=== PATIENT | female | born 1995 | race Caucasian/White ===

== ENCOUNTER 2023-07-17 20:06 | Outpatient (REF) | payer OTHER, SELFPAY ==
[2023-07-23 16:09] LABS: Age Gdln ACOG Testing Note (.); IGP, rfx Aptima HPV ASCU Note (.)
== END 2023-07-17 20:07 | disposition home or self-care (01) ==
LOC: LAB 20:06
PROVIDERS: Visit Provider Physician Assistant
DX: Z01.419 Encounter for gynecological examination (general) (routine) without abnormal findings (principal)
CPT/HCPCS: G0145

== ENCOUNTER 2023-10-08 09:26 | Outpatient (OUT) | payer OTHER, SELFPAY ==
[2023-10-08 10:18] LABS: Chol HDL Ratio 2.5; Cholesterol 166 mg/dL (<=200); HDL Cholesterol 66 mg/dL (40-60); Triglycerides 62 mg/dL (<=150); VLDL CHOLESTEROL 12.4 mg/dL
[2023-10-08 14:14] LABS: Alanine Aminotransferase 31 U/L (14-59); Albumin Globulin Ratio 0.8; Albumin Level 3.2 g/dL (3.4-5.0); Alkaline Phosphatase 94 U/L (46-116); Aspartate Amino Transferase 15 U/L (15-37); Bilirubin Direct 0.1 mg/dL (0.0-0.2); Bilirubin Total 0.2 mg/dL (0.2-1.0); Total Protein 7.2 g/dL (6.4-8.2)
== END 2023-10-08 09:27 | disposition home or self-care (01) ==
LOC: LAB 09:28
PROVIDERS: Visit Provider Physician Assistant
DX: Z00.00 Encounter for general adult medical examination without abnormal findings (principal); Z79.899 Other long term (current) drug therapy
CPT/HCPCS: 36415; 80061; 80076

== ENCOUNTER 2025-07-25 20:12 | Outpatient (REF) | payer OTHER, SELFPAY ==
--- OUTSIDE RECORDS SUMMARY | 2024-08-12 11:49 | XMS_ITS ---
Author Organization [facility] in [place] Address [address] [place] [address] Care Team Providers Care Ballistics Tester Name Role Phone None, Unknown or Primary Care Provider Unavailab Ender Mcleod [phone] REASON FOR VISIT Called about CPAP supplies Encounters Encounter Location Date Provider Diagnosis [facility] [place] [address] [facility] [address] [place] [address] 08/12/2024 Ender Shrestha Plan Of Treatment No Information Progress Notes * Merline MOHR NDOB:[birth year] (29 yo F)Acc No.[id number]:08/12/2024 Patient: Merline TEIXEIRA :1995 A ge:29 Y S ex:Female Address:[address] [place] [address], [address] * true * Date: Generated for Thomasi nam/Lola/eTransmitting on: 0 07/25/2025 08:33 AM EDT
--- OUTSIDE RECORDS SUMMARY | 2025-05-09 08:00 | XMS_ITS ---
Author Organization [facility] [place] Address [address] [place] [address] Care Team Providers Care Housekeeping Aid Name Role Phone Camron Fried Primary Care Provider Unavaila ERIK Marroquin Unavailable [phone] DEBORAH SMALL Unavailable [phone] REASON FOR VISIT 6 month f/u RALPH Encounters Encounter Location Date Provider Diagnosis [facility] [place] [address] [address] 05/09/2025 DEBORAH SMALL Plan Of Treatment No Information Progress Notes * Merline CARTER NDOB:[birth year] (29 yo F)Acc No.[id number]:05/09/2025 Progress Notes Patient: David MCKEONELVINCollinsMerline N Provider: АНДРЕЙ Servin :1995 A ge:29 Y S ex:Female Date:05/09/2025 Address:[address] [place], [place] [id number] Pcp:Camron Fried Subjective: * Chief Complaints: * 1 . 6 month f/u RALPH. * Medical History: Objective: * Vitals: Assessment: Plan: * Treatment: * Billing Information: * Visit Code: * Procedure Codes: * Electronic signature of SOCO SMALL NP on 07/25/2025 at 08:16 PM EDT Sign off status: Pending * Provider: АНДРЕЙ Servin Date: 05/09/2025 Generated for Printi ng/Faxing/eTransmitting on: 0 07/25/2025 08:16 PM EDT
--- OUTSIDE RECORDS SUMMARY | 2025-07-25 15:30 | XMS_ITS | Encounter Summary ---
Author Organization [facility] Address [address] [place] [address] Care Team Providers Care It Operations Specialist Name Role Phone Unavailable Primary Care Provider Unavailabl e Reason for Visit * Reason Comments Gynecologic Exam Pre-op Visit Encounter Details Date Type Department Care Team (Latest Contact Info) Description 07/25/2025 3:30 PM EDT Procedure Visit [facility] [address] [place] [address] Buzz Deng DO [address] [place], [facility] Well woman exam with routine gynecological exam; Pre-op examination; Request for sterilization Social History Tobacco Use Types Packs/Day Years Used Date Smoking Tobacco: Never Smokeless Tobacco: Never Alcohol Use Standard Drinks/Week Comments Never 0 (1 standard drink = 0.6 oz pur e alcohol) Comments No Sex and Gender Information Value Date Recorded Sex Assigned at Female 04/23/2023 9:44 AM EDT Legal Sex Female 9:50 PM EDT Gender Identity Female 04/23/2023 9:44 AM EDT Sexual Orientation Straight 04/23/2023 9: 44 AM EDT documented as of this encounter Last Filed Vital Signs Vital Sign Reading Time Taken Comments Blood Pressure 122/74 07/25/2025 4:11 PM EDT Pulse - - Temperature - - Respiratory Rate - - Oxygen Saturation - - Inhaled Oxygen Concentration - - Weight 76.7 kg (169 lb) 07/25/2025 4:11 PM EDT Height 162.6 cm (5' 4 ) 07/25/2025 4:11 PM EDT Body Mass Index 29.01 07/25/2025 4:11 PM EDT documented in this encounter Plan of Treatment Upcoming Encounters Date Type Department Care Team (Late st Contact Info) Description 08/25/2025 3:30 PM EDT Office [facility] [address] [facility] [address] [place] [address] No Mclaughlin NP [address] [place] [address] Scheduled Orders Name Type Priority Associated Diagnoses Orde r Schedule Pap Smear Pathology and Cytology Routine Well woman exam with routine gynecological exam Ordered: 07/25/2025 HPV DNA probe, amplified Microbiology Routine Well woman exam with routine gynecological exam Ordered: 07/25/2025 documented as of this encounter Visit Diagnoses Diagnosis Well woman exam with routine gynecological exam Routine gynecological examination Pre-op examination Request for sterilization documented in this encounter
--- OUTSIDE RECORDS SUMMARY | 2025-07-25 20:16 | XMS_ITS | Clinical Summary ---
Author Organization [facility] Address [address] [place] [address] Care Team Providers Care Administrative Receptionist Name Role Phone Unavailable Primary Care Provider Unavailabl e Allergies Active Allergy Reactions Criticality Noted Date Comments Citalopram Unknown 09/03/2019 Lurasidone Unknown 09/03/2019 Other 10/19/2020 Other Reaction(s): Suicidal Quetiapine 10/08/2023 Medications clonazePAM (KlonoPIN) 1 MG tablet Take 1 mg by mouth in the morning. Active escitalopram (Lexapro) 20 MG tablet Take 20 mg by mouth in the morning. 04/05/20 23 Active ziprasidone (Geodon) 60 MG capsule TAKE 1 CAPSULE BY MOUTH TWICE DAILY WITH FOOD 04/05/20 23 Active benztropine (Cogentin) 1 MG tablet Take 1 mg by mouth at bedtime. 05/04/20 23 Active buPROPion XL (Wellbutrin XL) 300 MG 24 hr tablet Take 300 mg by mouth Daily Do not crush, chew, or split. Active buPROPion XL (Wellbutrin XL) 150 MG 24 hr tablet Wellbutrin XL 025 Discontinued buPROPion XL (Wellbutrin XL) 150 MG 24 hr tablet Take 150 mg by mouth in the morning. 03/04/20 025 Discontinued hydrOXYzine pamoate (Vistaril) 25 MG capsule Take 25 mg by mouth in the morning and 25 mg in the evening and 25 mg before bedtime. 04/05/20 025 Discontinued OXcarbazepine (Trileptal) 300 MG tablet Take 300 mg by mouth in the morning and 300 mg before bedtime. 04/05/20 23 025 Discontinued phentermine (Adipex-P) 37.5 MG tablet 1 (one) time each day at the same time. 03/27/20 23 025 Discontinued norethindrone (Maria Luisa-BE) 0.35 MG tabletIndicati ons: control counseling Take 1 tablet (0.35 mg) by mouth in the morning. 28 tablet 12 01/19/20 24 025 Discontinued spironolactone (Aldactone) 25 MG tabletIndicati ons:PCOS (polycystic ovarian syndrome) Take 2 tablets (50 mg) by mouth Daily 60 tablet 11 02/12/20 24 024 Discontinued(Ot her) Adapalene-Santosh oyl Peroxide 0.1-2.5 % gelIndications :Acne, unspecified acne type Apply pea-size amount to T-zone, chin and problem areas nightly. 45 g 3 02/12/20 24 025 Discontinued Adapalene-Santosh oyl Peroxide 0.1-2.5 % gelIndications :Acne, unspecified acne type Apply pea-size amount to T-zone, chin and problem areas nightly. 45 g 2 02/12/20 24 025 Discontinued metFORMIN XR (Glucophage-XR ) 500 MG 24 hr tabletIndicati ons:Insulin resistance TAKE 2 TABLETS BY MOUTH IN THE EVENING WITH MEALS 60 tablet 3 09/27/20 24 025 Discontinued Active Problems Problem Noted Date Diagnosed Date Request for sterilization 06/27/2025 Bipolar disorder with depression 07/17/2023 Hormone imbalance 07/17/2023 Obesity 07/17/2023 Pelvic pain 07/17/2023 Polycystic ovaries 07/17/2023 Anxiety 07/17/2023 Abnormal uterine bleeding 07/17/2023 Encounters Date Type Department Care Team Description 07/25/2025 3:30 PM EDT Procedure Visit [facility] [address] [place] [address] Buzz Deng, Well woman exam with routine gynecological exam; Pre-op examination; Request for sterilization 06/27/2025 3:10 PM EDT Office Visit [facility] [address] [place] [address] Buzz Deng DO Request for sterilization 06/27/2025 Bamboo flowsheet [facility] [address] [place] [address] Buzz Deng DO 06/27/2025 Travel from Last 3 Months Family History Medical History Relation Name Comments Heart disease Maternal Grandfather Heart disease Maternal Grandmother Cancer Mother Heart disease Mother Hypertension Mother Relation Name Status Comments Maternal Grandfather Maternal Grandmother Mother Paternal Grandfather Paternal Grandmother Social History Tobacco Use Types Packs/Day Years Used Date Smoking Tobacco: Never Smokeless Tobacco: Never Tobacco Cessation:Counseling Given: Not Answered Alcohol Use Standard Drinks/Week Comments Never 0 (1 standard drink = 0.6 oz pur e alcohol) Comments No Sex and Gender Information Value Date Recorded Sex Assigned at Female 04/23/2023 9:44 AM EDT Legal Sex Female 9:50 PM EDT Gender Identity Female 04/23/2023 9:44 AM EDT Sexual Orientation Straight 04/23/2023 9: 44 AM EDT Last Filed Vital Signs Vital Sign Reading Time Taken Comments Blood Pressure 122/74 07/25/2025 4:11 PM EDT Pulse - - Temperature - - Respiratory Rate - - Oxygen Saturation - - Inhaled Oxygen Concentration - - Weight 76.7 kg (169 lb) 07/25/2025 4:11 PM EDT Height 162.6 cm (5' 4 ) 07/25/2025 4:11 PM EDT Body Mass Index 29.01 07/25/2025 4:11 PM EDT Plan of Treatment Upcoming Encounters Date Type Department Care Team (Late st Contact Info) Description 08/25/2025 3:30 PM EDT Office Visit [facility] [address] [place] [address] No Mclaughlin NP [address] [place] [address] Insurance MEDICAID
--- OUTSIDE RECORDS SUMMARY | 2025-07-25 20:16 | XMS_ITS | Patient Health Record ---
Author Organization [facility] Address [address] [facility] [address] [facility] [place] [address] Care Team Providers Care Pulper Operator Name Role Phone Zakiya Gunn Primary Care Provider Allergies Allergen (clinical drug ingredient) Drug/Non Drug Allergy documented on EMR Reaction Allergy Type Onset Date Status Citalopram & Diet Manage Prod Suicidal Drug Allergy Active Results Component Value Reference Range Notes ECG 12 lead ECG Reviewed date:09/18/2024 08:26:06 AM Interpretation: Performing Lab: Notes/Report: [facility] Main [address] [address] Electrocardiograph Report Signed Patient: Jaerd Crespo MR#: [id number] : 1995 Acct:[id number] Age/Sex: 29 / F ADM Date: 09/17/24 Loc: Room: Type: [facility] Attending Dr: Zakiya Gunn [employer]ARD SAW [employer]NER-C Ordering Provider: Zakiya Gunn Date of Service: 09/17/24 ECG/ECG 12 lead ECG: Preoperative clearance Copies to: Test Reason : Blood Pressure : */* mmHG Vent. Rate : 95 BPM Atrial Rate : 95 BPM P-R Int : 142 ms QRS Dur : 82 ms QT Int : 346 ms P-R-T Axes : -3 -27 8 degrees QTcB Int : 434 ms Normal sinus rhythm Normal ECG When compared with ECG of 15-Apr-2021 09:04, QRS axis shifted left Confirmed by SYLVIA SUE [facility], NILDA ([id number]) on 09/17/2024 5:22:13 PM Referred By: Electronically Signed By: NILDA PRASAD MD [facility] Transcribed By: MUS Signed By Nilda Prasad MD, [facility] 09/17/24 1722 Reason For Referral No Information Medications Medication SIG (Take, Route, Frequency, Duration) Notes Start Date End Date Status Benztropine Mesylate 1 MG 1 tablet Orally Once a day Active hydrOXYzine Pamoate 25 MG 1 capsule Orally Twice per day Active Lexapro 20 MG 1 tablet Orally Once a day Active Adapalene-Benzoyl Peroxide 0.1-2.5 % 1 application after washing Externally Once a day Active Geodon 60 MG 1 capsule with food Orally Twice a day Active metFORMIN HCl ER 500 MG 2 tablets Oral Once a day; Duration: 30 days Active metFORMIN HCl ER 500 MG TAKE 2 TABLETS BY MOUTH IN THE EVENING WITH MEALS Oral; Duration: 30 Days [id number],Unavai lable Active Biotin 10 MG 1 tablet Orally Once a day Active Spironolactone 50 MG 1 tablet Orally Once a day Active Norethindrone 0.35 MG 1 tablet Oral Once a day; Duration: 28 days Active OXcarbazepine ER 150 MG 3 tablets on an empty stomach Orally Once a day Active KlonoPIN 0.5 MG 1 tablet Orally Once a day PRN Not-Taking buPROPion HCl ER (XL) 300 MG 1 tablet in the morning Orally Once a day Active Immunizations Vaccine Route Administration Date Status Comme nts zzz do not use Adult flu Unknown 01/24/2017 Refused zzz do not use Adult flu Unknown 09/09/2017 Refused Social History Tobacco Use: Social History Observation Description Date Details (start date - stop date) Former Smoker NA - NA Tobacco Screen: Question Answer Notes Are you a: former smoker How long has it been since you last smoked? 1-5 years Sexual Hx: Question Answer Notes Had sex in the last 12 months (vaginal, oral, or anal)? Yes Have you ever had an STD? No Alcohol Screening: Question Answer Notes Did you have a drink contain ing alcohol in the past year? Yes How often did you have a dri nk containing alcohol in the past year? Monthly or less (1 point) How many drinks did you have on a typical day when you were drinking in the past year? 1 or 2 (0 points) How often did you have six o r more drinks on one occasion in the past year? Less than monthly (1 point) Points 2 Interpretation Negative Section Notes: Denies tobacoo, alcohol, ill icit drug use. Lives with parents. At [facility], March 2012. 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 Denies tobacoo, alcohol, illicit drug use. Lives with parents. At [facility], March 2012. 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 09-14-12: denies tobacco use. Denies ETOH. Denies illegal drug use. Denies tobacoo, alcohol, ill icit drug use. Lives with parents. At [facility], March 2012. 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 Denies tobacoo, alcohol, ill icit drug use. Lives with parents. At [facility], March 2012. 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 Denies tobacoo, alcohol, illicit drug use. Lives with parents. At [facility], March 2012. 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 09-14-12: denies tobacco use. Denies ETOH. Denies illegal drug use. Denies tobacoo, alcohol, illicit drug use. Lives with parents. At [facility], March 2012. 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 09-14-12: denies tobacco use. Denies ETOH. Denies illegal drug use. Denies tobacoo, alcohol, illicit drug use. Lives with parents. At [facility], March 2012. 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 09-14-12: denies tobacco use. Denies ETOH. Denies illegal drug use. Denies tobacoo, alcohol, illicit drug use. Lives with parents. At [facility], March 2012. 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 09-14-12: denies tobacco use. Denies ETOH. Denies illegal drug use. Denies tobacoo, alcohol, illicit drug use. Lives with parents. At [facility], March 2012. 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 09-14-12: denies tobacco use. Denies ETOH. Denies illegal drug use. Denies tobacoo, alcohol, illicit drug use. Lives with parents. At [facility], March 2012. 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 09-14-12: denies tobacco use. Denies ETOH. Denies illegal drug use. Denies tobacoo, alcohol, ill icit drug use. Lives with parents. At [facility], 2011. 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 Denies tobacoo, alcohol, ill icit drug use. Lives with parents. At [facility], March 2012. 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 Denies tobacoo, alcohol, ill icit drug use. Lives with parents. At [facility], March 2012. 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 Denies tobacoo, alcohol, illicit drug use. Lives with parents. At [facility], March 2012. 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 09-14-12: denies tobacco use. Denies ETOH. Denies illegal drug use. Denies tobacoo, alcohol, illicit drug use. Lives with parents. At [facility], March 2012. 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 09-14-12: denies tobacco use. Denies ETOH. Denies illegal drug use. Denies tobacoo, alcohol, illicit drug use. Lives with parents. At [facility], March 2012. 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 09-14-12: denies tobacco use. Denies ETOH. Denies illegal drug use. Denies tobacoo, alcohol, illicit drug use. Lives with parents. At [facility], March 2012. 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 09-14-12: denies tobacco use. Denies ETOH. Denies illegal drug use. 06/29/15: Denies tobacco, ETOH and illegal drug used. 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 Denies tobacoo, alcohol, illicit drug use. Lives with parents. At [facility], graduates MARCH 2012. 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 09-14-12: denies tobacco use. Denies ETOH. Denies illegal drug use. 06/29/15: Denies tobacco, ETOH and illegal drug used. 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 Denies tobacoo, alcohol, illicit drug use. Lives with parents. At [facility], graduates [employer]ARCH 2012. 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 09-14-12: denies tobacco use. Denies ETOH. Denies illegal drug use. 06/29/15: Denies tobacco, ETOH and illegal drug used. 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 Denies tobacoo, alcohol, illicit drug use. Lives with parents. At [facility], graduates [employer]ARCH 2012. 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 09-14-12: denies tobacco use. Denies ETOH. Denies illegal drug use. 06/29/15: Denies tobacco, ETOH and illegal drug used. 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 Denies tobacoo, alcohol, illicit drug use. Lives with parents. At [facility], graduates [employer]ARCH 2012. 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 09-14-12: denies tobacco use. Denies ETOH. Denies illegal drug use. Problems Problem Type SNOMED Code ICD Code Onset Dates Problem Status W/U Status Risk Notes Problem Obesity (E66.9) Active confirmed Problem Morbid obesity (481959130) Morbid obesity (E66.01) Active confirmed Problem Bipolar disorder (24601590) Bipolar disorder (F31.9) Active confirmed Vital Signs Heart Rate 100 /min 01/28/2025 Temperature 97.8 degrees Fahrenheit 01/28/2025 Respiratory Rate 20 /min 01/28/2025 Oximetry 94 % 01/28/2025 Blood pressure diastolic 78 mm Hg 01/28/2025 Height 63 in 01/28/2025 Blood pressure systolic 116 mm Hg 01/28/2025 Weight 233.2 lbs 01/28/2025 BMI 41.31 kg/m2 01/28/2025 Encounters Encounter Location Date Provider Diagnosis [facility] [address] [place] [address] 08/10/2024 Zakiya Ortizson [facility] [address] [place] [address] 08/20/2024 Zakiya Gunn Preoperative clearance Z01.818 [place] [address] [place] [address] 08/30/2024 Zakiya Gunn [place] [address] [place] [address] 09/18/2024 Zakiya Gunn [place] [address] [place] [address] 11/29/2024 Zakiya Gunn [place] [address] [place] [address] 12/02/2024 Zakiya Luis A [facility] [address] [place] [address] 01/19/2025 Zakiya Gunn [place] [address] [place] [address] 01/31/2025 Zakiya Gunn [facility] [address] [place] [address] 07/30/2024 Zakiya Luis A Pre-op evaluation Z01.818 and Morbid obesity E66.01 [facility] [address] [place] [address] 01/28/2025 Zakiya Luis A Preoperative clearance Z01.818 ; Morbid obesity E66.01 and control counseling Z30.09 Assessments Encounter Date Diagnosis (ICD Code) Assessment Notes Treatment Notes Treatment Clinical Notes Section Notes 07/30/2024 Morbid obesity (ICD-10 - E66.01) Pt does have plans to have bariatric surgery. 07/30/2024 Pre-op evaluation (ICD-10 - Z01.818) Pending testing and cardiology, pulm consults, patient is currently medically stable and low medical risk for surgery. Discussed avoiding blood thinners such as aspirin, fish oils for 7 days prior to surgery. Also discussed risk of infection, and that all surgeries come with inherent risk that we cannot predict. Notify surgical team of any chest pain, stroke signs, worsening shortness of breath after seeking emergency care for said conditions. Instructed in cough and deep breathing. Encouraged to avoid tobacco smoke as this increases risk for lung complications. Encouraged to report to surgical team and PCP should patient develop URI symptoms of other illness close to scheduled procedure. 08/20/2024 Preoperative clearance (ICD-10 - Z01.818) 01/28/2025 Morbid obesity (ICD-10 - E66.01) Pt requests for BOARD SAW RUNNER to take over prescribing her metformin and control. 01/28/2025 Preoperative clearance (ICD-10 - Z01.818) Patient is currently medically stable and low medical risk for surgery. Discussed avoiding blood thinners such as aspirin, fish oils for 7 days prior to surgery. Also discussed risk of infection, and that all surgeries come with inherent risk that we cannot predict. Notify surgical team of any chest pain, stroke signs, worsening shortness of breath after seeking emergency care for said conditions. Instructed in cough and deep breathing. Encouraged to avoid tobacco smoke as this increases risk for lung complications. Encouraged to report to surgical team and PCP should patient develop URI symptoms of other illness close to scheduled procedure. 01/28/2025 control counseling (ICD-10 - Z30.09) Will take over scripts but has to remain UTD with paps. Appears due in Jul 25. Plan Of Treatment No Information Insurance Providers Payer Name Payer Address Payer Phone Subscriber Number Group Number Insured Name Patient Relationship to Insured Coverage Start Date Coverage End Date [place] [employer] [address] [address] [place] [address] [id number] YEN FloydJARED Self - patient is the insured 3 [employer] [place] [address] [place] [address] [id number] YEN FloydJARED Self - patient is the insured 3 [facility] [address] [address] [place] [address] [id number] LAMONTEPATRICIABRANDON JARED Floyd Self - patient is the insured 9 [facility] [place] [facility] rmed [address] [place] [address] [id number] ANUPAMABRANDON FloydJARED Self - patient is the insured 9 3 [employer] [place]-term ed [address] [address] [place] [address] [id number] ANUPAMABRANDON JARED Floyd Self - patient is the insured [facility] after [place]-term ed [address] [place] [address] [id number] ANUPAMABRANDON JARED Floyd Self - patient is the insured 0 Medical (General) History Medical History History ICD Code RT LOWER LEG DVT. 04/17/12 Depression Factor IV Leiden D/O Morbid Obesity PCOS Hospitalization History Reason Date(Month/Year) bipolar bipolar R LE DVT -> 6 months of anticoagulatoin 03/2012
--- OUTSIDE RECORDS SUMMARY | 2025-07-25 20:16 | XMS_ITS | Encounter Summary ---
Author Organization [facility] Address [address] [place] [address] Care Team Providers Care Drafter Mechanical Name Role Phone Unavailable Primary Care Provider Unavailabl e Encounter Details Date Type Department Care Team (Late Contact Info) Description 04/23/2023 Abstract NOM[facility]na BEYER [address] [place] [address] Raquel Narvaez PA [address] [place], [facility] Social History Tobacco Use Types Packs/Day Years Used Date Smoking Tobacco: Never Smokeless Tobacco: Never Tobacco Cessation:Counseling Given: Not Answered Alcohol Use Standard Drinks/Week Comments Never 0 (1 standard drink = 0.6 oz pur e alcohol) Comments Unknown Sex and Gender Information Value Date Recorded Sex Assigned at Female 04/23/2023 9:44 AM EDT Legal Sex Female 9:50 PM EDT Gender Identity Female 04/23/2023 9:44 AM EDT Sexual Orientation Straight 04/23/2023 9: 44 AM EDT documented as of this encounter Plan of Treatment Upcoming Encounters Date Type Department Care Team (Late Contact Info) Description 08/25/2025 3:30 PM EDT Office Visit [facility] BEY[facility] [address] [place] [address] No Mclaughlin, GURPREET [address] [place] [address] documented as of this encounter Visit Diagnoses Not on filedocumented in this encounter
--- OUTSIDE RECORDS SUMMARY | 2025-07-25 20:16 | XMS_ITS | Encounter Summary ---
Author Organization [facility] Address [address] [facility] [place] [address] Care Team Providers Care Cake Winder Name Role Phone Unavailable Primary Care Provider Unavailabl e Encounter Details Date Type Department Care Team (Late st Contact Info) Description 05/13/2024 Abstract LELO BEYER [address] [place] [address] Zaria Lakhani LPN Social History Tobacco Use Types Packs/Day Years [...] Office Visit LELO BEYER [address] [place] [address] No Mclaughlin NP [address] [place] [address] documented as of this encounter Visit Diagnoses Not on filedocumented in this encounter
--- OUTSIDE RECORDS SUMMARY | 2025-07-25 20:17 | XMS_ITS | CCD ---
Author Organization [facility] Care Team Providers Care Instructor Knitting Name Role Phone Natividad Kessler Primary Care Provider Ashley Judy Sim Attending Provider Unavailable Chuy Meeks Admit Provider Unavailfrancine e Chuy Meeks Attending Provider Unavail able Navin Hinson Attending Provider Unavailable PIPPA BE Attending Unavailable ISH, DR MINOR Attending Unavailable MISC, DR PANTOJA Primary Care Unavailable ISH, DR MINOR Admitting Unavailable ISH, DR MINOR Consulting Unavailable MISC, DR PANTOJA Primary Care Unavailable ISH, DR IMNOR Admitting Unavailable ISH, DR MINOR Attending Unavailable Paramjit Jaimes Unavailable Vanessa Sinclair Unavailable BRIDGET Kessler Primary Care Provide r BRIDGET Montoya Emergency Provider TRISHA ABBOTT Attending Unavailable TRISHA ABBOTT Referring Unavailable NONE, NONE Primary Care Unavailable TRISHA ABBOTT Attending Unavailable TRISHA ABBOTT Referring Unavailable NONE, NONE Primary Care Unavailable TRISHA ABBOTT Attending Unavailable TRISHA ABBOTT Referring Unavailable NONE, NONE Primary Care Unavailable TRISHA ABBOTT Attending Unavailable TRISHA ABBOTT Referring Unavailable NONE, NONE Primary Care Unavailable TRISHA ABBOTT Referring Unavailable NONE, NONE Primary Care Unavailable BRIDGET Kessler Primary Care Provide r MD John Meeks Attending Provider GENEVIEVE Gunn Primary Care Provider GENEVIEVE Gunn Attending Pr ovider Zakiya Gunn Attending U oliverable Gunn, Zakiya Cervantes Primary Care U navailable Gunn, Zakiya Cervantes Admitting U navailable 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, Zakiya Primary Care Prov ider None, None Primary Care Provider UnavailALYCIA Alejandro Referring Unavailable GUNN, ZAKIYA Primary Care Unavailable ABBOTTTRISHA R Attending Unavailable ABBOTT, TRISHA R Admitting Unavailable GUNN, ZAKIYA Primary Care Unavailable ABBOTT, TRISHA R Admitting Unavailable ABBOTT, TRISHA R Attending Unavailable GUNN, ZAKIYA Primary Care Unavailable ABBOTT, TRISHA R Referring Unavailable GUNN, ZAKIYA Primary Care Unavailable ABBOTT, TRISHA R Referring Unavailable GUNN, ZAKIYA Primary Care Unavailable ABBOTT, TRISHA R Referring Unavailable GUNN, ZAKIYA Primary Care Unavailable ABBOTT, TRISHA R Referring Unavailable GUNN, ZAKIYA Primary Care Unavailable Gunn, Zakiya Primary Care Unavailable ALYCIA WANG Attending Unavailable KATHLEEN, ALYCIA Admitting Unavailable Myerholtz, Natividad K Primary Care Unavailab le ALYCIA WANG Attending Unavailable ALYCIA WANG Admitting Unavailable GENEVIEVE Medina Attending Unavailable GENEVIEVE Medina Admitting Unavailable Provider, None Primary Care Unavailable Mariella Clinton PA-C Admitting Unavailable Gunn, Zakiya Primary Care Unavailable Mariella Clinton PA-C Attending Unavailable Bel Coelho Attending Bel Zaldivar Admitting Unaspring mcdonald Provider, None Primary Care Unavailable Unavailable Primary Care Provider UnavailBUZZ Alfredo Attending Unavailable Unavailable Unavailable Unavailable Allergies Allergy Classification Reported Allergen(s) Allergy Type Date of Onset Reaction(s) Facility (20 sources) Citalopram; Translations: [citalopram] Drug Allergy 9 Other (See Comments), Unknown [facility] (17 sources) lurasidone Drug Allergy 9 Other (See Comments), Unknown [facility] (3 sources) Citalopram; Translations: [CeleXA] Drug Allergy 7 [facility] (2 sources) lurasidone; Translations: [Latuda] Drug Allergy [facility] (7 sources) lurasidone Drug Allergy 2 Unknown [facility] (15 sources) QUEtiapine Drug Allergy 1 Other (See Comments) [facility] (1 source) Citalopram & Diet Manage Prod Allergy to substance 2 suicidal [facility] (1 source) QUEtiapine; Translations: [SEROquel] Drug Allergy [facility] (3 sources) Other Allergy to substance 0 [facility] Medications Current Medications Medication Drug Class(es) Dates Sig (Normalized) Sig (Original) acetaminophen 325 mg / oxyCODONE hydrochloride 5 mg oral tablet (3 sources) Opioid Agonist Start: 02-17-2025 End: 02-22-2025 oxyCODONE-acetamino phen (PERCOCET) 5-325 MG per tablet Indications: S/P laparoscopic sleeve gastrectomy , Post-op pain Take 1 tablet by mouth every 6 hours as needed for Pain for up to 5 days. Max Daily Amount: 4 tablets 20 tablet 02/17/2025 02/22/2025 Active Start: 02-16-2025 oxyCODONE-acet aminophen (PERCOCET) 5-325 MG per tablet 1 tablet amoxicillin 875 mg / clavulanate 125 mg oral tablet (2 sources) Penicillin-class Antibacterial Start: 07-28-2023 take 1 tablet by mouth twice daily Amoxicillin-Pot Clavulanate Active 1 TAB PO Twice daily July 28, 2023 12:00am benztropine mesylate 1 mg oral tablet (20 sources) Anticholinergic, Antihistamine Start: 05-04-2023 take 1 tablet by mouth at bedtime benztropine (Cogentin) 1 MG tablet Take 1 mg by mouth at bedtime. 05/04/2023 Active Start: 04-08-2021 End: 08-11-2021 take 1 tablet by mouth once daily benztropine (COGENTIN) 1 MG tablet Take 1 tablet by mouth nightly 60 tablet 05/15/2021 Active 24 hr buPROPion hydrochloride 150 mg extended release oral tablet (20 sources) Aminoketone Start: 03-04-2023 End: 06-27-2025 take 1 tablet by mouth every twenty-four hours in the morning buPROPion XL (Wellbutrin XL) 150 MG 24 hr tablet Take 150 mg by mouth in the morning. 03/04/2023 Active Start: 08-11-2021 take 150 mg by mouth once daily in the morning Bupropion Hcl Active 150 MG PO Every morning 14 August 11, 2021 12:00am Start: 03-12-2018 End: 07-29-2018 take 300 mg by mouth once daily in the morning Bupropion Hcl Discontinued 300 MG PO Every morning March 12, 2018 12:00am July 29, 2018 10:23pm Start: 01-13-2018 End: 08-07-2018 take 150 mg by mouth once daily in the morning Bupropion Hcl Discontinued 150 MG PO Every morning January 13, 2018 1:00am August 07, 2018 8:41am busPIRone hydrochloride 10 mg oral tablet (20 sources) Start: 08-11-2021 take 10 mg by mouth three times daily Buspirone Active 10 MG PO Three times daily 42 August 11, 2021 12:00am Start: 07-31-2021 End: 08-11-2021 take 10 mg by mouth three times daily Buspirone Discontinued 10 MG PO Three times daily July 31, 2021 12:00am August 11, 2021 11:32am Start: 11-28-2017 End: 03-12-2018 take 15 mg by mouth three times daily Buspirone Discontinued 15 MG PO Three times daily January 07, 2018 5:07pm March 12, 2018 11:40am Start: 11-27-2017 End: 11-28-2017 take 1 tablet by mouth twice daily Buspirone Discontinued 1 TAB PO Twice daily November 27, 2017 1:00am November 28, 2017 11:27am take 2 tablets by [facility] every eight hours busPIRone HCl 10 MG 2 tablet Orally tid Active calcium chloride 0.0014 meq/ml / potassium chloride 0.004 meq/ml / sodium chloride 0.103 meq/ml / sodium lactate 0.028 meq/ml injectable solution (1 source) Start: 02-16-2025 IntraVENous, at 125 mL/hr, CONTINUOUS, Starting on Fri02/16/25 at 1715, Post-op cyclobenzaprine hydrochloride 10 mg oral tablet (4 sources) Muscle Relaxant Start: 02-16-2025 End: 02-27-2025 take 1 tablet by mouth three times daily as needed for muscle spasms cyclobenzaprine (FLEXERIL) 10 MG tablet Take 1 tablet by mouth 3 times daily as needed for Muscle spasms 21 tablet 02/17/2025 02/27/2025 Active 1 ml enoxaparin sodium 100 mg/ml prefilled syringe (4 sources) Low Molecular Weight Heparin Start: 02-24-2025 End: 03-17-2025 enoxaparin (LOVENOX) 100 MG/ML Indications: Factor V Leiden mutation Inject 1 mL into the skin 2 times daily for 21 days 42 mL 02/24/2025 03/17/2025 Active Start: 02-17-2025 End: 03-03-2025 enoxaparin (LOVENOX) 60 MG/0 .6ML Inject 0.6 mLs into the skin 2 times daily for 14 days 16.8 mL 02/17/2025 03/03/2025 Active ergocalciferol 1.25 mg oral capsule (3 sources) Provitamin D2 Compound Start: 08-04-2021 Ergocalciferol (Vitamin D2) Active 1250 MCG PO We@0900 5 August 04, 2021 12:00am ondansetron (ZOFRAN-ODT) disintegrating tablet 4 mg (1 source) Start: 02-16-2025 ondansetron (ZOFRAN-ODT) disintegrating tablet 4 mg 1.5 ml paliperidone palmitate 156 mg/ml prefilled syringe (9 sources) Atypical Antipsychotic Start: 05-01-2021 Paliperidone Palmita te (Invega Sustenna) 234 mg/1.5 mL Syringe Active 234 MG IM Q28D@1000 May 01, 2021 12:00am Start: 04-08-2021 End: 05-01-2021 Paliperidone Palmitate (Inve ga Sustenna) 156 mg/mL Syringe Discontinued 156 MG IM Q28D April 08, 2021 12:00am May 01, 2021 11:30am due on 05/03/2021 Start: 11-25-2019 End: 11-29-2019 Paliperidone Palmitate (Inve ga Sustenna) 156 mg/mL syringe Discontinued 156 MG IM EVERY 3 WEEKS November 25, 2019 1:00am November 29, 2019 1:23pm promethazine hydrochloride 25 mg oral tablet (7 sources) Phenothiazine Start: 02-16-2025 take 1 tablet by mouth every six hours as needed for nausea promethazine (PHENERGAN) 25 MG tablet Take 1 tablet by mouth every 6 hours as needed for Nausea 30 tablet 02/17/2025 Active 72 hr scopolamine 0.0139 mg/hr transdermal system (1 source) Anticholinergic Start: 02-16-2025 1 patch, TransDERmal, Administer over 72 Hours, EVERY 72 HOURS, First dose on Fri02/16/25 at 1745, delivers 1 mg over 3 days. Apply patch to hairless area behind the ear., Multiphase Phase of Care Completed/Discontinued Medications Medication Drug Class(es) Dates Sig (Normalized) Sig (Original) acetaminophen 325 mg / HYDROcodone bitartrate 5 mg oral tablet (3 sources) Opioid Agonist Start: 05-20-2021 End: 07-15-2021 take 1 tablet by mouth every four to six hours Hydrocodone-Acetami nophen Discontinued 1 TAB PO EVERY 4-6 HOURS 7 2 May 20, 2021 July 15, 2021 4:31pm adapalene 0.001 mg/mg / benzoyl peroxide 0.025 mg/mg topical gel (11 sources) Retinoid Start: 02-12-2024 End: 06-27-2025 Adapalene-Benzoyl Peroxide 0.1-2.5 % gel Indications: Acne, unspecified acne type Apply pea-size amount to T-zone, chin and problem areas nightly. 45 g 3 02/12/2024 06/27/2025 Discontinued Start: 02-12-2024 End: 01-31-2025 Adapalene-Benzoyl Peroxide 0 .1-2.5 % GEL Apply 1 mL topically daily 02/12/2024 01/31/2025 Discontinued (Therapy completed) albuterol 0.833 mg/ml / ipratropium bromide 0.167 mg/ml inhalation solution (2 sources) Anticholinergic, beta2-Adrenergic Agonist Start: 02-16-2025 take 1 dose by inhalation every six hours as needed, then take 1 dose by inhalation every six hours as needed 1 Dose, Inhalation, EVERY 6 HOURS WHILE AWAKE RESP, First dose on Fri02/16/25 at 2000, Until Discontinued, Initiate RT Bronchodilator Protocol: No, q6 hours and PRN Start: 02-16-2025 End: 02-16-2025 take 1 dose by inhalation once as needed 1 Dose, Inhalation, ONCE PRN, 1 dose, Starting on Fri02/16/25 at 1509, Until Fri02/16/25 at 1643, Shortness of Breath, Wheezing, Initiate RT Bronchodilator Protocol: No, PACU only apixaban 5 mg oral tablet (6 sources) Factor Xa Inhibitor Start: 05-18-2021 End: 05-20-2021 take 2 tablets by mouth twice daily Apixaban (Eliquis) 5 mg tablet Discontinued 10 MG PO Twice daily 27 06May 18, 2021 12:00am May 20, 2021 11:09am Start: 05-18-2021 End: 07-15-2021 take 1 tablet by mouth twice daily Apixaban (Eliquis) 5 mg tablet Discontinued 5 MG PO Twice daily May 18, 2021 12:00am July 15, 2021 4:30pm ARIPiprazole 2 mg oral tablet (3 sources) Atypical Antipsychotic Start: 01-07-2018 End: 01-07-2018 Aripiprazole Discontinued TABLET January 07, 2018 1:00am January 07, 2018 5:11pm asenapine 5 mg sublingual tablet (9 sources) Atypical Antipsychotic Start: 03-12-2018 End: 08-07-2018 Asenapine Maleate (Saphris ([place])) 5 mg Tablet, Sublingual Discontinued 10 MG SUBLINGUAL Bedtime 60 March 12, 2018 12:00am August 07, 2018 8:41am Start: 01-13-2018 End: 07-29-2018 take 1 tablet under the tongue at bedtime Asenapine Maleate (Saphris ([place])) 5 mg tablet, sublingual Discontinued 5 MG SUBLINGUAL Bedtime March 04, 2018 1:20pm July 29, 2018 10:22pm biotin 10 mg oral capsule (3 sources) End: 02-17-2025 Biotin 10 MG CAPS Take by mouth 02/17/2025 Discontinued (Stop Taking at Discharge) brexpiprazole 2 mg oral tablet (3 sources) Atypical Antipsychotic Start: 09-03-2019 End: 09-07-2019 take 1 tablet by mouth once daily Brexpiprazole (Rexulti) 2 mg Tablet Discontinued 2 MG PO Daily September 03, 2019 12:00am September 07, 2019 9:30am ceFAZolin (ANCEF) 3000 mg in sterile water 30 mL IV syringe (1 source) Start: 02-16-2025 End: 02-17-2025 3,000 mg, IntraVENous, at 180 mL/hr, Administer over 10 Minutes, EVERY 8 HOURS, First dose on Fri02/16/25 at 2145, For 2 doses, Administer over 5 mins. cholecalciferol 0.05 mg oral tablet (4 sources) Vitamin D Start: 11-25-2019 End: 03-14-2021 take 2000 [IU] by mouth once daily Cholecalciferol (Vitamin D3) Discontinued 2000 UNIT PO Daily November 25, 2019 1:00am March 14, 2021 4:48pm clonazePAM 0.5 mg oral tablet (20 sources) Benzodiazepine Start: 02-16-2025 take 0.5 mg by mouth every twelve hours as needed 0.5 mg, Oral, EVERY 12 HOURS PRN, Starting on Fri02/16/25 at 2315, Until Discontinued, Anxiety Start: 07-15-2021 take 0.5 mg by mouth once jewel y Clonazepam Active 0.5 MG PO Daily July 15, 2021 12:00am Start: 11-25-2019 End: 03-14-2021 take 1 mg by mouth twice daily Clonazepam Discontinued 1 MG PO Twice daily 0 November 29, 2019 1:23pm March 14, 2021 4:47pm Start: 07-29-2018 End: 09-07-2019 take 1 tablet by mouth once daily Clonazepam (Klonopin) 1 mg tablet Discontinued 1 MG PO Daily July 29, 2018 12:00am September 07, 2019 9:30am doxepin hydrochloride 10 mg oral capsule (3 sources) Tricyclic Antidepressant Start: 08-07-2018 End: 09-03-2019 take 10 mg by mouth three times daily Doxepin Discontinued 10 MG PO Three times daily August 07, 2018 12:00am September 03, 2019 6:17pm escitalopram 10 mg oral tablet (19 sources) Serotonin Reuptake Inhibitor Start: 02-16-2025 take 20 mg by mouth once daily 20 mg, Oral, DAILY, First dose (after last modification) on Fri02/16/25 at 2300, Until Discontinued Start: 04-05-2023 take 1 tablet by tracy th in the morning escitalopram (Lexapro) 20 MG tablet Take 20 mg by mouth in the morning. 04/05/2023 Active take 1 tablet by tracy th every twenty-four hours Lexapro 10 MG 1 tablet Orally Once a day Active gabapentin 600 mg oral tablet (3 sources) Anti-epileptic Agent Start: 03-12-2018 End: 07-29-2018 take 600 mg by mouth three times daily Gabapentin Discontinued 600 MG PO Three times daily 90 March 12, 2018 12:00am July 29, 2018 10:27pm 1 ml heparin sodium, porcine 5000 unt/ml prefilled syringe (2 sources) Unfractionated Heparin, Anti-coagulant Start: 02-16-2025 End: 02-17-2025 inject 1 dose by subcutaneous injection three times daily 5,000 Units, SubCUTAneous, EVERY 8 HOURS SCHEDULED (3 times per day), First dose on Fri02/16/25 at 2200, Until Discontinued Start: 02-16-2025 End: 02-16-2025 inject 1 dose by subcutaneous injection once daily 5,000 Units, SubCUTAneous, ONCE, 1 dose, On Fri02/16/25 at 1100, Pre-op (day of surgery) 1 ml HYDROmorphone hydrochloride 1 mg/ml cartridge (2 sources) Opioid Agonist Start: 02-16-2025 1 mg, IntraVEN ous, EVERY 3 HOURS PRN, Starting on Fri02/16/25 at 1646, Until Discontinued, Pain Moderate (4-6), allowed for higher pain score per patient request, Pain Severe (7-10), If oral and IV narcotics ordered, use oral first and only use IV if oral is ineffective or cannot take oral. Do Not give oral and IV within 1 hour of each other unless specifically ordered., Post-op Start: 02-16-2025 End: 02-16-2025 0.5 mg, IntraVENous, EVERY 5 MIN PRN, 4 doses, Starting on Fri02/16/25 at 1509, Until Fri02/16/25 at 1703, Pain Severe (7-10), For Phase I. If Phase II oral narcotics have been administered in the last 60 minutes, do not administer IV narcotics unless specifically approved by provider., PACU only hydrOXYzine pamoate 25 mg oral capsule (20 sources) Antihistamine Start: 08-06-2021 End: 06-27-2025 take 1 capsule by mouth in the morning, then take 1 capsule by mouth in the evening, then take 1 capsule by mouth at bedtime hydrOXYzine pamoate (Vistaril) 25 MG capsule Take 25 mg by mouth in the morning and 25 mg in the evening and 25 mg before bedtime. 04/05/2023 06/27/2025 Discontinued Start: 07-31-2021 End: 08-11-2021 take 25 mg by mouth three times daily Hydroxyzine Pamoate Active 25 MG PO Three times daily August 11, 2021 11:31am Start: 07-15-2021 End: 07-31-2021 take 50 mg by mouth three times daily Hydroxyzine Hcl Discontinued 50 MG PO Three times daily July 15, 2021 12:00am July 31, 2021 5:00pm Start: 04-19-2021 End: 07-15-2021 take 50 mg by mouth every six hours Hydroxyzine Pamoate Discontinued 50 MG PO Q6H 60 May 01, 2021 11:30am July 15, 2021 4:31pm Start: 11-29-2019 End: 03-14-2021 take 50 mg by mouth every six hours Hydroxyzine Pamoate Discontinued 50 MG PO Q6H 30 November 29, 2019 1:00am March 14, 2021 4:47pm Start: 11-29-2019 End: 03-14-2021 take 50 mg by mouth every eight hours Hydroxyzine Hcl Discontinued 50 MG PO Q8H November 29, 2019 1:00am March 14, 2021 4:47pm Start: 01-07-2018 End: 01-13-2018 take 25 mg by mouth once daily Hydroxyzine Pamoate Dis continued 25 MG PO Daily January 07, 2018 1:00am January 13, 2018 9:38am take 1 capsule by mo [facility] every eight hours hydrOXYzine Pamoate 25 MG 1 capsule as needed Orally every 8 hrs Active lamoTRIgine 100 mg oral tablet (15 sources) Mood Stabilizer, Anti-epileptic Agent Start: 08-07-2018 End: 09-03-2019 take 50 mg by mouth at bedtime Lamotrigine Discontinued 50 MG PO Bedtime 15 August 07, 2018 12:00am September 03, 2019 6:17pm Start: 03-12-2018 End: 09-03-2019 take 200 mg by mouth at bedtime Lamotrigine Discontinu ed 200 MG PO Bedtime 60 March 12, 2018 12:00am September 03, 2019 6:17pm Start: 03-04-2018 End: 07-29-2018 take 200 mg by mouth once daily Lamotrigine Discontinu ed 200 MG PO Daily March 04, 2018 12:00am July 29, 2018 10:26pm Start: 11-28-2017 End: 03-04-2018 take 200 mg by mouth once daily Lamotrigine Discontinu ed 200 MG PO Daily November 28, 2017 1:00am March 04, 2018 1:21pm Start: 11-27-2017 End: 11-28-2017 take 1 tablet by mouth once daily Lamotrigine Discontinued 1 TAB PO Daily November 27, 2017 1:00am November 28, 2017 11:27am lithium carbonate 600 mg oral capsule (12 sources) Start: 04-08-2021 End: 05-20-2021 take 600 mg by mouth twice daily [place] Carbonate Discontinued 600 MG PO Twice daily 60 May 01, 2021 11:30am May 20, 2021 11:07am Start: 08-07-2018 End: 09-03-2019 take 600 mg by mouth once daily at bedtime [place] Carbonate Discontinued 600 MG PO Daily at bedtime 60 August 07, 2018 12:00am September 03, 2019 6:17pm Start: 08-07-2018 End: 09-03-2019 take 300 mg by mouth twice daily [place] Carbonate Discontinued 300 MG PO Twice Daily at 0700 and 1400 60 August 07, 2018 12:00am September 03, 2019 6:17pm LORazepam 0.5 mg oral tablet (3 sources) Benzodiazepine Start: 03-12-2018 End: 07-29-2018 take 0.5 mg by mouth twice daily Lorazepam Discontinued 0.5 MG PO Twice daily 14 March 12, 2018 12:00am July 29, 2018 10:27pm lurasidone hydrochloride 20 mg oral tablet (3 sources) Atypical Antipsychotic Start: 01-07-2018 End: 01-13-2018 take 1 tablet by mouth once daily Lurasidone (Latuda) 20 mg tablet Discontinued 20 MG PO Daily with supper January 07, 2018 1:00am January 13, 2018 9:38am meclizine hydrochloride 12.5 mg oral tablet (3 sources) Antiemetic Start: 11-25-2019 End: 11-25-2019 Meclizine Discontinued TABLET November 25, 2019 1:00am November 25, 2019 9:11pm 24 hr metFORMIN hydrochloride 500 mg extended release oral tablet (16 sources) Biguanide Start: 09-27-2024 End: 06-27-2025 take 2 tablets by mouth every twenty-four hours at mealtime metFORMIN XR (Glucophage-XR) 500 MG 24 hr tablet Indications: Insulin resistance TAKE 2 TABLETS BY MOUTH IN THE EVENING WITH MEALS 60 tablet 3 09/27/2024 06/27/2025 Discontinued Start: 12-12-2021 End: 02-17-2025 take 1 tablet by mouth at bedtime metFORMIN (GLUCOPHAGE-XR) 500 MG extended release tablet Take 1 tablet by mouth in the morning and at bedtime 12/12/2021 02/17/2025 Discontinued (Stop Taking at Discharge) Start: 12-12-2021 take 1 tablet by tracy th once daily at breakfast metFORMIN (GLUCOPHAGE-XR) 500 MG extended release tablet Take 1 tablet by mouth daily (with breakfast) 0 12/12/2021 Active Start: 12-12-2021 take 2 tablets by mo uth once daily at breakfast metFORMIN HCl ER 500 MG 2 tablets with breakfast Orally Once a day for 30 day(s) Dec, Active 2 ml midazolam 1 mg/ml injection (1 source) Benzodiazepine Start: 02-16-2025 End: 02-16-2025 1 dose, Starting on Fri02/16/25 at 1146, Until Fri02/16/25 at 1148, Mary Lou Lindsey: cabinet override, Mary Lou Lindsey: cabinet override nicotine 2 mg chewing gum (10 sources) Cholinergic Nicotinic Agonist Start: 04-08-2021 End: 05-20-2021 Nicotine (Polacrilex) Discontinued 2 MG BUCCAL Every 2 hours 60 April 19, 2021 12:00am May 20, 2021 11:07am Start: 11-29-2019 End: 03-14-2021 Nicotine Discontinued 1 EACH TRANSDERML Daily 14 November 29, 2019 1:00am March 14, 2021 4:48pm norethindrone 0.35 mg oral tablet (12 sources) Start: 01-19-2024 End: 06-27-2025 take 1 tablet by mouth in the morning norethindrone (Maria Luisa-BE) 0.35 MG tablet Indications: control counseling Take 1 tablet (0.35 mg) by mouth in the morning. 28 tablet 12 01/19/2024 06/27/2025 Discontinued omeprazole 20 mg delayed release oral capsule (3 sources) Proton Pump Inhibitor Start: 08-07-2018 End: 09-03-2019 take 20 mg by mouth once daily Omeprazole Discontinued 20 MG PO Daily August 07, 2018 12:00am September 03, 2019 6:17pm OXcarbazepine 300 mg oral tablet (20 sources) Anti-epileptic Agent Start: 04-05-2023 End: 06-27-2025 take 1 tablet by mouth in the morning OXcarbazepine (Trileptal) 300 MG tablet Take 300 mg by mouth in the morning and 300 mg before bedtime. 04/05/2023 06/27/2025 Discontinued Start: 08-04-2021 End: 08-11-2021 take 1 tablet by mouth twice daily OXcarbazepine (TRILEPTAL) 150 MG tablet Take 1 tablet by mouth 2 times daily 08/06/2021 Active pantoprazole 40 mg delayed release oral tablet (1 source) Proton Pump Inhibitor Start: 02-16-2025 take 40 mg by mouth once daily 40 mg, Oral, DAILY, First dose on Fri02/16/25 at 1715, Until Discontinued, Do not crush or break., Post-op phentermine hydrochloride 37.5 mg oral tablet (3 sources) Sympathomimetic Amine Anorectic Start: 03-27-2023 End: 06-27-2025 phentermine (Adipex-P) 37.5 MG tablet 1 (one) time each day at the same time. 03/27/2023 06/27/2025 Discontinued potassium bicarbonate 20 meq effervescent oral tablet (1 source) Start: 02-17-2025 End: 02-17-2025 20 mEq, Oral, ONCE, 1 dose, On Fri02/17/25 at 0945, Do not chew or crush. Dissolve flavored tablets completely in 3 to 4 ounces of cold water; unflavored tablets may be dissolved in 3 to 4 ounces of cold juice. Patient to sip slowly over a 5 to 10 minute period. May further dilute if GI adverse effects occur. propranolol hydrochloride 10 mg oral tablet (13 sources) beta-Adrenergic Lisa Start: 05-01-2021 End: 07-15-2021 take 5 mg by mouth twice daily Propranolol Discontinued 5 MG PO Twice daily May 01, 2021 12:00am July 15, 2021 4:31pm Start: 11-25-2019 End: 03-14-2021 take 60 mg by mouth once daily Propranolol Discontinue d 60 MG PO Daily November 25, 2019 1:00am March 14, 2021 4:48pm Start: 03-04-2018 End: 03-12-2018 take 20 mg by mouth three times daily Propranolol Discontinued 20 MG PO Three times daily March 04, 2018 1:20pm March 12, 2018 11:40am Start: 01-13-2018 End: 03-04-2018 take 10 mg by mouth three times daily Propranolol Discontinued 10 MG PO Three times daily January 13, 2018 1:00am March 04, 2018 1:21pm QUEtiapine 50 mg oral tablet (7 sources) Atypical Antipsychotic Start: 03-14-2021 End: 04-08-2021 take 50 mg by mouth twice daily Quetiapine Discontinued 50 MG PO Twice daily March 14, 2021 12:00am April 08, 2021 10:57am Start: 11-29-2019 End: 03-14-2021 take 1 tablet by mouth twice daily Quetiapine (Seroquel Xr) 50 mg Tablet Extended Release 24 Hr Discontinued 50 MG PO Twice daily 60 November 29, 2019 1:00am March 14, 2021 5:09pm 1000 ml sodium chloride 9 mg/ml injection (7 sources) Start: 02-26-2025 End: 02-26-2025 1,000 mL (10.2 mL/kg), IntraVENous, at 250 mL/hr, Administer over 240 Minutes, ONCE, On 02/26/25 at 1015, For 1 dose Start: 02-20-2025 End: 02-20-2025 1,000 mL (9.98 mL/kg), Intra VENous, at 250 mL/hr, Administer over 240 Minutes, ONCE, On Fri02/20/25 at 1430, For 1 dose Start: 02-16-2025 5-40 mL, Intra VENous, EVERY 12 HOURS SCHEDULED (2 times per day), First dose on Fri02/16/25 at 2100, Until Discontinued, For Line Patency: Peripheral IV = 5 mL; Midline or Central Line = 10 mL/lumen. If following IV push medication, administer flush at same rate as the IV push. Flush volume is determined by type of infusion therapy being given. For non-viscous solutions use: Peripheral IV = 5 mL Midline or Central Line = 10 mL/lumen For viscous solutions (i.e. blood components, parenteral nutrition, contrast media, or after obtaining blood sample) use: Peripheral IV = 10 mL Midline or Central Line = 20 mL/lumen, Post-op Start: 02-16-2025 IntraVENous, a t 5-250 mL/hr, PRN, if patient receiving piggyback infusions and maintenance fluids are not ordered, Starting on Fri02/16/25 at 1646, For piggyback infusion, administer at same rate as piggyback for a total of 25 mL. Enter 25 mL into dose field and piggyback rate into rate field of order. If piggyback is infusing at a rate less than 100 mL/hr, enter 25 mL into dose field and 100 mL/hr into rate field of order., Post-op Start: 02-16-2025 5-40 mL, Intra VENous, PRN, Starting on Fri02/16/25 at 1646, Until Discontinued, Line Care, After every IV line use, For Line Patency: Peripheral IV = 5 mL; Midline or Central Line = 10 mL/lumen. If following IV push medication, administer flush at same rate as the IV push. Flush volume is determined by type of infusion therapy being given. For non-viscous solutions use: Peripheral IV = 5 mL Midline or Central Line = 10 mL/lumen For viscous solutions (i.e. blood components, parenteral nutrition, contrast media, or after obtaining blood sample) use: Peripheral IV = 10 mL Midline or Central Line = 20 mL/lumen, Post-op spironolactone 25 mg oral tablet (5 sources) Aldosterone Antagonist End: 01-31-2025 take 2 tablets by mouth once daily in the morning spironolactone (ALDACTONE) 25 MG tablet Take 2 tablets by mouth every morning 01/31/2025 Discontinued (Therapy completed) traZODone hydrochloride 50 mg oral tablet (18 sources) Serotonin Reuptake Inhibitor Start: 04-19-2021 End: 08-11-2021 take 50 mg by mouth once daily at bedtime Trazodone Discontinued 50 MG PO Daily at bedtime July 31, 2021 5:02pm August 11, 2021 11:31am Start: 01-07-2018 End: 01-13-2018 take 50 mg by mouth once daily at bedtime Trazodone Discontinued 50 MG PO Daily at bedtime January 07, 2018 1:00am January 13, 2018 9:38am 24 hr divalproex sodium 500 mg extended release oral tablet (3 sources) Mood Stabilizer, Anti-epileptic Agent Start: 09-03-2019 End: 09-07-2019 Divalproex (Depakote Er) 500 mg tablet extended release 24 hr Discontinued 1000 MG PO Daily at bedtime September 03, 2019 12:00am September 07, 2019 9:30am 24 hr venlafaxine 150 mg extended release oral capsule (19 sources) Serotonin and Norepinephrine Reuptake Inhibitor Start: 11-29-2019 End: 04-08-2021 take 1 capsule by mouth once daily Venlafaxine (Effexor Xr) 150 mg capsule,extended release 24hr Discontinued 150 MG PO Daily March 14, 2021 4:40pm April 08, 2021 10:57am Start: 11-25-2019 End: 11-29-2019 take 225 mg by mouth once daily Venlafaxine Discontinu ed 225 MG PO Daily November 25, 2019 1:00am November 29, 2019 1:23pm Start: 08-07-2018 End: 09-03-2019 take 75 mg by mouth once daily Venlafaxine Discontinue d 75 MG PO Daily August 07, 2018 12:00am September 03, 2019 6:20pm Start: 07-29-2018 End: 09-07-2019 take 1 capsule by mouth once daily Venlafaxine (Effexor Xr) 150 mg capsule,extended release 24hr Discontinued 150 MG PO Daily September 03, 2019 12:00am September 07, 2019 9:30am vortioxetine 20 mg oral tablet (6 sources) Start: 03-14-2021 End: 04-08-2021 take 1 tablet by mouth once daily Vortioxetine (Trintellix) 20 mg tablet Discontinued 20 MG PO Daily March 14, 2021 12:00am April 08, 2021 10:57am Start: 04-16-2020 End: 03-14-2021 Vortioxetine (Trintellix) 10 mg tablet Discontinued TABLET April 16, 2020 12:00am March 14, 2021 4:48pm ziprasidone 20 mg oral capsule (20 sources) Atypical Antipsychotic Start: 02-16-2025 take 20 mg by mouth twice daily at mealtime 20 mg, Oral, 2 TIMES DAILY WITH MEALS, First dose on Fri02/16/25 at 2300, Until Discontinued, May cause prolongation of QT interval. Take with food. Start: 04-05-2023 take 1 capsule by mo uth twice daily at mealtime ziprasidone (Geodon) 60 MG capsule TAKE 1 CAPSULE BY MOUTH TWICE DAILY WITH FOOD 04/05/2023 Active Start: 07-31-2021 End: 08-11-2021 take 80 mg by mouth twice daily Ziprasidone Hcl Active 80 MG PO Twice daily August 11, 2021 11:31am Start: 05-01-2021 End: 07-31-2021 take 60 mg by mouth once daily Ziprasidone Hcl Discont inued 60 MG PO Daily May 01, 2021 12:00am July 31, 2021 5:02pm Start: 05-01-2021 End: 07-15-2021 take 80 mg by mouth once daily in the evening Ziprasidone Hcl Discontinued 80 MG PO Every evening May 01, 2021 12:00am July 15, 2021 4:32pm Start: 04-19-2021 End: 05-01-2021 take 80 mg by mouth after breakfast Ziprasidone Hcl Discontinued 80 MG PO After breakfast and supper 60 April 19, 2021 12:00am May 01, 2021 11:30am Start: 04-08-2021 End: 04-19-2021 take 60 mg by mouth after breakfast Ziprasidone Hcl Discontinued 60 MG PO After breakfast and supper 60 April 08, 2021 12:00am April 19, 2021 10:38am Problems Active Problems Problem Classification Problem Date Documented Date Episodic/Chronic Abdominal hernia (1 source) Gastroesophageal reflux disease with hiatal hernia; Translations: [Diaphragmatic hernia without obstruction or gangrene] Onset: 5 02-23-2025 Episodic Anxiety disorders (15 sources) Anxiety; Translations: [Anxiety disorder, unspecified] Onset: 3 07-15-2021 Chronic Cardiac dysrhythmias (6 sources) Tachycardia; Translations: [Tachycardia, unspecified] Episodic Coagulation and hemorrhagic disorders (15 sources) Factor V deficiency; Translations: [Hereditary deficiency of other clotting factors] Onset: 4 11-26-2024 Chronic Coagulation and hemorrhagic disorders (3 sources) Purpuric rash; Translations: [Other nonthrombocytopenic purpura] 04-16-2020 Episodic Complications of surgical procedures or medical care (1 source) Complication of implant; Translations: [Other complications of gastric band procedure] Onset: 5 02-23-2025 Episodic Contraceptive and procreative management (4 sources) Sterilization requested; Translations: [Encounter for sterilization] Onset: 5 06-27-2025 Episodic Disorders of lipid metabolism (7 sources) Mixed hyperlipidemia; Translations: [Mixed hyperlipidemia] Onset: 2 Resolved: 2 Chronic Esophageal disorders (1 source) Gastro-esophageal reflux disease without esophagitis; Translations: [Gastro-esophageal reflux disease without esophagitis] Onset: 4 Chronic Menstrual disorders (7 sources) Amenorrhea; Translations: [Amenorrhea, unspecified] Onset: 2 Resolved: 2 Chronic Mood disorders (20 sources) Bipolar affective disorder, current episode depression; Translations: [Mixed bipolar affective disorder] Onset: 1 Resolved: 2 Chronic Mood disorders (1 source) Mood disorders; Translations: [Depression, unspecified] Onset: 4 Other connective tissue disease (3 sources) Muscle pain; Translations: [Myalgia, unspecified site] 04-16-2020 Episodic Other connective tissue disease (3 sources) Pain in left arm; Translations: [Pain in left arm] 05-20-2021 Episodic Other endocrine disorders (8 sources) Polycystic ovary syndrome; Translations: [Polycystic ovarian syndrome] Onset: 4 11-26-2024 Chronic Other endocrine disorders (1 source) Polycystic ovarian syndrome; Translations: [Polycystic ovarian syndrome] Onset: 4 Chronic Other endocrine disorders (3 sources) Polycystic ovary; Translations: [Polycystic ovarian syndrome] Onset: 3 07-17-2023 Chronic Other endocrine disorders (4 sources) Endocrine disorder, unspecified; Translations: [ENDOCRINE DISORDER UNSPECIFIED] Onset: 2 Episodic Other female genital disorders (3 sources) Abnormal uterine bleeding; Translations: [Abnormal uterine and vaginal bleeding, unspecified] Onset: 3 07-17-2023 Chronic Other gastrointestinal disorders (5 sources) History of sleeve gastrectomy; Translations: [Bariatric surgery status] Onset: 5 02-17-2025 Episodic Other injuries and conditions due to external causes (2 sources) Local infection of wound; Translations: [Other injury of unspecified body region, initial encounter] 07-28-2023 Episodic Other liver diseases (4 sources) Enzyme level - finding; Translations: [Elevated transaminase measurement] 11-26-2019 Episodic Other lower respiratory disease (1 source) Snoring; Translations: [Snoring] Onset: 4 Episodic Other lower respiratory disease (3 sources) Other forms of dyspnea; Translations: [Other forms of dyspnea] Onset: 4 Episodic Other nervous system disorders (5 sources) Postoperative pain ; Translations: [Other acute postprocedural pain] Onset: 5 02-17-2025 Episodic Other nutritional; endocrine; and metabolic disorders (6 sources) Body mass index 30+ - obesity; Translations: [Body mass index (BMI) 39.0-39.9, adult] Chronic Other nutritional; endocrine; and metabolic disorders (15 sources) Obesity; Translations: [Obesity, unspecified] Onset: 3 07-17-2023 Chronic Other nutritional; endocrine; and metabolic disorders (4 sources) Obesity, unspecified; Translations: [Obesity, unspecified] Onset: 2 Resolved: 2 Chronic Other nutritional; endocrine; and metabolic disorders (1 source) Body mass index (BMI) 37.0-37.9, adult Onset: 2 Resolved: 2 Chronic Other nutritional; endocrine; and metabolic disorders (8 sources) Body mass index 40+ - severely obese; Translations: [Morbid (severe) obesity due to excess calories] Onset: 4 11-26-2024 Chronic Other nutritional; endocrine; and metabolic disorders (6 sources) Hypocalcemia; Translations: [Hypocalcemia] Onset: 4 08-04-2024 Chronic Other nutritional; endocrine; and metabolic disorders (7 sources) Obesity caused by energy imbalance; Translations: [Morbid (severe) obesity due to excess calories] Onset: 5 12-30-2024 Chronic Other nutritional; endocrine; and metabolic disorders (1 source) Morbid (severe) obesity due to excess calories; Translations: [Morbid (severe) obesity due to excess calories] Onset: 5 Chronic Other skin disorders (3 sources) Eruption; Translations: [Rash and other nonspecific skin eruption] 04-08-2020 Episodic Other upper respiratory disease (4 sources) Nasal discharge; Translations: [Other specified disorders of nose and nasal sinuses] 11-26-2019 Episodic Residual codes; unclassified (15 sources) Obstructive sleep apnea syndrome; Translations: [Obstructive sleep apnea (adult) (pediatric)] Onset: 4 11-26-2024 Chronic Residual codes; unclassified (1 source) Obstructive sleep apnea (adult) (pediatric); Translations: [Obstructive sleep apnea (adult) (pediatric)] Onset: 5 Chronic Residual codes; unclassified (3 sources) Auditory hallucinations; Translations: [Auditory hallucinations] 07-31-2021 Episodic Schizophrenia and other psychotic disorders (3 sources) Brief psychotic disorder; Translations: [Acute psychosis] 03-14-2021 Episodic Suicide and intentional self-inflicted injury (8 sources) Suicidal thoughts; Translations: [Suicidal ideations] 07-31-2021 Episodic Syncope (3 sources) Syncope; Translations: [Syncope and collapse] 04-08-2020 Episodic Past or Other Problems Problem Classification Problem Date Documented Da te Episodic/Chronic Abdominal pain (3 sources) Pain in pelvis; Translations: [Pelvic and perineal pain] Onset: 07-17-2023 07-17-2023 Episodic Diabetes mellitus without complication (16 sources) Prediabetes; Translations: [Prediabetes] Onset: 06-30-2024 11-26-2024 Episodic Genitourinary symptoms and ill-defined conditions (9 sources) Blood in urine; Translations: [Hematuria, unspecified] Onset: 05-09-2021 Resolved: 05-10-2021 05-10-2021 Episodic Other endocrine disorders (3 sources) Disorder of endocrine system; Translations: [Endocrine disorder, unspecified] Onset: 07-17-2023 07-17-2023 Episodic Other gastrointestinal disorders (1 source) Bariatric surgery status; Translations: [Bariatric surgery status] Onset: 02-16-2025 Episodic Other lower respiratory disease (7 sources) Dyspnea on exertion; Translations: [Other forms of dyspnea] 06-04-2024 Episodic Other lower respiratory disease (1 source) Snoring; Translations: [Snoring] 07-30-2024 Episodic Other nervous system disorders (1 source) Other acute postprocedural pain; Translations: [Other acute postprocedural pain] Onset: 02-17-2025 Episodic Other skin disorders (1 source) Hirsutism Onset: 12-12-2021 Resolved: 12-12-2021 Episodic Phlebitis; thrombophlebitis and thromboembolism (20 sources) Deep venous thrombosis; Translations: [Deep vein thrombosis] Onset: 06-25-2024 05-20-2021 Episodic Screening and history of mental health and substance abuse codes (9 sources) History of clinical finding in subject; Translations: [Personal history of nicotine dependence] Onset: 06-25-2024 11-26-2024 Episodic Viral infection (15 sources) COVID-19; Translations: [Severe acute respiratory syndrome coronavirus 2 (SARS-CoV-2) detected] Onset: 05-09-2021 08-06-2021 Episodic Results Test Name Value Interpretation Reference Range Facility Vitamin A, Serum LCon 2024 Vitamin A, Serum LC 44.9 ug/dL Invalid Interpretation Code 18.9-57.3 [facility] Comment on above: Result Comment: Refe rence intervals for vitamin A determined from [facility] internal studies. Individuals with vitamin A less than 20 ug/dL are considered vitamin A deficient and those with serum concentrations less than 10 ug/dL are considered severely deficient. This test was developed and its performance characteristics determined by [facility]. It has not been cleared or approved by the Food and Drug Administration. Performed At: [address] [id number] Vitor Padilla MD Ph:[phone] Performed By: #### 1 [id number], [id number], [id number], [id number], 8510348, 6926926, 7818360, [id number], 85629192, 4398139, [id number], [id number], [id number] ####[place] [id number] Coding Summaryon 05-20-2025 Coding Summary HTMLBase 64 OzeopqqwTCp4lVa+PGhlYWQ+ AG6RJVBtU11olSFxqC2oQ8OS TElOSywgQVBQTElOSyIgbmFt RY6mhFPpWRVg IC8+ML7gPXRaRphteLVmz4P9 dAO3X24dbp6yMHjftDO2UPQl MnSowbrtv2dmfNi7SXroNmhi OyBt UKPddN41OBV1bC25Ch97dGDd gPDed5pblMz6RyErLZFoDVB8 hCdqSBlmm8JnJWHnA40ssNJh c2U6 BZChyGpvpTCqFvPzoTK4sE7h PDajgjtar8flqyswDyv3yp53 qQDeb0L2dXV3X3KpquX0VHFg bGQg BteukZLHjW8tziksg4asnhym CsJtUBMuMZn3NUs2NCXpuGqf LcChJK46QOZ5OMJaruUaF4Gf LWFs eApnMuD2j2U7Vv8EZ6YYVnqg D6NKBYXTVLuhxMU+UV54rb51 N1TpPbemKca0XCKvQAW6mJZ9 aD0n SNSoPFfts0A8jUS9V0NkrrKf qa7iq0osAMShWCexZ71hxLKh m0N3AVAbfTB9DLRemZeoXdTj aG93 Oyc+BLTpmEnni4KeEsefe3lm s5torWw3GwrnTYOmjlPspSkv EME6t5ZfFa0wTGYpeGA4sDJ8 aD0i JmKuDqA1WNegH108JaOzdGGs SnksD53qD4PgdJG+PHRyPjx0 VCSrePsvEL8nW6VvZXHkifym bGVm fYcrPW5pMMRsgppgRXTafM9h MGIvL5f5ZoVwXaZ5OLkzB4Tu PPPnzvfjBx51eA2nAcRuHvZ8 MGlu Y5VfsgN1PYAgkWVtBZloFRW5 U52nv1I6KVAjHYBuVVD2wMP3 iY6daYptxzzzzGDayWwocqMi dGlj LMrfLLgkK833GQPwvSmoUfBh ZGluZyBEYXRlOiAgMDYvMjAv MjAyNTwvdGQ+BJDjZBN1sAkj PSAn lTTuADxkWk8tkOscsEllYR1k TYFuthozTPFyfP0xUSQxfOBz rKvaRD9mTAUwffvng361MxGy MHB0 WGEamEPsI7JtiX2hQqAaCVMt ZNBcC7ZhgSKtAScjT405DBnq LqU9ZGXfkpAsE2OuOIVceIvy OiB0 y8J0Ot8Ew0GslqvaA6WejSYl AbIzUndiGCw7N6YoDqhmcTU+ NL37RETeII05XPg6XHG8bZbv PSdi FGOdQ0TakW1sDzMwNMUdLQYu Oyc+PHRhYmxlIHdpZHRoPScx WAAhQrRmuNlxDB0hBr1uFJHv LWNv lEvcfHRsXcNoq1yqTMZvIRjt AQ7awByeU4WddHI0MONst6x5 Nj10G79hB3MezIR+PGNvbCB3 aWR0 tM0pQtEeVmO7TIzmT311RyZt tTAzRdgjs8wrk6yydWo2QaA0 QTMqapIoxHsgDWD0t8NwIa54 Y29s IHdpZHRoPSIxNSUiIHZhbGln yh5drN2nPm5+CAXltPE3zDH1 jD6pEbRqXfE3MXduJ288IbZu cCIv Qjkcd2ahf5npvEd3FkSyXXTi byUoqLlaATV9n2CcNw87J2Wu nDrla2DjWxi0ms93eTYcc6M3 bGU9 W1HoBEExunreaATnoGtaQP2p TTOmblbtSVJwuN5bXYWiM6f5 RaQaTeE0NAxuE7IqmgC2AMIp bGQg XMZanMKMfH4iqvpoo4nvnrnu DmIrACPsYYx6YLc2NLLdlDwa ViJkGXR9WbM8QCX5wMXxfU2j bGln scyhvM2lAej+CUG2zZGmeXQT XN1xHlzvoCA+TXIxUKK6fTtm BJwgAGLeeB7wTOXnL8u5JiXf LjA1 GZiqY1FlyjP0UNHfoZMdSKTl yKJOiM5fherkq6skxjsgHvPx QWJrQQj7YGj2NMYiyFysFtGw ZWZ0 DeX3RBZ9hSKaaW6opPymgsoq iR0oQge+ZjlppCytDWK1RLj9 U7AjXmn7NYUbbZjkMB3rgFMn ZGlu Rp8fzYsdqFvgNU9uJTYkmxno m058AfJaq1pmLVCvnAXuIVjt ATU8H14nj5Q6SKYdVFJzABH8 dGV4 pX4noKqvzmbksWJtiNtktcQq xPoxIZxeNIktW804ZTIusLdb SxXiBNx6V4VuChw6PPXagAxi ZT0n rLXzICswOk7aoYvctNvaIY4i DHDjfrqbl640CxHie3rgZXRe hBSdIAdhRJL0F14my2J2EHWh MDAw UIW7dOP7tZ2tiNwvpizjnUTs sPaqqmRgfBghVPjuZDahD802 BELhrGeqJhDynTu9F1KwJta3 ZCBz mUeaGC4nlWSoPNuoSo6xkJvd aDflBG9mLMTmmnzht651XcRr r7rqEMZdvADlYPwjUPM9G95g b3I6 GQPjSAYdWQO6yCW1iQ6viKxj bjogbGVmdDsgdmVydGljYWwt QDhzB233CMAycVadYzHifMja bnQg TMhyUPj2R6PyVjnraGJ+PC90 TZGfVH24gEFayHGlu7ozcRz8 SbUcXWElHFV9lEfoGWwai0Fx ZXIt F95azNJwa0Y9WBIlwYumjCHg YeZcaKY6vP7qXRycxokiu7ql vakvNrrsx6lvvf84pX67Q01q IHdp XSCaTVUkFXJzXPBurZolxl0q rJ3uUa2+LOTvjDI4yXK4tS2v ESRwSrS3NTkyG865DhYxqVJs Pjxj d7wfk3scnAl8YeZ8WEPjdxEa vDeiJSM9g5BaCw61F16fGPmj RFHiPGCyFIFmKHKuuMxtlk6g dG9w Ii8+QQOvkNQ4vQP5kR9fKdQd HkQ6FFpxK265IfZvhEEjSwbo F66aU9PmlUS+OMEnBmb5MGAh dHls UQ9flYLgDLkjWa0tDJD7GlDi MiWdRZeaD7HiUEIwkijsityq qYP5UAYiELCycZ59Uu5ulJcy MTBw qSZZbF1dqixbn1vfsouxOoFr IVOfSRl1FQu7KJZpxWffIaOk MPC4EkD3UFV0qMCqaR8eqZim bjog lI2jK7ZeDGJpmsfmHx69dT5b WyDbGwV8RRbrHbs+HW2TWO4Y ImcISBHVNUIFJRWAAX6AR77A RTwv dGQ+VFJeZPP6fCzdRJxhUJXs qB1sWMCnC4j2JvToGgL0JFbp M4OrIICfbfhyBd17rS9rXzIx LjA1 QNevS2YjjhZ2ILRbqBPeFRzi PRH1U76et5H3HYJoCOLsRDJ7 jEA6qJ1tlDkloyaklPBouIvm dmVy dCcpLXkhNLudM190CLPstJfx LvG7PtY1RjF9DNT3I8NzBkc6 WNGqrZsoYE1wlYDfEXrgMa3r aWdo zJuoUQ2jISPcsvdqCYXeoL7i SNKqpXHasZwnOP3mKNXmkiyv n321YiXoFKM7OXZyeEBbO9Uv bG9y TvGhQGHkHWWnZ1IsrAIjIPmd Z532KXrcUyU0MLDqdiCrB1Eh VIGwoEljBpB7g4E8Jn4pTETD ZWFy czwvdGQ+NVTaJWH8kYcqAWde NFSrhV3yLWVtQ6u1YyLtEdB2 KIkrN2IdAQSdtketUo52lL5n OiAw SdJ2MMjaJ4KetpW6XEJvzAGl FMqmZHV7R18rl5O2RKXyXECc JDE6kKN9sK3psRrsqmwokKTm dDsg exJvsJgkUJuiSTqzM301JBTg cDsnPkZFTUFMRTwvdGQ+PHRk CFP2fWpuXNvdCIKoxG2hERJb Z2h0 UvQdSvL2BCoiC8TzWKOrkutd Dh69jS4mVqNjSwD4MFjiC9Ox bbD8LPHfxNFhWZrsYOV8Y29n b3I6 AZNmCSKzGWC4dHZ2kK9rvKzh bjogbGVmdDsgdmVydGljYWwt PBegQ149KFBmnNtoFh6UYR80 ZD48 L3XsNnmlyNImsVO+PHRhYmxl IHdpZHRoPScxMDAlJyBzdHls NT7iGc7eXMJjQBIrnVwtnBTd OiBj a2fwXMBuVQkcTT0bxIjhO5Hm oDK8FYMqk2v6Cc93D71eB0Iv dXA+UCJbuBV8dVI8kV3dFvNw IiB2 AYzdY831HqNqzBPeHmruw2dt u1tzjMf5YqWvOJAihzOjcPqe ITY8h9OtJz99T07hKTumREGc PSIy PBQuXOKabStmdd8iiE5bUa7+ CNYexVR8hML2xE2aPhUaPbR5 NFqzX697InHvsKXsOsjaM63p Z3Jv dXA+RGFmUcm3CPAodQekGH3q cTLgKIxcEl3fNSN6DqOcFxNy KShvC6YxGVKdzxkkfgstrWQ3 IDAu VHZkjR99Bz1lyFfiFd2jWBPz DAY7ISDahLUfU3BjcD2mCsFg XWPdXIVhN5BpkFGrVAaqX697 IGxl GiD6KAOpqhVyK0XqDVZmqHuv HcZ0x3A0Io3NnGsooDKnKF8q HvFqYPg1F7TeMev3ZZFfxQoi ZT0n rVRcLFcfLk3uiMajkIwtXH4x GGKrwuedc789MdJuu9nmLEDm aPTgGUbiRJY2V97zu5K9CWVe MDAw XPW0fUP9uW0xbSedbvytvDVx kRjmzuDljDzsZLssBDhzU876 QAEzjXfyHkULOrg7A9YsXzm1 ZCBz ePbtTS7wbYGvDQroVz7bcAlo bMgeAA2xZQBipojgs281YsQy h1tfWCTuxTHaZCrcYHL4S97p b3I6 BETtWQEzTGA9iFC6iJ0pdIlr bjogbGVmdDsgdmVydGljYWwt TVsoJ907UOCrpPphDb3OUrt0 L3Rk Ymo0MCPthRtgWU8xjOEnSUkg Op3qvVkbvOboKR7kXJMttvlk h659PfIqm6wkJUTffQSeGAga ZXM7 I54cp5P7QSBbQBUfTPF6fEC3 zH4uyPwjamsykDCplSmfiwOa hNmpIXwpTEzwU698QIGevDbg PlBh eWVyOjwvdGQ+PU18dd52Z7Qu VmmxOhj6QVSgEOA7kZF2nU7n PURaRFmqv4L4yWZ2L5HfjgDh ci1j b2x (more content not included)... Normal [facility] Zinc, Plasma or Serum LCon 0 05-20-2025 Zinc, Plasma or Serum LC 118 ug/dL High 44-115 [facility] Comment on above: Result Comment: This test was developed and its performance characteristics determined by [facility]. It has not been cleared or approved by the Food and Drug Administration. Detection Limit = 5 Performed At: [address] [id number] Vitor Padilla MD Ph:[phone] Performed By: #### 1 [id number], [id number], [id number], [id number], [id number], 3652855, 9395176, 8898966, 62026441, 63208332, 8838853, 82685538, 0736175, [id number] ####[facility] (DEFAULT)[address] [place] [address] Vitamin B1 (Thiamine) Whl Bl ood LCon 05-19-2025 Vit B1 Whl Bld LC 146.6 nmol/L Invalid Interpretation Code 66.5-200.0 [facility] Comment on above: Result Comment: This test was developed and its performance characteristics determined by [facility]. It has not been cleared or approved by the Food and Drug Administration. Performed At: [address] [id number] Vitor Padilla MD Ph:[phone] Performed By: #### 1 [id number], [id number], [id number], [id number], [id number], 05444514, 6635656, 2755125, 8227011, 94987644, 92771292, 9585006, 47182580, 9035643, [id number] ####[facility] (DEFAULT)[address] [place] [address] PTH, Intact LCon 05-17-2025 PTH, Intact LC 23 pg/mL Invalid Interpretation Code [facility] Comment on above: Result Comment: Perf ormed At: [address] [id number] Maxine Smith PhD Ph:[phone] Performed By: #### 1 [id number], [id number], [id number], [id number], [id number], 82707332, 8528522, 2532841, 7364407, 58088080, 10618678, 7791074, 76345903, 9143353, [id number] ####[facility] (DEFAULT)[address] [place] [id number] .Auto Diff 1on 05-16-2025 Auto [place] % 5 % Normal 12-12 [facility] Comment on above: Performed By: #### 1 [id number], [id number], [id number], [id number], 20898184, 7777171, 6619475, 9877673, 71249714, 19879374, 2235976, 72798556, 1544572, [id number] ####[facility] (DEFAULT)[address] [place] [address] Baso Abs# 0.1 x10 Normal 0.0-0.2 [facility] Comment on above: Performed By: #### 1 [id number], 216904358, 7939957, 7159289412, 5356128759, 19587380, 3150487, 4702874, 2692618, 72803733, 59686263, 0554924, 79862810, 6393384, [id number] ####[facility] (DEFAULT)[address] [place] [address] Basophils/100 WBC (Bld) 0.8 % Normal 0.2-2.0 [facility] Comment on above: Performed By: #### 1 [id number], 122922397, 2249008, 7948116492, 0685098933, 72597036, 9528570, 9451474, 3893541, 30115219, 58822864, 9047683, 46100886, 4276793, [id number] ####[facility] (DEFAULT)[address] [place] [address] Eos Abs# 0.0 x10 Normal 0.0-0.4 [facility] Comment on above: Performed By: #### 1 0389334, 358820432, 9570063, 2223363265, 0343749702, 08097303, 4582545, 8176744, 6809843, 37387485, 87357712, 4130984, 74608521, 2801021, [id number] ####[facility] (DEFAULT)[address] [place] [address] Eosinophils/100 WBC (Bld) 0.7 % Low 0.9-4.0 [facility] Comment on above: Performed By: #### 1 4628790, 874729468, 7164784, 3045970776, 7099210907, 51292714, 5839967, 6538050, 5745255, 96358771, 82006298, 3884128, 64506759, 3022022, [id number] ####[facility] (DEFAULT)[address] [place] [address] Lymph Abs# 1.6 x10 Normal 1.3-2.9 [facility] Comment on above: Performed By: #### 1 1104930, 666927629, 0184734, 3516451131, 9537184160, 32759860, 2848710, 0533262, 1583317, 78242537, 85661605, 9375373, 36062941, 6830430, [id number] ####[facility] (DEFAULT)[address] [place] [address] Lymphocytes/100 WBC (Bld) 26 % Normal 14-48 [facility] Comment on above: Performed By: #### 1 6434529, 910878229, 1826221, 9099866867, 2637091851, 28723910, 9115882, 0178783, 0174126, 70653902, 69742286, 3657033, 73124062, 4333623, [id number] ####[facility] (DEFAULT)[address] [place] [address] [place] Abs# 0.3 x10 Normal 0.0-0.8 [facility] Comment on above: Performed By: #### 1 4749480, 248952094, 8767320, 6922684846, 4011679725, 56461757, 6005998, 2943136, 7976686, 06407556, 03248074, 0875034, 26197282, 8424280, [id number] ####[facility] (DEFAULT)[address] [place] [address]1667 Neut Abs# 4.3 x10 Normal 1.5-9.2 [facility] Comment on above: Performed By: #### 1 0608796, 920777223, 4150883, 3863290947, 0847212585, 74995621, 3672913, 3323924, 7771086, 09882784, 39896659, 3983506, 87929744, 0293313, [id number] ####[facility] (DEFAULT)[address] [place] [address] Neutrophils/100 WBC (Bld) 68 % Normal 44-88 [facility] Comment on above: Performed By: #### 1 0583184, 441941511, 5481136, 4037163391, 2339401283, 96258861, 8422447, 6951684, 0454784, 13307392, 80127878, 5550898, 47547199, 8324259, 8597477516 ####[facility] (DEFAULT)[address] [place] [address] CBC w/ Auto Diffon 5 Erythrocyte distribution width (RBC) [Ratio] 14.5 % Normal 11.5-15.0 [facility] Comment on above: Performed By: #### 1 0519275, 039263690, 2104566, 5347787135, 8658022202, 19818231, 2542231, 4174354, 1351299, 32200649, 75633391, 9776208, 35288421, 3201384, 6844429119 ####[facility] (DEFAULT)[address] [place] [address] Hematocrit (Bld) [Volume fraction] 41.8 % High 33.7-40.4 [facility] Comment on above: Performed By: #### 1 9132895, 542966905, 0417355, 0989679144, 1343864551, 00066650, 2850472, 3249933, 9844308, 34874717, 29082923, 4094826, 47424520, 0229802, 8216056124 ####[facility] (DEFAULT)[address] [place] [address] Hemoglobin (Bld) [Mass/Vol] 14.2 g/dL Normal 11.3-15.9 [facility] Comment on above: Performed By: #### 1 3387567, 980894330, 1190700, 3916992099, 6221409155, 30214070, 3814692, 1358460, 2856229, 41480788, 82140024, 5303114, 19190778, 2355953, 9988475256 ####[facility] (DEFAULT)[address] [place] [address] Man Diff? Auto Invalid Interpretation Code [facility] Comment on above: Performed By: #### 1 4399008, 616887121, 6222897, 6270975409, 4368113841, 41277980, 3333801, 9188034, 8826416, 36403872, 72019319, 4376589, 44230077, 5933653, 4909254145 ####[facility] (DEFAULT)[address] [place] [address]31 MCH (RBC) [Entitic mass] 29 pg Normal 24-34 [facility] Comment on above: Performed By: #### 1 8150801, 182129810, 4772925, 9040470642, 7451436667, 26416138, 0592013, 1168569, 9521866, 71559353, 17055721, 8938798, 33569537, 7696237, 8220389372 ####[facility] (DEFAULT)[address] [place] [address]42 MCHC (RBC) [Mass/Vol] 34 g/dL Normal 26-37 [facility] Comment on above: Performed By: #### 1 6540250, 524375318, 0216284, 3717107028, 7628078078, 06655553, 7050989, 7875718, 4122540, 93936073, 22810736, 0239176, 42277609, 1758152, 8616222176 ####[facility] (DEFAULT)[address] [place] [address] 75489 MCV (RBC) [Entitic vol] 87 fL Normal 81-100 [facility] Comment on above: Performed By: #### 1 4205895, 413259770, 5832479, 9482449757, 4114031418, 38896525, 2521976, 5838055, 2854626, 05483508, 30831077, 0281258, 76471749, 7496668, 6022252654 ####[facility] (DEFAULT)[address] [place] [address] Platelet 262 x10 Normal 138-427 [facility] Comment on above: Performed By: #### 1 1342298, 701145452, 0321409, 3307243534, 9210182154, 40067721, 4891995, 5060192, 2076792, 09787706, 33061305, 7276395, 59728714, 2459139, 7719646401 ####[facility] (DEFAULT)[address] [place] [address] Platelet mean volume (Bld) [Entitic vol] 8.1 fL Normal 6.3-10.2 [facility] Comment on above: Performed By: #### 1 2805753, 495057701, 8070841, 5890748835, 2152694422, 65757742, 7441229, 0057187, 8254573, 10049034, 12230743, 6629440, 19768045, 9347200, 7530730043 ####[facility] (DEFAULT)[address] [place] [address] RBC 4.83 x10 Normal 3.70-5.30 [facility] Comment on above: Performed By: #### 1 9195317, 736191569, 5778251, 5358620531, 1671230704, 66098842, 3093738, 9831042, 9402364, 08684805, 15769209, 1919507, 33217619, 9890440, 3779415787 ####[facility] (DEFAULT)[address] [place] [address] WBC 6.2 x10 Normal 3.5-10.5 [facility] Comment on above: Performed By: #### 1 8566415, 903384488, 1298663, 9500478785, 5751980455, 63241892, 2889585, 3021595, 5624294, 43051684, 98674291, 1476033, 87855314, 4236319, 0433403762 ####[facility] (DEFAULT)[address] [place] [address] CMP Standardon 05-16-2025 eGFR Non AA >60 Invalid Interpretation Code [facility] Comment on above: Performed By: #### 1 3222351, 503000217, 1237378, 0628080210, 6891166183, 06304285, 1958037, 9301335, 6808262, 90397866, 45586874, 2130887, 63225386, 7686623, 2341536412 ####[facility] (DEFAULT)[address] [place] [address] 23308 eGFR AA >60 Invalid Interpretation Code [facility] Comment on above: Performed By: #### 1 1737900, 991688103, 8965200, 1092174287, 2833708804, 02504495, 4734914, 6363236, 2485837, 03584287, 83792810, 8382805, 84230108, 6884195, 3543168180 ####[facility] (DEFAULT)[address] [place] [address] 87209 Albumin [Mass/Vol] 3.7 g/dL Normal 3.5-5.0 [facility] Comment on above: Performed By: #### 1 3262935, 972689086, 4793775, 8979988870, 4812915384, 53873781, 6521910, 1635305, 0934470, 47111132, 39757659, 5380130, 17504527, 1568180, 9834592300 ####[facility] (DEFAULT)[address] [place] [address]83 Albumin/Globulin [Mass ratio] 1.1 {ratio} Low 1.4-2.6 [facility] Comment on above: Performed By: #### 1 2005828, 391718260, 4064091, 9881829144, 2190229541, 04402082, 7648088, 6159648, 8051949, 23608185, 06439027, 6653585, 35957789, 7745412, 6868247906 ####[facility] (DEFAULT)[address] [place] [address] 85424 Alk Phos 96 IU/L High 32-91 [facility] Comment on above: Performed By: #### 1 8858512, 888014778, 1960910, 6898148305, 4350130285, 87032469, 0460407, 6852730, 8636050, 89088183, 17847197, 9017228, 80071649, 8349107, 2831185118 ####[facility] (DEFAULT)[address] [place] [address] 98647 ALT [Catalytic activity/Vol] 21.0 U/L Normal 14.0-54.0 [facility] Comment on above: Performed By: #### 1 9760737, 141938404, 5897028, 1968807458, 4062727394, 76079093, 4208866, 9394104, 6317601, 29212156, 16959016, 3338795, 19197310, 7009236, 3338557661 ####[facility] (DEFAULT)[address] [place] [address] Anion gap [Moles/Vol] 13.8 mmol/L Normal 5.0-19.0 [facility] Comment on above: Performed By: #### 1 8782303, 558438502, 6813714, 3474004134, 4230437490, 35307257, 5860729, 8670903, 5486487, 76772444, 83256499, 0956100, 43873355, 1815090, 5130000729 ####[facility] (DEFAULT)[address] [place] [address] 63800 AST [Catalytic activity/Vol] 18 U/L Normal 15-41 [facility] Comment on above: Performed By: #### 1 6704083, 532466257, 0569177, 9230860313, 8213651239, 99057629, 9610715, 1170295, 6448659, 79474708, 83871849, 0118103, 21588665, 7042728, 3814456416 ####[facility] (DEFAULT)[address] [place] [address]24 Bili Total 0.5 mg/dL Normal 0.3-1.2 [facility] Comment on above: Performed By: #### 1 7627461, 986325236, 6809721, 9352918727, 0555380430, 70534069, 9869314, 6460401, 6950349, 22357153, 56864744, 1060662, 58157019, 9746612, 5143736365 ####[facility] (DEFAULT)[address] [place] [address]9628 Calcium [Mass/Vol] 9.0 mg/dL Normal 8.9-10.3 [facility] Comment on above: Performed By: #### 1 9685805, 429099291, 2385051, 7070359237, 2812483341, 02098515, 9915606, 3566377, 7507147, 95602135, 45245618, 0072121, 91890993, 2395682, 1793851523 ####[facility] (DEFAULT)[address] [place] [address] 33378 Chloride [Moles/Vol] 104 mmol/L Normal 101-111 [facility] Comment on above: Performed By: #### 1 2641357, 671511234, 6967402, 2176898679, 6452383087, 81159465, 4896863, 5133845, 5696764, 88753094, 26631086, 6739873, 67787806, 7916618, 8586063225 ####[facility] (DEFAULT)[address] [place] [address] 85896 CO2 [Moles/Vol] 22 mmol/L Normal 21-32 [facility] Comment on above: Performed By: #### 1 1995004, 932449993, 1563967, 3724565555, 8904806602, 89018074, 4835946, 9957050, 6863139, 58630975, 14908485, 4109395, 33299971, 1218417, 9141645339 ####[facility] (DEFAULT)[address] [place] [address] 54419 Creatinine [Mass/Vol] 0.69 mg/dL Normal 0.60-1.30 [facility] Comment on above: Performed By: #### 1 4183164, 294065341, 5295175, 6248553418, 7269147353, 99558675, 5331927, 6913424, 1901489, 99871981, 08233737, 7035007, 35428997, 7314979, 4655786438 ####[facility] (DEFAULT)[address] [place] [address] 69734 Globulin (S) [Mass/Vol] 3.3 g/dL Normal 1.5-4.3 [facility] Comment on above: Performed By: #### 1 7395632, 839958402, 6052960, 7765437449, 4178559771, 35758255, 8605584, 5301909, 0660922, 80480197, 99451009, 4841255, 18130868, 4472914, 2348766608 ####[facility] (DEFAULT)[address] [place] [address] Glucose [Mass/Vol] 100.0 mg/dL Normal 74.0-118.0 [facility] Comment on above: Performed By: #### 1 4017657, 771325062, 6393871, 7478706623, 7551317837, 91784777, 1990533, 2609853, 7324122, 15907820, 85394667, 4779642, 88074290, 9128462, 4167058275 ####[facility] (DEFAULT)[address] [place] [address] 14624 Osmolality 276 mOsm/L Invalid Interpretation Code [facility] Comment on above: Performed By: #### 1 3483317, 319937714, 1077456, 1385787883, 2514420232, 50135861, 1131008, 3300744, 7573515, 05302231, 09921450, 7965993, 17247934, 7858141, 8172935805 ####[facility] (DEFAULT)[address] [place] [address] Potassium [Moles/Vol] 3.8 mmol/L Normal 3.6-5.1 [facility] Comment on above: Performed By: #### 1 9590106, 176641134, 0031034, 1394890148, 2357788795, 79609845, 0379782, 5153587, 3012286, 23903542, 10649056, 4310308, 17228054, 3321039, 7926643540 ####[facility] (DEFAULT)[address] [place] [address] Protein [Mass/Vol] 7.0 g/dL Normal 6.5-8.1 [facility] Comment on above: Performed By: #### 1 1725308, 824294155, 3526261, 2651530647, 2262048289, 07485392, 7078761, 4951092, 4559916, 67043096, 32782269, 4780531, 18671216, 5457995, 5236417020 ####[facility] (DEFAULT)[address] [place] [address] 67310 Sodium [Moles/Vol] 136.0 mmol/L Normal 136.0-144 . 0 [facility] Comment on above: Performed By: #### 1 9754128, 610625322, 1972289, 2758324990, 6219438829, 49642136, 2604194, 2842420, 1000020, 05690980, 48313026, 4100018, 18097441, 7369010, 3420505519 ####[facility] (DEFAULT)[address] [place] [address] 82938 Urea nitrogen [Mass/Vol] 23 mg/dL Normal 8-26 [facility] Comment on above: Performed By: #### 1 7305699, 417702120, 6612217, 8543797935, 6929988222, 34234994, 2804045, 2742977, 4660548, 08915637, 35054702, 4924023, 35207805, 0146162, 6328720586 ####[facility] (DEFAULT)[address] [place] [address] 25929 Urea nitrogen/Creatinine [Mass ratio] 33.3 mg/mg High 4.6-16.2 [facility] Comment on above: Performed By: #### 1 4016055, 008708232, 8905617, 7481225634, 8636214427, 97634582, 9838993, 5993912, 5070001, 80169596, 39457565, 2096024, 75655654, 4496596, 0981092821 ####[facility] (DEFAULT)[address] [place] [address] 95883 Ferritinon 05-16-2025 Ferritin [Mass/Vol] 44.2 ng/mL Normal 12.0-150.0 [facility] Comment on above: Performed By: #### 1 6723641, 160022784, 6277404, 5874140091, 6874725387, 92625457, 1694351, 5281455, 3361042, 42115415, 59496272, 0503453, 63880010, 9998844, 8817517738 ####[facility] (DEFAULT)[address] [place] [address] HgbA1c Standardon 05-16-2025 .Hb 13.7 Invalid Interpretation Code [facility] Comment on above: Performed By: #### 1 2564902, 393017653, 6980332, 8983001687, 3047010619, 16437446, 3222343, 8848992, 3893366, 54252686, 91290211, 4568538, 27464130, 2691062, 7917565806 ####[facility] (DEFAULT)[address] [place] [address] .Hgb A1c 0.47 g/dL Invalid Interpretation Code [facility] Comment on above: Performed By: #### 1 7198409, 025403283, 8859905, 5209166261, 6642141920, 59796014, 7364949, 6940863, 4821215, 91817506, 20774349, 3251236, 07574895, 2769359, 5390984651 ####[facility] (DEFAULT)[address] [place] [address] Glucose [Mass/Vol] 102 mg/dL Invalid Interpretation Code [facility] Comment on above: Performed By: #### 1 2776479, 415025531, 3140734, 3855760082, 9439827126, 25192865, 2217841, 6837955, 2401955, 36863535, 38251565, 9482355, 42731699, 9792306, 9763610934 ####[facility] (DEFAULT)[address] [place] [address] 63824 HbA1c (Bld) [Mass fraction] 5.2 % Normal 4.6-6.2 [facility] Comment on above: Performed By: #### 1 6241452, 461160017, 5599668, 6909443463, 0446248760, 62697640, 0775337, 0185966, 0582101, 75877707, 82303630, 4835516, 80746866, 0420640, 3979475956 ####[facility] (DEFAULT)[address] [place] [address] 49127 Iron Profileon 05-16-2025 Iron [Mass/Vol] 65.0 ug/dL Normal 28.0-170.0 [facility] Comment on above: Performed By: #### 1 6737077, 998440748, 4294862, 1464489138, 4644094828, 88886592, 2879273, 3627126, 8973171, 80994252, 35041142, 8122592, 14021875, 7897448, 8850246370 ####[facility] (DEFAULT)[address] [place] [address] 91711 Iron Sat 22 % Normal 20-55 [facility] Comment on above: Performed By: #### 1 9332806, 948272681, 6276780, 7820241777, 5942103989, 25573312, 9094730, 0945569, 2476018, 74977438, 98730249, 2048206, 86464562, 1369689, 2995652525 ####[facility] (DEFAULT)[address] [place] [address] 51649 TIBC 296 mcg/dL Normal 250-400 [facility] Comment on above: Performed By: #### 1 9482412, 162540929, 9891103, 0183658397, 8295410914, 82286562, 8263301, 4499015, 6480856, 77857135, 73730569, 2995540, 20707416, 1229572, 1251394475 ####[facility] (DEFAULT)[address] [place] [address] 09824 Transferrin [Mass/Vol] 211.2 mg/dL Normal 192.0 -382. 0 [facility] Comment on above: Performed By: #### 1 5568829, 299253733, 9579164, 3446018519, 5945954188, 91437796, 4399798, 8238724, 1493328, 65972322, 39154407, 9596248, 51403348, 3236065, 0013969740 ####[facility] (DEFAULT)[address] [place] [address] 27355 Lipid Panel Standardon 05-16 Cholesterol [Mass/Vol] 137.0 mg/dL Normal 66.0-200.0 [facility] Comment on above: Performed By: #### 1 3319167, 741335815, 3602478, 5165884798, 2297552999, 11793605, 4122188, 9667058, 2906807, 34295691, 56311767, 6227206, 49943509, 6502389, 9043292770 ####[facility] (DEFAULT)[address] [place] [address] 52783 Cholesterol in HDL [Mass/Vol] 48 mg/dL Normal 40-71 [facility] Comment on above: Performed By: #### 1 4924821, 153764584, 0964390, 5706306900, 1643615481, 30025280, 4256199, 6191891, 7966575, 29086616, 77319614, 1516135, 07360629, 2308003, 1494757005 ####[facility] (DEFAULT)[address] [place] [address] 32339 Cholesterol in LDL [Mass/Vol] 77 mg/dL Normal 1-100 [facility] Comment on above: Performed By: #### 1 5960626, 790752629, 4155646, 8564861543, 9743184345, 81444480, 5214796, 2558297, 3366619, 33451679, 24599983, 1148323, 69409549, 9306841, 1283721323 ####[facility] (DEFAULT)[address] [place] [address] 63121 Cholesterol.total/Mahsa sterol in HDL [Mass ratio] 2.8 {ratio} Normal 0.0-4.5 [facility] Comment on above: Performed By: #### 1 9602337, 517033536, 7073557, 0998008778, 6557272932, 92144302, 3110729, 1526151, 3486259, 51280731, 33976719, 8540294, 84014259, 2379829, 3152021519 ####[facility] (DEFAULT)[address] [place] [address] Triglyceride [Mass/Vol] 60.0 mg/dL Normal 0.0-150.0 [facility] Comment on above: Performed By: #### 1 3226292, 487470451, 1270164, 8680498848, 0646191085, 10201469, 8713694, 7551038, 6621843, 37668655, 32761847, 5177866, 17907903, 5157166, 0514029207 ####[facility] (DEFAULT)[address] [place] [address] VLDL. 12 mg/dL Normal 5-40 [facility] Comment on above: Performed By: #### 1 5600100, 028584557, 6374011, 7201348583, 0341858750, 44351616, 1620078, 5866655, 1620504, 80578246, 55412947, 6115389, 06880229, 6716650, 2852353215 ####[facility] (DEFAULT)[address] [place] [address] Magnesiumon 05-16-2025 Magnesium [Mass/Vol] 2.01 mg/dL Normal 1.80-2.50 [facility] Comment on above: Performed By: #### 1 5502923, 224984788, 6491765, 3658297629, 0862429107, 39964157, 8702736, 4343406, 2935622, 62401819, 65179069, 4630651, 62602100, 8626804, 0845482306 ####[facility] (DEFAULT)[address] [place] [address] Provider Orderson 05-16-2025 Provider Orders [id number] [id number] TGTIFF Normal [facility] TSHon 05-16-2025 TSH Qn 1.22 m[IU]/L Normal 0.45-5.33 [facility] Comment on above: Performed By: #### 1 1715422, 107723371, 3334376, 2799209929, 6519718055, 26617642, 3909184, 0091712, 7347104, 24971375, 12265897, 7381305, 25294226, 8103889, 8303647289 ####[facility] (DEFAULT)[address] [place] [address] Vit B12 Lvlon 05-16-2025 Vit B12 529 Normal 180-914 [facility] Comment on above: Performed By: #### 1 9891203, 093288482, 5758096, 1998239888, 9363245087, 15027492, 7372827, 8047876, 0186767, 80028270, 67364381, 4894458, 74616154, 5202923, 2082314887 ####[facility] (DEFAULT)[address] [place] [address] Vit D25 OHon 05-16-2025 Vitamin D 25 OH 78 ng/mL Normal 30-100 [facility] Comment on above: Performed By: #### 1 0297319, 138998958, 9790138, 3237350118, 8922652682, 42330790, 4923912, 2734432, 5762975, 28556257, 09973100, 2190708, 78483895, 9021551, 0014836501 ####[facility] (DEFAULT)[address] [place] [address] Coding Summaryon 04-12-2025 Coding Summary HTMLBase 64 OmiwiatwFEm1tXv+PGhlYWQ+ BZ0AABMcI85pgJDzmK4aZ0HH TElOSywgQVBQTElOSyIgbmFt NJ1vlIRfVAEz IC8+GU7eZQFdQxxazKNqi8G7 bJA5E79hdf5hILedhKL5GOCe UtGdfrqfq4oxfFn9VLjcEeya OyBt KCDgcC28CQQ5gO54Tt58jBEf dDYdi0kkwNk5DdFmOTXvPRN5 oVbaWVwki8DxURZuA14smRVv c2U6 GEXmfAamjXPzZnLyqPW8eV0t SUxuezdvl2ducaltZcq2ri20 gHBux4P0sVL9A3VygkD4HMZt bGQg QjshpMNLnH6kgslel5prgcze GrAnQHBhGAz1VLi3PAMkfWox VeUlDX15DUU8BGVqklYmU8Uu LWFs fCgaUzW5g6F2Bv8UJ7NAXdyu I2NOTSZCERldcLT+XM83dq75 I1JfSftmZje2COUaVEM6lLP0 aD0n HGLkAPbtj7S0bZL2P8GvcgFa ae5ma7uqGDAuXAqxW67uyPAb s7J1QAHzsLE3BKVhlAnzOxRv aG93 Oyc+QQDviEsaf1NyExlyp6ig h6zuiPz6RnbdJIXdabJwnLrl ATG4d5SpCf3iPOPekIU1iTU6 aD0i OeDlMbZ8WYmxW575DpTtlKCi OqwnI80aR0QenGK+PHRyPjx0 FBJtwVgoOR3cI6ZdFXSperbc bGVm oHuiGQ5vSKFkvoitXUWyaU6o CQIoA1y5OoQqAdG0OJufU6Oc LCXojzepDv16mJ7sVpOsXpB0 MGlu V6FdepD9MBRjaPClETvzNXL2 K46oj1Z1HANxZIInGNV7sJW3 hE4gkDirljodlQBldKbcypTg dGlj JQelSXlrS117IQIynCwyKiYs ZGluZyBEYXRlOiAgMDUvMTMv MjAyNTwvdGQ+IYRpLSV6nTzr PSAn pSVqRZwoHs5ttMzmnWkdYB9z WUQqypipKYKfuR9ySXJdhBDp oMqlYT3gFCQbvrbxu919ObCg MHB0 AZCboPToI0QzwW6bOyXfNZQh WDLrU5TjzAAzEPeaV460LKhg OuU4SSDcmiLsC7BvIJNntYqq OiB0 t8T1Ry0Lq5LzeyhyG6QpiNKl PvWfTdeiLZf1S0TsEvboiUJ+ FI13SIFiXH51IOx6INV1kRxz PSdi VCPcG1TjyB3tPpQeTZNeFTQt Oyc+PHRhYmxlIHdpZHRoPScx LFOnIyRkwDopIM3vRp8fURXd LWNv hBiuiZMuOtZfl3wfEKUoSUmu GP6heBevB5EfrSR0GPXbx4y8 Tb21T05aO6GdcEP+PGNvbCB3 aWR0 lJ7yTlVqBiL0HQagQ942GqKw yZIvOrrhk5yzu8ctxZw6HoN0 OQEppeIbxQphPYN3h2QqQq72 Y29s IHdpZHRoPSIxNSUiIHZhbGln kf5umW2wLb2+KRRwbHZ2bLM9 pX9sDdOiEuJ6NWlsJ907OvBq cCIv Pnbxc2mvv5nruKe2JaTgGGZh dmVnzKvqRQZ3y4WxQo34X8Jv rHjpp8ZhZqf4rn97yHZcy4J4 bGU9 Q8PmAGIjewtwhYXzoCsmYL0h SUGcqxqcZFIrzJ7eGNAxZ9y8 PlUcCzX8WTowK4FomhV5PWDl bGQg QVSqnDORmL4cuflkj4euanho RzGgXDQdCNy3SRn9CZZgsSnk TzRjGYH0UaP1DRU7ePKfgA6p bGln adxkjV7eSit+STO8jHGpsVAO GU5iAayikJX+YHLbMES6rIvl IVfyYGMxeG1vPMPoP6s3SrHa LjA1 UZqtW4HtydM5THJihHFhQIAk eRULwN7gfhgow3gtqalhMwXv GLQuRDi2GJr2EAWbtJxrKxAf ZWZ0 WvZ8PAC2nVXsgY1qvKumxkoe vI0bBcb+QufdzHjpOPW5XTr3 N9QeNwq7DDAfuEjmXL5zcBMr ZGlu Kc3yiHnwdMbdGZ6vJBIuqfcw d892PpOwb9leXJMjsLGyEVfp ALS9U36cq0A6VWMkPLOpOAE2 dGV4 rO2brSvtibzutYWcwXcvucTc fPahLHfxJObxT602IHMubWmu ZsLwRQz0E7VmYep3UHQgiOnc ZT0n wIFkGGneOs5vfGeajAgnGO4w JOMleqvse069BwLbj1saGTLk kWWwBEmwEFX2D20om4O3NDUi MDAw JNP4sMV7yD2baCefxhoiwBTn tKdnvhGxmAczMOtgRCjrM616 UMHyyBwiNgFczCo0H7BiOck7 ZCBz gYwwOV4wjRVoUSzsCd4hcQmi oEriQJ4yGKZhtsaka701PrHi y0tdBIYijAXaYNiqFHN2P41w b3I6 CAJcWERnIGB1iNY4wG0rvPar bjogbGVmdDsgdmVydGljYWwt YUiqA788ODYwjQxoOpTubFuw bnQg FHoiGLi2M1HyVoapoXV+PC90 DMCtPK49cETxgRYhx1kwdCd8 PvMdCGVyGGR4bEiyTYexk0Bi ZXIt J14vtIQwz8G4JDAgnSwwvLXy KzKlqLF3cO5zCKxngjqyq6sa uuwgElsyn0muyn13iZ33U49v IHdp KVFsPGVbOZDdAUJyvVhjwg5y iU5qQl9+XEIikLI1hIL6nA0g FUPhMmT3XCtdT976DjAdlDKg Pjxj y5mfk8kxiZa8UsO0UCMehqZi kRtmNSU8f8HrMj13W74zJLyr CXHeVDMcUERjOKObaJdfpi0x dG9w Ii8+VBErxYV5oPL4rL8oRrIs DoH0HRizL962XzUjcRLsZkoe U06sC0EahCU+NUBoGmn1VWQr dHls TD1lzYVjTIhjQy7gOCA9JpMh QlNlAVsiY9IbZLHdblgbveqs fVO4PXNxUMXkjW17Fn7mnRfb MTBw cJSIvY2kpkium2pospmbJeYb ANSlXZo4VOu7SGOtvQumZkNa FJE3YdE9GOT9mQYjiN7wwChi bjog rO9oD5FwLGHktjjiEp19hI3j VpUfIuU3YXnmGvg+AC6JZV6Z RovXWFKUDUMHORTMKX6BU50R RTwv dGQ+PKScUWM2qXnrLHfpCQKf wB3tGHHdD6s5BeXlLvK1LVch R2UtIQDcqvhvCl27nJ6tZuBk LjA1 ZHxmM2FmynW1VEVdaWJmCBvn FTG7B37nn4I9TDAqBFWoQYZ2 zDB5uL6bhFnlmggdxAKycVdo dmVy uEoiPLaeDDvhS899FLNcfSec TsH1AsQ7DpM6WRM5L4KwSsv8 IFRbhVmfTG1lvNCkIQhxKi2v aWdo wDuhIQ4mIACdlnriPJDquN8x OYNyqLIxvDhsOF1uNMYtunjd r112DiNaKZL8FTJkqNArH9Ol bG9y VtAvDSTqYMRgA9UnmNViOMwq U680EUpxQxT7RPVbclIsW7Re NZLccJysRwH1n4B0Cd5gGELE ZWFy czwvdGQ+ULPcLBL9wPgeSLvt NERvqV6qMFEcD8d2UjTuMqL9 YBmfP5EvSSFvomisTx14uS1q OiAw PdQ7NJwwS6QowtW6RJDabACx HMkoQGP0H20kd5W2FMJzKWIo CBM6gOX2cX9pgCndhxdehPIc dDsg ntKntDtjHKahMKjjD325XPZp cDsnPkZFTUFMRTwvdGQ+PHRk JDI6hWuzYByfGCVkgP0uWHAa Z2h0 RvSlTfL4QAjpR9GdNVIurobe Qj09sX7vRvInQmZ5ZFwfD5Wm tbN0DSHazOCbYUrtGWK8P31e b3I6 PBUxWPQpDDJ5sCT8zC8twGxk bjogbGVmdDsgdmVydGljYWwt BBexY829YMFfjAohCn6LTI28 ZD48 S9JmPveikDDleVQ+PHRhYmxl IHdpZHRoPScxMDAlJyBzdHls OA3fXw4kEWKcIMPcoXxvoXCz OiBj s7wwFQHfKQafWX4pdZueJ2Ec nFL0MXQyl1w4Px52R99rD4Qe dXA+VEUmnGM6rKO8nM4hLlJu IiB2 SAgdT279IaXdfACiXabig0be u7tcnNt9CeClNJVztjRnuFhj LVS3s9LfZq92J03qOAtaQXFq PSIy OWVwMRIaoCkboj1mxU7kKf9+ WDYcdNC1qCF1uO5sIhDfDuW1 ETukZ054JzFgdNGeKcsjE69o Z3Jv dXA+BILwTgm0IKAqkZotYZ6l vRHlFErrGv3rXYU8GuWnQjLs LAzwL8DpXTDsqjiyyeapbPC9 IDAu DLEqlK56Lh6qvYpjVp7nRQQe NOZ4VREpxWIkI1McrW5lRqRu TFToAREtX9XfxQZgDAffX007 IGxl XfO2GGVwalPfW8RfFZVqhVvr TsW2t2O3Wt3NgOgxoPZyBX5f DcIkHQg7V3PrCyd8TRGvhFvc ZT0n uAQwFTagLr8xkCqtzEsmCP2h BKBrltqep805VaPtk8bnFTLv fVOkUAsvIQS8P39vl0R2RLOu MDAw YFS7mYL2zK6pcNxbblganOYe iCdpwiFnkTsqMPbgVCyjD178 RKZoxVqxNlUMNfo1U9YbCma6 ZCBz yOlpGP2iiDWiGKeiUb4evSqh iRqaZE3mABKwgitgz429GbBq l6esADMchICrBXwiBGL2L54h b3I6 MDIsLLQfRBQ9jEA9tL3neHgy bjogbGVmdDsgdmVydGljYWwt VUctX494XBXtjPsxJz6FPyn5 L3Rk Owl1ZPDlsPnoYF6dzAXcYViy Us2cyPpcvSmhLP3bQIFammtc b273EkNkr8chPPMybTOeTJke ZXM7 F54oc4U1NNMxEWHpUHE4qYH4 fG2cbWwirenkiYBvaIjwivPu pKshUJgfJGopG679AQDnoZrj PlBh eWVyOjwvdGQ+JK25vm16Y6Bh TtyiKeh2VPCoVAS0yUU0aY5k YZYjJWulv8C0hED5U0SujxWi ci1j b2x (more content not included)... [facility] Coding Summaryon 03-22-2025 Coding Summary HTMLBase 64 AgneosrkORx9pAt+PGhlYWQ+ TP4KVTWfK34qrBAzpO5vE0HD TElOSywgQVBQTElOSyIgbmFt VA5knMUuVDJb IC8+HO8qLSUeMaoswWFuz7R3 xUG2Z33upx9wQGemkFV8PXYy EaGgtbppx6tqiIa5IHjeWevw OyBt GBLntE32DIN4tL72Oy58tCVs nPTqy4zfmKu2QmKcGAFzOKX0 xAypZEhwl2EmNWFoL58pqMRx c2U6 FVZaaNcppMJeAuImbUW6oT6t AQghqwuff1rhyqtcZzj4bp13 uRNnt9O4oGD1G9SbphO0WWDe bGQg AsozgUJCyR8bqsehy1faioxt KfRzZCWjHVy3DLy1KZVhbTkf LrSaUM96FFQ8BWUnetHfK9St LWFs zOqsLuU5t0E8Ry8CK2KPEomq Q3SQGVOPRUszsNU+TC22ns22 B8DvCuggJcq1QBIuSTI0eEH4 aD0n YMWnOApzq5M0pTK6Q6OssmIk uc9au6mnJMFdXNgpN66ooFBj l0I6WQCqbHT0LVXmtTvkBaHu aG93 Oyc+KVDedIhns6VoKjbnf4mz f4tjnFe7SxppLIRgnaRncEic OIO3p3KnTx4gXEZrbTG7dTD6 aD0i XcKqPjX6ICfbZ915AkNwuJBx QhzpO67lQ4RutVK+PHRyPjx0 VOVkpOruQK7fK9ViLCUzldev bGVm mUjzYU4pKAGkvbedCIOmjT1f KCNeI0i1EnTkUjD7KTdxP0Yp PACoenieQq34bZ3gUjQyKeE8 MGlu R2YgqfU6YLErwIQhCDtzPSK4 O82ag9P9SWFlRWSuQCI4eIF3 hF1ocAxxahkhjGPtrOlwqfEm dGlj EWdwWJemN441LTZioXcwGdDu ZGluZyBEYXRlOiAgMDQvMjIv MjAyNTwvdGQ+AHUrZDB4aLns PSAn hMTbGHapOx8zeXtdfQwnGB3t UHObzcabNHFivQ4vVOUjyHUm bHewAU6hHCBnnifji899KcXg MHB0 HJCckEEnL2XmoO7xZqFvKYTd MPIuW0CxoGUeHFjjD510PSsh BsM5ZKOvbnOnY2AyFQSthAmf OiB0 d1G5Sk3Ha3GojjjiV7UwjKKm WpMzFatmKQm3C7NyOijpfZH+ PM67SGJhCD75CLx4EWQ4bIby PSdi WWHjQ8AiqR6zLiEpAENyWPBd Oyc+PHRhYmxlIHdpZHRoPScx DQHpNaHuhVkrBX1bLm8dPENi LWNv xJofrFYfIkUjz2ecPGOxYLrx RV8tjObdB6JepUF7FXPku2r3 Pw35X29sE0PopXD+PGNvbCB3 aWR0 qI8iSlBzUgW8IHlhH188KlNw bOBaBchnr1irv2ebvUc9PqL7 IGLlhqPxbFpmAAZ3o5BvEx54 Y29s IHdpZHRoPSIxNSUiIHZhbGln st1kwM0eHz6+BRWsrQM0bMM9 qM0aFnSsJbD3AGhwE176FsEv cCIv Huqss3hmi7queNb1InNyRFJr ukJwkXhvPIK6q0VdCv04D7Bm mAmgd9RfKah0oj91cCRtb6E5 bGU9 C7NcNCQqgabqzPTumLgiFB4p EVQnddavWQRrqN3qGZXlL3x5 PpUpPyE6SXhtH8AiuvM5TQYv bGQg PHMirRUShT9dpvndl0tcgtit NpVoXQYrRNx0DFl1ZKMewFmt McSeEVS7FkL6LMM5lMPngN7a bGln dmysjO3nSqq+JFO2tEBqiZDE WV7yJmikuJI+ECKbRZA3jYkf PNpvQNYahZ8yDKKwK4a6ScYy LjA1 RNekO0ZhafE2RVGlxTCoAQXk tSPQhN8aldnsr1tcfgzkVsWp OIUpDFy6JLp5KMXlmXzwXhYl ZWZ0 AvG5DLS7yLOygU6kkDlauzfw bL6uLkf+ZlcxrIktXHL7FGh4 W7OwRie8YZTubTqiMG6nrUIw ZGlu Mi6ihPrvrGbdLU7iRJUpmcgq b435ChRto5xnZVEiiZGrXZcn SMZ1F72rr5J5UYCdVOQuINF9 dGV4 fW4svZufwrprkKPlbGktffCb fXgdUTriBXhoI743LVXiyHlp BhYfWLd8H7JtYme8XVUkrKam ZT0n cXUjLGqhNq9ubBynyDkfEG6g CILqkgrcf994RwWzq3ryTFVs kBUdWZqiGFO6I42hp9P9ONQj MDAw DVX9rBJ6kS7vyMrtbyvryALs pUhxnmRdhOmdERwaLRblM345 JZRnkBqrBwBrvIv4M3HtSku5 ZCBz cTxfBV5gmGAkNUopHy6opGec mLssST6uAKNkxbjme085UpUw f7gjNECpfCAmVJotSKT7J23y b3I6 OVIcAXTvTDH6iDE7lL7yjHfe bjogbGVmdDsgdmVydGljYWwt KGyuS436TVHojObrUtXacWlu bnQg EYbiHFf3I3TtCiiltEV+PC90 XUGmPE74dKDplWQuq9esiLl2 TbZmCCHeETA6nGkmEHllt3Df ZXIt A64hpLVlb4U1QEArvJnwoEGw SiQajGT3vL7wYNlvlyiko0ur hyqkXzntu1eeot15eZ29T98n IHdp HDIpCKDwNPXoMOFqsEuhfa1q iN9eOa9+KMUbkQU8cVP1wH7j UVQfQmT0EVctO675TmHtnZAc Pjxj z7mwb8zwgCq3ObW7FPWgbpWf rBytUZS4y5AfKy29C72cAEki DRMuSLMnZCXhGYKaoFrrxd6p dG9w Ii8+JMWwjUR9mWM3qD6xKiDi SsZ8NTufP494WnDidVZbPofb V52xL2UigFV+ICKoQhk1RVAu dHls XE9fcHNiQQkeBr8qKTV3KzQd UyQnKTwvE0RgOSVjgyrstjli fQU5QFTlMVInfB20Da3gsSew MTBw xQNNqD6usothk7yomrzcQpQa CPXeDUw8IKg2HXUqsXdwIrPo OAN8VaS5LNI3cTKdfE9cfHhx bjog iR8hD1ViYFCaqhdrKi87bF3p TjLoIjJ4DHatOhl+ZM2OVK3Y WetRRFDWKCCMMNCPMO2LS39A RTwv dGQ+VGKqFSV6cTdqBQicZPYb kU9eITAcB9q3LxZjGzI7HArp O9SiXNYpmxvnJt06jI0rAaXb LjA1 VHrjO7YiexS2OKClmJOxIXlq JHW6X69cn3V7EUEdRYWrZBH2 wAT2uX8dvFzickuzoZWuaSmo dmVy mRucNCgrYArxC014NITkbGhd DdX4HkX1KoB3KIU9U3TrJcp9 EIPnqPzaGJ4kaRMaGUweJu5h aWdo tUxqUE2qAQRappnfAHYvwZ5m WCYfuJFleCvhSC3cHDBnzpgy v634PgGcQXT7MFMzwXVxH2Pv bG9y UvXsRKQuODMtF2QghNUcZGli K152QPxuTzE9NBGaaiKfV5Ei AOIznSxmAeC8i8N5Pb4hYXXO ZWFy czwvdGQ+OYHuRTA6tPfdWRpi BVOqtX8tYMAuX6r8SdQfUbI0 KUsbP3IcPRNvmsspIv66qH7t OiAw RzX0GPzaT2LjccH1HSOtpYWq MHfzKJG5Z47wi7U3AFWjULEz VGQ9vXV5fH9jnNcednvsfPFh dDsg cuJqsPczAZfoBAzgY879AWIe cDsnPkZFTUFMRTwvdGQ+PHRk GJT8rHokIZhtJKSomI9pXIUn Z2h0 DjFbFgL4VJwqM2BsMCCdihml Mm65tO3bHyNlCmA9HAliZ9Se drU6DMDrbELrBNohPKO3W66f b3I6 VMGtLCAjCKK2nSL0mW2ezAcg bjogbGVmdDsgdmVydGljYWwt BDrjN978ZEEllKimEd6OSG60 ZD48 G1JtIxpunKHpzEM+PHRhYmxl IHdpZHRoPScxMDAlJyBzdHls AL1pHj3fKDVhTZOwhPfccFOd OiBj z1wcBHMbHPxvRS1zbJmzZ9Vf qMA9FQEwf5f5Gc57I45iN4Ns dXA+EMLmgZU3kNE5xL4dSgNu IiB2 DPocX098QeZyaFStJeioc4sv h5epxOq8MnJrZDSelrVswTyq FXV0s8OoIu05W92jZXpaLCKi PSIy VBJrVBRyePnxhj0akL5oIp6+ IVWsyKI2kMC6lE0zDfPwGpB9 RGlbT022DyIvtWNpMptsB76y Z3Jv dXA+PXVeMdw1XMMcyMddFA0a uBGuJXblNh4hJPH2TlIzLhAf ZMmfM3WaKBEpdzuntcxbgEN9 IDAu EJLvnR16Ho5dlIfpBp7bRSBh YIP2BZNehOPqJ7GyoT0bChQl CNTySSUuW5BcvJKhYYluL201 IGxl MvI8XYOqlwGnR7IqTWLkeEcu SsZ6i6K6Vq1PyXtykDJyFY1u YmHcZFk1C8XtGau6WKXpeXoe ZT0n sKRkHIanUt3fpLamqUqcZU0i LHObbembu360HiKsa2pxVKTp nWFgZHoaLIB8L71us9V2WYOj MDAw ZRI0aKW1nP9cbXetdsfsaHHk hAcnvaTmoXupCYoaBMogR509 MTGekQafBeYREli1J0XiUxx2 ZCBz wAwuHF1taMZeLVlfLb5vwPbf zZsbRY3nDDQygmyru502PaGh y0cyQSDjeYQgALvkWJD0P55a b3I6 BYQeGSCaLIU6oJX2dH3ydZcc bjogbGVmdDsgdmVydGljYWwt AQbyF531PWBpgDggIh7FIop6 L3Rk Flg0QRPqmKkoIF5eeBLwXNkh Sr6jbYkznZihRY0dOJFvtjia j825TcIot8nsQDKdhMDxZTlg ZXM7 A13pl2Z7OBPyYXSpHSO0nCL4 eP7kmLftmdytdBUijJzccxMc aGsuEKgtBWnhK591EQCsbEra PlBh eWVyOjwvdGQ+CG20lk58N4Ig LwjpMao8LFKaFGN5iBB4eC2b XOUfJVrvg2T3eWN7K6QqaaAz ci1j b2x (more content not included)... Normal [facility] HCG,,Ur(POC)on 01-30 HCG,,Ur(POC) Negative Normal NEG [place] Comment on above: Result Comment: Spec imens with hCG levels near the threshold of the test (25 mIU/mL) may give a negative or indeterminate result. In such cases, another test should be performed with a new specimen in 48-72 hours. If early is suspected clinically in this setting, correlation with quantitative serum b-hCG level is suggested. Basic Metabolic Panelon 01-30 Anion gap [Moles/Vol] 11 mmol/L 9 - 16 mmol/L [employer] Calcium [Mass/Vol] 8.6 mg/dL 8.6 - 10. 4 mg/dL [employer] Chloride [Moles/Vol] 104 mmol/L 98 - 10 7 mmol/L [facility] CO2 [Moles/Vol] 23 mmol/L 20 - 31 mmol/L [facility] [employer] Creatinine [Mass/Vol] 0.9 mg/dL 0.6 - 0.9 mg/dL [facility] [employer] Est, Glom Filt Rate 88 - PINF [facility] Comment on above: These results are not intended for use in patients <18 years of age. eGFR results are calculated without a race factor using the 2020 CKD-EPI equation. Careful clinical correlation is recommended, particularly when comparing to results calculated using previous equations. The CKD-EPI equation is less accurate in patients with extremes of muscle mass, extra-renal metabolism of creatine, excessive creatine ingestion, or following therapy that affects renal tubular secretion. Glucose [Mass/Vol] 94 mg/dL 74 - 99 mg/dL [employer] Potassium [Moles/Vol] 3.8 mmol/L 3.7 - 5.3 mmol/L [facility] Sodium [Moles/Vol] 138 mmol/L 136 - 145 mmol/L [facility] Urea nitrogen [Mass/Vol] 8 mg/dL 6 - 20 mg/dL [facility] Basic Metabolic Profon 02-17 Anion gap [Moles/Vol] 11 mmol/L Normal 9-16 [place] Comment on above: Performed By: #### B MP, CBC ####[facility] [address] [place], [place] [address])[phone] Director: Monico Guadarrama MD Calcium [Mass/Vol] 8.6 mg/dL Normal 8.6-10.4 [facility] Comment on above: Performed By: #### B MP, CBC ####[facility] [address] [place], [place] [address])[phone] Director: Monico Guadarrama MD Chloride [Moles/Vol] 104 mmol/L Normal 98-107 [facility] Comment on above: Performed By: #### B MP, CBC ####[facility] [address] [place] [address] Lab Director: Monico Guadarrama MD CO2 [Moles/Vol] 23 mmol/L Normal 20-31 [facility] Comment on above: Performed By: #### B MP, CBC ####[facility] [address] [place] [address] Lab Director: Monico Guadarrama MD Creatinine [Mass/Vol] 0.9 mg/dL Normal 0.6-0.9 [place] Comment on above: Performed By: #### B MP, CBC ####[facility] [address] [place] [address] Lab Director: Monico Guadarrama MD GFR/1.73 sq M.predicted among non-blacks MDRD (S/P/Bld) [Vol rate/Area] 88 mL/min/{1.73_m2} Normal >60 [facility] Comment on above: Result Comment: These results are not intended for use in patients <18 years of age. eGFR results are calculated without a race factor using the 2020 CKD-EPI equation. Careful clinical correlation is recommended, particularly when comparing to results calculated using previous equations. The CKD-EPI equation is less accurate in patients with extremes of muscle mass, extra-renal metabolism of creatine, excessive creatine ingestion, or following therapy that affects renal tubular secretion. Performed By: #### B MP, CBC ####[facility] [address] [place] [address])[phone] Director: Monico Guadarrama MD Glucose [Mass/Vol] 94 mg/dL Normal 74-99 [facility] Comment on above: Performed By: #### B MP, CBC ####[address] [address])[phone] Director: Monico Guadarrama MD Potassium [Moles/Vol] 3.8 mmol/L Normal 3.7-5.3 [place] Comment on above: Performed By: #### B MP, CBC ####[address] [address])[phone] Director: Monico Guadarrama MD Sodium [Moles/Vol] 138 mmol/L Normal 136-145 [facility] Comment on above: Performed By: #### B MP, CBC ####[facility] [address] [place] [address])[phone] Director: Monico Guadarrama MD Urea nitrogen [Mass/Vol] 8 mg/dL Normal 6-20 [facility] Comment on above: Performed By: #### B MP, CBC ####[facility] [address] [place] [address])[phone] Director: Monico Guadarrama MD CBCon 02-17-2025 Erythrocyte distribution width (RBC) [Ratio] 14.5 % High 11.8 - 14.4 % [facility] Hematocrit (Bld) [Volume fraction] 40.3 % 36.3 - 47.1 % [facility] Hemoglobin (Bld) [Mass/Vol] 12.4 g/dL 11.9 - 15.1 g/dL [facility] Interpretation and review of laboratory results Abnormal [facility] MCH (RBC) [Entitic mass] 27.5 pg 25.2 - 33.5 pg [facility] MCHC (RBC) [Mass/Vol] 30.8 g/dL 28.4 - 34.8 g/dL [facility] MCV (RBC) [Entitic vol] 89.4 fL 82.6 - 102.9 fL [facility] Nucleated RBC/100 WBC (Bld) [Ratio] 0 % 0.0 per 100 WBC [facility] Platelet mean volume (Bld) [Entitic vol] 9.5 fL 8.1 - 13.5 fL [facility] Platelets (Bld) [#/Vol] 247 10*3/uL [facility] RBC (Bld) [#/Vol] 4.51 10*6/uL 3.95 - 5.11 m/uL [facility] WBC other (Bld) [#/Vol] 9.4 B [facility] Erythrocyte distribution width (RBC) [Ratio] 14.5 % High 11.8-14.4 [facility] Comment on above: Performed By: #### B MP, CBC ####[facility] Hospital[facility]ptivityD[address] [place] [phone] Lab Director: Monico Guadarrama MD Hematocrit (Bld) [Volume fraction] 40.3 % Normal 36.3-47.1 [facility] Comment on above: Performed By: #### B MP, CBC ####[facility] Hospital[facility]ptivityMnctqgczpiig[address] [place] [phone] lab Director: Monico Guadarrama MD Hemoglobin (Bld) [Mass/Vol] 12.4 g/dL Normal 11.9-15.1 [facility] Comment on above: Performed By: #### B MP, CBC ####[employer] [place] [address] [place] [phone] Director: Monico Guadarrama MD MCH (RBC) [Entitic mass] 27.5 pg Normal 25.2-33.5 [facility] Comment on above: Performed By: #### B MP, CBC ####[address] [phone] Director: Monico Guadarrama MD MCHC (RBC) [Mass/Vol] 30.8 g/dL Normal 28.4-34.8 [place] Comment on above: Performed By: #### B MP, CBC ####[address] [phone] Director: Monico Guadarrama MD MCV (RBC) [Entitic vol] 89.4 fL Normal 82.6-102.9 M [facility] Comment on above: Performed By: #### B MP, CBC ####[address] [phone] Director: Monico Guadarrama MD NRBC Automated 0.0 per 100 WBC Normal 0.0 [facility] Comment on above: Performed By: #### B MP, CBC ####[address] [phone] Director: Monico Guadarrama MD Platelet mean volume (Bld) [Entitic vol] 9.5 fL Normal 8.1-13.5 [facility] Comment on above: Performed By: #### B MP, CBC ####[address] [phone] Director: Monico Guadarrama MD Platelets (Bld) [#/Vol] 247 10*3/uL Normal 138-453 [facility] Comment on above: Performed By: #### B MP, CBC ####[address] [phone] Director: Monico Guadarrama MD RBC (Bld) [#/Vol] 4.51 10*6/uL Normal 3.95-5.11 [facility] Comment on above: Performed By: #### B MP, CBC ####[employer] [address] [place] [address] lab Director: Monico Guadarrama MD WBC (Bld) [#/Vol] 9.4 10*3/uL Normal 3.5-11.3 [facility] Comment on above: Performed By: #### B MP, CBC ####[facility] [address] [place] [address] lab Director: Monico Guadarrama MD Basic Metabolic Panelon 03- Anion gap [Moles/Vol] 10 mmol/L 9 - 16 mmol/L [facility] Calcium [Mass/Vol] 9 mg/dL 8.6 - 10. 4 mg/dL [facility] Chloride [Moles/Vol] 105 mmol/L 98 - 10 7 mmol/L [facility] CO2 [Moles/Vol] 24 mmol/L 20 - 31 mmol/L [facility] Creatinine [Mass/Vol] 0.9 mg/dL 0.6 - 0.9 mg/dL [facility] Est, Glom Filt Rate 88 - PINF [facility] Comment on above: These results are not intended for use in patients <18 years of age. eGFR results are calculated without a race factor using the 2020 CKD-EPI equation. Careful clinical correlation is recommended, particularly when comparing to results calculated using previous equations. The CKD-EPI equation is less accurate in patients with extremes of muscle mass, extra-renal metabolism of creatine, excessive creatine ingestion, or following therapy that affects renal tubular secretion. Glucose [Mass/Vol] 116 mg/dL High 74 - 99 mg/dL [facility] Interpretation and review of laboratory results Abnormal [facility] Potassium [Moles/Vol] 4.2 mmol/L 3.7 - 5.3 mmol/L [facility] Sodium [Moles/Vol] 139 mmol/L 136 - 145 mmol/L [facility] Urea nitrogen [Mass/Vol] 11 mg/dL 6 - 20 mg/dL [facility] Basic Metabolic Profon 02-16 Anion gap [Moles/Vol] 10 mmol/L Normal 9-16 [place] Comment on above: Performed By: #### C BC, BMP #### [facility] [employer] [address] [place] [address] [employer] Supervisor: Monico Guadarrama MD Calcium [Mass/Vol] 9.0 mg/dL Normal 8.6-10.4 [facility] Comment on above: Performed By: #### C BC, BMP #### [facility] [employer] [address] [place] [address] [employer] Supervisor: Monico Guadarrama MD Chloride [Moles/Vol] 105 mmol/L Normal 98-107 [facility] Comment on above: Performed By: #### C BC, BMP #### [facility] [employer] [address] [place] [address] [employer] Supervisor: Monico Guadarrama MD CO2 [Moles/Vol] 24 mmol/L Normal 20-31 [facility] Comment on above: Performed By: #### C BC, BMP #### [facility] [employer] [address] [place] [address] [employer] Supervisor: Monico Guadarrama MD Creatinine [Mass/Vol] 0.9 mg/dL Normal 0.6-0.9 [place] Comment on above: Performed By: #### C BC, BMP #### [facility] [employer] [address] [place] [address] [employer] Supervisor: Monico Guadarrama MD GFR/1.73 sq M.predicted among non-blacks MDRD (S/P/Bld) [Vol rate/Area] 88 mL/min/{1.73_m2} Normal >60 [facility] Comment on above: Result Comment: These results are not intended for use in patients <18 years of age. eGFR results are calculated without a race factor using the 2020 CKD-EPI equation. Careful clinical correlation is recommended, particularly when comparing to results calculated using previous equations. The CKD-EPI equation is less accurate in patients with extremes of muscle mass, extra-renal metabolism of creatine, excessive creatine ingestion, or following therapy that affects renal tubular secretion. Performed By: #### C BC, BMP #### [address] [address] [employer] Supervisor: Monico Guadarrama MD Glucose [Mass/Vol] 116 mg/dL High 74-99 [facility] Comment on above: Performed By: #### C BC, BMP #### [address] [address] [employer] Supervisor: Monico Guadarrama MD Potassium [Moles/Vol] 4.2 mmol/L Normal 3.7-5.3 [place] Comment on above: Performed By: #### C BC, BMP #### [address] [address] [employer] Supervisor: Monico Guadarrama MD Sodium [Moles/Vol] 139 mmol/L Normal 136-145 [facility] Comment on above: Performed By: #### C BC, BMP #### [address] [address] [employer] Supervisor: Monico Guadarrama MD Urea nitrogen [Mass/Vol] 11 mg/dL Normal 6-20 [facility] Comment on above: Performed By: #### C BC, BMP #### [facility] [employer] [address] [place] [address] [employer] Supervisor: Monico Guadarrama MD CBCon 02-16-2025 Erythrocyte distribution width (RBC) [Ratio] 14.2 % Normal 11.8-14.4 [facility] Comment on above: Performed By: #### C BC, BMP #### [facility] [employer] [address] [place] [address] [employer] Supervisor: Monico Guadarrama MD Hematocrit (Bld) [Volume fraction] 41.8 % Normal 36.3-47.1 [facility] Comment on above: Performed By: #### C BC, BMP #### [address] [address] [employer] Supervisor: Monico Guadarrama MD Hemoglobin (Bld) [Mass/Vol] 13.7 g/dL Normal 11.9-15.1 [facility] Comment on above: Performed By: #### C BC, BMP #### [address] [address] [employer] Supervisor: Monico Guadarrama MD MCH (RBC) [Entitic mass] 28.2 pg Normal 25.2-33.5 [facility] Comment on above: Performed By: #### C BC, BMP #### [address] [address] [employer] Supervisor: Monico Guadarrama MD MCHC (RBC) [Mass/Vol] 32.8 g/dL Normal 28.4-34.8 [place] Comment on above: Performed By: #### C BC, BMP #### [address] [address] [employer] Supervisor: Monico Guadarrama MD MCV (RBC) [Entitic vol] 86.2 fL Normal 82.6-102.9 [facility] Comment on above: Performed By: #### C BC, BMP #### [address] [address] [employer] Supervisor: Monico Guadarrama MD NRBC Automated 0.0 per 100 WBC Normal 0.0 [facility] Comment on above: Performed By: #### C BC, BMP #### [address] [address] [employer] Supervisor: Monico Guadarrama MD Platelet mean volume (Bld) [Entitic vol] 9.0 fL Normal 8.1-13.5 [facility] Comment on above: Performed By: #### C BC, BMP #### [facility] [place] [address] [employer] Supervisor: Monico Guadarrama MD Platelets (Bld) [#/Vol] 273 10*3/uL Normal 138-453 [facility] Comment on above: Performed By: #### C BC, BMP #### [facility] [place] [address] [employer] Supervisor: Monico Guadarrama MD RBC (Bld) [#/Vol] 4.85 10*6/uL Normal 3.95-5.11 [facility] Comment on above: Performed By: #### C DANILO, BMP #### [facility] [address] [place] [address] [employer] Supervisor: Monico Guadarrama MD WBC (Bld) [#/Vol] 15.0 10*3/uL High 3.5-11.3 [facility] Comment on above: Performed By: #### C DANILO, BMP #### [facility] [address] [place] [address] [employer] Supervisor: Monico Guadarrama MD CBC without Diffon Erythrocyte distribution width (RBC) [Ratio] 14.2 % 11.8 - 14.4 % [facility] Hematocrit (Bld) [Volume fraction] 41.8 % 36.3 - 47.1 % [facility] Hemoglobin (Bld) [Mass/Vol] 13.7 g/dL 11.9 - 15.1 g/dL [facility] Interpretation and review of laboratory results Abnormal [facility] MCH (RBC) [Entitic mass] 28.2 pg 25.2 - 33.5 pg [facility] MCHC (RBC) [Mass/Vol] 32.8 g/dL 28.4 - 34.8 g/dL [facility] MCV (RBC) [Entitic vol] 86.2 fL 82.6 - 102.9 fL [facility] Nucleated RBC/100 WBC (Bld) [Ratio] 0 % 0.0 per 100 WBC [facility] Platelet mean volume (Bld) [Entitic vol] 9 fL 8.1 - 13.5 fL [facility] Platelets (Bld) [#/Vol] 273 10*3/uL [facility] RBC (Bld) [#/Vol] 4.85 10*6/uL 3.95 - 5.11 m/uL [facility] WBC other (Bld) [#/Vol] 15 High B on [facility] Glucose (POC)on 02-16-2025 Glucose [Mass/Vol] 85 mg/dL Normal 74-100 [facility] No Panel Informationon 02-16 [facility] POCT Glucoseon 02-16-2025 Glucose [Mass/Vol] 85 mg/dL 74 - 100 mg/dL [facility] POTASSIUM (POC)on 02-16-2025 Potassium [Moles/Vol] 4.2 mmol/L 3.5 - 4.5 mmol/L [facility] Potassium (POC)on 02-16-2025 Potassium [Moles/Vol] 4.2 mmol/L Normal 3.5-4.5 [place] Surgical Pathology Reporton 02-16-2025 Surgical Pathology Report (NOTE) Path Number: [id number] -- Diagnosis -- STOMACH, PARTIAL GASTRECTOMY: - MILD CHRONIC GASTRITIS. Cy Etienne M.D. Electronically Signed Out /02/18/2025 Clinical Information Pre-Op Diagnosis: MORBID OBESITY DUE TO EXCESSIVE CALORIES; OBSTRUCTIVE SLEEP APNEA; BORDERLINE DIABETES Operative Findings: PORTION OF STOMACH Operation Performed: LAPAROSCOPIC ROBOTIC ASSISTED GASTRECTOMY SLEEVE, EGD, HIATAL HERNIA REPAIR, POSSIBLE LIVER BIOPSY se Source of Specimen A: PORTION OF STOMACH Gross Description MERLINE MOHR, PORTION OF STOMACH Received in formalin is a 21.0 x 4.2 x 3.6 cm portion of stomach with a staple line that runs along its length. The serosa is pink-short and the mucosa is pink-red with no areas of granularity or masses. Lay Out Carpenter sections 1cs. tm Meliza Duncan/se:02/17/2025 Microscopic Description Mild chronic gastritis is present. Submucosal adipose tissue appears increased. The muscularis propria and serosa are unremarkable. There is no evidence of Helicobacter pylori infection, intestinal metaplasia, dysplasia, or malignancy. Processing Lab: [address] [id number] Interpretation Performed at [address] [id number] SURGICAL PATHOLOGY CONSULTATION Patient Name: MERLINE MOHR [facility] Rec: [id number] [facility] ANATOMIC PATHOLOGY [address] [place] [id number] Normal [facility] Nicotineon 02-04-2025 Cotinine <5 [facility] Comment on above: Performed By: #### B MP, PTT, PT, CBC #### [address] [address] Commissary Production Supervisor: Monico Guadarrama MD #### ANICOT #### [facility] [address] [place] [address] Commissary Production Supervisor: Matthieu Rhodes MD Nicotine <5 [facility] Comment on above: Result Comment: (NOT E) INTERPRETIVE INFORMATION: Nicotine and Metabolites, Serum or Plasma, Quantitative Methodology: Quantitative Liquid Chromatography-Tandem Mass Spectrometry Positive cutoff: 5 ng/mL For medical purposes only; not valid for forensic use. This test is designed to evaluate recent use of nicotine-containing products. Passive and active exposure cannot be discriminated definitively, although a cutoff of 10 ng/mL cotinine is frequently used for surgery qualification purposes. For smoking cessation programs or compliance testing, the absence of expected drug(s) and/or drug metabolite(s) may indicate non-compliance, inappropriate timing of specimen collection relative to drug administration, poor drug absorption, or limitations of testing. This test cannot distinguish between use of tobacco and purified nicotine products. The concentration value must be greater than or equal to the cutoff to be reported as positive. This test was developed and its performance characteristics determined by [facility]. It has not been cleared or approved by the [place] Food and Drug Administration. This test was performed in a CLIA certified laboratory and is intended for clinical purposes. Performed By: [facility] [address] [place] [id number] Loft Worker Apprentice: Teddy Nuñez MD, PhD CLIA Number: [id number] Performed By: #### B MP, PTT, PT, CBC #### [facility] [address] [place] [address] Commissary Production Supervisor: Monico Guadarrama MD #### ANICOT #### [address] [address] Commissary Production Supervisor: Matthieu Rhodes MD Nicotine, Bloodon 02-04-2025 Cotinine <5 ng/mL [facility] [employer] Nicotine <5 ng/mL [facility] Comment on above: (NOTE) INTERPRETIVE INFORMATION: Nicotine and Metabolites, Serum or Plasma, Quantitative Methodology: Quantitative Liquid Chromatography-Tandem Mass Spectrometry Positive cutoff: 5 ng/mL For medical purposes only; not valid for forensic use. This test is designed to evaluate recent use of nicotine-containing products. Passive and active exposure cannot be discriminated definitively, although a cutoff of 10 ng/mL cotinine is frequently used for surgery qualification purposes. For smoking cessation programs or compliance testing, the absence of expected drug(s) and/or drug metabolite(s) may indicate non-compliance, inappropriate timing of specimen collection relative to drug administration, poor drug absorption, or limitations of testing. This test cannot distinguish between use of tobacco and purified nicotine products. The concentration value must be greater than or equal to the cutoff to be reported as positive. This test was developed and its performance characteristics determined by [facility]. It has not been cleared or approved by the US Food and Drug Administration. This test was performed in a CLIA certified laboratory and is intended for clinical purposes. Performed By: [facility] [address] [place] [address] Loft Worker Apprentice: Teddy Nuñez MD, PhD CLIA Number: [id number] [employer] EKG 12 LeadOrdered By: Morgan Keyes on 02-02-2025 Atrial Rate 93 BPM [employer] Work Phone: P [place] 38 degrees [place] [employer] Work Phone: [phone] P-R Interval 148 ms [employer] Work Phone: [phone] Q-T Interval 352 ms [facility] [employer] Work Phone: [phone] QRS Duration 76 ms [facility] [employer] Work Phone: [phone] QTc Calculation (Bazett) 437 ms [facility] [employer] Work Phone: [phone] R [place] 63 degrees [facility] [employer] Work Phone: [phone] T [place] 30 degrees [facility] [employer] Work Phone: [phone] Ventricular Rate 93 BPM [facility] [employer] Work Phone: [phone] [facility] [employer] Work Phone: [phone] EKG 12 Leadon 02-02-2025 Normal sinus rhythm Normal ECG No previous ECGs available [facility] STMorgan Dick DO - 02/02/2025 Normal sinus rhythm Normal ECG No previous ECGs available [facility] [employer] APTTon 01-31-2025 aPTT Coag (Bld) [Time] 31.4 s [facility] [employer] Comment on above: IV Heparin Therapy Range: 66.0-92.0 sec aPTT Coag (Bld) [Time] 31.4 s Normal 23.0-36.5 [facility] Comment on above: Result Comment: IV Heparin Therapy Range: 66.0-92.0 sec Performed By: #### B MP, PTT, PT, CBC #### [facility] [address] [place], [place] [id number] Commissary Production Supervisor: Monico Guadarrama MD #### ANICOT #### [employer] [address] [place] [address] Commissary Production Supervisor: Matthieu Rhodes MD Basic Metabolic Panelon Anion gap [Moles/Vol] 12 mmol/L 9 - 16 mmol/L [employer] Calcium [Mass/Vol] 10.0 mg/dL 8.6 - 10. 4 mg/dL [facility] Chloride [Moles/Vol] 101 mmol/L 98 - 10 7 mmol/L [facility] CO2 [Moles/Vol] 25 mmol/L 20 - 31 mmol/L [facility] Creatinine [Mass/Vol] 0.8 mg/dL 0.6 - 0.9 mg/dL [facility] Est, Gloparvin Patinot Rate - PINF [facility] Comment on above: These results are not intended for use in patients <18 years of age. eGFR results are calculated without a race factor using the 2020 CKD-EPI equation. Careful clinical correlation is recommended, particularly when comparing to results calculated using previous equations. The CKD-EPI equation is less accurate in patients with extremes of muscle mass, extra-renal metabolism of creatine, excessive creatine ingestion, or following therapy that affects renal tubular secretion. Glucose [Mass/Vol] 87 mg/dL 74 - 99 mg/dL [facility] Potassium [Moles/Vol] 4.4 mmol/L 3.7 - 5.3 mmol/L [facility] Sodium [Moles/Vol] 138 mmol/L 136 - 145 mmol/L [facility] Urea nitrogen [Mass/Vol] 19 mg/dL 6 - 20 mg/dL [facility] Basic Metabolic Profon 01-31 Anion gap [Moles/Vol] 12 mmol/L Normal 9-16 [place] Comment on above: Performed By: #### B MP, PTT, PT, CBC #### [facility] [address] [place] [address] Commissary Production Supervisor: Monico Guadarrama MD #### ANICOT #### [facility] [address] [place] [address] Commissary Production Supervisor: Matthieu Rhodes MD Calcium [Mass/Vol] 10.0 mg/dL Normal 8.6-10.4 [facility] Comment on above: Performed By: #### B MP, PTT, PT, CBC #### [facility] [address] [place] [address] [phone] [employer] Supervisor: Monico Guadarrama MD #### ANICOT #### [facility] [address] [place] [address] Commissary Production Supervisor: Matthieu Rhodes MD Chloride [Moles/Vol] 101 mmol/L Normal 98-107 [facility] Comment on above: Performed By: #### B MP, PTT, PT, CBC #### [address] [id number] Commissary Production Supervisor: Monico Guadarrama MD #### ANICOT #### [address] [address] Commissary Production Supervisor: Matthieu Rhodes MD CO2 [Moles/Vol] 25 mmol/L Normal 20-31 [facility] Comment on above: Performed By: #### B MP, PTT, PT, CBC #### [address] [phone] Commiss[employer] Production Supervisor: Monico Guadarrama MD #### ANICOT #### [address] [address] Commissary Production Supervisor: Matthieu Rhodes MD Creatinine [Mass/Vol] 0.8 mg/dL Normal 0.6-0.9 [place] Comment on above: Performed By: #### B MP, PTT, PT, CBC #### [address] [phone] Commiss[employer] Production Supervisor: Monico Guadarrama MD #### ANICOT #### [address] [address] Commissary Production Supervisor: Matthieu Rhodes MD GFR/1.73 sq M.predicted among non-blacks MDRD (S/P/Bld) [Vol rate/Area] mL/min/{1.73_m2} Normal >60 [facility] Comment on above: Result Comment: These results are not intended for use in patients <18 years of age. eGFR results are calculated without a race factor using the 2020 CKD-EPI equation. Careful clinical correlation is recommended, particularly when comparing to results calculated using previous equations. The CKD-EPI equation is less accurate in patients with extremes of muscle mass, extra-renal metabolism of creatine, excessive creatine ingestion, or following therapy that affects renal tubular secretion. Performed By: #### B MP, PTT, PT, CBC #### [address] [id number] [employer] Supervisor: Monico Guadarrama MD #### ANICOT #### [facility] [address] [id number] Commissary Production Supervisor: Matthieu Rhodes MD Glucose [Mass/Vol] 87 mg/dL Normal 74-99 [facility] Comment on above: Performed By: #### B MP, PTT, PT, CBC #### [address] [address] Commissary Production Supervisor: Monico Guadarrama MD #### ANICOT #### [address] [id number] Commissary Production Supervisor: Matthieu Rhodes MD Potassium [Moles/Vol] 4.4 mmol/L Normal 3.7-5.3 [place] Comment on above: Performed By: #### B MP, PTT, PT, CBC #### [address] [address] Commissary Production Supervisor: Monico Guadarrama MD #### ANICOT #### [facility] [address] [place] [id number] Commissary Production Supervisor: Matthieu Rhodes MD Sodium [Moles/Vol] 138 mmol/L Normal 136-145 [facility] Comment on above: Performed By: #### B MP, PTT, PT, CBC #### [address] [address] Commissary Production Supervisor: Monico Guadarrama MD #### ANICOT #### [address] [place] [address] Commissary Production Supervisor: Matthieu Rhodes MD Urea nitrogen [Mass/Vol] 19 mg/dL Normal 6-20 [facility] Comment on above: Performed By: #### B MP, PTT, PT, CBC #### [facility] [address] [place] [address] Commissary Production Supervisor: Monico Guadarrama MD #### ANICOT #### [facility] [address] [place] [address] Commissary Production Supervisor: Matthieu Rhodes MD CBCon 01-31-2025 Erythrocyte distribution width (RBC) [Ratio] 14.1 % 11.8 - 14.4 % [facility] Hematocrit (Bld) [Volume fraction] 45.1 % 36.3 - 47.1 % [facility] Hemoglobin (Bld) [Mass/Vol] 14.7 g/dL 11.9 - 15.1 g/dL [facility] Interpretation and review of laboratory results Abnormal [facility] MCH (RBC) [Entitic mass] 28.4 pg 25.2 - 33.5 pg [facility] MCHC (RBC) [Mass/Vol] 32.6 g/dL 28.4 - 34.8 g/dL [facility] MCV (RBC) [Entitic vol] 87.2 fL 82.6 - 102.9 fL [facility] Nucleated RBC/100 WBC (Bld) [Ratio] 0.0 % 0.0 per 100 WBC [facility] Platelet mean volume (Bld) [Entitic vol] 8.8 fL 8.1 - 13.5 fL [facility] Platelets (Bld) [#/Vol] 348 10*3/uL [facility] RBC (Bld) [#/Vol] 5.17 10*6/uL High 3.95 - 5.11 m/uL [facility] WBC other (Bld) [#/Vol] 11.5 High B [facility] Erythrocyte distribution width (RBC) [Ratio] 14.1 % Normal 11.8-14.4 [facility] Comment on above: Performed By: #### B MP, PTT, PT, CBC #### [address] [address] Commissary Production Supervisor: Monico Guadarrama MD #### ANICOT #### [facility] [address] [place], [place] [phone] Commissary Production Supervisor: Matthieu Rhodes MD Hematocrit (Bld) [Volume fraction] 45.1 % Normal 36.3-47.1 [facility] Comment on above: Performed By: #### B MP, PTT, PT, CBC #### [address] [phone] Commiss[employer] Production Supervisor: Monico Guadarrama MD #### ANICOT #### [address] [address] Commissary Production Supervisor: Matthieu Rhodes MD Hemoglobin (Bld) [Mass/Vol] 14.7 g/dL Normal 11.9-15.1 [facility] Comment on above: Performed By: #### B MP, PTT, PT, CBC #### [address] [phone] Commiss[employer] Production Supervisor: Monico Guadarrama MD #### ANICOT #### [address] [address] Commissary Production Supervisor: Matthieu Rhodes MD MCH (RBC) [Entitic mass] 28.4 pg Normal 25.2-33.5 [facility] Comment on above: Performed By: #### B MP, PTT, PT, CBC #### [address] [phone] Commiss[employer] Production Supervisor: Monico Guadarrama MD #### ANICOT #### [facility] [address] [place] [phone] Commissary Production Supervisor: Matthieu Rhodes MD MCHC (RBC) [Mass/Vol] 32.6 g/dL Normal 28.4-34.8 [place] Comment on above: Performed By: #### B MP, PTT, PT, CBC #### [address] [phone] Commiss[employer] Production Supervisor: Monico Guadarrama MD #### ANICOT #### [address] [phone] Commissary Production Supervisor: Matthieu Rhodes MD MCV (RBC) [Entitic vol] 87.2 fL Normal 82.6-102.9 [facility] Comment on above: Performed By: #### B MP, PTT, PT, CBC #### [address] [phone] Commissary Production Supervisor: Monico Guadarrama MD #### ANICOT #### [address] [address] Commissary Production Supervisor: Matthieu Rhodes MD NRBC Automated 0.0 per 100 WBC Normal 0.0 [facility] Comment on above: Performed By: #### B MP, PTT, PT, CBC #### [address] [phone] Commiss[employer] Production Supervisor: Monico Guadarrama MD #### ANICOT #### [address] [address] Commissary Production Supervisor: Matthieu Rhodes MD Platelet mean volume (Bld) [Entitic vol] 8.8 fL Normal 8.1-13.5 [facility] Comment on above: Performed By: #### B MP, PTT, PT, CBC #### [address] [phone] Commiss[employer] Supervisor: Monico Guadarrama MD #### ANICOT #### [address] [address] Commissary Production Supervisor: Matthieu Rhodes MD Platelets (Bld) [#/Vol] 348 10*3/uL Normal 138-453 [facility] Comment on above: Performed By: #### B MP, PTT, PT, CBC #### [address] [address] Commissary Production Supervisor: Monico Guadarrama MD #### ANICOT #### [address] [address] Commissary Production Supervisor: Matthieu Rhodes MD RBC (Bld) [#/Vol] 5.17 10*6/uL High 3.95-5.11 [facility] Comment on above: Performed By: #### B MP, PTT, PT, CBC #### [address] [address] Commissary Production Supervisor: Monico Guadarrama MD #### ANICOT #### [address] [address] Commissary Production Supervisor: Matthieu Rhodes MD WBC (Bld) [#/Vol] 11.5 10*3/uL High 3.5-11.3 [facility] Comment on above: Performed By: #### B MP, PTT, PT, CBC #### [address] [address] Commissary Production Supervisor: Monico Guadarrama MD #### ANICOT #### [address] [address] Commissary Production Supervisor: Matthieu Rhodes MD No Panel Informationon 01-31 [facility] PTon 01-31-2025 INR Coag (PPP) [Relative time] 1.0 {INR} Normal [facility] Comment on above: Result Comment: Therapeutic Range: Moderate Anticoagulant Intensity: INR = 2.0-3.0 High Anticoagulant Intensity: INR = 2.5-3.5 Performed By: #### B MP, PTT, PT, CBC #### [address] [place] [address] Commissary Production Supervisor: Monico Guadarrama MD #### ANICOT #### [facility] [address] [place] [address] Commissary Production Supervisor: Matthieu Rhodes MD PT Coag (PPP) [Time] 13.1 s Normal 11.7-14.9 [facility] Comment on above: Performed By: #### B MP, PTT, PT, CBC #### [facility] [address] [place] [address] Commissary Production Supervisor: Monico Guadarrama MD #### ANICOT #### [facility] [address] [place] [address] Commissary Production Supervisor: Matthieu Rhodes MD Protime-INRon 01-31-2025 INR Coag (PPP) [Relative time] 1.0 {INR} [facility] [employer] Comment on above: Therapeutic Range: Moderate Anticoagulant Intensity: INR = 2.0-3.0 High Anticoagulant Intensity: INR = 2.5-3.5 PT Coag (PPP) [Time] 13.1 s [facility] [employer] XR CHEST (2 VW)on 01-31-2025 XR CHEST (2 VW) EXAMINATION: TWO XRAY VIEWS OF THE CHEST 01/31/2025 10:22 am COMPARISON: None HISTORY: ORDERING SYSTEM PROVIDED HISTORY: preop, morbid obesity, prediabetes, RALPH TECHNOLOGIST PROVIDED HISTORY: preop, morbid obesity, prediabetes, RALPH Reason for Exam: pre op, morbid obesity, prediabetes. FINDINGS: The cardiomediastinal silhouette is within normal limits. No focal airspace consolidation, pneumothorax, or sizeable pleural effusion. IMPRESSION: No acute cardiopulmonary abnormality. Interpreted by: Ninfa Mckeon MD Signed by: Ninfa Mckeon MD 01/31/25 Final result Normal [facility] XR Chest 2 Viewson No acute cardiopulmo nary abnormality. [facility] RIS CONSOLIDATED EXAMINATION: TWO XRAY VIEWS OF THE CHEST 01/31/2025 10:22 am COMPARISON: None HISTORY: ORDERING SYSTEM PROVIDED HISTORY: preop, morbid obesity, prediabetes, RALPH TECHNOLOGIST PROVIDED HISTORY: preop, morbid obesity, prediabetes, RALPH Reason for Exam: pre op, morbid obesity, prediabetes. FINDINGS: The cardiomediastinal silhouette is within normal limits. No focal airspace consolidation, pneumothorax, or sizeable pleural effusion. [facility] RIS Ninfa Cho MD - 01/31/2025 EXAMINATION: TWO XRAY VIEWS OF THE CHEST 01/31/2025 10:22 am COMPARISON: None HISTORY: ORDERING SYSTEM PROVIDED HISTORY: preop, morbid obesity, prediabetes, RALPH TECHNOLOGIST PROVIDED HISTORY: preop, morbid obesity, prediabetes, RALPH Reason for Exam: pre op, morbid obesity, prediabetes. FINDINGS: The cardiomediastinal silhouette is within normal limits. No focal airspace consolidation, pneumothorax, or sizeable pleural effusion. IMPRESSION: No acute cardiopulmonary abnormality. [facility] Radiology Study observation (narrative) [facility] XR Chest 2 ViewsOrdered By: Ninfa Mckeon on 01-31-2025 [facility] Work Phone: Nicotineon 11-30-2024 Cotinine <5 Normal [facility] Comment on above: Performed By: #### A NICOT ####[facility] [place] [address] [facility] Director: Matthieu Rhodes MD Nicotine <5 Normal [facility] Comment on above: Result Comment: (NOT E) INTERPRETIVE INFORMATION: Nicotine and Metabolites, Serum or Plasma, Quantitative Methodology: Quantitative Liquid Chromatography-Tandem Mass Spectrometry Positive cutoff: 5 ng/mL For medical purposes only; not valid for forensic use. This test is designed to evaluate recent use of nicotine-containing products. Passive and active exposure cannot be discriminated definitively, although a cutoff of 10 ng/mL cotinine is frequently used for surgery qualification purposes. For smoking cessation programs or compliance testing, the absence of expected drug(s) and/or drug metabolite(s) may indicate non-compliance, inappropriate timing of specimen collection relative to drug administration, poor drug absorption, or limitations of testing. This test cannot distinguish between use of tobacco and purified nicotine products. The concentration value must be greater than or equal to the cutoff to be reported as positive. This test was developed and its performance characteristics determined by [facility]. It has not been cleared or approved by the [place] Food and Drug Administration. This test was performed in a CLIA certified laboratory and is intended for clinical purposes. Performed By: [facility] [address] [place] [address] Loft Worker Apprentice: Teddy Nuñez MD, PhD CLIA Number: [id number] Performed By: #### A NICOT ####[facility] [place], [place] [id number] Lab Director: Matthieu Rhodes MD Drug Scr, Abuse, Uron 2023 Amphetamine(s),Ur Negative Normal NEG [facility] Comment on above: Result Comment: Cuto ff: 1000 ng/mL Performed By: #### D AU ####[address] [address] Lab Director: Monico Guadarrama MD Barbiturate(s),Ur Negative Normal NEG [facility] Comment on above: Result Comment: Cuto ff: 200 ng/ml Performed By: #### D AU ####[address] [address] Lab Director: Monico Guadarrama MD Benzodiazepine(s) Negative Normal NEG [facility] Comment on above: Result Comment: Cuto ff: 200 ng/ml Performed By: #### D AU ####[facility] [address] [place] [address] Lab Director: Monico Guadarrama MD Cannabinoid(s),Ur Negative Normal NEG [facility] Comment on above: Result Comment: Cuto ff: 50 ng/ml Performed By: #### D AU ####[facility] [address] [place] [address] Lab Director: Monico Guadarrama MD Cocaine Metabolite Negative Normal NEG [facility] Comment on above: Result Comment: Cuto ff: 300 ng/ml Performed By: #### D AU ####[address] [address] Lab Director: Monico Guadarrama MD Fentanyl, Urine Negative Normal NEG [facility] Comment on above: Result Comment: Cuto ff: 5 ng/ml Performed By: #### D AU ####[address] [address] Lab Director: Monico Guadarrama MD Interpretive Info Assay provides rapid clinical screening only. Presumptive positive results for Normal [facility] Comment on above: Result Comment: lega l purposes should be confirmed by another method. To request confirmation, please call the lab within 7 days of sample submission. Performed By: #### D AU ####[address] [address] Lab Director: Monico Guadarrama MD Methadone Ql (U) Negative Normal NEG [facility] Comment on above: Result Comment: Cuto ff: 300 ng/ml Performed By: #### D AU ####[address] [address] Lab Director: Monico Guadarrama MD Opiate(s), Ur Negative Normal NEG [facility] Comment on above: Result Comment: Cuto ff: 300 ng/ml Performed By: #### D AU ####[address] [address] Lab Director: Monico Guadarrama MD Oxycodone, Urine Negative Normal NEG [facility] Comment on above: Result Comment: Cuto ff: 100 ng/ml Performed By: #### D AU ####[address] [address] Lab Director: Monico Guadarrama MD Phencyclidine, Ur Negative Normal NEG [facility] Comment on above: Result Comment: Cuto ff: 25 ng/ml Performed By: #### D AU ####[facility] [address] [place] [address] lab Director: Monico Guadarrama MD Urine Drug Screenon 11-26-20 Amphetamines Ql (U) Negative NEGATIVE [facility] Comment on above: Cutoff: 1000 ng/mL Barbiturates Screen Ql (U) Negative NEGATIVE [facility] Comment on above: Cutoff: 200 ng/ml Benzodiazepines Ql (U) Negative NEGATIVE [facility] Comment on above: Cutoff: 200 ng/ml Cannabinoids Screen Ql (U) Negative NEGATIVE [facility] Comment on above: Cutoff: 50 ng/ml Cocaine Ql (U) Negative NEGATIVE [facility] Comment on above: Cutoff: 300 ng/ml fentaNYL Ql (U) Negative NEGATIVE [facility] Comment on above: Cutoff: 5 ng/ml Methadone Ql (U) Negative NEGATIVE [facility] Comment on above: Cutoff: 300 ng/ml Opiates Screen Ql (U) Negative NEGATIVE [facility] Comment on above: Cutoff: 300 ng/ml oxyCODONE Ql (U) Negative NEGATIVE [facility] Comment on above: Cutoff: 100 ng/ml Phencyclidine Ql (U) Negative NEGATIVE [facility] Comment on above: Cutoff: 25 ng/ml Test Information Assay provides rapid clinical screening only. Presumptive positive results for legal purposes should be confirmed by another method. To request confirmation, please call the lab within 7 days of sample submission. [facility] Coding Summaryon 11-23-2024 Coding Summary [employer] 64 FtzxuirdKXi0qMe+PGhlYWQ+ CB7BICUkM36jcMEifZ4oK2GY TElOSywgQVBQTElOSyIgbmFt DP8seNGfZETu IC8+PJ8uBPHbAjqlyXRmo3T8 jGH6E85nsi2rZKxokCC6VDYc CtWzwtufn6xntZf4NQzuVbai OyBt FREnbF71UWD8bT31Hf50iEWx lVSoh2wyxXy2FoUpJMVtNXR6 zSxuKWugf2WsPSZjC84tgTFb c2U6 DEExfDjrfOTtVzBqkAG0sA5j ZShxhbatc6nofwstPzb6jx28 sLBvg0A9ePD0O2HkluF8KPZk bGQg RuihdOWLsU7gthtpf3pqiocg EzBdJYPsZPb7EAi0UAMgvHnf ZqEaYY02XBU5PFZdonMeW1Ea LWFs cHghTnN5n0Y6Se6PA9SMHzri W5HGFPOESFzqqUL+XM23gk41 D0WmNojiHlj5WPQoDYP2iDO3 aD0n DOHwSQlkc2J4hWJ4G0YkswAq bw9bz9peDTBaGDqzF94ucPVd g8X0JJStuXO6PGKeyXylVyYo aG93 Oyc+KWMfeZprh1UiGbudp8ss p5uxoXs9BcurICOeyeEvdMiw FNI3o7FpHb9dFFGnnUM7tGV7 aD0i DvSfPnE4DTamJ682TjGehYNv EjzqC75lK1WqyRY+PHRyPjx0 KKAjpGkdBF1dQ4IsQBDuuhyd bGVm hYgsQJ9tJLQgodgiFQDjwJ9u EMUtQ2s8VhOjKtZ6THdkY8Np TUNepepvGg34dQ9dWlDjPaY1 MGlu B3ObkkJ6ZRFnlKDkGKrqGMY9 K82in1Y4EEYyAMRnPJN9wFY4 mE7wnMprdmpokMLayCxzljAe dGlj BVdcODpsZ568LLGfaBopTqIi ZGluZyBEYXRlOiAgMTIvMjQv MjAyNDwvdGQ+LUXqCYI7qXiw PSAn kAGjGMgdJu6dsLozaXblTV8s MCEshvqxEWUhxE4nNKTwxICl yDwbJQ5vSJGtrthsk546UpUt MHB0 MLHewXAwY8FjgU4lGlOwBZLm XKFfH4CpzLBiRMyaU824QOyf BvB2LATzinEgV9JfHFSsaEdr OiB0 j7J4Uj8Rv2SvbaarA6EugWNy RxRnQbkeFEs7V4ReOvqmiCW+ AR03GNXaTR70HNh2YKS3eQei PSdi WXDeN6FteL5qWrDhKXToDCFl Oyc+PHRhYmxlIHdpZHRoPScx BLUrHiIvgNbdEF0aQg7hSXKp LWNv hVohdDMyNlPsv5bgBZKdQMkz NI4otNvtD6LzmLD7XVVtw0x8 Zy99Y78xP6FcaKV+PGNvbCB3 aWR0 eJ8xYdLhIiJ9JHwqH597OpPh jQIaKmlxv5juo5adwMj1CeC4 FBDgiqYcrOhcDRL4i2NwJx11 Y29s IHdpZHRoPSIxNSUiIHZhbGln bw9mlB6aOn5+BGYmrVX1jUG8 yZ7fMrFeHaB9MArlD171AiKk cCIv Zzfou3euy4iucCd5SlLxCXZe bmHqtGahFPE4p6FkQp00H2Nc mKktg4VsDkk3ba51fYTfy5K1 bGU9 W5WgJMLxqaplfTHvgVetIU0r FJLgdnktGODchI2wPPCxN9r2 BdOqIgZ9TObqQ1TodaA4XXNm bGQg SNQvtOIRxO8harisu9edzopz MqGyMCRoNZg8BWz7KZIqqOuu NnUnNHE2OnZ0UQA0jWMayA0v bGln mvxuvP5oWvs+RDV5yXCvrHFX QF3cZppwhNM+OJLbDLU0mNtl JJbmFLRaqH8eWXGyO6q6DmOx LjA1 LOmmV3FjmnQ5SRVbwGXkZBGx bMWEaC7sawbro5qhymzdOiQh HHUtSVz3HDy6KJHbfXukSjAh ZWZ0 AtV9MPD7mYNqxY1yxWtbicyt yX0mSlm+AscglXfjKTW0UJm9 Z4KnNif0QDPktZjiUP2ueYOq ZGlu Zy3afVgwrRruDV5jUIHsewwb f646OcJxk5upJXCslUYxQKtj UPN2T04fh9X2FVFnBTSvBQH3 dGV4 xP9tfOwdqbtzgMOqyOtifzNr hCdtJDrsIEnyQ419CISboKhg UxCpQYk7V2LdMna0ZSSecKpd ZT0n qKQwGJkpHb2aoQdieBgwTA2j FIDvufbzn719IoEns6cnZFAm qBVePNavVEL3O71xt5Z0CESn MDAw OZU0dRO5fX6xxXfjkgumeLOz nRvsgoZapWjkPNhsHFedZ624 ZYPyoIaxNoEepGx0V3IkCst0 ZCBz fDtsMA2tfNMrPXucZm0fmLys yRimQQ1vIFIeoznug382NoXb q3bcPEYgvYCuHEkwJBF1N85z b3I6 NPYpFBFpCLJ3uBG8iM7zuEar bjogbGVmdDsgdmVydGljYWwt MCmxT276HUQgrYdbBlRryAzm bnQg AYrdKVo9C5ObDqrscII+PC90 TVGuXK72nVUcbHDtv1dpcTk9 UjGuZVUtCNT5kBrwCGglx8Cf ZXIt M40nbHVta8P8WVGiiJmtiYBx GhVquXE5nN3xVRcsoiptz6ga pqfoBmcqx4tsex34vQ11P63b IHdp EJKuSRUjYEXyNKNszDrnxo4c wI0gMf2+UXIgsRE3aXW8tJ9u CGHoCeX9FMieM096MxCbiIEt Pjxj i5xfz0jbzFd7QwH9CAJbfnPr xZesPLZ1c4IlJp28A46gNTtr FIFkNJZiMKJzBWGoiVcrop8x dG9w Ii8+LUWsoTC3mOZ2qK6dXtUz NpL5TEeuN356HgLvkLVlYuip C15sE5JktPS+KZNiHkh0BQNb dHls FW4yoAObYEveYq3bINR8FjNs IrIoJJedW2WfYCDihjyqlbng fWK0SLMzTLKspM34Xc0wqIfd MTBw lJMTmQ7mljgsf9wonyymLdYf WPVbGNa9ZEd3OUExxWmfXbCf RRW7DrV5MED5ePBsnS0qxQha bjog mL0jO5XaYQNlfemfVt50uP3d QcCbWyX7AQgpHqn+XG6OHA6U SxbPUSJZTXBZRDDBYC6OL28Q RTwv dGQ+VOOeZEV0pDomHCkbSSBz hT5sWRRsA2w3DcDiNnH0NJks W1PvLVAswlscAf75sA2bBoUe LjA1 TBpuP5SebuX0QBXcdJMnAHin EBS9N23zn7J0PRAqHUZdTWC3 bND9wV4kbLhjxmnxkPWdwUoy dmVy zOhpBOfuNKqiA236QYPqaYfa HnF5FgN7BrK2NBJ4Z1VcFxx9 NAFpfQrfKS7icBVsSMsbVe0t aWdo yGumQB1gWUXxoxbxWHGjmY7b RSGxaVUywYhzDH8wVMWhfbfx i279TmGyORE6GOWtcPUlR6Yf bG9y SuUyLXUvEXOxM4JrlBPtGQjd H372NUpyHgL0EHJcegOgZ3Pq SWCeaUfcIaY9c1B6Mb0uCJNS ZWFy czwvdGQ+DUFzIXG9iHynILqu IDVnkJ8xSCVdD6w8FhHhPhY5 BTiiG7AiEOWvllfqTv29cL2z OiAw GiP2WMwdW9AfokP6ONRueNVw HStoPBZ8K70om0F6LMIxGQNn QTH7iMC4zJ4fqHjmmwdenEEp dDsg nfXeyKkaIQcaUMpgD606BVEe cDsnPkZFTUFMRTwvdGQ+PHRk ENW8bGxoEFakLBWifP0rQCNf Z2h0 QaSoAcD9OPwnF0RlQNVujslk El99qD9vHyBiJtK0KAbdX0Dm pwK4DMKktLIxOHllYTW2N16h b3I6 VZZgNERiXES2sNZ4sP0tkFvb bjogbGVmdDsgdmVydGljYWwt VTzmN790QACqhKotWj7FLR23 ZD48 B2CtIcaqfYJqpLF+PHRhYmxl IHdpZHRoPScxMDAlJyBzdHls UH9uRc6mUBJoLROfuMedhZMq OiBj p4nxZWZuGOybES3wwFktG4If iRS9GAVoy3o3Em44B36jP4Hs dXA+VTBttMQ4oIW3vI3xGyTb IiB2 FLvnT195ZlZwiWElFlkth2et p6rdiHc6LlEyAMYfiiDzmEkm QAE4p0JqNv17A83kJMooNGLa PSIy XAUtROFveWzaet2ioO4vIg6+ CYTgzMT7nJZ2gS8yBlXuZxE6 WBeiT506YpVjkNAcOfkwW44z Z3Jv dXA+EBTrUrk6XETlfWjoGM3u aTPsTXlgFn9tYFD1LwOzXoOz FKvsA8GkEFEgxcpklgupeBV8 IDAu PAPgqI96De1uyPxfSd0hJPGl UYS9UXNevQYhZ5ZerS3rOgPu CBSsQFDsZ3TfgFCpIQfvW440 IGxl HvW9ZFFovaBqM8MvCEZuoGdf XeE0o0P6Vc4LdCcleOEnGU8d SdQeGUs0V6JcPpo4WIRbkUhi ZT0n xEQwNPluZf0rnJlhtMvwKM6h RNRgsgrot151CaHxp0iyVQOv rIAqQPlmHYF9P05pz3H6OPKr MDAw HWL9bGO0dT8ygNepcpgeyJBt pKnrokVdfWdqTUtsVXneZ379 FUDmaAymYbWYFqq1Z4KfZik7 ZCBz oDhkED9geGOrCBlgSx5xuEns wFbcMO9cAOPxolrti523IqEv n4uiHMMgeDCrBPrxFIM0C68m b3I6 EXYfWTCjPQJ3rVV9iI3wnKfy bjogbGVmdDsgdmVydGljYWwt YKhzS338QCMxhFoiAo2PSde3 L3Rk Hiu8DGYsoWweQK9gsEUlMKay Iu4fzSgljRkpYH6lABTmpqws w223VuQls9heNHNvrUTkJNks ZXM7 H34ad9Q5CYSmVDHbZSL9sSK0 xP9nzUuobrdevCTqqVsosvNq dAnsVXquGIqyX380WKUsuJyu PlBh eWVyOjwvdGQ+WT40vc77P5Da JxtlUiq9QRQuMXL7mRV8tO6y ZKIpRRqrc5L4vKN1W3InmoCh ci1j b2x (more content not included)... Normal [facility] Zinc, Plasma or Serum LCon 1 01-24-2024 Zinc, Plasma or Serum LC 78 ug/dL Invalid Interpretation Code 44-115 [facility] Comment on above: Result Comment: This test was developed and its performance characteristics determined by [employer]. It has not been cleared or approved by the Food and Drug Administration. Detection Limit = 5 Performed At: [address] [id number] Vitor Padilla MD Ph:[phone] Performed By: #### 1 [id number] ####[facility] (DEFAULT)[address] [place] [address] Provider Orderson 11-20-2024 Provider Orders [id number] GTIFF [facility] Triage Panel 12on 11-20-2024 Triage Internal Control Pass [facility] Comment on above: Performed By: #### 1 [id number] ####[facility] (DEFAULT)[address] [place] [address] U Amph Scr Negative [facility] Comment on above: Performed By: #### 1 [id number] ####[facility] (DEFAULT)[address] [place] [address] U Sylvia Scr Negative [facility] Comment on above: Performed By: #### 1 [id number] ####[facility] (DEFAULT)[address] [place] [address] U Benzodia Scr Negative [facility] Comment on above: Performed By: #### 1 [id number] ####[facility] (DEFAULT)[address] [place] [address] U Cannab Scrn Negative [facility] Comment on above: Performed By: #### 1 [id number] ####[facility] (DEFAULT)[address] [place] [address] U Cocaine Scr Negative [facility] Comment on above: Performed By: #### 1 [id number] ####[facility] (DEFAULT)[address] [place] [address] U Methadone Scr Negative [facility] Comment on above: Performed By: #### 1 [id number] ####[facility] (DEFAULT)[address] [place] [address]164 U Methamp Scrn Negative [facility] Comment on above: Performed By: #### 1 [id number] ####[facility] (DEFAULT)[address] [place] [address] U Opiate Scr Negative [facility] Comment on above: Performed By: #### 1 [id number] ####[facility] (DEFAULT)[address] [place] [address] U Oxycod Scr Negative [facility] Comment on above: Performed By: #### 1 [id number] ####[facility] (DEFAULT)[address] [place] [address] U Phencyclidine Scr Negative [facility] Comment on above: Performed By: #### 1 [id number] ####[facility] (DEFAULT)[address] [place] [address] 04343 U Tricyclic Antidepress Scr Negative [facility] Comment on above: Result Comment: Resu lts are to be used only for medical (ie, treatment) purposes only. Positive tests will not be sent out for confirmation. PROFILE?-V MEDTOX Scan? Drugs of Abuse Test System detects drug classes at the following cutoff concentrations: AMP Amphetamine (d-amphetamine): 500 ng/mL BAR Barbituates (Butabital): 200 ng/mL BZO Benzodiazepines (Nordiazepam): 150 ng/mL BUP Buprenorphine (Buprenorphine): 10 ng/mL TATIANA Cocaine (Benzoylecgonine): 150 ng/mL MAMP Methamphetamine (d-Methamphetamine): 500 ng/mL MTD Methadone (Methadone): 200 ng/mL OPI Opiates (Morphine): 100 ng/mL or 2000 ng/mL OXY Oxycodone (Oxycodone): 100 ng/mL PCP Phencyclidine (Phencyclidine): 25 ng/mL PPX Propoxyphene (Norpropoxyphene): 300 ng/mL THC Cannabinoids (26-imt-1-carboxy- -THC): 50 ng/mL TCA Tricyclic-Antidepressants (Desipramine): 300 ng/mL Performed By: #### 1 [id number] ####[facility] (DEFAULT)[address] [place] [address] Urine Source Voided [facility] Comment on above: Performed By: #### 1 [id number] ####[facility] (DEFAULT)[address] [place] [address] ECG 12 lead ECGon 09-17-2024 ECG 12 lead ECG [facility] [place] [address] [place] [id number] Electrocardiograph Report Signed Patient: Merline Mohr MR#: [id number] : 1995 Acct:[id number] Age/Sex: 29 / F ADM Date: 09/17/24 Loc: Room: Type: [facility] Attending Dr: Zakiya Gunn 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 Ordering Provider: Zakiya Gunn Date of Service: [...] Normal ECG When compared with ECG of 15-Mar-2021 09:04, QRS axis shifted left Confirmed by SYLVIA SUE [facility], FERNANDO ([id number]) on 09/17/2024 5:22:13 PM Referred By: Electronically Signed By: FERNANDO WARD MD [facility] Transcribed By: MUS Signed By Fernando Ward MD, [facility] 09/17/24 1722 Normal [facility] Coding Queryon 08-18-2024 Coding Query [id number] IFF Normal [facility] Coding Summaryon 08-17-2024 Coding Summary HTMLBase 64 ZtixttqvZGi8yYi+PGhlYWQ+ EA5SSHOkC45lqHTyoU0hC6QZ TElOSywgQVBQTElOSyIgbmFt WC5qrXTySRGg IC8+QG0oNUCyIundiNIlq6Y6 tEA0X02hkj3bOBgarOT9ORGe JjHpbjzkg4idjVb4VVnvKvdg OyBt HLKtyR50YFF3sN64Fz91lXAk uNOkp7jriWf9TyOaJMWwAAX0 pGbmLOpll1BxCWRhT07lvZKf c2U6 EROihBwapVOzVoCnbPO4aQ1v QXhiacujh4dxkeppLug7mn53 xFFmz5Q1zHL1H7VcsfG1YLEf bGQg JienyLRMkE7gyadgx3uzadxa XiZnIDSwPEp4KBv8VANlyHys JqXtBZ44NSY3BYYkxhCmN7Nb LWFs tCbvPjU7b3C1Ku4FJ9RHFpvr H5VAMKWRBRabzUR+XD52wp25 B2MnJfscLav9HFKvMVJ3bMH6 aD0n SUKqENmun3K1dCK5S0QuphUb mf7nh9qdIKItPGwaJ07rcELs y8Z7HZZgrMV6SAVosKihYfAg aG93 Oyc+PUZphDujz9XoPfkuv5vl e6njxYg9LyvpJXBykkXwlTzo XEZ9s5QqJd5bXTDmaGY5mKV8 aD0i IrJxCxW7XRusR229OhYfzRRu ZvkhX80pI4IhiYU+PHRyPjx0 UZRfsNznRM4tK6KxTCCuedav bGVm uLufER6lZWXswlgzVFDaqY3t TUOxQ0j4HqWrZwP5VTisC6In OIYikueqPv59sC6oEpNhQdD5 MGlu C9KixfH9EQPfcYFrVBisBAJ9 T95so2F0LKDwZZLhAFS7iNB6 bQ1hiFizyuudyUTtyFtfzkAp dGlj DEdyFBowI883ILLbhRbuGyPq ZGluZyBEYXRlOiAgMDkvMTcv MjAyNDwvdGQ+XGZnSPA9tNyl PSAn mMYjOWhpJm1fzOvudWucUM2z WROgvrfnEJBzgV8ySVNbiVAl kFdpII2hMGDrwqdew670JcXg MHB0 QMIhoOAtC1LcbJ0eLsYqEIQy PJQjX8WigTUkXRkyF965XMtq EmS4BPIlpcGzV4QqICBmkAol OiB0 h0Y2Ni2Sq2VdlqwoU9KjlJAi PjCvEkkuPXr8B3UkLjaojJV+ NV54WFFhHG60IBd1PYU0nEso PSdi XUMcM6WelW2cYcNgIJFgBDGw Oyc+PHRhYmxlIHdpZHRoPScx UEMdWkPnhZrxCJ6iOb4yUGNd LWNv dZzrbHIdPcMzf9bhUJYlEAxx WD3hwFheB7IzkAJ8HTZjq3t6 Ez19B80mR8DdaEZ+PGNvbCB3 aWR0 gA1tHpBkXkR0GDfeU058CzQs gGIaDiyiv4htw8bpoLy5FeP1 OEIklxGanFvmNUE8n6BrZb74 Y29s IHdpZHRoPSIxNSUiIHZhbGln xp2bwP6cIg5+HEAhfHF4mZC6 bE1nUzOhQkE8WWfgD004UxZg cCIv Odniq9bfn9mvpDi1ZiErQVRt zuIzfIhmUHP3j3WbCy86L0Fo hQkel7IbVkz5hi22kLIjo3Y2 bGU9 I3AxQASvbvzkzHNjxAltOA5m UEHxdfzbRZXbgL8lLWXpI9g2 QdBeCaI5EEntD9TqteV6OMDt bGQg AOZorIHFtU2oayhjc5ftlfih ApLdIEKoSQc6HNc6AZXxgIhg VfRhKOS6PrT7TUA6nCVzzT8q bGln vwnyxP4xLxg+XIR8xOWmbADR RN9aFyyefMC+TYZwYDE5wLza GPgpVJBvwE7vEPYjF3o0IyAk LjA1 GRuaK2PuxfG8JVBknAIjCVWv yKJYsV6ckygdm1mwfoziCwHf HMOcXLc9MXn5DCPiiIywCuCn ZWZ0 BwD7SXH0sEYpfD6mpFuxekka zC6eTde+NkjwaWwjQKP0JWi8 E3KjVqh5PHOxeSjbVH4uaEAh ZGlu Vv2wrMkwdZscIO6qYYSocjdd x123DuXip1erTEHdlDHxBTiz YXL1B92ci4A3MGSdUZUcEIY6 dGV4 xE4tdEqvohwrwFGyjYgvawAt pFncURgzVLrdU697ARSogXfd EaSxIGo9F6AvBkf2NQAidXmt ZT0n rWZzIEwrMg0imBlbaWjeLS5z NEAshtmit501UfAdw8zaOGGn hZOuCHoeYLF1C41ff8D6NZSx MDAw UMA7zAH7wD4bzZwgvinsjLGo lEchctLupPcaLHrsSDwuC262 TUPipYcrWnHhxIs8F3CyVxu3 ZCBz sZotEB2upATaQIjyJs6kfKaa gCgwMN8iVTGjsodbd956FgDy z8dlFJOxoTLhUCrpEJP9X28b b3I6 UCMuIFYeTIH1rIZ4iE4koKmo bjogbGVmdDsgdmVydGljYWwt IUrzY904IYKvvPqxGvBhhQct bnQg STclSJd1Y6BhHzyuhBJ+PC90 XTRaSW33wDOjnCGqh9fctHg7 XaXjOLKnAEP2dBgiANhci3Xm ZXIt M99fpAIjg4P7RKQygUsjuARj XwEyiVH5rZ1mKUjkkfdlb3sd unxzMkrpi1ebhw85gC75Y24z IHdp JZJzKQSdRGNsPWOskPjimu0d wN7oMw6+CPDjhSG1dHI5qM5u JDSxLnU4CCqhI921CqWxyWHb Pjxj n6cpw3luzHs0PhX9ZCQpelSq rDrzJUC5o3PdIw12H72fSXkp LYVcBAZmJVOfDLXinWgzqm4p dG9w Ii8+OQAwyLP3oZT0tU9uKfTc TwR6EGwmF101PgJgfFGjBdom T74bL3LflGO+GRSbXpr3LHXv dHls ZN2drQBkGSwuIu9vIKO4FyMp ScLkCHaqY5ViXBMgvdwmqwxj mAC7SEPoYHFdwN83Yv1ypNem MTBw lDZScG8ftfhzw8cctodrDfQt RCHiTBu9BYj3QWOyjBguPvEe NNG3AlF2ZFO2uMJfcD2jeHqz bjog nH7gP8GmQDQrhjvsPc67oE6j DuYwTsQ1CGpsNui+EM2VOE1T RnkYYXOIWUHJITPAHM5XU08O RTwv dGQ+HMMvMUD8uTrmBHoeRDWu aS5hOYDpO0h6FbEkYuM7EXzd M4PpVKRwdyscTv27zF4cGcHv LjA1 OBuzI5XfgzJ1HVIsnTExPVgg BME7P85bk9M8NOLfYXCmWPU8 uFP8nK5izOnsyjkxmGJypYbs dmVy fOakWUxhGEunQ553SFFtuOjh SrP3JoG8DsK0WYS6J3VtImb3 EXLzbUmxJE7jvEZhIGlyYu2p aWdo pBkjVN2yUPRrwvckSATrvZ8r EOIfpAJkcDoyLP9iZUSuspkq k332XoSpGIR5NXVndLHdC1Wd bG9y OfWrDUYfUOIuD6KynWVsMOxw G406WRvfWxI1TVIxbqJlX9Ke XFYmdUguWhT3d5M8Py0vGIPG ZWFy czwvdGQ+YQXyTWE2oGnxLSkj GEOciJ6vXIHrD6h6BrMfUvU0 LDkdN7UhBZJvbihaTv59cE4q OiAw MaU1PXkfY9JlvfK4RWChhLUy POveVPR8Z45al7Y5TDBwSBBs XUR7uNB8rV8nbNsdktlplJOe dDsg xxAdkZzlUChfEMhbW391DHSw cDsnPkZFTUFMRTwvdGQ+PHRk QXJ5pKahGHkvTWWapR8vZULs Z2h0 BwAnNkV0KGihT5IiVXMkvsqr Qh80cG7fGcAaElR2FUaxX5Ym odV6MUHqzDKwTIryKTG7Z61p b3I6 SFHmAILhHIH1kXD4mW4kcIkf bjogbGVmdDsgdmVydGljYWwt YRllM313QFJuuFmuFh6MKW52 ZD48 X0UjIyvpcYNthRP+PHRhYmxl IHdpZHRoPScxMDAlJyBzdHls HO0hEp4hDTHiWGVokQdbnAQb OiBj x0ykQGUdRHkmNZ3pxIysT6Kv hDV4IPMhg1j0Ut02A80dT7Xy dXA+RAAcmWK2xXD6xL9fZhCj IiB2 SLlmF977PvIrePXiVhhps1cc k5kzhIb3DbOpCHMjevDlaBoq QZI2r5KnFj38J89yBQkhNPZo PSIy JVEcLQKpmBaphl7stZ4rMl1+ CECqlYY2xBP8nG2fHqCnEuM4 ZZmoG595EvEhiKUmNckjJ98b Z3Jv dXA+EHCbTae0BPJvfQwuJW9r qWGbOKweCk4aNEA9CtWaPiOb ENelE3TrZQYbmwaisrxldPC1 IDAu TTTfjH87Hw5vvAlhAu2eQFBq ZTO0EBAxzRMmU0VcoS7wYgHf CWFaJTEeG4KteFUbHQqpK782 IGxl NfT4PYHmjiEuA9DmGKOxnSoj PaZ1g7R4Fy9JaUhqpLCdQF9y LpChJZj6P4AdVof9LJOfyVky ZT0n mDHeZMflIo9hvGtpmLijJK6m VAUifzpbz691LzPub4usZPMi tKRcRTppBYO1P42us7P3ZJEx MDAw MQH4gFO2yT0rfTyazvboiKVl qJjqkpDodLgyWNtsAPxtV820 EEPcyYqgUiQXHbd5S0CeVni0 ZCBz lWinEU0kyHMqJHvgFc1mnNbs yEenGK8hHBJrdvoyj118AwOe x8upUBIpkNWbWZjlSUR0Q62r b3I6 UPUeWSBjKEM1oLF2lX0vaMgg bjogbGVmdDsgdmVydGljYWwt WBiyE599HABecJlfHu8KVut4 L3Rk Gyy7BLQgvXaaML2iqNXnCXzh Uj9ltXsdwTirSX8vATHycjpn c644MrLgf3fdGWMnbVPiJOtk ZXM7 J92oe1E8CAZhEAKtWJB1jRX2 jY1vhMwvkjaykTUgyEqbsuQa aIyrRXoyONshK879AVFshEmk PlBh eWVyOjwvdGQ+IP19eq63W1Uq FuzuBuw6APNsTLL1tCF3aQ9p LRTwWQclc5C2lCI2F9SaazMn ci1j b2x (more content not included)... [facility] HCG,,Ur(POC)on 08-01 HCG,,Ur(POC) Negative Normal NEG [facility] Comment on above: Result Comment: Spec imens with hCG levels near the threshold of the test (25 mIU/mL) may give a negative or indeterminate result. In such cases, another test should be performed with a new specimen in 48-72 hours. If early is suspected clinically in this setting, correlation with quantitative serum b-hCG level is suggested. [place] [address] Surgical Pathology Reporton 08-13-2024 Surgical Pathology Report (NOTE) Path Number: [id number] -- Diagnosis -- STOMACH, BIOPSY:-GASTRIC MUCOSA WITH MILD CHRONIC INFLAMMATION.-NO HELICOBACTER ORGANISMS BY TANVIR STAIN. Mariola Le Electronically Signed Out ag/08/17/2024 Clinical Information Pre-Op Diagnosis: GASTROESOPHAGEAL REFLUX DISEASE, UNSPECIFIED WHETHER ESOPHAGITIS PRESENT; OBESITY, UNSPECIFIED CLASSIFICATION, UNSPECIFIED OBESITY TYPE, UNSPECIFIED WHETHER SERIOUS COMORBIDITY PRESENT Operative Findings: STOMACH BIOPSY RULE OUT H PYLORI Operation Performed: ESOPHAGOGASTRODUODENOSCO PY WITH STOMACH BIOPSY kb Source of Specimen A: STOMACH BIOPSY Gross Description [facility], STOMACH BIOPSY Received in formalin is one short-white tissue fragment, 0.5 x 0.3 x 0.1 cm. Entirely 1cs. jj tm Angel Robertson M.D./kb2:08/13/2024 Microscopic Description Microscopic examination performed. Processing Lab: [address] [id number] Interpretation Performed at [address] [id number] SURGICAL PATHOLOGY CONSULTATION Patient Name: LAMONTEPATRICIAMERLINE [facility] Rec: [id number] [facility] ANATOMIC PATHOLOGY [address] [place] [address]. [place], [place] [id number] Normal [facility] Coding Summaryon 07-13-2024 Coding Summary HTMLBase 64 JzwpywskDLb9lEm+PGhlYWQ+ CR3RCXYsN54zpOWbwG6xE8DZ TElOSywgQVBQTElOSyIgbmFt CL3kdFAnEGFa IC8+BN3nLMWeEpfotDYor2Z3 uFQ0M95cyo9rPEdrsWT4VRAp OzBgsecwz2nqfVb5IVpeBrhv OyBt CIVgzJ83DJD7sK78Gt53dWTu dOQfr4mcnXb5JkScHXCcNYX7 tPxlFCjnm9WtSNPzP80cxINl c2U6 LYSvsHtwbENgVmWyjZG3vS2v DHcdyhqak6wxyzcaCsb5ly53 qCGfm4Z4aEY5H0KwmtX3FMFc bGQg FjelwSWKfK5qhcmyp5dnjpnh JoOmZQHkHFh8PSl3LVTqdKje JgVdOR28CTQ2KIRzvzJxU6Oo LWFs oFkxHeJ2u7J3Xk0HC1HNZyvk C1IBHTUMVMffhRV+MP06yy70 W8ToKleoFbl1KHHwRRE6gOK4 aD0n DIYuUVvvf6G9vGC4P4ZmncYv mf7mf0prEEIlZMgfB52utFGh b8J3ZYOndGT9GGHbwOuqScTs aG93 Oyc+YHAkiEjjh2LrYrfth2mb x8jjdPa7ZuyiKUCrbuJvfUst ZQB0h6ViXm2wIRSipSW4mSC5 aD0i UyNfIeO9EJkeL550GjItwFDq FziqW94sN4FepLJ+PHRyPjx0 CXTnhKqsIW0pC8NgDFEmpfbq bGVm dVadTI9pZWJdrmhjXACuiH0k FBEvH3z6BlUpEoB4VKmtU3Qs UPYhyogtWh73eV3pDjDpJcS6 MGlu Y8GiidH4FUPsvEFnIZgbWSY4 D51rd3L7NVQzMJUrVFS9zLX3 sZ0gjVptbuwvpILbuIcjweTe dGlj FEgjIQurY791SEMluWvrQoUm ZGluZyBEYXRlOiAgMDgvMTMv MjAyNDwvdGQ+GODdLKN3rQnh PSAn xRPsMKloMv7nqJumiLisVB7t PGUfkrjdTUIloT5nKNWncGUq hYepHC0wRZFnpvfev710FxFr MHB0 EUDlhTBiU7VkmZ1kIxLbQJWe VJZxU5EtbIKoQMewI100FXzz WjG7XMOjalGhK4IlPZVwdZpi OiB0 z9D5Dn1Me7VlgdfkC2SmfECl VxEiFdkqJSz9H7SlSovsiIP+ HJ27WLYrXB65OJn8SQA0eXfj PSdi LGQnA5KgdL4yYmAsARPySBWy Oyc+PHRhYmxlIHdpZHRoPScx NZUmFvOztZhfKJ6rCc5ePAUl LWNv iQvzhWKqEpCdc7qoIKJxYJjr LD6uiRrjA1WapAK7IEGao1r6 Et76J90jV0XehYU+PGNvbCB3 aWR0 xE4mNwSvKcB5KQknS901StWi wDXpDpyue0rnx2rpiFo4AhR5 NHJzypPweWhfAPJ4y5IxEe76 Y29s IHdpZHRoPSIxNSUiIHZhbGln ma1qoT4nWq7+PTAnxXK4aLZ0 fC8kWgLeUyA9JXoxQ835AbPq cCIv Iovxr6mnj3dqxJn7LsQvHEKa xfXvpInlYXU0t4XqJx34K9Qy wZoge7MsYsc1el98qDSxm9H6 bGU9 R7HdULZwdltkiESrsCbdDN7u MTJoduhjDPUfoW2aSAKjZ9o6 CtZaBeA9JJnuR9NuvtQ4UUJr bGQg NGPrcOOKeO0kfzpyk2hdktym UbDvOWSsPCi7KFk0OGDeoRei SjEgLNG8KaJ8BOM6bHXncR3u bGln gowatN9qQzx+TKU0cWHnwXGZ DF7lKwiuvQC+XZRzOVL6kZpt YPwtDFKwhK4iXYJiV8t2ZsIt LjA1 RJajF8JkvhB3MHVzlPAnHDTh sHSXuY2ubsoti6nxuhhhOnOn IMAzUGb5SCh2XKSpmPuwQxTr ZWZ0 OxE3KLJ8nBDzvP6hiYdswggc aC4xAuc+YscnqIvxUTV1PNj3 Z7CuQee2AJEdmLivDC1leVCf ZGlu Yz8oaIznyRdvYX1iHBNqlpxn j147WjCme5uuRNUopUHtPHsh KFK5K14ix6X8RDNuVFFyREU2 dGV4 xE7ctFjacigspYAhxGkmofWy rRcuUUtqVDhlK904YCWvdGzr LqKmLLw7K0EcHes7HTFnsTdf ZT0n lQQjGVlcMh4spNsrtLbvBU4j XPTlhhtpu995AxUxy5txWHQp mOKtRXixPCZ3L93pb2E4BFWi MDAw OHT4jBU9nY0sjOhhlzxinZFu zJoizaFgrCyzOEacFByiF752 CYIlaIonZcPwrIl6O5RkSyw2 ZCBz uCsfXS0nqPFsKSlbXm5upNbi lNrtRU0bTHOggmall293IeAx p8hcZZYdoLNsFCfvBXK4S74n b3I6 PYXxPPXmZBV0iOY5hR2vlAsp bjogbGVmdDsgdmVydGljYWwt AQhxP159HRPpuEeiOvLyoNeu bnQg MLdxFCo0U4ByWqakmTO+PC90 VBRvPM15rJKxgQMzf2twdHr3 PfQnZPMdQDH5hNebUGzfc8Ks ZXIt S39biTFxd8E4AFNwaAjyhOLu NeXojCA5aJ4jPLmgemjro0ox tskbFfafi4ypgx83hN34X72f IHdp BTAyISCsTIPjAYVecIhtbw8k nI7qFc9+XCIbgVY7iWC5hT2o WMOnPmO4NLjeR138MkSjdNQx Pjxj z3wom4wgpPc6RoY1WDQfibIx wQweGJI2d0YqSu08H36oSShd IIJgYGJuZNZdLWGhhYtthz2a dG9w Ii8+WEMyiBO4lYD1hE3fQqJs CsT5QXvrG217TjHyvKKiZxvt B50vM4BlrDD+QTDgAsx9FCAq dHls MP6smAVsEPstEw0kVXU3PzIv SgYhCBebB2DlJQMmggnazljb cYU0VOCkOJYnkR73Pv6wvYcj MTBw hWKUuA8yhdvjq9tlnekyDgRc FEPvKNn5LBa3BTGrmHfwPyOf MOF4IoB0SEH8jKEbmG9fgEaz bjog uO3eD7LpUWQtduvmXw60uK8l VwSvAxO0ZKfvKuc+JA6UGB1P IxuCMDNSVYCHQOUUFC5YK94F RTwv dGQ+JYGrNQL4bVwhOJxdGAKr cM6nRLThH5c3RaPrVuD6ZAoh G7AqJAKhreotDs74mQ5jYyTn LjA1 OHnfD8RhwaM0RPViqNMzDYzk QQC7T48st6S7TRWeNATdWTP9 wWL1bC4doNxrvuidwDZehCwa dmVy aCemOBlgZGriE883KZErcYoh KdI6WtY6OzZ7VRM6G7KjTov6 HHLguVfkOV0dcPZkQMepJk9e aWdo uEaqRH6sSYUxkantXMFalT2e TYCaoRGyeAdcWE5aSDWymvga v513TuSfHRV1NICfiCCcW6Mc bG9y HrIrVNBdKSFnC4JgmFFpRUsc K576IYkeVdE6BDXjblRlJ2Hx QZNngGtyFpV0h1M9Tu4rGDQX ZWFy czwvdGQ+FFEaZVY5vUcgJXpu MWIqaM8jRYCsK3z2FpZnVaL6 SZefG6LlYQRvixjbCf24qY2n OiAw GzO6ADprW8FdicB2VIGtqSLo VJftDEB2M73aa2L6RUVeGWYf YEK3gAU8tU0raNmwyefbmTZn dDsg uuVwpBtcBJokSFznR266JFLc cDsnPkZFTUFMRTwvdGQ+PHRk AUD2aMxnQPgbMJJugR5zQMIc Z2h0 RyVmZcF2JIosS5YhENYpxena Uy08pQ3pZuFfFcP7OKjaR6Yn oqF6OGLuhNCgYUhvPBS3Z55z b3I6 YENuCBBeIAK8tFI7nA7iiVpy bjogbGVmdDsgdmVydGljYWwt IWtuV662VYDvqEotBg6KAC09 ZD48 U5XnSozdgUKarNX+PHRhYmxl IHdpZHRoPScxMDAlJyBzdHls GE9sOz2aLCVhVAQglTeipYEt OiBj q5ekPYSjLMqpCB3yxOffI3Rq hNI8FHAqy4r5Ni35I84lX4Di dXA+GVNhpRI9aXR8tT9uFqOm IiB2 JBedZ572EfZhaGAkWdivt6ma u9ndbQp4BjGpSXAiiuXueBhb GUF8q4YuTj88K09mIMyuLOVi PSIy GBSfMOKxrJzlph4niF1pCt1+ UEHpgVA2aEM1gH5aTpSgWpY6 CDcpI561XnIgbEXkIbhjY93d Z3Jv dXA+OBNkLfj7KPAtfBhbCG6d cOCaKFuyHl0wMTS6MrQiXvVj SUesB0WlKWZyspwcwriymGJ6 IDAu TVXucG47Lx7hlLsnMc1mCKBv WWL7TSLvrTSoQ0IjvJ5vExIo GCLjZXDrK9PioZNpEFmyU241 IGxl NbY1LHKbozYaG5PkRMYbdPyn SjP4w8C0It6IoFcfkVZyME7p QoJrTHm9A8ZfLdj9BEMlaJgz ZT0n bUWiFDpfNm0sgVqluQrbIQ2t KIDbfasev918InOtb5apPCXd qPNsYBgjDAA7X05kx6K0HOSu MDAw XZS0zNA3cA3tqJnzgaeiiCTu kBzewsAczWxlXAsjASjhI234 JZBdbTkfSeCFEdg4F9EdDnd0 ZCBz nHzsRA8lcSLiMUwjZo5geJiz nEbgHP9tATWvwwyba042JqWw n4fpBYShtCFfIRinOYR8H70p b3I6 VKWeXYKeQIQ7mNA9tG6afZkt bjogbGVmdDsgdmVydGljYWwt IKeiT175VVXggOdpXf0EMcs9 L3Rk Tnq4FMKqqRheCA4ueNVgGCqf At8vvYksuCgdPY5rKTLuosqo e655XkOir1ukNDJnwVKlCAmh ZXM7 B61zm0X1XXRdBVUvKQH9pXV8 gG9ayCggtbtlxESfuGzwwvDc zAqfCMndSQzcP537LJXrkYhd PlBh eWVyOjwvdGQ+UL50om71B5Um RileTdx1DOLzZUX9wRH3iN9d MOWdERxnf4Q1eET7E5XhebEk ci1j b2x (more content not included)... Normal [facility] Vitamin A, Serum LCon 2023 Vitamin A, Serum LC 41.9 ug/dL Invalid Interpretation Code 18.9-57.3 [facility] Comment on above: Result Comment: Refe rence intervals for vitamin A determined from [facility] internal studies. Individuals with vitamin A less than 20 ug/dL are considered vitamin A deficient and those with serum concentrations less than 10 ug/dL are considered severely deficient. This test was developed and its performance characteristics determined by [facility]. It has not been cleared or approved by the Food and Drug Administration. Performed At: [address] [id number] Vitor Padilla MD Ph:[phone] Performed By: #### 1 [id number], [id number], 96090219, 97477391, [id number], 07470157, 82786221, 83485082, 9968442, 0058526, 326465847, 9312568, [id number], 9882063, 7165322 ####[facility] (DEFAULT)[address] [place] [address] Nicotine and Metabolite, Delfino nt LCon 06-30-2024 Cotinine LC <1.0 Invalid Interpretation Code [facility] Comment on above: Result Comment: This test was developed and its performance characteristics determined by [facility]. It has not been cleared or approved by the Food and Drug Administration. Cotinine levels greater than 20.0 are consistent with the use of tobacco or tobacco cessation products. Performed At: [address] [id number] Vitor Padilla MD Ph:[phone] Performed By: #### 1 [id number], [id number], 83931703, 86169321, 0162381544, 44655346, 60088217, 44818666, 6187313, 2153114, 325044383, 7149388, 2064334859, 6081065, 8603731 ####[facility] (DEFAULT)[address] [place] [address] Nicotine LC <1.0 Invalid Interpretation Code [facility] Comment on above: Result Comment: This test was developed and its performance characteristics determined [facility]. It has not been cleared or approved by the Food and Drug Administration. Nicotine levels greater than 2.0 are consistent with the use of tobacco or tobacco cessation products. Performed By: #### 1 [id number], [id number], 90081848, 24031153, 8976942225, 90566086, 83461643, 93675103, 9564215, 0385585, 645287139, 9546293, 3527965993, 9393216, 5132829 ####[facility] (DEFAULT)[address] [place] [address] Vitamin B1 (Thiamine) Whl Bl ood LCon 06-30-2024 Vit B1 Whl Bld LC 123.4 nmol/L Invalid Interpretation Code 66.5-200.0 [facility] Comment on above: Result Comment: This test was developed and its performance characteristics determined by [facility]. It has not been cleared or approved by the Food and Drug Administration. Performed At: [address] [id number] Vitor Padilla MD Ph:[phone] Performed By: #### 1 [id number], 322585324, 36177742, 89703557, 3111675714, 66364243, 62718504, 38674912, 1163964, 8733127, 538742696, 9206947, 1882165356, 4431927, 9842131 ####[facility] (DEFAULT)[address] [place] [address] PTH, Intact LCon 06-29-2024 PTH, Intact LC 25 pg/mL Invalid Interpretation Code [facility] Comment on above: Result Comment: Perf ormed At: [facility] [id number] Maxine Smith PhD Ph:[phone] Performed By: #### 1 [id number], [id number], 22797210, 58387347, 3376009397, 05453833, 30043080, 74249041, 2323147, 2679421, 201855674, 7749824, 2396096229, 9166993, 4475293 ####[facility] (DEFAULT)[address] [place] [address] .Auto Diff 06-26-2024 Auto [place] % 5 % Normal 12 [facility] Comment on above: Performed By: #### 1 [id number], 815743482, 46790903, 30904781, 4285346428, 33781485, 83599732, 01481215, 9516479, 2223028, 758370655, 2517776, 3145886636, 2437410, 4514788 ####[facility] (DEFAULT)[address] [place] [address] Baso Abs# 0.1 x10 Normal 0.0-0.2 [facility] Comment on above: Performed By: #### 1 [id number], 245463368, 40190362, 70443253, 6599416237, 40586264, 47373761, 90542720, 6669722, 6412829, 420665397, 3628727, 7962436933, 5729484, 7736170 ####[facility] (DEFAULT)[address] [place] [address] Basophils/100 WBC (Bld) 1.1 % Normal 0.2-2.0 [facility] Comment on above: Performed By: #### 1 [id number], 397550044, 00898594, 21439305, 8972563865, 57006422, 21989406, 59658732, 2157216, 8571499, 367960819, 9782430, 7105831853, 9903625, 4637687 ####[facility] (DEFAULT)[address] [place] [address] Eos Abs# 0.1 x10 Normal 0.0-0.4 [facility] Comment on above: Performed By: #### 1 [id number], 233370049, 48117064, 44755838, 6000163534, 65219394, 03749127, 78814094, 0832063, 2585887, 356274313, 5963338, 7840383039, 0963972, 0837174 ####[facility] (DEFAULT)[address] [place] [address] Eosinophils/100 WBC (Bld) 1.7 % Normal 0.9-4.0 [facility] Comment on above: Performed By: #### 1 796480589, 733765256, 80153947, 34321164, 8201135271, 60739926, 99842712, 51259570, 8439785, 3975544, 055200475, 6429760, 6423733384, 8762980, 6232157 ####[facility] (DEFAULT)[address] [place] [address] 76658 Lymph Abs# 2.3 x10 Normal 1.3-2.9 [facility] Comment on above: Performed By: #### 1 732216458, 040165288, 43678050, 85666210, 6111528948, 60781626, 02801246, 05629142, 0133961, 2275044, 388840467, 4818257, 3440512966, 4724171, 8721272 ####[facility] (DEFAULT)[address] [place] [address]3284 Lymphocytes/100 WBC (Bld) 29 % Normal 14-48 [facility] Comment on above: Performed By: #### 1 385960125, 566034328, 53846710, 63470656, 9797132230, 12239672, 78698120, 97947985, 4383456, 0090883, 120049781, 0423514, 3971701988, 7441976, 1929102 ####[facility] (DEFAULT)[address] [place] [address] [place] Abs# 0.4 x10 Normal 0.0-0.8 [facility] Comment on above: Performed By: #### 1 016495556, 712849860, 91706872, 62338964, 9355601244, 48963376, 39944001, 31260213, 3700842, 6045298, 225771808, 4332131, 5115114188, 4148217, 4640470 ####[facility] (DEFAULT)[address] [place] [address] Neut Abs# 5.1 x10 Normal 1.5-9.2 [facility] Comment on above: Performed By: #### 1 809141076, 619050460, 77791962, 39756492, 2100216635, 99519482, 55858351, 56561404, 0539214, 9132739, 553040483, 3469951, 4825080027, 7152358, 5064234 ####[facility] (DEFAULT)[address] [place] [address] 41804 Neutrophils/100 WBC (Bld) 64 % Normal 44-88 [facility] Comment on above: Performed By: #### 1 206224272, 682638258, 53772672, 67579991, 6379484330, 26780346, 93739378, 52913523, 1556474, 9230487, 921665157, 7639892, 3897739821, 8661457, 2719734 ####[facility] (DEFAULT)[address] [place] [address] 40895 CBC w/ Auto Diffon 4 Erythrocyte distribution width (RBC) [Ratio] 13.9 % Normal 11.5-15.0 [facility] Comment on above: Performed By: #### 1 869251627, 809276611, 63072351, 10677643, 3176701017, 24661771, 31027858, 44945280, 3369358, 6303329, 128235694, 5740653, 4166334925, 6493935, 6204801 #### [facility] (DEFAULT) [address] [place] [address]25 Hematocrit (Bld) [Volume fraction] 41.3 % High 33.7-40.4 [facility] Comment on above: Performed By: #### 1 847424486, 026406489, 51544073, 87853586, 2605940444, 57156860, 32592207, 89147903, 4654618, 5169712, 961351409, 3037311, 3990749839, 2532938, 4350880 #### [facility] (DEFAULT) [address] [place] [address] Hemoglobin (Bld) [Mass/Vol] 13.8 g/dL Normal 11.3-15.9 [facility] Comment on above: Performed By: #### 1 341950788, 683772937, 16856123, 17749836, 2391995988, 77599015, 91820939, 09839593, 2445587, 8915008, 558433416, 7352533, 4048880248, 4004227, 7661642 #### [facility] (DEFAULT) [address] [place] [address] Man Diff? Auto Invalid Interpretation Code [facility] Comment on above: Performed By: #### 1 218564293, 402364927, 06012663, 69985490, 6926690089, 62199663, 01843249, 80878749, 2969044, 0281558, 997621747, 9830193, 9334973236, 4649536, 9401506 #### [facility] (DEFAULT) [address] [place] [address] 66452 MCH (RBC) [Entitic mass] 28 pg Normal 24-34 [facility] Comment on above: Performed By: #### 1 051296495, 676061181, 10568194, 84351660, 2152905145, 86590866, 37881984, 85041989, 0174245, 9452678, 572825411, 7859361, 9789792628, 9146983, 1764099 #### [facility] (DEFAULT) [address] [place] [address] MCHC (RBC) [Mass/Vol] 33 g/dL Normal 26-37 [facility] Comment on above: Performed By: #### 1 708132768, 375578512, 30191861, 97410072, 0193709258, 39557266, 84759326, 64954265, 2735051, 8936740, 045644946, 4809068, 6834665255, 7867367, 3733715 #### [facility] (DEFAULT) [address] [place] [address] 92030 MCV (RBC) [Entitic vol] 84 fL Normal 81-100 [facility] Comment on above: Performed By: #### 1 688194955, 672830831, 66947753, 42791723, 1079512798, 37369178, 11428317, 36926745, 6014223, 1784435, 390963013, 5019042, 0287285793, 7020495, 3843657 #### [facility] (DEFAULT) [address] [place] [address] 41497 Platelet 289 x10 Normal 138-427 [facility] Comment on above: Performed By: #### 1 189097009, 643034526, 43924432, 01287941, 2971876999, 10257337, 15180136, 72974083, 7931324, 3448273, 317585192, 9357878, 9948756616, 3523506, 4396883 #### [facility] (DEFAULT) [address] [place] [address] 44047 Platelet mean volume (Bld) [Entitic vol] 7.0 fL Normal 6.3-10.2 [facility] Comment on above: Performed By: #### 1 090096012, 226903518, 51759510, 27537196, 1348143236, 03943010, 15255912, 43881331, 7300092, 5281629, 161379337, 3389010, 2393119588, 5441529, 9770600 #### [facility] (DEFAULT) [address] [place] [address] 47249 RBC 4.95 x10 Normal 3.70-5.30 [facility] Comment on above: Performed By: #### 1 413136046, 329567947, 81497740, 38962324, 0607982218, 92408235, 73621535, 37321221, 3043172, 5072327, 849233196, 7012363, 2527867273, 8277603, 9897960 #### [facility] (DEFAULT) [address] [place] [address] 17900 WBC 8.1 x10 Normal 3.5-10.5 [facility] Comment on above: Performed By: #### 1 883434862, 678093732, 39337571, 76789383, 2986701182, 99040991, 45362100, 61550527, 6250090, 5294044, 611327640, 8124316, 8519834213, 8314800, 1075468 #### [facility] (DEFAULT) [address] [place] [address] [facility] Standardon 06-26-2024 eGFR Non AA >60 Invalid Interpretation Code [facility] Comment on above: Performed By: #### 1 091581203, 718284932, 10023445, 56031003, 6632237660, 24897403, 09417166, 81323161, 8402891, 2165640, 435816677, 4952436, 2949620858, 5611870, 6314137 ####[facility] (DEFAULT)[address] [place] [address] 50769 eGFR AA >60 Invalid Interpretation Code [facility] Comment on above: Performed By: #### 1 820885296, 770270637, 12035379, 07932791, 5226036261, 43901386, 55340759, 35035183, 4278449, 3706662, 606610173, 2944979, 7864831096, 9527575, 2283763 ####[facility] (DEFAULT)[address] [place] [address] Albumin [Mass/Vol] 3.5 g/dL Normal 3.5-5.0 [facility] Comment on above: Performed By: #### 1 761472421, 706357651, 40031257, 91109693, 4607534947, 28205238, 54671144, 13192455, 7572077, 9590352, 352640856, 2335613, 2755251069, 4464994, 7469853 ####[facility] (DEFAULT)[address] [place] [address] Albumin/Globulin [Mass ratio] 0.9 {ratio} Low 1.4-2.6 [facility] Comment on above: Performed By: #### 1 043271810, 699647309, 12788219, 23108708, 4175601906, 73100601, 69918087, 92506576, 0590676, 6321045, 026257208, 2032184, 2267535652, 2053247, 4451297 ####[facility] (DEFAULT)[address] [place] [address] Alk Phos 90 IU/L Normal 32-91 [facility] Comment on above: Performed By: #### 1 495452713, 232747567, 50220852, 94529886, 8361281102, 65276954, 09622917, 32469892, 0650662, 8947468, 404215866, 3725333, 2385837366, 8574833, 4764026 ####[facility] (DEFAULT)[address] [place] [address] ALT [Catalytic activity/Vol] 30.0 U/L Normal 14.0-54.0 [facility] Comment on above: Performed By: #### 1 051663601, 244683891, 93801902, 58073002, 3657876875, 74218687, 79007515, 49377721, 9894517, 0148791, 600361477, 7926722, 7754713441, 5072036, 5296838 ####[facility] (DEFAULT)[address] [place] [address] Anion gap [Moles/Vol] 10.9 mmol/L Normal 5.0-19.0 [facility] Comment on above: Performed By: #### 1 991441181, 303206845, 87794407, 28594745, 6422594787, 89990455, 58267811, 32022864, 3621715, 1153780, 812773072, 6090774, 4359457552, 1683632, 3071785 ####[facility] (DEFAULT)[address] [place] [address] AST [Catalytic activity/Vol] 23 U/L Normal 15-41 [facility] Comment on above: Performed By: #### 1 254617491, 353854038, 63133237, 00174509, 2156864676, 80815603, 77573762, 60430154, 2169149, 2872677, 600933765, 9382226, 6267416805, 9922418, 1449890 ####[facility] (DEFAULT)[address] [place] [address] Bili Total 0.5 mg/dL Normal 0.3-1.2 [facility] Comment on above: Performed By: #### 1 604101074, 235662545, 33700912, 38904533, 3068520283, 42416373, 49519891, 12806182, 8701528, 3418378, 205649929, 9151650, 4709144939, 8357212, 7091830 ####[facility] (DEFAULT)[address] [place] [address] Calcium [Mass/Vol] 8.7 mg/dL Low 8.9-10.3 [facility] Comment on above: Performed By: #### 1 206754908, 412022998, 77603140, 06878155, 2725999848, 06566685, 79657605, 55382057, 5355826, 4503151, 509928410, 6725199, 5876987915, 5971717, 6125277 ####[facility] (DEFAULT)[address] [place] [address] Chloride [Moles/Vol] 105 mmol/L Normal 101-111 [facility] Comment on above: Performed By: #### 1 995740617, 945584267, 03823504, 33848057, 9771299766, 12080990, 93936317, 12970399, 4301983, 3491098, 247876612, 5359463, 2932602324, 5928269, 3447314 ####[facility] (DEFAULT)[address] [place] [address] CO2 [Moles/Vol] 26 mmol/L Normal 21-32 [facility] Comment on above: Performed By: #### 1 025555791, 833479881, 67539449, 76079333, 8527678286, 42482933, 03478282, 61526043, 9310745, 5365245, 457367383, 6633534, 1470188274, 7505026, 7230291 ####[facility] (DEFAULT)[address] [place] [address] Creatinine [Mass/Vol] 0.95 mg/dL Normal 0.60-1.30 [facility] Comment on above: Performed By: #### 1 553819629, 416794573, 33414392, 67352724, 0853968187, 96496027, 04830699, 31180835, 2160833, 0951083, 801002278, 9600582, 1384156595, 3098205, 2962898 ####[facility] (DEFAULT)[address] [place] [address] Globulin (S) [Mass/Vol] 3.7 g/dL Normal 1.5-4.3 [facility] Comment on above: Performed By: #### 1 826777037, 703216603, 16605590, 49765783, 2393592137, 02306779, 69007835, 69644852, 1671579, 5624744, 910588270, 9736385, 1457795978, 9663072, 5286517 ####[facility] (DEFAULT)[address] [place] [address] Glucose [Mass/Vol] 111.0 mg/dL Normal 74.0-118.0 [facility] Comment on above: Performed By: #### 1 956448632, 457634438, 16559494, 50538998, 1704881027, 90581179, 37723266, 23472871, 6457403, 8536161, 302745985, 2549765, 0999025462, 9011220, 6218566 ####[facility] (DEFAULT)[address] [place] [address] Osmolality 278 mOsm/L Invalid Interpretation Code [facility] Comment on above: Performed By: #### 1 607044022, 770614595, 01573711, 74580450, 8343113630, 73973915, 14658790, 59027426, 6923873, 5706534, 138595521, 9999546, 5492747598, 7023458, 3114662 ####[facility] (DEFAULT)[address] [place] [address] Potassium [Moles/Vol] 3.9 mmol/L Normal 3.6-5.1 [facility] Comment on above: Performed By: #### 1 594547264, 039093525, 86960125, 20328205, 0799072997, 64053118, 65734774, 65581957, 9139021, 0410804, 070543110, 0113135, 8531824348, 6020985, 9450137 ####[facility] (DEFAULT)[address] [place] [address] Protein [Mass/Vol] 7.2 g/dL Normal 6.5-8.1 [facility] Comment on above: Performed By: #### 1 676732469, 728085322, 30003576, 87120647, 6322837095, 28050754, 06438893, 57077914, 5685843, 5893398, 995153164, 3036616, 1376892301, 4899360, 8291719 ####[facility] (DEFAULT)[address] [place] [address] Sodium [Moles/Vol] 138.0 mmol/L Normal 136.0-144 . 0 [facility] Comment on above: Performed By: #### 1 453484041, 124827019, 97643666, 39597928, 0328532728, 84372350, 64269345, 89158251, 3803863, 9427963, 552919920, 4533649, 3566816899, 7094676, 2759672 ####[facility] (DEFAULT)[address] [place] [address] 28019 Urea nitrogen [Mass/Vol] 18 mg/dL Normal 8-26 [facility] Comment on above: Performed By: #### 1 441894686, 314699864, 51904406, 33546661, 5392516918, 95123744, 82279489, 93339982, 4231707, 8996966, 907176862, 3918313, 8843340694, 6068481, 6827242 ####[facility] (DEFAULT)[address] [place] [address] 02165 Urea nitrogen/Creatinine [Mass ratio] 18.9 mg/mg High 4.6-16.2 [facility] Comment on above: Performed By: #### 1 051903935, 997105488, 82334155, 10199603, 1843877882, 54786627, 43483617, 20842887, 6362514, 0554545, 363437850, 2053980, 5734756360, 9000718, 2919252 ####[facility] (DEFAULT)[address] [place] [address] Ferritinon 06-26-2024 Ferritin [Mass/Vol] 59.0 ng/mL Normal 12.0-150.0 [facility] Comment on above: Performed By: #### 1 457579740, 184089217, 64055609, 39650251, 1013114811, 13233345, 24521301, 86066491, 5554503, 7081344, 225278087, 6045783, 7768150112, 3036108, 4935575 ####[facility] (DEFAULT)[address] [place] [address] 58828 Folateon 06-26-2024 Folic Acid Level 9.04 ng/mL Normal 5.90-24.80 [facility] Comment on above: Performed By: #### 1 880547676, 739008483, 95926724, 19132307, 0370650507, 92872785, 48650165, 56316282, 5218586, 1727602, 063209563, 7152575, 8650345672, 6502566, 7788644 ####[facility] (DEFAULT)[address] [place] [address] HgbA1c Standardon 06-26-2024 .Hb 15.0 Invalid Interpretation Code [facility] Comment on above: Performed By: #### 1 510130116, 961982143, 95886044, 45561073, 5224595408, 20869948, 55737760, 92586326, 5532643, 2702506, 734280178, 6820745, 8079364508, 0638444, 6546732 ####[facility] (DEFAULT)[address] [place] [address] .Hgb A1c 0.60 g/dL Invalid Interpretation Code [facility] Comment on above: Performed By: #### 1 529167241, 540461849, 19151531, 62034296, 6885298639, 60899219, 37391800, 05016757, 4657531, 8480050, 460632700, 2288695, 8447823023, 7226298, 1223593 ####[facility] (DEFAULT)[address] [place] [address] Glucose [Mass/Vol] 120 mg/dL Invalid Interpretation Code [facility] Comment on above: Performed By: #### 1 352267272, 683505645, 41056215, 41174197, 0693256648, 65246214, 15206180, 06086257, 6396851, 7266227, 090921675, 2298760, 3997524736, 7194439, 0757058 ####[facility] (DEFAULT)[address] [place] [address] HbA1c (Bld) [Mass fraction] 5.8 % Normal 4.6-6.2 [facility] Comment on above: Performed By: #### 1 963430425, 700697983, 32123976, 54833952, 3020663807, 61627694, 16726661, 20643906, 7485445, 3861100, 094661143, 4015096, 9463131794, 0571900, 0831736 ####[facility] (DEFAULT)[address] [place] [address] Iron Profileon 06-26-2024 Iron [Mass/Vol] 82.0 ug/dL Normal 28.0-170.0 [facility] Comment on above: Performed By: #### 1 970971318, 618273583, 82256981, 46081142, 6310763726, 34091253, 24349357, 82767693, 9282817, 6719095, 471577923, 7891777, 4229042372, 7703878, 6604302 ####[facility] (DEFAULT)[address] [place] [address] Iron Sat 24 % Normal 20-55 [facility] Comment on above: Performed By: #### 1 924022674, 942293018, 99328499, 12961482, 1799040609, 66810834, 42219145, 86558530, 0797692, 0467299, 724295042, 0574905, 6287413199, 7541100, 7685429 ####[facility] (DEFAULT)[address] [place] [address] TIBC 341 mcg/dL Normal 250-400 [facility] Comment on above: Performed By: #### 1 743927107, 423392324, 99725663, 47034238, 7630884427, 20455104, 26619550, 88877542, 5119024, 9143786, 744707702, 3193887, 1784844474, 2461304, 1248148 ####[facility] (DEFAULT)[address] [place] [address] Transferrin [Mass/Vol] 243.6 mg/dL Normal 192.0 -382. 0 [facility] Comment on above: Performed By: #### 1 944639127, 494482105, 61285800, 47158980, 8298702407, 94705163, 94440711, 31090923, 8900159, 4176355, 559241872, 6107738, 2344695284, 4045838, 8775269 ####[facility] (DEFAULT)[address] [place] [address] Lipid Panel Standardon 06-26 Cholesterol [Mass/Vol] 180.0 mg/dL Normal 66.0-200.0 [facility] Comment on above: Performed By: #### 1 991826295, 208839144, 31673095, 54858407, 2647026922, 02779374, 33658631, 21420048, 1161135, 5136568, 961989635, 2197675, 4149498610, 5860304, 7657729 ####[facility] (DEFAULT)[address] [place] [address] Cholesterol in HDL [Mass/Vol] 44 mg/dL Normal 40-71 [facility] Comment on above: Performed By: #### 1 111505972, 323508387, 14602957, 36882539, 1529254696, 90172191, 44200027, 06813881, 6618647, 7278425, 485097260, 4498553, 2583160631, 5219837, 9034998 ####[facility] (DEFAULT)[address] [place] [address] Cholesterol in LDL [Mass/Vol] 118 mg/dL High 1-100 [facility] Comment on above: Performed By: #### 1 853198718, 729036059, 95144986, 38614218, 4920911824, 91538409, 06243539, 61550126, 3588325, 6471525, 999186184, 1223503, 6570489065, 4283938, 1448065 ####[facility] (DEFAULT)[address] [place] [address] Cholesterol.total/Mahsa sterol in HDL [Mass ratio] 4.1 {ratio} Normal 0.0-4.5 [facility] Comment on above: Performed By: #### 1 136764707, 197231174, 76590179, 59690504, 6874077843, 38114760, 58897074, 60011029, 4165580, 8343682, 830174654, 4411808, 7535436273, 8317389, 9024974 ####[facility] (DEFAULT)[address] [place] [address] Triglyceride [Mass/Vol] 93.0 mg/dL Normal 0.0-150.0 [facility] Comment on above: Performed By: #### 1 061796266, 725948569, 66704985, 42650496, 0065470714, 20831606, 56523737, 83039709, 6199402, 9959458, 680505555, 5164459, 9096377832, 7245105, 4819779 ####[facility] (DEFAULT)[address] [place] [address] VLDL. 19 mg/dL Normal 5-40 [facility] Comment on above: Performed By: #### 1 179232628, 779486122, 26542631, 63466948, 5174586097, 79424840, 05278100, 90381529, 5834808, 8383998, 939177213, 0117057, 9128030256, 3854154, 4651517 ####[facility] (DEFAULT)[address] [place] [address] Provider Orderson 06-26-2024 Provider Orders [id number] [id number] GTIFF Normal [facility] TSH w/ Reflex to FT4on 06-26 TSH Qn 1.37 m[IU]/L Normal 0.45-5.33 [facility] Comment on above: Performed By: #### 1 524781510, 047163612, 45379073, 63583375, 5290475227, 22263954, 46321262, 33414878, 9581791, 9404206, 654791343, 7774236, 3565760066, 4176180, 1719723 ####[facility] (DEFAULT)[address] [place] [address] Vit B12 Lvlon 06-26-2024 Vit B12 623 Normal 180-914 [facility] Comment on above: Performed By: #### 1 833235883, 726911649, 78260889, 71285590, 5264265243, 03596305, 50293703, 83435204, 7179259, 2878783, 334594438, 2740475, 1282693636, 6086549, 6382561 ####[facility] (DEFAULT)[address] [place] [address] Vit D25 OHon 06-26-2024 Vitamin D 25 OH 54 ng/mL Normal 30-100 [facility] Comment on above: Performed By: #### 1 349072370, 544211183, 75610898, 34796957, 5970950973, 63775912, 74654932, 92064204, 2961361, 8280344, 559736405, 2501425, 1691389283, 3618100, 1239773 ####[facility] (DEFAULT)[address] [place] [address] XR CHEST (2 VW)on 06-04-2024 XR CHEST (2 VW) EXAMINATION: TWO XRAY VIEWS OF THE CHEST 06/04/2024 10:38 am COMPARISON: 05/11/2021 HISTORY: ORDERING SYSTEM PROVIDED HISTORY: Dyspnea on exertion TECHNOLOGIST PROVIDED HISTORY: Reason for Exam: pre op gastric bypass surgery, no current complaints FINDINGS: Cardiac size and pulmonary vessels are within normal limits. Lungs appear clear. No focal infiltrates are seen. No significant pleural effusions. Suspect mildly prominent epicardial fat pads at each cardiophrenic angle. There is no acute osseous abnormality. IMPRESSION: No acute cardiopulmonary process Interpreted by: Roldan Lindsey MD Signed by: Roldan Lindsey MD 06/04/24 Final result Normal [facility] XR Chest 2 Viewson No acute cardiopulmo nary process [facility] RIS CONSOLIDATED EXAMINATION: TWO XRAY VIEWS OF THE CHEST 06/04/2024 10:38 am COMPARISON: 05/11/2021 HISTORY: ORDERING SYSTEM PROVIDED HISTORY: Dyspnea on exertion TECHNOLOGIST PROVIDED HISTORY: Reason for Exam: pre op gastric bypass surgery, no current complaints FINDINGS: Cardiac size and pulmonary vessels are within normal limits. Lungs appear clear. No focal infiltrates are seen. No significant pleural effusions. Suspect mildly prominent epicardial fat pads at each cardiophrenic angle. There is no acute osseous abnormality. [facility] RIS CONSOLIDATED César, Roldan P, MD - 06/04/2024 EXAMINATION: TWO XRAY VIEWS OF THE CHEST 06/04/2024 10:38 am COMPARISON: 05/11/2021 HISTORY: ORDERING SYSTEM PROVIDED HISTORY: Dyspnea on exertion TECHNOLOGIST PROVIDED HISTORY: Reason for Exam: pre op gastric bypass surgery, no current complaints FINDINGS: Cardiac size and pulmonary vessels are within normal limits. Lungs appear clear. No focal infiltrates are seen. No significant pleural effusions. Suspect mildly prominent epicardial fat pads at each cardiophrenic angle. There is no acute osseous abnormality. IMPRESSION: No acute cardiopulmonary process [facility] Radiology Study observation (narrative) [facility] Axial Exchange XR Chest 2 ViewsOrdered By: Roldan Lindsey on 06-04-2024 [facility] Work Phone: DHEA SERUMon 03-12-2022 Dehydroepiandrosterone (DHEA) 451 ng/dL Normal 31-701 [facility] Comment on above: Result Comment: Age 1 - 5 years 0 - 67 6 - 7 years 0 - 110 8 - 10 years 0 - 185 11 - 12 years 0 - 201 13 - 14 years 0 - 318 15 - 16 years 39 - 481 17 - 19 years 40 - 491 >19 years 31 - 701 Performed By: #### D PHU. #### [facility] [address] [place] [address] Dr. Rosa Cuevas DHEA-SULFATEon 03-08-2022 DHEA-Sulfate 199.0 ug/dL Normal 84.8-378.0 [facility] Comment on above: Performed By: #### D ALONDRA #### [facility] [address] [address] [address] Rosa Cuevas FSHon 03-08-2022 FSH 5.8 mIU/mL Normal [facility] Comment on above: Result Comment: Adul t Female: Follicular phase 3.5 - 12.5 Ovulation phase 4.7 - 21.5 Luteal phase 1.7 - 7.7 Postmenopausal 25.8 - 134.8 Performed By: #### L [facility] #### [facility] [address] [address] [address] Rosa Cuevas LUTEINIZING HORMONE (LH)on 0 03-08-2022 LH 15.4 mIU/mL Normal [facility] Comment on above: Result Comment: Adul t Female: Follicular phase 2.4 - 12.6 Ovulation phase 14.0 - 95.6 Luteal phase 1.0 - 11.4 Postmenopausal 7.7 - 58.5 Performed By: #### L BCLH #### [facility] [address] [place] [address] Dr. Rosa Cuevas PROLACTINon 03-08-2022 Prolactin 7.2 ng/mL Normal 4.8-23.3 [facility] Comment on above: Performed By: #### P ROLAC #### [facility] [address] [place] [address] Dr. Rosa Cuevas CBC AUTO DIFFon 03-07-2022 BASO # 0.1 103/ul Normal 0.0-0.1 [facility] Comment on above: Performed By: #### C BC #### [facility] [address] [place] [address] Dr. Rosa Cuevas Basophils/100 WBC (Bld) 0.6 % Normal 0.2-2.0 T [facility] Comment on above: Performed By: #### C BC #### [facility] [address] [place] [address] Dr. Rosa Cuevas EO # 0.0 103/ul Normal 0.0-0.7 [facility] Comment on above: Performed By: #### C BC #### [facility] [address] [place] [address] Dr. Rosa Cuevas Eosinophils/100 WBC (Bld) 0.5 % Critically low 0.9-7.0 [facility] Comment on above: Performed By: #### C BC #### [facility] [address] [place] [address] Dr. Rosa Cuevas Erythrocyte distribution width (RBC) [Ratio] 13.3 % Normal 11.0-15.0 [facility] Comment on above: Performed By: #### C BC #### [facility] [address] [place] [address] Dr. Rosa Cuevas Hematocrit (Bld) [Volume fraction] 43.6 % Normal 36.0-48.0 [facility] Comment on above: Performed By: #### C BC #### [facility] [address] [place] [address] Dr. Rosa Cuevas Hemoglobin (Bld) [Mass/Vol] 14.7 g/dL Normal 12.0-16.0 [facility] Comment on above: Performed By: #### C BC #### [facility] [address] [place] [address] Dr. Rosa Cuevas IG # 0.03 10e3/ul Normal 0.00-0.03 [facility] Comment on above: Performed By: #### C BC #### [facility] [address] [place] [address] Dr. Rosa Cuevas IG % 0.4 % Normal 0.0-0.5 [facility] Comment on above: Performed By: #### C BC #### [facility] [address] [place] [address] Dr. Rosa Cuevas LYMPH # 2.8 103/ul Normal 1.2-3.8 [facility] Comment on above: Performed By: #### C BC #### [facility] [address] [place] [address] Dr. Rosa Cuevas Lymphocytes/100 WBC (Bld) 35.2 % Normal 20.5-60.0 [facility] Comment on above: Performed By: #### C BC #### [facility] [address] [place] [address] Dr. Rosa Cuevas MANUAL DIFF REQ NO Normal [facility] Comment on above: Performed By: #### C BC #### [facility] [address] [place] [address] Dr. Rosa Cuevas MCH (RBC) [Entitic mass] 27.9 pg Normal 26.7-34.0 [facility] Comment on above: Performed By: #### C BC #### [facility] [address] [place] [address] Dr. Rosa Cuevas MCHC (RBC) [Mass/Vol] 33.7 g/dL Normal 29.9-35.2 [facility] Comment on above: Performed By: #### C BC #### [facility] [address] [place] [address] Dr. Rosa Cuevas MCV (RBC) [Entitic vol] 82.9 fL Normal 81.0-99.0 [facility] Comment on above: Performed By: #### C BC #### [facility] [address] [place] [address] Dr. Rosa Cuevas MONO # 0.5 103/ul Normal 0.3-0.8 [facility] Comment on above: Performed By: #### C BC #### [facility] [address] [place] [address] Dr. Rosa Cuevas Monocytes/100 WBC (Bld) 5.6 % Normal 1.7-12.0 [facility] Comment on above: Performed By: #### C BC #### [facility] [address] [place] [address] Dr. Rosa Cuevas NEUT # 4.7 103/ul Normal 1.4-6.5 [facility] Comment on above: Performed By: #### C BC #### [facility] [address] [place] [address] Dr. Rosa Cuevas Neutrophils/100 WBC (Bld) 57.7 % Normal 43.0-75.0 [facility] Comment on above: Performed By: #### C BC #### [facility] [address] [place] [address] Dr. Rosa Cuevas Platelet mean volume (Bld) [Entitic vol] 8.7 fL Critically low 9.5-13.5 [facility] Comment on above: Performed By: #### C BC #### [facility] [address] [place] [address] Dr. oRsa Cuevas PLT 263 103/ul Normal 150-450 [facility] Comment on above: Performed By: #### C BC #### [facility] [address] [place] [address] Dr. Rosa Cuevas RBC 5.26 106/ul Normal 4.20-5.40 [facility] Comment on above: Performed By: #### C BC #### [facility] [address] [address] [address] Rosa Cuevas WBC 8.1 103/ul Normal 4.0-11.0 [facility] Comment on above: Performed By: #### C BC #### [facility] [address] [place] [address] Dr. Rosa Cuevas PREG QUANT HCGon 03-07-2022 HCG QUANT <1 Normal [facility] Comment on above: Performed By: #### P REGQNT, TSH #### [facility] [address] [place] [address] Dr. Rosa Cuevas HCG RANGE SEE BELOW Normal [facility] Comment on above: Result Comment: 5-50 0-1 WEEK 40-300 1-2 WEEKS 100-1,000 2-3 WEEKS 500-6,000 3-4 WEEKS 5,000-200,000 1-2 MONTHS 10,000-100,000 2-3 MONTHS 3,000-50,000 2ND TRIMESTER 1,000-50,000 3RD TRIMESTER Performed By: #### P REGQNT, TSH #### [facility] [address] [place] [address] Dr. Rosa Cuevas PROTIMEon 03-07-2022 INR Coag (PPP) [Relative time] 0.99 {INR} Normal [facility] Comment on above: Performed By: #### P T, PTT #### [facility] [address] [place] [address] Dr. Rosa Cuevas INR GUIDELINES SEE BELOW Normal [facility] Comment on above: Result Comment: CONCEPCION RED INR: 2.0 - 3.0 CONDITIONS NOT LISTED BELOW 2.5 - 3.5 FOR PROSTHETIC HEART VALVE REPLACEMENT 2.5 - 3.5 RECURRENT THROMBOSIS Performed By: #### P T, PTT #### [facility] [address] [place] [address] Dr. Rosa Cuevas PT Coag (PPP) [Time] 10.7 s Normal 9.0-11.6 [facility] Comment on above: Performed By: #### P T, PTT #### [facility] [address] [address] [address] Rosa Cuevas PTTon 03-07-2022 aPTT Coag (Bld) [Time] 26.8 s Normal 22.3-36.2 Th e [facility] Comment on above: Performed By: #### P T, PTT #### [facility] [address] [place] [address] Dr. Rosa Cuevas TSHon 03-07-2022 TSH 1.036 uIU/mL Normal 0.470-4.68 0 [facility] Comment on above: Performed By: #### P REGQNT, TSH #### [facility] [address] [place] [address] Dr. Rosa Cuevas TSH RANGE SEE BELOW Normal [facility] Comment on above: Result Comment: <0.3 4 UIU/ml HYPERTHYROID 0.34-5.60 UIU/ml EUTHYROID >5.60 UIU/ml HYPOTHYROID Performed By: #### P REGQNT, TSH #### [facility] [address] [place] [address] Dr. Rosa Cuevas Acetaminophenon 03-14-2021 Acetaminophen [Mass/Vol] <5 Low 10-30 [facility] Comment on above: Performed By: #### A CET, ALCB #### [facility] [address] [place] [address] [employer] Supervisor: Hector Fish MD CBC with Diffon 03-14-2021 Abs. Basophil 0.05 k/uL Normal 0.00-0.20 [facility] Comment on above: Performed By: #### H [place], CP, CDP, SALI #### [facility] [address] [place] [address] [employer] Supervisor: Hector Fish MD Abs.Imm.Granulocyte 0.04 k/uL Normal 0.00-0.30 [facility] Comment on above: Performed By: #### H CG, CP, CDP, SALI #### [facility] [address] [place] [address] [employer] Supervisor: Hector Fish MD Abs.Neutrophil (Seg) 8.07 k/uL Normal 1.50-8.10 [facility] Comment on above: Performed By: #### H CG, CP, CDP, SALI #### [address] [place] [address] [employer] Supervisor: Hector Fish MD Basophils/100 WBC (Bld) 0 % Normal 0-2 [facility] Comment on above: Performed By: #### H CG, CP, CDP, SALI #### [address] [place], [place] [phone] [employer] Supervisor: Hector Fish MD Eosinophils (Bld) [#/Vol] 0.03 10*3/uL Normal 0.00-0.44 [facility] Comment on above: Performed By: #### H CG, CP, CDP, SALI #### [address] [place], [place] [address] [employer] Supervisor: Hector Fish MD Eosinophils/100 WBC (Bld) 0 % Low 1-4 [facility] Comment on above: Performed By: #### H CG, CP, CDP, SALI #### [address] [place], [facility] [employer] Supervisor: Hector Fish MD Erythrocyte distribution width (RBC) [Ratio] 13.1 % Normal 11.8-14.4 [facility] Comment on above: Performed By: #### H CG, CP, CDP, SALI #### [address] [place], [facility] [employer] Supervisor: Hector Fish MD Hematocrit (Bld) [Volume fraction] 45.4 % Normal 36.3-47.1 [facility] Comment on above: Performed By: #### H CG, CP, CDP, SALI #### [address] [place], [facility] [employer] Supervisor: Hector Fish MD Hemoglobin (Bld) [Mass/Vol] 14.9 g/dL Normal 11.9-15.1 [facility] Comment on above: Performed By: #### H CG, CP, CDP, SALI #### [facility] [address] [place], [place] [id number] [employer] Supervisor: Hector Fish MD Immature granulocytes (Bld) [#/Vol] 0 % Normal 0 [facility] Comment on above: Performed By: #### H CG, CP, CDP, SALI #### [address] [place], [place] [phone] [employer] Supervisor: Hector Fish MD Lymphocytes (Bld) [#/Vol] 3.01 10*3/uL Normal 1.10-3.70 [facility] Comment on above: Performed By: #### H CG, CP, CDP, SALI #### [address] [place], [facility] [employer] Supervisor: eHctor Fish MD Lymphocytes/100 WBC (Bld) 25 % Normal 24-43 [facility] Comment on above: Performed By: #### H CG, CP, CDP, SALI #### [address] [place], [place] [phone] [employer] Supervisor: Hector Fish MD MCH (RBC) [Entitic mass] 28.1 pg Normal 25.2-33.5 [facility] Comment on above: Performed By: #### H CG, CP, CDP, SALI #### [address] [place], [place] [phone] [employer] Supervisor: Hector Fish MD MCHC (RBC) [Mass/Vol] 32.8 g/dL Normal 28.4-34.8 [facility] Comment on above: Performed By: #### H CG, CP, CDP, SALI #### [address] [place], [place] 1064483 [employer] Supervisor: Hector Fish MD MCV (RBC) [Entitic vol] 85.7 fL Normal 82.6-102.9 [facility] Comment on above: Performed By: #### H CG, CP, CDP, SALI #### [address] [place], [place] [phone] [employer] Supervisor: Hector Fish MD Monocytes (Bld) [#/Vol] 0.81 10*3/uL Normal 0.10-1.20 [facility] Comment on above: Performed By: #### H CG, CP, CDP, SALI #### [address] [place], [facility] [employer] Supervisor: Hector Fish MD Monocytes/100 WBC (Bld) 7 % Normal 3-12 [facility] Comment on above: Performed By: #### H CG, CP, CDP, SALI #### [address] [place], [place] [address] [employer] Supervisor: Hector Fish MD Neutrophil (Seg) 68 % High 36-65 [facility] Comment on above: Performed By: #### H CG, CP, CDP, SALI #### [address] [place], [facility] [employer] Supervisor: Hector Fish MD NRBC Automated 0.0 per 100 WBC Normal 0.0 [facility] Comment on above: Performed By: #### H CG, CP, CDP, SALI #### [address] [place], [facility] [employer] Supervisor: Hector Fish MD Platelet mean volume (Bld) [Entitic vol] 9.1 fL Normal 8.1-13.5 [facility] Comment on above: Performed By: #### H CG, CP, CDP, SALI #### [address] [place] [address] [employer] Supervisor: Hector Fish MD Platelets (Bld) [#/Vol] 344 10*3/uL Normal 138-453 [facility] Comment on above: Performed By: #### H CG, CP, CDP, SALI #### [facility] [address] [place] [address] [employer] Supervisor: Hector Fish MD RBC (Bld) [#/Vol] 5.30 10*6/uL High 3.95-5.11 [facility] Comment on above: Performed By: #### H CG, CP, CDP, SALI #### [address] [place] [address] [employer] Supervisor: Hector Fish MD WBC (Bld) [#/Vol] 12.0 10*3/uL High 3.5-11.3 [facility] Comment on above: Performed By: #### H CG, CP, CDP, SALI #### [address] [place] [address] [employer] Supervisor: Hector Fish MD Auto Diff Performed NOT REPORTED Normal [facility] Comment on above: Performed By: #### H CG, CP, CDP, SALI #### [address] [place] [address] [employer] Supervisor: Hector Fish MD Platelets (Bld) [#/Vol] NOT REPORTED Normal [facility] Comment on above: Performed By: #### H CG, CP, CDP, SALI #### [address] [place] [address] [employer] Supervisor: Hector Fish MD RBC morphology finding Nom (d) NOT REPORTED Normal [facility] Comment on above: Performed By: #### H CG, CP, CDP, SALI #### [address] [place], [place] [address]83 [employer] Supervisor: Hector Fish MD WBC Morphology NOT REPORTED Normal [facility] Comment on above: Performed By: #### H CG, CP, CDP, SUN #### [facility] [address] [place] [address] [employer] Supervisor: Hector Fish MD CT HEAD WO CONTRASTon 2020 CT HEAD WO CONTRAST EXAMINATION: CT OF THE HEAD WITHOUT CONTRAST 03/13/2021 11:08 pm TECHNIQUE: CT of the head was performed without the administration of intravenous contrast. Dose modulation, iterative reconstruction, and/or weight based adjustment of the mA/kV was utilized to reduce the radiation dose to as low as reasonably achievable. COMPARISON: None. HISTORY: ORDERING SYSTEM PROVIDED HISTORY: AMS TECHNOLOGIST PROVIDED HISTORY: AMS Decision Support Exception->Emergency Medical Condition (MA) Is the patient ?->No FINDINGS: BRAIN/VENTRICLES: There is no acute intracranial hemorrhage, mass effect or midline shift. No abnormal extra-axial fluid collection. The bonds-white differentiation is maintained without evidence of an acute infarct. There is no evidence of hydrocephalus. ORBITS: The visualized portion of the orbits demonstrate no acute abnormality. SINUSES: The visualized paranasal sinuses and mastoid air cells demonstrate no acute abnormality. SOFT TISSUES/SKULL: No acute abnormality of the visualized skull or soft tissues. IMPRESSION: No acute intracranial abnormality. Interpreted by: Shane Higginbotham MD Signed by: Shane Higginbotham MD 03/13/21 Final result Normal [facility] Comp Metabolic Profon 2020 (cont.) Normal [facility] Comment on above: Result Comment: Aver age GFR for 20-29 years old: 116 mL/min/1.73sq m Chronic Kidney Disease: <60 mL/min/1.73sq m Kidney failure: <15 mL/min/1.73sq m eGFR calculated using average adult body mass. Additional eGFR calculator available at: http://[email or web address].com/multiple_crcl_2012.htm Performed By: #### H YOVANI BERUMEN CDP, SUN #### [facility] [address] [place] [address] [employer] Supervisor: Hector Fish MD Albumin [Mass/Vol] 4.2 g/dL Normal 3.5-5.2 [facility] Comment on above: Performed By: #### H YOVANI BERUMEN CDP, SUN #### [facility] [address] [place], [place] [phone] [employer] Supervisor: Hector Fish MD Albumin/Globulin [Mass ratio] 1.4 {ratio} Normal 1.0-2.5 [facility] Comment on above: Performed By: #### H CG, CP, CDP, SALI #### [address] [place], [place] 488[address]83 [employer] Supervisor: Hector Fish MD Alkaline Phos 97 U/L Normal 35-104 [facility] Comment on above: Performed By: #### H CG, CP, CDP, SALI #### [address] [place] [phone] [employer] Supervisor: Hector Fish MD ALT [Catalytic activity/Vol] 28 U/L Normal 5-33 [facility] Comment on above: Performed By: #### H CG, CP, CDP, SALI #### [address] [place] [phone] [employer] Supervisor: Hector Fish MD Anion gap [Moles/Vol] 13 mmol/L Normal 9-17 [facility] Comment on above: Performed By: #### H CG, CP, CDP, SALI #### [address] [place] [phone] [employer] Supervisor: Hector Fish MD AST [Catalytic activity/Vol] 28 U/L Normal <32 [facility] Comment on above: Performed By: #### H CG, CP, CDP, SALI #### [address] [place] [address] [employer] Supervisor: Hector Fish MD Bilirubin Ql (U) 0.41 mg/dL Normal 0.3-1.2 [facility] Comment on above: Performed By: #### H CG, CP, CDP, SALI #### [address] [place], [place] 4955283 [employer] Supervisor: Hector Fish MD BUN/CRE Ratio 28 High 9-20 [facility] Comment on above: Performed By: #### H CG, CP, CDP, SALI #### [facility] [address] [place], [place] 2635483 [employer] Supervisor: Hector Fish MD Calcium [Mass/Vol] 9.8 mg/dL Normal 8.6-10.4 [facility] Comment on above: Performed By: #### H CG, CP, CDP, SALI #### [facility] [address] [place] [address] Dr[place], [place] [phone] [employer] Supervisor: Hector Fish MD Chloride [Moles/Vol] 102 mmol/L Normal 98-107 [facility] Comment on above: Performed By: #### H CG, CP, CDP, SALI #### [facility] [address] [place] [address] Dr[place], [place] [phone] [employer] Supervisor: Hector Fish MD CO2 [Moles/Vol] 23 mmol/L Normal 20-31 [facility] Comment on above: Performed By: #### H CG, CP, CDP, SALI #### [facility] [address] [place] [address] Dr[place], [place] [phone] [employer] Supervisor: Hector Fish MD Creatinine [Mass/Vol] 0.74 mg/dL Normal 0.50-0.90 [facility] Comment on above: Performed By: #### H CG, CP, CDP, SALI #### [facility] [address] [place] [address] [place] [place], [place] [phone] [employer] Supervisor: Hector Fish MD GFR, Amer >60 Normal >60 [facility] Comment on above: Performed By: #### H CG, CP, CDP, SALI #### [facility] [address] [place], [place] 667[address]83 [employer] Supervisor: Hector Fish MD GFR,non Amer >60 Normal >60 [facility] Comment on above: Performed By: #### H CG, CP, CDP, SALI #### [facility] [address] [place], [place] 6[address]83 [employer] Supervisor: Hector Fish MD Glucose [Mass/Vol] 110 mg/dL High 70-99 [facility] Comment on above: Performed By: #### H CG, CP, CDP, SALI #### [facility] [address] [place], [facility] [employer] Supervisor: Hector Fish MD Potassium [Moles/Vol] 3.9 mmol/L Normal 3.7-5.3 [facility] Comment on above: Performed By: #### H CG, CP, CDP, SALI #### [address] [place], [facility] [employer] Supervisor: Hector Fish MD Protein [Mass/Vol] 7.2 g/dL Normal 6.4-8.3 [facility] Comment on above: Performed By: #### H CG, CP, CDP, SALI #### [address] [place], [place] 5101183 [employer] Supervisor: Hector Fish MD Sodium [Moles/Vol] 138 mmol/L Normal 135-144 [facility] Comment on above: Performed By: #### H CG, CP, CDP, SALI #### [address] [place], [facility] [employer] Supervisor: Hector Fish MD Staging: Normal [facility] Comment on above: Result Comment: Stag e 1: Some kidney damage normal GFR Stage 2: Mild kidney damage GFR 60-89 Stage 3: Moderate kidney damage GFR 30-59 Stage 4: Severe kidney damage GFR 15-29 Stage 5: Severe kidney damage GFR <15 ESRD - chronic treatment by dialysis or transplant Performed By: #### H CG, CP, CDP, SALI #### [facility] [address] [place], [place] [phone] [employer] Supervisor: Hector Fish MD Urea nitrogen [Mass/Vol] 21 mg/dL High 6-20 [facility] Comment on above: Performed By: #### H CG, CP, CDP, SALI #### [facility] [address] [place], [place] [phone] [employer] Supervisor: Hector Fish MD Drug Scr, Abuse, Uron 2020 Amphetamine(s),Ur Negative Normal NEG [facility] Comment on above: Performed By: #### U AX, CAROLINE, UMICAO #### [address] [place], [place] 4997383 [employer] Supervisor: Hcetor Fish MD Barbiturate(s),Ur Negative Normal NEG [facility] Comment on above: Performed By: #### U AX, CAROLINE, UMICAO #### [address] [place], [place] 1946383 [employer] Supervisor: Hector Fish MD Base excess Calc (Bld) [Moles/Vol] Negative Normal NEG [facility] Comment on above: Performed By: #### U AX, CAROLINE, UMICAO #### [address] [place], [place] 5083983 [employer] Supervisor: Hector Fish MD Benzodiazepine(s) Negative Normal NEG [facility] Comment on above: Performed By: #### U AX, CAROLINE, UMICAO #### [facility] [address] [place] [address] Dr[address] [place], [place] [phone] [employer] Supervisor: Hector Fish MD Buprenorphrine, Ur Negative Normal NEG [facility] Comment on above: Performed By: #### U AX, CAROLINE, UMICAO #### [facility] [address] [place], [place] 7828583 [employer] Supervisor: Hector Fish MD Cannabinoid(s),Ur Positive Abnormal NEG [facility] Comment on above: Performed By: #### U AX, CAROLINE, UMICAO #### [facility] [address] [place], [place] 1230383 [employer] Supervisor: Hector Fish MD Methadone Ql (U) Negative Normal [facility] Comment on above: Performed By: #### U AX, CAROLINE, UMICAO #### [facility] [address] [place], [place] 6860483 [employer] Supervisor: Hector Fish MD Methamphetamine, Ur Negative Normal [facility] Comment on above: Performed By: #### U AX, CAROLINE, UMICAO #### [address] [place], [place] [phone] [employer] Supervisor: Hector Fish MD Opiate(s), Ur Negative Normal [facility] Comment on above: Performed By: #### U AX, CAROLINE, UMICAO #### [facility] [address] [place] [address] [place] [address] [employer] Supervisor: Hector Fish MD Oxycodone, Urine Negative Normal [facility] Comment on above: Performed By: #### U AX, CAROLINE, UMICAO #### [address] [place], [place] [phone] [employer] Supervisor: Hector Fish MD Phencyclidine, Ur Negative Normal [facility] Comment on above: Performed By: #### U AX, CAROLINE, UMICAO #### [facility] [address] [place] [address] [employer] Supervisor: Hector Fish MD Propoxyphene,Urine Negative Normal NEG [facility] Comment on above: Performed By: #### U AX, CAROLINE, UMICAO #### [facility] [address] [place], [place] [address]83 Commissary Production Supervisor: Hector Fish MD Tricyclic antidepressants Screen Ql (U) Negative Normal [facility] Comment on above: Result Comment: Drug screen results are to be used for medical purposes only. All positive results are unconfirmed. Testing for employment or legal uses should be sent to a reference laboratory for confirmation. Performed By: #### U AX, CAROLINE, UMICAO #### [facility] [address] [place], [place] [id number] [employer] Supervisor: Hector Fish MD Interpretive Info NOT REPORTED Normal [facility] Comment on above: Performed By: #### U AX, CAROLINE, UMICAO #### [facility] [address] [place] [id number] [employer] Production Supervisor: Hector Fish MD MDMA, Urine NOT REPORTED Normal NEG [facility] Comment on above: Performed By: #### U AX, CAROLINE, UMICAO #### [address] [place], [place] [phone] [employer] Supervisor: Hector Fish MD Ethanol Alcoholon 4 Ethanol [Mass/Vol] mg/dL Normal <10 [facility] Comment on above: Performed By: #### A CET, ALCB #### [address] [place] [address] Commissary Production Supervisor: Hector Fish MD Ethanol percent <0.010 Normal <0.010 [facility] Comment on above: Performed By: #### A CET, ALCB #### [address] [place], [place] [phone] [employer] Production Supervisor: Hector Fish MD HCG Screen, Bloodon 03-14-20 21 HCG Qn Negative Normal NEG [facility] Comment on above: Result Comment: Spec imens with hCG levels near the threshold of the test (25 mIU/mL) may give a negative or indeterminate result. In such cases, another test should be performed with a new specimen in 48-72 hours. If early is suspected clinically in this setting, correlation with quantitative serum b-hCG level is suggested. [facility] has confirmed the use of plasma for this test. This has not been cleared or approved by the U.S. Food and Drug Administration. The FDA has determined that such clearance is not necessary. Performed By: #### H YOVANI BERUMEN, TRAY, SALI #### [facility] [address] [place] [address] [place] [address] Commiss[employer] Production Supervisor: Hector Fish MD Salicylateon 03-14-2021 Salicylate <1 Low 3-10 [facility] Comment on above: Performed By: #### H YOVANI BERUMEN, TRAY, SALI #### [facility] [address] [place] [address] [place] [place], [place] [phone] [employer] Supervisor: Hector Fish MD UA w/Reflex Cultureon 2020 Acetoacetic Acid,Ur 1+ Abnormal NEG [facility] Comment on above: Performed By: #### U AXDOMINICU, UMICAO #### [address] [place], [place] [phone] [employer] Production Supervisor: Hector Fish MD Bilirubin, SemiQt,Ur SMALL Abnormal NEG [facility] Comment on above: Performed By: #### U AX CAROLINE UMICAO #### [address] [place], [place] [phone] Commiss[employer] Production Supervisor: Hector Fish MD Color (U) YELLOW Normal YEL [facility] Comment on above: Performed By: #### U AX CAROLINE, UMICAO #### [facility] [address] [place], [place] [phone] [employer] Production Supervisor: Hector Fish MD Glucose Ql (U) Negative Normal NEG [facility] Comment on above: Performed By: #### U AX CAROLINE, UMICAO #### [address] [place] [address] Commissary Production Supervisor: Hector Fish MD Hemoglobin, Ur 3+ Abnormal NEG [facility] Comment on above: Performed By: #### U AX, CAROLINE, UMICAO #### [facility] [address] [place], [place] [phone] [employer] Supervisor: Hector Fish MD Leukocyte esterase Test strip Ql (U) Negative Normal NEG [facility] Comment on above: Performed By: #### U AX, CAROLINE, UMICAO #### [address] [place], [place] [phone] [employer] Production Supervisor: Hector Fish MD Nitrite,Ur Negative Normal NEG [facility] Comment on above: Performed By: #### U AX, CAROLINE, UMICAO #### [address] [place], [place] [phone] [employer] Production Supervisor: Hector Fish MD pH (U) 6.0 [pH] Normal 5.0-9.0 [facility] Comment on above: Performed By: #### U AX, CAROLINE, UMICAO #### [address] [place], [place] [phone] [employer] Supervisor: Hector Fish MD Protein Ql (U) 4+ Abnormal NEG [facility] Comment on above: Performed By: #### U AX, CAROLINE, UMICAO #### [address] [place], [place] [phone] [employer] Supervisor: Hector Fish MD Specific gravity (U) [Rel density] >1.030 High 1.010-1.02 0 [facility] Comment on above: Performed By: #### U AX, CAROLINE, UMICAO #### [address] [place], [place] [phone] [employer] Supervisor: Hector Fish MD Turbidity CLEAR Normal CLEAR [facility] Comment on above: Performed By: #### U AX, CAROLINE, UMICAO #### [address] [place] [address] [employer] Production Supervisor: Hector Fish MD Urobilinogen,Ur Normal Normal NORM [facility] Comment on above: Performed By: #### U AX, CAROLINE, UMICAO #### [address] [place] [address] [employer] Production Supervisor: Hector Fish MD Comment NOT REPORTED Normal [facility] Comment on above: Performed By: #### U AX, CAROLINE, UMICAO #### [address] [place] [address] [employer] Supervisor: Hector Fish MD Urinalysis,Microon 1 ----- Normal [facility] Comment on above: Performed By: #### U AX, CAROLINE, UMICAO #### [address] [place] [address] Commiss[employer] Production Supervisor: Hector Fish MD Amorphous sediment LM Ql (Urine sed) TRACE Abnormal [facility] Comment on above: Performed By: #### U AX, CAROLINE, UMICAO #### [address] [place] [address] [employer] Production Supervisor: Hector Fish MD Bacteria LM.HPF (Urine sed) [#/Area] TRACE Abnormal [facility] Comment on above: Performed By: #### U AX, CAROLINE, UMICAO #### [address] [place] [address] Commiss[employer] Production Supervisor: Hector Fish MD Epithelial cells LM.HPF (Urine sed) [#/Area] 0 TO 2 Normal 0-25 [facility] Comment on above: Performed By: #### U AX, CAROLINE, UMICAO #### [address] [place] [address] Commiss[employer] Production Supervisor: Hector Fish MD Mucus Strands 3+ Abnormal [facility] Comment on above: Performed By: #### U AX, CAROLINE, UMICAO #### [facility] [address] [place] [address] Commissary Production Supervisor: Hector Fish MD RBC (U) [#/Vol] 2 TO 5 Normal 0-2 [facility] Comment on above: Performed By: #### U AX, CAROLINE, UMICAO #### [address] [place], [place] [phone] [employer]ary Production Supervisor: Hector Fish MD WBC (U) [#/Vol] 2 TO 5 Normal 0-5 [facility] Comment on above: Performed By: #### U AX, CAROLINE, UMICAO #### [address] [place], [place] [phone] Commiss[employer] Production Supervisor: Hector Fish MD Casts LM.LPF (Urine sed) [#/Area] NOT REPORTED Normal [facility] Comment on above: Performed By: #### U AX, CAROLINE, UMICAO #### [address] [place], [place] [phone] [employer] Supervisor: Hector Fish MD Crystals LM Nom (Urine sed) NOT REPORTED Normal [facility] Comment on above: Performed By: #### U AX, CAROLINE, UMICAO #### [address] [place], [place] [phone] Commiss[employer] Production Supervisor: Hector Fish MD Epithelial, Renal NOT REPORTED Normal 0 [facility] Comment on above: Performed By: #### U AX, CAROLINE, UMICAO #### [facility] [address] [place] [address] [place] [place], [place] [phone] [employer] Production Supervisor: Hector Fish MD Other Observations NOT REPORTED [facility] Comment on above: Performed By: #### U AX, CAROLINE, UMICAO #### [address] [place], [place] [phone] [employer] Supervisor: Hector Fish MD Trichomonas NOT REPORTED Normal NONE [facility] Comment on above: Performed By: #### U AX, CAROLINE, UMICAO #### [facility] [address] [place] [address] Commissary Production Supervisor: Hector Fish MD Yeast LM Ql (Urine sed) NOT REPORTED Normal NONE [facility] Comment on above: Performed By: #### U AX, CAROLINE, UMICAO #### [facility] [address] [place] [address] [employer] Production Supervisor: Hector Fish MD Albumin [Mass/volume] in Ser um or Plasmaon 11-29-2019 Albumin [Mass/Vol] 3.2 g/dL 3.2-5.5 [facility] Direct bilirubin measurement on 11-29-2019 Bilirubin.direct [Mass/Vol] mg/dL 0.0-0.[address] [facility] Protein [Mass/volume] in Ser or Plasmaon 11-29-2019 Protein [Mass/Vol] 7.0 g/dL 6.1-7.9 [facility] Serum globulin measurement b y calculation (mass/volume)on 11-29-2019 Globulin (S) [Mass/Vol] 3.8 g/dL F [facility] Serum or plasma alanine johnson otransferase measurement without P-5'-P (enzymatic activion 11-29-2019 ALT No additional P-5'-P [Catalytic activity/Vol] 50 U/L [address] [facility] Serum or plasma albumin/glob ulin mass ratioon 11-29-2019 Albumin/Globulin [Mass ratio] 0.8 {ratio} [facility] Serum or plasma alkaline mariel sphatase measurement (enzymatic activity/volume)on 11-29-2019 ALP [Catalytic activity/Vol] 81 U/L 32-[address] [facility] Serum or plasma aspartate am inotransferase measurement (enzymatic activity/volume)on 11-29-2019 AST [Catalytic activity/Vol] 26 U/L 10-[address] [facility] Serum or plasma non-glucuron idated bilirubin measurement (mass/volume)on 11-29-2019 Bilirubin.indirect [Mass/Vol] TNP [facility] Comment on above: Test not performed Serum or plasma total biliru bin measurement (mass/volume)on 11-29-2019 Bilirubin [Mass/Vol] 0.3 mg/dL 0.3-1.2 [facility] Cholesterol [Mass/volume] in Serum or Plasmaon 11-26-2019 Cholesterol [Mass/Vol] 194 mg/dL 140-[address] [facility] Comment on above: Chol less than 200 m g/dl low riskChol 201-239 mg/dl borderline riskChol 240 mg/dl and greater high risk Cholesterol in LDL [Mass/vol ume] in Serum or Plasma by calculationon 11-26-2019 Cholesterol in LDL [Mass/Vol] 127 mg/dL 0-[address] [facility] Comment on above: LDL ATP III CLASSIFI CATIONLDL less than 100 mg/dL OptimalLDL 100-129 mg/dL Near or above optimalLDL 130-159 mg/dL Borderline highLDL 160-189 mg/dL HighLDL greater than 189 mg/dL Very high Cholesterol in VLDL [Mass/vo lume] in Serum or Plasma by calculationon 11-26-2019 Cholesterol in VLDL [Mass/Vol] 19 mg/dL [facility] Otheron 11-26-2019 25-Hydroxy Vitamin D Total 43.5 ng/mL 30-[address] [facility] Comment on above: VITAMIN D STATUS 25( [place])VITAMIN D RANGE (ng/mL) Deficient <20 Insufficient 20 to <30Sufficient 30 to 100Reference: Erika MF,Choco NC, Ruperto JACKSON, et al. Evaluation,treatment, and prevention of vitamin D deficiency; an Endocrine Society clinical practice guideline. JCEM. 2010; 96(7):1911-30. Serum or plasma high density lipoprotein (HDL) cholesterol measurementon 11-26-2019 Cholesterol in HDL [Mass/Vol] 47 mg/dL 35-[address] [facility] Comment on above: HDL CHOL ATP-III CLA SSIFICATION Cardiovascular RiskHDL > or equal to 60 mg/dL LOWHDL < 40 mg/dL HIGH Serum or plasma thyroid stim ulating hormone (TSH) measurement by high sensitivity meton 11-26-2019 TSH Qn 3.31 u[iU]/mL 0.45-5.[address] [facility] Serum or plasma total choles terol/high density lipoprotein (HDL) cholesterol mass shy 11-26-2019 Cholesterol.total/Mahsa sterol in HDL [Mass ratio] 4.1 {ratio} [facility] Triglyceride [Mass/volume] i n Serum or Plasmaon 11-26-2019 Triglyceride [Mass/Vol] 99 mg/dL 35-[address] [facility] Comment on above: TRIG ATP III CLASSIF ICATIONTRIG less than 150 mg/dL NormalTRIG 150-199 mg/dL Borderline highTRIG 200-500 mg/dL High TRIG greater than 500 mg/dL Very highStandard traceable to the Center for Disease Conrtrol and Prevention (CDC) test method. Amphetamines screenon 2018 Amphetamines Ql (U) Negative Negative [facility] Automated basophil %on 11-25 Basophils/100 WBC (Bld) 1.1 % F [facility] Automated basophil counton 1 01-26-2019 Basophils (Bld) [#/Vol] 0.1 10*3/uL 0.0-0.[address] [facility] Automated blood lymphocyte c ount (number/volume)on 11-25-2019 Lymphocytes (Bld) [#/Vol] 3.3 10*3/uL 1.00-4.[address] [facility] Automated blood lymphocyte c ount as percentage of total leukocyteson 11-25-2019 Lymphocytes/100 WBC (Bld) 28.3 % [facility] Automated blood monocyte cou nton 11-25-2019 Monocytes (Bld) [#/Vol] 0.7 10*3/uL 0.0-0.[address] [facility] Automated blood platelet cou nt (count/volume)on 11-25-2019 Platelets (Bld) [#/Vol] 265 10*3/uL 150-[address] [facility] Automated blood platelet bandar n volume measurementon 11-25-2019 Platelet mean volume (Bld) [Entitic vol] 7.5 fL 6.3-10.[address] [facility] Automated eosinophil %on Eosinophils/100 WBC (Bld) 1.6 % [facility] Automated eosinophil counton 11-25-2019 Eosinophils (Bld) [#/Vol] 0.2 10*3/uL 0.0-0.45 [facility] Automated erythrocyte distri bution width ratioon 11-25-2019 Erythrocyte distribution width (RBC) [Ratio] 13.4 % 11.9-15.[address] [facility] Automated erythrocyte mean c orpuscular hemoglobin (mass per erythrocyte)on 11-25-2019 MCH (RBC) [Entitic mass] 28.9 pg 24.7-34.[address] [facility] Automated erythrocyte mean c orpuscular hemoglobin concentration measurement (mass/volon 11-25-2019 MCHC (RBC) [Mass/Vol] 33.3 g/dL 32.0-35.0 [facility] Automated erythrocyte mean c orpuscular volumeon 11-25-2019 MCV (RBC) [Entitic vol] 86.7 fL 80-[address] [facility] Automated monocyte %on 11-25 Monocytes/100 WBC (Bld) 6.4 % F [facility] Automated neutrophil %on Neutrophils/100 WBC (Bld) 62.6 % [facility] Automated urine color determ inationon 11-25-2019 Color (U) Yellow Yellow [facility] Blood erythrocytes automated count (number/volume)on 11-25-2019 RBC (Bld) [#/Vol] 5.05 10*6/uL 3.60-5.00 [facility] Blood hemoglobin measurement (mass/volume)on 11-25-2019 Hemoglobin (Bld) [Mass/Vol] 14.6 g/dL 11.8-15.[address] [facility] Blood leukocytes automated c ount (number/volume)on 11-25-2019 WBC (Bld) [#/Vol] 11.7 10*3/uL 4.5-11.0 [facility] Blood neutrophil count by au tomated method (number/volume)on 11-25-2019 Neutrophils (Bld) [#/Vol] 7.4 10*3/uL 1.8-7.[address] [facility] Cannabinoids [Presence] in U rine by Screen methodon 11-25-2019 Cannabinoids Screen Ql (U) Positive Negative [facility] Comment on above: These are unconfirme d results and should not be used for legal purposes. Drug Cut-Off Concentration: AMPH 1000 ng/mL SYLVIA 200 ng/mL DANNA 200 ng/mL COCM 300 ng/mL OP 300 ng/mL PCP 25 ng/mL THC 20 ng/mL Estimated glomerular filtrat ion rate (GFR) non- Americanon 11-25-2019 GFR/1.73 sq M predicted among non-blacks MDRD (S/P/Bld) [Vol rate/Area] mL/min/{1.73_m2} [facility] Hematocrit [Volume Fraction] of Blood by Automated counton 11-25-2019 Hematocrit (Bld) [Volume fraction] 43.8 % 34.0-46.[address] [facility] Otheron 11-25-2019 GFR/1.73 sq M.predicted MDRD (S/P/Bld) [Vol rate/Area] mL/min/{1.73_m2} [facility] Comment on above: GFR estimated refere nce range: According to KDOQI guidelines, <60 ml/min/1.73m2 is sufficient to diagnose a patient with chronic kidney disease. Nucleated RBC/100 WBC (Bld) [Ratio] 0.0 % 0-0.[address] [facility] Creatinine Clearance (Chem [id number] [facility] Serum or plasma calcium elaine urement (mass/volume)on 11-25-2019 Calcium [Mass/Vol] 9.1 mg/dL 8.2-10.2 [facility] Serum or plasma chloride bandar surement (moles/volume)on 11-25-2019 Chloride [Moles/Vol] 98 mmol/L 95-114 [facility] Serum or plasma creatinine m easurement with calculation of estimated glomerular filtron 11-25-2019 Creatinine [Mass/Vol] 0.74 mg/dL 0.44-1.03 [facility] Serum or plasma ethanol elaine urement (mass/volume)on 11-25-2019 Ethanol [Mass/Vol] 7 mg/dL [facility] Ethanol [Mass/Vol] 0.007 % [facility] Serum or plasma glucose elaine urement (mass/volume)on 11-25-2019 Glucose [Mass/Vol] 122 mg/dL 70-100 [facility] Comment on above: ADA recommended refe rence rangeRandom Glucose Reference Range is dependent on time and content of last meal. Glucose of more than 200 mg/dL in a nonstressed, ambulatory subject supports the diagnosis of Diabetes Mellitus. Serum or plasma potassium me asurement (moles/volume)on 11-25-2019 Potassium [Moles/Vol] 3.9 mmol/L 3.5-5.1 [facility] Serum or plasma sodium measu rement (moles/volume)on 11-25-2019 Sodium [Moles/Vol] 133 mmol/L 136-146 [facility] Serum or plasma total carbon dioxide measurement (moles/volume)on 11-25-2019 CO2 [Moles/Vol] 21.8 mmol/L 22.0-30.0 [facility] Serum or plasma urea nitroge n measurement (mass/volume)on 11-25-2019 Urea nitrogen [Mass/Vol] 15 mg/dL 08-[address] [facility] Specific gravity of Urine by Automated test stripon 11-25-2019 Specific gravity (U) [Rel density] 1.009 1.001-1.[address] [facility] Urinalysison 11-25-2019 Opiates Ql (U) Negative Negative [facility] Urine barbiturates detection on 11-25-2019 Barbiturates Ql (U) Negative Negative [facility] Urine benzodiazepines detect ionon 11-25-2019 Benzodiazepines Ql (U) Negative Negative [facility] Urine clarity by refractomet ry automatedon 11-25-2019 Clarity Refractometry automated (U) Clear Clear [facility] Urine cocaine detectionon Cocaine Ql (U) Negative Negative [facility] Urine glucose measurement by automated test strip (mass/volume)on 11-25-2019 Glucose Auto test strip (U) [Mass/Vol] Normal mg/dL Normal [facility] Urine hemoglobin detection b y automated test stripon 11-25-2019 Hemoglobin Auto test strip Ql (U) Negative Negative [facility] Urine human chorionic gonado tropin (hCG) detection by immunoassayon 11-25-2019 HCG ( test) Ql (U) Negative [facility] Urine ketones measurement by automated test strip (mass/volume)on 11-25-2019 Ketones (U) [Mass/Vol] Negative Negative [facility] Urine leukocyte esterase det ection by automated test stripon 11-25-2019 Leukocyte esterase Auto test strip Ql (U) Negative Negative [facility] Urine nitrite detection by t est stripon 11-25-2019 Nitrite Ql (U) Negative Negative [facility] Urine pH measurement by auto mated test stripon 11-25-2019 pH (U) 6.0 [pH] 5.0-9.[address] [facility] Urine phencyclidine detectio n by screening methodon 11-25-2019 Phencyclidine Ql (U) Negative Negative [facility] Urine protein measurement by automated test strip (mass/volume)on 11-25-2019 Protein (U) [Mass/Vol] Negative Negative [facility] Urine total bilirubin detect ion by test stripon 11-25-2019 Bilirubin Ql (U) Negative Negative [facility] Urine urobilinogen measureme nt by automated test strip (mass/volume)on 11-25-2019 Urobilinogen (U) [Mass/Vol] Normal mg/dL Normal [facility] Albumin [Mass/volume] in Ser um or Plasmaon 09-04-2019 Albumin [Mass/Vol] 2.7 g/dL 3.2-5.5 [facility] Cholesterol [Mass/volume] in Serum or Plasmaon 09-04-2019 Cholesterol [Mass/Vol] 147 mg/dL 140-200 [facility] Comment on above: Chol less than 200 m g/dl low riskChol 201-239 mg/dl borderline riskChol 240 mg/dl and greater high risk Cholesterol in LDL [Mass/vol ume] in Serum or Plasma by calculationon 09-04-2019 Cholesterol in LDL [Mass/Vol] 87 mg/dL 0-[address] [facility] Comment on above: LDL ATP III CLASSIFI CATIONLDL less than 100 mg/dL OptimalLDL 100-129 mg/dL Near or above optimalLDL 130-159 mg/dL Borderline highLDL 160-189 mg/dL HighLDL greater than 189 mg/dL Very high Cholesterol in VLDL [Mass/vo lume] in Serum or Plasma by calculationon 09-04-2019 Cholesterol in VLDL [Mass/Vol] 13 mg/dL [facility] Direct bilirubin measurement on 09-04-2019 Bilirubin.direct [Mass/Vol] mg/dL 0.0-0.[address] [facility] Otheron 09-04-2019 25-Hydroxy Vitamin D Total 29.0 ng/mL 30-[address] [facility] Comment on above: VITAMIN D STATUS 25( [place])VITAMIN D RANGE (ng/mL) Deficient <20 Insufficient 20 to <30Sufficient 30 to 100Reference: Erika MF,Choco NC, Ruperto JACKSON, et al. Evaluation,treatment, and prevention of vitamin D deficiency; an Endocrine Society clinical practice guideline. JCEM. 2010; 96(7):1911-30. Protein [Mass/volume] in Ser um or Plasmaon 09-04-2019 Protein [Mass/Vol] 5.9 g/dL 6.1-7.9 [facility] Serum globulin measurement b y calculation (mass/volume)on 09-04-2019 Globulin (S) [Mass/Vol] 3.2 g/dL F [facility] Serum or plasma alanine johnson otransferase measurement without P-5'-P (enzymatic activion 09-04-2019 ALT No additional P-5'-P [Catalytic activity/Vol] 18 U/L [facility] Serum or plasma albumin/glob ulin mass ratioon 09-04-2019 Albumin/Globulin [Mass ratio] 0.8 {ratio} [facility] Serum or plasma alkaline mariel sphatase measurement (enzymatic activity/volume)on 09-04-2019 ALP [Catalytic activity/Vol] 71 U/L 32-[address] [facility] Serum or plasma aspartate am inotransferase measurement (enzymatic activity/volume)on 09-04-2019 AST [Catalytic activity/Vol] 16 U/L [address] [facility] Serum or plasma high density lipoprotein (HDL) cholesterol measurementon 09-04-2019 Cholesterol in HDL [Mass/Vol] 47 mg/dL 35-[address] [facility] Comment on above: HDL CHOL ATP-III CLA SSIFICATION Cardiovascular RiskHDL > or equal to 60 mg/dL LOWHDL < 40 mg/dL HIGH Serum or plasma non-glucuron idated bilirubin measurement (mass/volume)on 09-04-2019 Bilirubin.indirect [Mass/Vol] TNP [facility] Comment on above: Test not performed Serum or plasma thyroid stim ulating hormone (TSH) measurement by high sensitivity meton 09-04-2019 TSH Qn 1.97 u[iU]/mL 0.45-5.[address] [facility] Serum or plasma total biliru bin measurement (mass/volume)on 09-04-2019 Bilirubin [Mass/Vol] 0.5 mg/dL 0.3-1.2 [facility] Serum or plasma total choles terol/high density lipoprotein (HDL) cholesterol mass shy 09-04-2019 Cholesterol.total/Mahsa sterol in HDL [Mass ratio] 3.1 {ratio} [facility] Triglyceride [Mass/volume] i n Serum or Plasmaon 09-04-2019 Triglyceride [Mass/Vol] 65 mg/dL 35-[address] [facility] Comment on above: TRIG ATP III CLASSIF ICATIONTRIG less than 150 mg/dL NormalTRIG 150-199 mg/dL Borderline highTRIG 200-500 mg/dL High TRIG greater than 500 mg/dL Very highStandard traceable to the Center for Disease Conrtrol and Prevention (CDC) test method. Otheron 08-27-2019 Valproic Acid (Depakene) Level 61.7 ug/mL 50.0-100.[address] [facility] Comment on above: Last dose: - Serum or plasma beta choriog onadotropin measurement (units/volume)on 08-27-2019 HCG.beta subunit Qn m[IU]/mL [facility] Comment on above: Approximate Approxim ate hCG Gestational Age Range (mIU/ml) (weeks)0.2-1 5-50 1-2 50-500 2-3 100-5,000 3-4 500-10,000 4-5 1,000-50,000 5-6 10,000-100,000 6-8 15,000-200,000 8-12 10,000-100,000 Vital Signs Date Time Vital Sign Value Performing Clinician Facility 06-27-2025 15:06-0400 Body mass index (BMI) [Ratio] 30.34 kg/m2 [place] Phone: [facility] 06-27-2025 15:06-0400 Body weight 80.17 kg [employer] Work Phone: [facility] 06-27-2025 15:06-0400 Diastolic blood pressure 64 mm[Hg] Buzz Ish DO Work Phone: [facility] 06-27-2025 15:06-0400 Systolic blood pressure 102 mm[Hg] Ubzz Ish DO Work Phone: [facility] 02-26-2025 10:00-0400 Body temperature 98.1 [degF] Stvz 3 [facility] [employer] 02-26-2025 10:00-0400 Diastolic blood pressure 69 mm[Hg] Stvz 3 [facility] 02-26-2025 10:00-0400 Heart rate 84 /min Stvz 3 [facility] [employer] 02-26-2025 10:00-0400 Respiratory rate 18 /min Stvz 3 [facility] 02-26-2025 10:00-0400 SaO2% (BldA) [Mass fraction] 97 % Stvz 3 [facility] 02-26-2025 10:00-0400 Systolic blood pressure 132 mm[Hg] Stvz 3 [facility] 02-20-2025 13:56-0400 Diastolic blood pressure 78 mm[Hg] Stvz 1 [facility] 02-20-2025 13:56-0400 Heart rate 81 /min Stvz 1 [facility] [employer] 02-20-2025 13:56-0400 Respiratory rate 18 /min Stvz 1 [facility] 02-20-2025 13:56-0400 SaO2% (BldA) [Mass fraction] 98 % Stvz 1 [facility] 02-20-2025 13:56-0400 Systolic blood pressure 123 mm[Hg] Stvz 1 [facility] [employer] 02-17-2025 14:38-0400 Respiratory rate 15 /min Trisha Abbott DO Work Phone: [facility] 02-17-2025 13:27-0400 Heart rate 81 /min Trisha Abbott DO Work Phone: [facility] [employer] 02-17-2025 13:27-0400 SaO2% (BldA) [Mass fraction] 96 % Trisha Abbott [employer] Work Phone: [facility] [employer] 02-17-2025 11:16-0400 Body temperature 98.01 [degF] Trisha Abbott [employer] Work Phone: [facility] [employer] 02-17-2025 11:16-0400 Diastolic blood pressure 72 mm[Hg] Trisha Abbott [employer] Work Phone: [facility] [employer] 02-17-2025 11:16-0400 Systolic blood pressure 133 mm[Hg] Trisha Abbott [employer] Work Phone: [facility] [employer] 02-16-2025 18:30-0400 Body height 160 cm Trisha Abbott [employer] Work Phone: [facility] [employer] 02-16-2025 18:30-0400 Body mass index (BMI) [Ratio] 39.15 kg/m2 Trisha Abbott [employer] Work Phone: [facility] [employer] 02-16-2025 18:30-0400 Body weight 100.25 kg Trisha Abbott [employer] Work Phone: [facility] [employer] 01-31-2025 10:52-0500 Body height 160 cm Stvz 1 [employer] 01-31-2025 10:52-0500 Body mass index (BMI) [Ratio] 40.74 kg/m2 Stvz 1 [employer] 01-31-2025 10:52-0500 Body temperature 99.1 [degF] Stvz 1 [facility] [employer] 01-31-2025 10:52-0500 Body weight 104.33 kg Stvz 1 [employer] 01-31-2025 10:52-0500 Diastolic blood pressure 82 mm[Hg] Stvz 1 [facility] [employer] 01-31-2025 10:52-0500 Heart rate 94 /min Stvz 1 [employer] 01-31-2025 10:52-0500 Respiratory rate 18 /min Stvz 1 [employer] 01-31-2025 10:52-0500 SaO2% (BldA) [Mass fraction] 96 % Stvz 1 Cabrera Cruz [facility] [employer] 01-31-2025 10:52-0500 Systolic blood pressure 114 mm[Hg] Stvz 1 [facility] [employer] 07-30-2024 22:27-0400 Body height 160 cm Stcz 1 [facility] [employer] 07-30-2024 22:27-0400 Body mass index (BMI) [Ratio] 41.63 kg/m2 Stcz 1 [facility] [employer] 07-30-2024 22:27-0400 Body weight 106.59 kg Stcz 1 [facility] [employer] 07-30-2024 22:27-0400 Heart rate 73 /min Stcz 1 [facility] [employer] 07-30-2024 22:27-0400 Respiratory rate 12 /min Stcz 1 [facility] [employer] [facility] [employer] 07-30-2024 22:27-0400 SaO2% (BldA) [Mass fraction] 98 % Stcz 1 [facility] 07-28-2023 18:06-0400 Body height 162.56 cm BINDING MACHINE OPERATOR Natividad Myerholtz Work Phone: [facility] 07-28-2023 18:06-0400 Body temperature 97.7 [degF] BINDING MACHINE OPERATOR Natividad Myerholtz Work Phone: [facility] 07-28-2023 18:06-0400 Body weight 104.9 kg BINDING MACHINE OPERATOR Natividad Myerholtz Work Phone: [facility] 07-28-2023 18:06-0400 Diastolic blood pressure 94 mm[Hg] BINDING MACHINE OPERATOR Natividad Myerholtz Work Phone: [facility] 07-28-2023 18:06-0400 Heart rate 81 /min BINDING MACHINE OPERATOR Natividad Myerholtz Work Phone: [facility] 07-28-2023 18:06-0400 Respiratory rate 16 /min BINDING MACHINE OPERATOR Natividad Myerholtz Work Phone: [facility] 07-28-2023 18:06-0400 SaO2% (BldA) [Mass fraction] 98 % BRIDGET Kessler Work Phone: [facility] 07-28-2023 18:06-0400 Systolic blood pressure 150 mm[Hg] BRIDGET Kessler Work Phone: [facility] 03-05-2022 16:45-0400 Body height 160.02 cm Vanessa Fitt Other [employer] Other 03-05-2022 16:45-0400 Body mass index (BMI) [Ratio] 37.76 kg/m2 Vanessa Fitt Other [employer] Other 03-05-2022 16:45-0400 Body weight 96.71 kg Vanessa [employer] Other [employer] Other 12-12-2021 12:15-0500 Body height 160.02 cm Paramjit Menesesdiff Other [employer] Other 12-12-2021 12:15-0500 Body mass index (BMI) [Ratio] 36.49 kg/m2 Paramjit Theodore Other [employer] Other 12-12-2021 12:15-0500 Body weight 93.44 kg Paramjit Theodore Other [employer] Other 12-12-2021 12:15-0500 Diastolic blood pressure 74 mm[Hg] Paramjit Jaimes Other [employer] Other 12-12-2021 12:15-0500 Respiratory rate 18 /min Paramjit Theodore Other [employer] Other 12-12-2021 12:15-0500 SaO2% (BldA) [Mass fraction] 98 % Paramjit Jaimes Other [employer] Other 12-12-2021 12:15-0500 Systolic blood pressure 109 mm[Hg] Paramjit Jaimes Other [employer] Other 11-29-2019 09:00-0500 Body weight 97.52 kg Natividad Kessler [facility] 11-29-2019 07:30-0500 BP Diastolic 80 mm[Hg] Natividad Kimcharleedianna [facility] 11-29-2019 07:30-0500 BP Systolic 119 mm[Hg] Natividad Kimcharleedianna [facility] 11-29-2019 07:30-0500 Pulse (Heart Rate) 78 /min [facility] 11-29-2019 07:30-0500 Pulse Oximetry 95 % Natividad Myjessicaleslie [facility] 11-29-2019 07:30-0500 Respiratory Rate 16 /min Natividad Myjessicaleslie [facility] 11-28-2019 22:04-0500 Body Temperature 98 [degF] Natividad Kessler [facility] 11-26-2019 13:57-0500 Height 162.56 cm Natividad Mycharleedianna [facility] 11-25-2019 22:40-0500 BMI (Body Mass Index) 36.8 kg/m2 Natividadlaly Kessler [facility] 09-07-2019 07:30-0400 Body Temperature 97.9 [degF] Natividad [facility] 09-07-2019 07:30-0400 BP Diastolic 71 mm[Hg] Natividad Judycharleedianna [facility] 09-07-2019 07:30-0400 BP Systolic 107 mm[Hg] Natividad Judycharleedianna [facility] 09-07-2019 07:30-0400 Pulse (Heart Rate) 81 /min Natividad Kessler [facility] 09-07-2019 07:30-0400 Pulse Oximetry 97 % Natividad Kessler [facility] 09-07-2019 07:30-0400 Respiratory Rate 14 /min Natividad Kessler [facility] 09-06-2019 12:54-0400 Height 162.56 cm Natividad Kessler [facility] 09-06-2019 09:00-0400 Body weight 86.18 kg Natividad Kessler [facility] 09-03-2019 15:21-0400 BMI (Body Mass Index) 32.2 kg/m2 [facility]ividad [facility] Encounters Encounter Date Encounter Type Care Provider Facility Start: 06-27-2025 End: 06-27-2025 Office outpatient visit 15 minutes Buzz Ish DO Work Phone: [facility] Comment on above: Request for steriliz ation Start: 06-27-2025 End: 06-27-2025 ambulatory BUZZ ISH Not Available Start: 06-27-2025 End: 06-27-2025 Bamboo flowsheet Buzz Ish DO Work Phone: [facility] Start: 06-27-2025 End: 06-27-2025 Bamboo flowsheet Buzz Ish DO Work Phone: [facility] Start: 05-16-2025 End: 05-16-2025 ambulatory Bel Coelho Facility:[facility] Start: 04-09-2025 ambulatory GURPREET-Tami Medina Fac ility:[facility] Start: 03-17-2025 ambulatory Mariella Holden litjesse:[facility] Start: 02-26-2025 End: 02-26-2025 ambulatory TRISHA Monson [facility] Start: 02-26-2025 End: 02-26-2025 Subsequent hospital visit by physician Karrie Obs Infusion Bed 3 [facility] Observ[facility] Start: 02-20-2025 End: 02-20-2025 ambulatory TRISHA Monson [facility] Start: 02-20-2025 End: 02-20-2025 Subsequent hospital visit by physician [facility] Start: 02-16-2025 End: 02-17-2025 ambulatory [facility] Start: 02-16-2025 End: 02-17-2025 Subsequent hospital visit by physician Trisha Abbott DO Work Phone: [address] Ortho/Med Surg Comment on above: S/P laparoscopic sle ivory gastrectomy (Primary Dx); Morbid (severe) obesity due to excess calories; Obstructive sleep apnea (adult) (pediatric); Borderline diabetes; Post-op pain Start: 01-31-2025 End: 02-04-2025 ambulatory BIG SUR Ermias [facility] Start: 01-31-2025 End: 02-04-2025 Encounter for other preprocedural examination [facility] Start: 01-31-2025 End: 02-04-2025 Subsequent hospital visit by physician Agnes X-Ray Add Rm 1 [facility] Radiology Comment on above: Arrived Start: 11-26-2024 End: 11-26-2024 ambulatory ALYCIA WANG [facility] Start: 11-26-2024 End: 11-26-2024 Subsequent hospital visit by physician Zakiya Johnson NP Work Phone: [facility] Comment on above: RALPH (obstructive sle ep apnea); PCOS (polycystic ovarian syndrome); Anxiety and depression; Obesity, Class III, BMI 40-49.9 (morbid obesity); History of DVT (deep vein thrombosis); History of nicotine use; Prediabetes; Factor V Leiden mutation (HCC) Start: 11-20-2024 End: 11-20-2024 ambulatory Zakiya Gunn Facility:[facility] Start: 09-17-2024 End: 09-17-2024 Patient encounter procedure BRIDGET Kessler Work Phone: [facility] Work Phone: Start: 09-17-2024 End: 09-17-2024 ambulatory BRIDGET Wagoner Victoria Work Phone: [facility] Work Phone: Start: 09-17-2024 Encounter for other preprocedural examination Zakiya Gunn [facility] Start: 09-17-2024 Registered Recurring BINDING MACHINE OPERATOR Katie son Victoria Work Phone: [facility] Start: 08-13-2024 End: 08-13-2024 ambulatory [facility] Start: 07-30-2024 End: 08-01-2024 ambulatory [facility] Start: 07-30-2024 End: 08-01-2024 Subsequent hospital visit by physician Lamont [facility] [address] [facility] Comment on above: Snoring Start: 07-02-2024 End: 07-04-2024 ambulatory [facility] Start: 06-26-2024 End: 06-26-2024 ambulatory Natividad Kessler Facility:[facility] Start: 06-04-2024 End: 06-06-2024 Subsequent hospital visit by physician Trisha Abbott DO Work Phone: [facility] Rad[facility] Comment on above: Dyspnea on exertion Start: 06-04-2024 End: 06-06-2024 ambulatory [facility] Start: 07-28-2023 End: 07-28-2023 Emergency department patient visit BRIDGET Natividad Kessler Work Phone: [facility] Work Phone: Start: 03-14-[address] DOCTOR JUNIOR Facility :[facility]1 Start: 03-07-2022 End: 03-08-[address] BUZZ DENG Facility:[facility] Start: 03-05-2022 [facility] HALEY Inlisha ial Provider Vanessa Sinclair [facility] Start: 03-05-2022 End: 03-05-2022 ambulatory Vanessa Sinclair Other [employer] Other Start: 03-04-2022 End: 03-04-2022 ambulatory Paramjit Jaimes Other [employer] Other Start: 03-04-2022 Telephone encounter Paramjit Jaimes [facility] Start: 03-01-2022 End: 03-01-2022 ambulatory Vanessaivonne Sinclair Other [employer] Other Start: 03-01-2022 Telephone encounter Vanessa Boothe [facility] Start: 12-13-2021 End: 12-13-2021 ambulatory Paramjit Jaimes Other [employer] Other Start: 12-13-2021 Telephone encounter Paramjit Theodore [facility] Start: 12-12-2021 End: 12-12-2021 ambulatory Vanessa Sinclair Other [employer] Other Start: 12-12-2021 Follow-up encounter Paramjit Menesesdiff [facility] Start: 12-12-2021 Telephone encounter Vanessa Boothe [facility] Start: 03-14-2021 End: 03-14-2021 Emergency department patient visit PIP[facility] Start: 08-27-2019 End: 08-27-2019 Patient encounter procedure Natividad Kessler [facility] Procedures Date Procedure Procedure Detail Performing Clinician Start: 02-17-2025 Basic metabolic panel calcium total Jovan Abbott DO Work Phone: Start: 02-16-2025 Basic metabolic panel calcium total Jovan Abbott DO Work Phone: Start: 02-16-2025 End: 02-16-2025 Biopsy liver wedge Trisha Abbott DO Work Phone: Start: 02-16-2025 End: 02-16-2025 Esophagogastroduodenoscopy transoral diagnostic Trisha Abbott DO Work Phone: Start: 02-16-2025 End: 02-16-2025 Laps gstrc rstrictiv px longitudinal gastrectomy Trisha Abbott DO Work Phone: Start: 02-16-2025 Gluc bld gluc mntr dev cleared fda spec home use Trisha Abbott DO Work Phone: Start: 02-16-2025 Potassium [Moles/volume] in Serum or Plasma Trisha Abbott DO Work Phone: Start: 01-31-2025 Ecg routine ecg w/least 12 lds i&r only Trisha Abbott DO Work Phone: Start: 01-31-2025 Radiologic exam chest 2 views Trisha Abbott DO Work Phone: Start: 01-31-2025 Assay of nicotine Trisha Abbott DO Work Phone: Start: 01-31-2025 Basic metabolic panel calcium total Jovan Abbott DO Work Phone: Start: 11-26-2024 Drug tst prsmv instrmnt chem analyzers pr date Alyciamaxine Wang BINDING MACHINE OPERATOR - PIPE FINISHER Work Phone: Start: 06-04-2024 Radiologic exam chest 2 views Trisha Abbott DO Work Phone: Plan of Treatment Date Care Activity Detail Author Start: 07-28-2033 DTaP/Tdap/Td vaccine (2 - Td or Tdap) DTaP/Tdap/Td vaccine (2 - Td or Tdap) [facility] Start: 07-25-2025 End: 07-25-2025 Patient encounter procedure 07/25/2025 3:30 PM EDT Procedure Visit [facility] [address] [place] [address] Buzz Deng DO [address] [place] [address] [facility] Start: 07-16-2025 Depression Monitoring Depression Monitoring [facility] Start: 07-01-2025 End: 07-01-2025 Patient encounter procedure [facility] Comment on above: MD VISIT 1 YEAR F/U Start: 06-27-2025 End: 06-27-2025 Patient encounter procedure 06/27/2025 3:10 PM EDT Off ice Visit [facility] [address] [place] [address] Buzz Deng DO [address] [facility] [place] [address] Arrived [facility] Comment on above: Arrived Start: 06-26-2025 Hemoglobin A1c measurement A1C test (Diabetic or Prediabetic) [facility] Start: 03-24-2025 End: 03-24-2025 Patient encounter procedure 03/24/2025 2:15 PM EDT Off [facility] Visit [facility] [address] [place] [address] Bel Cedillo APRN - HERI [address], [address] [place], [place] [id number] 1 month post op - sleeve [facility] Comment on above: 1 month post op - sleeve Start: 02-24-2025 End: 02-24-2025 Patient encounter procedure 02/24/2025 11:00 AM EDT Of fice Visit [facility] [address] [place] [address] Trisha Abbott DO [address] [place], [place] [id number] 1 week post op sleeve [facility] Comment on above: 1 week post op sleeve Start: 02-16-2025 End: 03-19-2025 Admission to same day surgery center 02/16/2025 12:20 PM EDT - 02/16/2025 2:50 PM EDT Surgery [facility] OR [address] [place] [address] Trisha Abbott DO [address] [place] [id number] ROBOTIC LAPAROSCOPIC ASSISTED GASTECTOMY SLEEVE, EGD, POSSIBLE LIVER BIOPSY - GI SCHEDULED [facility] OR Comment on above: ROBOTIC LAPAROSCOPIC ASSISTED GASTECTOMY SLEEVE, EGD, POSSIBLE LIVER BIOPSY - GI SCHEDULED Start: 02-16-2025 End: 02-16-2025 Laps gstrc rstrictiv px longitudinal gastrectomy GASTRECTOMY SLEEVE LAPAROSCOPIC ROBOTIC Morbid (severe) obesity due to excess calories Obstructive sleep apnea (adult) (pediatric) Borderline diabetes 02/16/2025 12:20 PM EDT [facility] Start: 02-16-2025 Subsequent hospital visit by physician 02/16/2025 12:20 PM EDT Hospital Encounter [facility] OR [facility] [place] [address] Trisha Abbott DO [address] [place] [id number] [facility] OR Start: 02-09-2025 End: 02-09-2025 Patient encounter procedure 02/09/2025 4:00 PM EDT Off ice Visit [facility] [address] [place] [address] Trisha Abbott DO [address] [place] [id number] sign consents - sleeve use .erasconsentsigning in pt wrap up [facility] Comment on above: sign consents - sleeve use .erasconsents igning in pt wrap up Start: 12-28-2024 End: 12-28-2024 Patient encounter procedure 12/28/2024 8:15 AM EST Off ice Visit [facility] [address] [place] [address] Alycia Wang, BINDING MACHINE OPERATOR - PIPE FINISHER [address] [facility] [address] [place] [address] [address] [facility] 6 mo con visits. [facility] Comment on above: PIF [address] [facility] 6 mo con visits. Start: 12-24-2024 End: 12-24-2024 Patient encounter procedure 12/24/2024 4:15 PM EST Off ice Visit [facility] [address] [facility] [address] [place] [address] Alycia Wang, BINDING MACHINE OPERATOR - PIPE FINISHER [address] [facility] [address] [place] [address] [facility] 6 mo con visits. [facility] Comment on above: PIF [address] [facility] 6 mo con visits. Start: 09-24-2024 End: 09-24-2024 Patient encounter procedure 09/24/2024 12:00 PM EDT Of fice Visit [facility] [id number] [place] [address] [place] [address] [address] [place] [address] New patient, referred by Dr. Abbott, for ICD-10-CM Dyspnea on exertion psc/sc [facility] Comment on above: New patient, referred by Dr. Abbott, f or ICD-10-CM Dyspnea on exertion psc/sc Start: 09-03-2024 End: 09-03-2024 Patient encounter procedure 09/03/2024 11:30 AM EDT Of fice Visit [facility] [address] [place] [address] [place] [address] [address] [place] [address] New patient, referred by Dr. Abbott, for ICD-10-CM Dyspnea on exertion psc/sc [facility] Comment on above: New patient, referred by Dr. Abbott, f or ICD-10-CM Dyspnea on exertion psc/sc Start: 08-20-2024 End: 08-20-2024 Patient encounter procedure 08/20/2024 3:00 PM EDT Off ice Visit [facility] [address] [address] Alycia Wang, BINDING MACHINE OPERATOR - PIPE FINISHER [address] [address] PIF 3of6 [facility] 6 mo con visits [facility] Comment on above: PIF 3of6 [facility] 6 mo con visits Start: 08-18-2024 End: 08-18-2024 Nursing evaluation of patient and report 08/18/2024 5:30 PM EDT Nurse Only [facility] [address] [address] intro [facility] Comment on above: intro Start: 08-13-2024 End: 08-13-2024 Admission to same day surgery center 08/13/2024 7:50 AM EDT - 08/13/2024 8:10 AM EDT [place] [facility] [place] [address] [place] [address] Trisha Abbott, [address] [address] ESOPHAGOGASTRODUODENOSCOPY BIOPSY [facility] OR Comment on above: ESOPHAGOGASTRODUODENOSCOPY BIOPSY Start: 08-13-2024 End: 08-13-2024 Egd transoral biopsy single/multiple ESOPHAGOGASTRODUODENOSCOPY BIOPSY Gastroesophageal reflux disease, unspecified whether esophagitis present Obesity, unspecified classification, unspecified obesity type, unspecified whether serious comorbidity present 08/13/2024 7:50 AM EDT [facility] Start: 08-13-2024 Subsequent hospital visit by physician 08/13/2024 7:50 AM EDT Hospital Encounter [facility] [place] [address] [place] [address] Trisha Abbott DO [address] [facility] [address] [place] [address] [facility] Start: 08-05-2024 End: 08-05-2024 Nursing evaluation of patient and report 08/05/2024 12:00 PM EDT Nurse Only [facility] [address] [facility] [address] [place] [address] ottoniel Suki [facility] Comment on above: ottoniel Start: 08-01-2024 COVID-19 Vaccine () COVID-19 Vaccine ( season) [facility] Start: 08-01-2024 COVID-19 Vaccine ( season) COVID-19 Vaccine () [facility] Start: 2024 Screening for malignant neoplasm of cervix [facility] Start: 07-02-2024 End: 07-02-2024 Patient encounter procedure 07/02/2024 7:30 PM EDT Appointment [facility] [address] [place] [address] Trisha Abbott DO [address] [facility] [address] [place] [address] PSG [facility] Comment on above: [id number] PSG Start: 07-02-2024 End: 07-02-2024 Patient encounter procedure 07/02/2024 12:15 PM EDT Initial consult [facility] [address] [place] [id number] Danette Ngo MD [address] [place] [address] CONSULT - History of DVT in adulthood [facility] Comment on above: CONSULT - History of DVT in adulthood Start: 07-01-2024 Influenza vaccination Flu vaccine (#1) [facility] Start: 06-25-2024 End: 06-25-2024 Patient encounter procedure 06/25/2024 3:45 PM EDT Off ice Visit [facility] [address] [place] [address] Alycia Wang, BINDING MACHINE OPERATOR - PIPE FINISHER [address] [facility] [address] [place] [address] $50.00( 100.00 is due) 1of6 [place] 6 mo con visits [facility] Comment on above: $50.00( 100.00 is due) 1of6 [place] 6 mo con visits Start: 08-01-2023 COVID-19 Vaccine ( season) COVID-19 Vaccine ( season) [facility] Start: 2015 Screening for malignant neoplasm of cervix Pap smear [facility] Start: 2013 Hepatitis B vaccine (1 of 3 - 19+ 3-dose series) Hepatitis B vaccine (1 of 3 - 19+ 3-dose series) [facility] Start: 2012 Hepatitis C screening Hepatitis C screen [facility] Start: 2009 HIV screening HIV screen [facility] Start: 2007 Varicella vaccine (1 of 2 - 13+ 2-dose series) Varicella vaccine (1 of 2 - 13+ 2-dose series) [facility] Start: 2006 Depression Monitoring Depression Monitoring [facility] Start: 1995 Varicella vaccine (1 of 2 - 2-dose childhood series) Varicella vaccine (1 of 2 - 2-dose childhood series) [facility] Start: 01-27-1995 COVID-19 Vaccine (#1) COVID-19 Vaccine (#1) [facility] Start: 1994 Hepatitis B vaccine (1 of 3 - 3-dose series) Hepatitis B vaccine (1 of 3 - 3-dose series) [employer] Continuous pulse oximetry Pulse oximetry, continuous Respiratory Care Routine Every 4hr until discontinued starting 02/16/2025 [employer] Comment on above: Every 4hr until discontinued starting Home BIPAP or CPAP Home BIPAP or CPAP Respiratory Care Routine QHS until discontinued starting 02/16/2025 [employer] Comment on above: QHS until discontinued starting 02/17/20 End: 11-26-2024 Nicotine, Blood [employer] Comment on above: 1 Occurrences starting 11/26/2024 until 11/26/2024 Oxygen therapy [[facility] Initiate Oxygen Therapy Protocol Respiratory Care Routine As Needed until discontinued starting 02/16/2025 [employer] Comment on above: As Needed until discontinued starting Pathology study Surgical Patholo gy Lab Routine Morbid (severe) obesity due to excess calories Obstructive sleep apnea (adult) (pediatric) Borderline diabetes Release Upon Ordering for 1 Occurrences starting 02/16/2025 [employer] Comment on above: Release Upon Ordering for 1 Occurrences starting 02/16/2025 Patient Education [facility] Patient referral [facility] End: 07-30-2024 Sleep Study with PAP Titration Sleep Study [facility] Routine Snoring 1 Occurrences starting 07/30/2024 until 07/30/2024 [employer] Work Phone: Comment on above: 1 Occurrences starting 07/30/2024 until 07/30/2024 Spirometry panel Incentive ashley metry Respiratory Care Routine Every 2hr while awake until discontinued starting 02/16/2025 [employer] Comment on above: Every 2hr while awake until discontinued starting 02/16/2025 End: 02-16-2025 SURGICAL PATHOLOGY REPORT SURGICAL PATHOLOGY REPORT La b Routine Once for 1 Occurrences starting 02/16/2025 until 02/16/2025 [employer] Comment on above: Once for 1 Occurrences starting 02/17/20 until 02/16/2025 Immunizations Immunization Date Immunization Notes Care Provider Derek shah 07-28-2023 tetanus toxoid, reduced diphtheria toxoid, and acellular pertussis vaccine, adsorbed BINDING MACHINE OPERATOR Natividad Kessler Work Phone: [facility] NEGATED: Highlighted row has not occurred!01-09-2018 influenza, injectable, quadrivalent, preservative free [facility] Payers Date Payer Category Payer Medicaid (Managed Care) SHAI SERNA [id number] 1994 Unknown [id number] [id number]. 593 1994 Unknown [id number] 2.16.840.1.318683.3.579.2. 593 1994 Unknown [id number] 2.16.840.1.896125.3.579.2. 176 1994 Unknown [id number] 2.16.840.1.060765.3.579.2. 176 1994 Unknown [id number] 2.16.840.1.734221.3.579.2. 176 1994 Unknown [id number] 2.16.840.1.672200.3.579.2. 176 1994 Unknown [id number] 2.16.840.1.986058.3.579.2. 176 1994 Unknown [id number] 2.16.840.1.448203.3.579.2. 175 1994 Unknown [id number] 2.16.840.1.883140.3.579.2. 175 1994 Unknown [id number] 2.16.840.1.953769.3.579.2. 175 1994 Unknown [id number] 2.16.840.1.633901.3.579.2. 175 1994 Unknown [id number] 2.16.840.1.245657.3.579.2. 175 1994 Unknown [id number] 2.16.840.1.238172.3.579.2. 175 1994 Unknown [id number] 2.16.840.1.578377.3.579.2. 175 1994 Unknown [id number] 2.16.840.1.395971.3.579.2. 718 1994 Unknown [id number] 2.16.840.1.177364.3.579.2. 718 1994 Unknown [id number] 2.16.840.1.089630.3.579.2. 718 1994 Unknown [id number] 2.16.840.1.944901.3.579.2. 718 1994 Unknown [id number] 2.16.840.1.992163.3.579.2. 718 1994 Unknown [id number] 2.16.840.1.421655.3.579.2. 1259 1959 Medicaid [id number] Private Health Insurance [id number] Self-pay Self Pay [id number] Unknown [id number] Unknown [id number] Social History Date Type Detail Facility Start: 09-04-2019 End: 11-26-2019 Tobacco smoking status NJIS Smoker (finding) [facility] Start: 1995 Sex Assigned At Female [facility] Start: 11-26-2024 End: 06-27-2025 Sex Assigned At [employer] Work Phone: Start: 04-23-2023 End: 07-28-2023 Tobacco smoking status NJIS Never smoked tobacco (finding) [facility] Start: 05-28-2024 End: 07-02-2024 Tobacco smoking status NJIS Ex-smoker [employer] History of tobacco use Cigarette Smoker B ON [facility] History of tobacco use Passive smoker [employer] Start: 04-23-2023 End: 07-02-2024 Tobacco use and exposure Smokeless tobacco non-user [employer] Start: 07-23-2024 End: 11-26-2024 Alcoholic beverage intake Current drinker of alcohol (finding) [facility] Start: 11-26-2024 End: 06-27-2025 Alcoholic beverage intake [employer] Work Phone: Patient Health Questionnaire 9 item (PHQ-9) total score [Reported] 3 [employer] Work Phone: Start: 05-28-2024 Tobacco Comment Quit 2019 [facility] Start: 05-28-2024 Alcohol Comment occasionally [facility] Start: 1995 Sex assigned at Not on file [facility] Start: 01-31-2025 End: 02-17-2025 Alcoholic beverage intake Ex-drinker (finding) [employer] Start: 04-23-2023 Gender identity Identifies as female gender (finding) [employer] Has the electric, ga s, oil, or water company threatened to shut off services in your home in past 12Mo No [employer] (I/We) worried wheth er (my/our) food would run out before (I/we) got money to buy more. Never true [employer] Start: 03-13-2021 Sex Female (finding) [facility] Start: 05-05-2024 End: 06-27-2025 Alcoholic beverage intake Lifetime non-drinker (finding) [facility] Start: 04-23-2023 Sexual orientation Heterosexual (finding) [facility] Healthcare Goals Date Patient Goal Desired Activity /State Functional Status Date Assessment Result Facility 11-29-2019 Functional status Patient at Baseline [facility] 09-07-2019 Functional status Patient at Baseline [facility] Mental Status Date Assessment Result Facility 11-29-2019 Cognitive function Cognitive Sta tus Patient at Baseline [facility] 09-07-2019 Cognitive function Cognitive Sta tus Patient at Baseline [facility] Clinical Notes 03-04-2022 to 06-27-2025 Zaria Lakhani LPN - 06/27/2025 3:10 PM Mirian Lamas RN - 02/17/2025 5:57 PM Haylee Garcia RN - 02/16/2025 6:17 PM Haylee Garcia RN - 02/16/2025 6:09 PM EDTDisтатьянаrnaila Instructions Note Date & Type Note Facility 06-27-2025 History of Presen t illness Narrative Reason for Appointment: Patient ID: Merline Mohr is a 29 y.o. female who presents for Discuss Sterilization Patient presents today for Consult appointment. MEDICATIONS Current Outpatient Medications Medication Instructions benztropine (COGENTIN) 1 mg, Oral, Nightly buPROPion XL (WELLBUTRIN XL) 300 mg, Daily clonazePAM (KLONOPIN) 1 mg, Oral, Daily RT escitalopram (LEXAPRO) 20 mg, Oral, Daily ziprasidone (Geodon) 60 MG capsule TAKE 1 CAPSULE BY MOUTH TWICE DAILY WITH FOOD ALLERGIES Allergies Allergen Reactions Citalopram Unknown Lurasidone Unknown Other Other Reaction(s): Suicidal Quetiapine PROBLEMS Active Ambulatory Problems Diagnosis Date Noted Bipolar disorder with depression (HCC) 07/17/2023 Hormone imbalance 07/17/2023 Obesity 07/17/2023 Pelvic pain 07/17/2023 Polycystic ovaries 07/17/2023 Anxiety 07/17/2023 Abnormal uterine bleeding 07/17/2023 Request for sterilization 06/27/2025 Resolved Ambulatory Problems Diagnosis Date Noted No Resolved Ambulatory Problems Past Medical History: Diagnosis Date Bipolar disorder (HCC) Depression HISTORY PAST MEDICAL HISTORY SOCIAL HISTORY Past Medical History: Diagnosis Date Abnormal uterine bleeding Anxiety Bipolar disorder (HCC) Depression Hormone imbalance Pelvic pain Social History Tobacco Use Smoking status: Never Smokeless tobacco: Never Substance Use Topics Alcohol use: Never Drug use: Never FAMILY HISTORY Family History Problem Relation Name Age of Onset Hypertension Mother Heart disease Mother Cancer Mother Heart disease Maternal Grandmother Heart disease Maternal Grandfather SURGICAL HISTORY No past surgical history on file. REVIEW OF SYSTEMS Review of Systems: Review of Systems Constitutional: Negative. HENT: Negative. Eyes: Negative. Respiratory: Negative. Cardiovascular: Negative. Gastrointestinal: Negative. Genitourinary: Negative. Musculoskeletal: Negative. Skin: Negative. Neurological: Negative. All other systems reviewed and are negative. Hematological: Negative. Endocrine: Negative. Allergic/Immunologic: Negative. OBJECTIVE Objective: Physical Exam Constitutional: Appearance: Normal appearance. She is well-developed. Cardiovascular: Rate and Rhythm: Normal rate and regular rhythm. Pulmonary: Effort: Pulmonary effort is normal. Breath sounds: Normal breath sounds. Abdominal: General: Bowel sounds are normal. There is no distension. Palpations: Abdomen is soft. Tenderness: There is no abdominal tenderness. There is no guarding or rebound. Musculoskeletal: General: No swelling. Normal range of motion. Right lower leg: No edema. Left lower leg: No edema. Neurological: Mental Status: She is alert and oriented to person, place, and time. Skin: General: Skin is warm and dry. Psychiatric: Mood and Affect: Mood normal. Behavior: Behavior normal. Vitals and nursing note reviewed. Exam conducted with a stock holder present. Vitals: Estimated body mass index is 30.34 kg/m as calculated from the following: Height as of 07/17/23: 5' 4 . Weight as of this encounter: 176 lb 12 oz. BP: 102/64 No LMP recorded. ASSESSMENT & PLAN (Z30.2) Request for sterilization Patient presents to office to discuss permanent sterilization via Laparoscopic bilateral tubal ligation. Patient desires this as she has weight loss surgery in January. Patient will setup with Manager Engagement prior to leaving office. Patient to return to clinic for Pre-Op. Documented by Zaria Lakhani LPN on behalf of: Buzz Deng DO documented in this encounter [facility] 04-09-2025 Note Patient Education Ma terials Follows: Otitis Media, Adult Otitis media is a condition in which the middle ear is red and swollen (inflamed) and full of fluid. The middle ear is the part of the ear that contains bones for hearing as well as air that helps send sounds to the brain. The condition usually goes away on its own. What are the causes? This condition is caused by a blockage in the eustachian tube. This tube connects the middle ear to the back of the nose. It normally allows air into the middle ear. The blockage is caused by fluid or swelling. Problems that can cause blockage include: ? A cold or infection that affects the nose, mouth, or throat. ? Allergies. ? An irritant, such as tobacco smoke. ? Adenoids that have become large. The adenoids are soft tissue located in the back of the throat, behind the nose and the roof of the mouth. ? Growth or swelling in the upper part of the throat, just behind the nose (nasopharynx). ? Damage to the ear caused by a change in pressure. This is called barotrauma. What increases the risk? You are more likely to develop this condition if you: ? Smoke or are exposed to tobacco smoke. ? Have an opening in the roof of your mouth (cleft palate). ? Have acid reflux. ? Have problems in your body's defense system (immune system). What are the signs or symptoms? Symptoms of this condition include: ? Ear pain. ? Fever. ? Problems with hearing. ? Being tired. ? Fluid leaking from the ear. ? Ringing in the ear. How is this treated? This condition can go away on its own within 3?5 days. But if the condition is caused by germs (bacteria) and does not go away on its own, or if it keeps coming back, your doctor may: ? Give you antibiotic medicines. ? Give you medicines for pain. Follow these instructions at home: ? Take zxzm-jsc-swwbttx and prescription medicines only as told by your doctor. ? If you were prescribed an antibiotic medicine, take it as told by your doctor. Do not stop taking it even if you start to feel better. ? Keep all follow-up visits. Contact a doctor if: ? You have bleeding from your nose. ? There is a lump on your neck. ? You are not feeling better in 5 days. ? You feel worse instead of better. Get help right away if: ? You have pain that is not helped with medicine. ? You have swelling, redness, or pain around your ear. ? You get a stiff neck. ? You cannot move part of your face (paralysis). ? You notice that the bone behind your ear hurts when you touch it. ? You get a very bad headache. Summary ? Otitis media means that the middle ear is red, swollen, and full of fluid. ? This condition usually goes away on its own. ? If the problem does not go away, treatment may be needed. You may be given medicines to treat the infection or to treat your pain. ? If you were prescribed an antibiotic medicine, take it as told by your doctor. Do not stop taking it even if you start to feel better. ? Keep all follow-up visits. This information is not intended to replace advice given to you by your health care provider. Make sure you discuss any questions you have with your health care provider. Document Revised: 02/25/2022 Document Reviewed: 02/25/2022 [employer] Patient Education ? 2023 [employer]. [facility] 03-17-2025 Note Patient Education Ma terials Follows: Otitis Media, Adult Otitis media is a condition in which the middle ear is red and swollen (inflamed) and full of fluid. The middle ear is the part of the ear that contains bones for hearing as well as air that helps send sounds to the brain. The condition usually goes away on its own. What are the causes? This condition is caused by a blockage in the eustachian tube. This tube connects the middle ear to the back of the nose. It normally allows air into the middle ear. The blockage is caused by fluid or swelling. Problems that can cause blockage include: ? A cold or infection that affects the nose, mouth, or throat. ? Allergies. ? An irritant, such as tobacco smoke. ? Adenoids that have become large. The adenoids are soft tissue located in the back of the throat, behind the nose and the roof of the mouth. ? Growth or swelling in the upper part of the throat, just behind the nose (nasopharynx). ? Damage to the ear caused by a change in pressure. This is called barotrauma. What increases the risk? You are more likely to develop this condition if you: ? Smoke or are exposed to tobacco smoke. ? Have an opening in the roof of your mouth (cleft palate). ? Have acid reflux. ? Have problems in your body's defense system (immune system). What are the signs or symptoms? Symptoms of this condition include: ? Ear pain. ? Fever. ? Problems with hearing. ? Being tired. ? Fluid leaking from the ear. ? Ringing in the ear. How is this treated? This condition can go away on its own within 3?5 days. But if the condition is caused by germs (bacteria) and does not go away on its own, or if it keeps coming back, your doctor may: ? Give you antibiotic medicines. ? Give you medicines for pain. Follow these instructions at home: ? Take ldjp-ohh-ewoqrih and prescription medicines only as told by your doctor. ? If you were prescribed an antibiotic medicine, take it as told by your doctor. Do not stop taking it even if you start to feel better. ? Keep all follow-up visits. Contact a doctor if: ? You have bleeding from your nose. ? There is a lump on your neck. ? You are not feeling better in 5 days. ? You feel worse instead of better. Get help right away if: ? You have pain that is not helped with medicine. ? You have swelling, redness, or pain around your ear. ? You get a stiff neck. ? You cannot move part of your face (paralysis). ? You notice that the bone behind your ear hurts when you touch it. ? You get a very bad headache. Summary ? Otitis media means that the middle ear is red, swollen, and full of fluid. ? This condition usually goes away on its own. ? If the problem does not go away, treatment may be needed. You may be given medicines to treat the infection or to treat your pain. ? If you were prescribed an antibiotic medicine, take it as told by your doctor. Do not stop taking it even if you start to feel better. ? Keep all follow-up visits. This information is not intended to replace advice given to you by your health care provider. Make sure you discuss any questions you have with your health care provider. Document Revised: 02/25/2022 Document Reviewed: 02/25/2022 [employer] Patient Education ? 2023 [employer]. [facility] 02-17-2025 History of Presen t illness Narrative Pt given discharge instructions, all questions answered. Pt discharged with all personal belongings to home. Patient transported to on monitor with Haylee PADRON PACU report called to Mirian PADRON on 2C. All questions answered at this time. Veterinary Manager called and left message to Dr. Abbott about admit orders Teagan @ 's office has been informed of post op recommendations per hematology note from on 07/02/2024. Obtained medical clearance for OR on 02/16/2025. documented in this encounter [facility] 02-17-2025 [facility] Discharg e instructions Trisha Abbott DO - 02/17/2025 2:20 PM EDT Discharge Instructions for Bariatric Surgery You had a Laparoscopic Sleeve Gastrectomy (32855) surgery to treat obesity. Recovery from this surgery can take several weeks and requires permanent lifestyle changes. What You Will Need Protein Supplements Bariatric Vitamins Abdominal Binder Incentive spirometer (a breathing device) Home Care It is important to keep the incisions clean and dry to promote healing. Shower with soap and rinse and dry thoroughly. If incisions are oozing, you may cover with clean gauze. Use the incentive spirometer every couple of hours. This is to make sure you are breathing deeply and keeping the air sacs within your lungs as open as possible to prevent respiratory problems. Diet It is important to follow the diet progression very closely in order to prevent complications. When arriving home, follow the Phase 1A Liquid Diet for one weeks. Dehydration and changes in bowel habits can occur after surgery. Refer to your educational binder provided pre-op for additional information. Once you move to solids, food must be chewed well. When making food choices, you'll need to ensure adequate protein intake, while avoiding sweets and fatty foods. Eating too much or too quickly can cause vomiting or intense pain under your breastbone. Most people quickly learn how much food they can tolerate. Physical Activity When home, we recommend that you take frequent walks, as tolerated, to prevent complications and increase your endurance. Ask your doctor when you will be able to return to work. You may need to wait 2-[address] you are no longer using pain medications Do not lift anything over ten pounds for 4 weeks. Medications Remember to avoid aspirin, aspirin-containing products, and nonsteroidal anti-inflammatory drugs (NSAIDs, such as ibuprofen, naproxen, etc.). If you were taking these medications before the procedure, and had to stop, ask your doctor when you can resume taking them. Be sure to review your medications with your primary care provider at your follow up office visit. Lifestyle Changes Changing your diet and level of activity are the biggest lifestyle changes associated with your success. Be aware that you may have emotional ups and downs after this surgery. Follow-up Follow up with your primary care physician in one week. Follow up with Dr. Abbott in 1 week. If you don't already have a scheduled appointment, please call the office at [phone]. Call Your Doctor If Any of the Following Occurs Monitor your recovery once you leave the hospital. If any of the following occur, call your doctor: Signs of infection, including fever above 100.5F Redness, swelling, increasing pain, excessive bleeding, or any discharge from the incision site Persistent nausea and/or vomiting Pain that you can't control with the medications you've been given Shortness of breath and/or chest pain Tachycardia (racing heart sensation) unrelieved by rest Pain, redness and/or swelling in your feet or legs Sudden onset of severe left shoulder pain or severe abdominal pain Any symptoms that are causing you concern In case of an emergency, call 911 immediately. documented in this encounter [facility] 01-31-2025 History of Presen t illness Narrative Obtained cardiac and pulmonary clearance for OR on 02/16/2025. documented in this encounter [facility] 01-25-2025 Hospital Discharg e instructions Lidia Blanchard APRN - PIPE FINISHER - 01/25/2025 1:28 PM EST Pre-operative Instructions NOTHING to eat or drink after midnight the night prior to surgery EXCEPT GATORADE PER SURGEON (This includes gum, candy, mints, chewing tobacco, etc). Smoking cessation is always advised. Please arrive at the surgery center (Entrance B) by 10:20 AM on 02/16/2025 (or as directed by your surgeon's office). See Directons to Surgery Center on next page. Please take only the following medication(s) the day of surgery with a small sip of water: bupropion (Wellbutrin), oxcarbazepine (Trileptal) If applicable: -Use/bring daily inhalers with you -Do not take diabetic medications on the day of surgery. Please stop any blood thinning medications DIRECTED BY PRESCRIBING PROVIDER! Failure to stop these medications as instructed (too soon or too late) may result in injury to you, or your surgery may need to be rescheduled. Below is a list of some examples for your reference. This is not an all-inclusive list and if you have any questions/concerns, please check with your surgeon's office. Antiplatelets : (stop blood cells (called platelets) from sticking together and forming a blood clot): Aspirin (Bufferin, Ecotrin), Clopidogrel (Plavix), Ticagrelor (Brilinta), Prasugrel (Effient), Dipyridamole/aspirin (Aggrenox), Ticlopidine (Ticlid), Eptifibatide (Integrilin) Anticoagulants: (slow down your body's process of making clots): Warfarin (Coumadin), Rivaroxaban (Xarelto), Dabigatran (Pradaxa), Apixaban (Eliquis), Edoxaban (Savaysa), Heparin, Enoxaparin (Lovenox), Fondaparinux (Arixtra) NSAIDS: Aspirin (Bufferin, Ecotrin), Ibuprofen (Motrin, Nuprin,Advil), Naproxen (Aleve),Meloxicam (Mobic), Celecoxib (Celebrex), Diclofenac (Voltaren), Etodolac (Lodine), Indomethacin, Ketorolac, Nabumetone, Oxaprozin (Daypro), Piroxicam (Feldene), Excedrin (has aspirin in it) Herbals/supplements: Bromelain, Cinnamon, Cayenne Pepper, CoQ10, Dong quai (female ginseng), Fish oil, Garlic, Blanca, Ginseng, Ginkgo biloba, Glucosamine, Grape seed extract, Turmeric, Vitamin E, etc....) You may continue the rest of your medications through the night before surgery unless instructed otherwise. PLEASE NOTE: THE ABOVE (IF ANY) DISCONTINUED MEDS MAY ONLY BE FROM CLEANING UP THE MED LIST AND WERE NOT ACTUALLY CANCELLED; SEE CHART FOR DETAILS AND ALWAYS CHECK WITH PRESCRIBING PROVIDER BEFORE DISCONTINUING ANY MEDICATIONS Signature (Provider) Signature (Patient) Day of Surgery/Procedure As a patient at [facility] you can expect quality medical and nursing care that is centered on your individual needs. Our goal is to make your surgical experience as comfortable as possible Directions to the Surgery Center The surgery Center at [facility] is located in the Emergency Room parking lot on [facility] or there is additional parking across the street. The address is [address] [place] [address]. Please check in at the Surgery Center upon arrival. Patient Instructions In case of any illness please contact your surgeons office for instructions prior to coming to the hospital. Due to current restrictions you are only allowed 2 adults to be with you. Masks are to be worn and screening will take place on arrival. Bring your current list of medications, vitamins, herbals and anything you might take on an as needed basis. It is important we have a correct list with dosages and frequencies. Please verify your list with your medications at home or bring all of your bottles with you. If you have been given a blood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 THE PRIMARY CLINICAL RECORDS. [facility]. provides no warranty or guarantee of the accuracy or completeness of information in this document.
--- OUTSIDE RECORDS SUMMARY | 2025-07-25 20:17 | XMS_ITS | Encounter Summary ---
Author Organization [facility] Address [address] [facility] [place] [address] Care Team Providers Care Wagon Washer Name Role Phone Unavailable Primary Care Provider Unavailabl e Encounter Details Date Type Department Care Team (Late st Contact Info) Description 03/03/2024 Abstract NOM[facility]na BEYER [address] [facility] [place] [address] Parvin Land LPN 102 [facility] [place] [address] Social History Tobacco Use Types Packs/Day Years [...] EDT Office Visit [facility] Siomara BEYER [address] [place] [address] No Mclaughlin, GURPREET [address] [facility] [place] [address] documented as of this encounter Visit Diagnoses Not on filedocumented in this encounter
--- OUTSIDE RECORDS SUMMARY | 2025-07-25 20:17 | XMS_ITS | Clinical Summary ---
Author Organization [employer] tem Address [id number] [address] [place] [address] Care Team Providers Care Flight Dispatcher Name Role Phone Natividad Kessler TOUR NARRATOR-SENIOR CHEMIST Primary Care Pro vider Allergies Active Allergy Reactions Criticality Noted Date Comments Citalopram 09/03/2019 Lurasidone 09/03/2019 Olanzapine 09/03/2019 Medications venlafaxine XR (EFFEXOR-XR) 150 mg 24 hr capsule Take 150 mg by mouth daily. Active clonazePAM (KlonoPIN) 1 mg tablet Take 1 mg by mouth daily. Active divalproex (DEPAKOTE ER) 500 mg 24 hr tablet Take by mouth daily. Active brexpiprazole (REXULTI) 2 mg tablet Take 2 mg by mouth daily. Active Social History Tobacco Use Types Packs/Day Years Used Date Smoking Tobacco: Every Day Cigarettes Smokeless Tobacco: Never Alcohol Use Standard Drinks/Week Comments Yes 0 (1 standard drink = 0.6 oz pur e alcohol) Childcare Answer Date Recorded Childcare Unknown 05/12/2019 Employment Answer Date Recorded Employment Unknown 05/12/2019 Purpose - Life Answer Date Recorded Purpose and direction in life Unknown Comments No Sex and Gender Information Value Date Recorded Sex Assigned at Not on file Legal Sex Female 11:49 AM EDT Gender Identity Not on file Sexual Orientation Not on file Last Filed Vital Signs Vital Sign Reading Time Taken Comments Blood Pressure 121/79 09/03/2019 11:13 AM EDT Pulse 88 09/03/2019 11:13 AM EDT Temperature 37 C (98.6 F) 09/03/2019 11:13 AM EDT Respiratory Rate 18 09/03/2019 11:13 AM EDT Oxygen Saturation 98% 09/03/2019 11:13 AM EDT Inhaled Oxygen Concentration - - Weight 85.3 kg (188 lb) 09/03/2019 11:13 AM EDT Height 162.6 cm (5' 4 ) 09/03/2019 11:13 AM EDT Body Mass Index 32.27 09/03/2019 11:13 AM EDT Plan of Treatment Not on file Medical Devices Not on file Insurance [employer] Care Teams Flight Dispatcher Relationship Specialty Start Date End Date Natividad Kessler APRN-HERI PCP - General 09/03/19
--- OUTSIDE RECORDS SUMMARY | 2025-07-25 20:17 | XMS_ITS | Patient Health Record ---
Author Organization [facility] [place] Address [address] [place] [address] Care Team Providers Care Clinical Data Abstractor Name Role Phone None, Unknown or Primary Care Provider Unavailab Ender Mcleod Unavailable [phone] Reason For Referral No Information Encounters Encounter Location Date Provider Diagnosis [facility] [place] [address] [place] [address] 08/12/2024 Ender Shrestha Plan Of Treatment No Information Insurance Providers Payer Name Payer Address Payer Phone Subscriber Number Group Number Insured Name Patient Relationship to Insured Coverage Start Date Coverage End Date [employer] [place] [employer] [address] [address] [place] [phone] [id number] Merline Dobbs i Self - patient is the insured
[2025-07-29 21:08] LABS: Age Gdln ACOG Testing Note (.); HPV Genotype 18,45 Negative (Negative); IGP, Aptima HPV, rfx 16/18,45 Note (.)
== END 2025-07-25 20:13 | disposition home or self-care (01) ==
LOC: LAB 20:12
PROVIDERS: Visit Provider Obstetrics & Gynecology
DX: Z01.419 Encounter for gynecological examination (general) (routine) without abnormal findings (principal)
CPT/HCPCS: 87624; 87625; 88175

== ENCOUNTER 2025-08-02 14:26 | Outpatient (RCR) | payer OTHER, SELFPAY | END 2025-08-30 23:59 | disposition home or self-care (01) | LOC: HEMC 14:26 | PROVIDERS: Visit Provider Internal Medicine Hematology & Oncology | DX: D68.2 Hereditary deficiency of other clotting factors (principal); Z86.718 Personal history of other venous thrombosis and embolism; Z98.84 Bariatric surgery status; Z87.891 Personal history of nicotine dependence | CPT/HCPCS: G0463 ==

== ENCOUNTER 2025-08-12 11:42 | Outpatient (OUT) | payer OTHER, SELFPAY ==
--- OUTSIDE RECORDS SUMMARY | 2025-08-12 11:46 | XMS_ITS | Encounter Summary ---
Author Organization [facility] Address [address] [facility] [place] [address] Care Team Providers Care Paper And Pulp Mill Worker Name Role Phone Unavailable Primary Care Provider Unavailabl e Encounter Details Date Type Department Care Team (Late Contact Info) Description 04/23/2023 Abstract NOMJayna BEYER [address] [facility] [place] [address] Raquel Narvaez PA [address] [facility] [place] [address] Social History Tobacco Use Types Packs/Day [...] Office Visit [facility] Siomara BEYER [address] [facility] [place] [address] No Mclaughlin, GURPREET [address] [facility] [place] [address] documented as of this encounter Visit Diagnoses Not on filedocumented in this encounter
--- OUTSIDE RECORDS SUMMARY | 2025-08-12 11:46 | XMS_ITS | Clinical Summary ---
Author Organization [facility] Address [address] [place] [address] Care Team Providers Care Cnc Wood Lathe Operator Name Role Phone Unavailable Primary Care Provider Unavailabl e Allergies Active Allergy Reactions Criticality Noted Date Comments Citalopram Unknown 09/03/2019 Lurasidone Unknown 09/03/2019 Other 10/19/2020 Other Reaction(s): Suicidal Quetiapine 10/08/2023 Medications clonazePAM (KlonoPIN) 1 MG tablet Take 1 mg by mouth in the morning. Active escitalopram (Lexapro) 20 MG tablet Take 20 mg by mouth in the morning. 3 Active ziprasidone (Geodon) 60 MG capsule TAKE 1 CAPSULE BY MOUTH TWICE DAILY WITH FOOD 3 Active benztropine (Cogentin) 1 MG tablet Take 1 mg by mouth at bedtime. 3 Active buPROPion XL (Wellbutrin XL) 300 MG 24 hr tablet Take 300 mg by mouth Daily Do not crush, chew, or split. Active spironolactone (Aldactone) 25 MG tabletIndicatio ns:PCOS (polycystic ovarian syndrome) Take 2 tablets (50 mg) by mouth Daily 60 tablet 11 4 02/12/20 24 Discontinue d(Other) metroNIDAZOLE (Flagyl) 500 MG tabletIndicatio ns:BV (bacterial vaginosis) Take 1 tablet (500 mg) by mouth in the morning and 1 tablet (500 mg) before bedtime. Do all this for 7 days. Do not drink alcohol while taking this medication. 14 tablet 5 08/09/20 25 Active Problems Problem Noted Date Diagnosed Date Request for sterilization 06/27/2025 Bipolar disorder with depression 07/17/2023 Hormone imbalance 07/17/2023 Obesity 07/17/2023 Pelvic pain 07/17/2023 Polycystic ovaries 07/17/2023 Anxiety 07/17/2023 Abnormal uterine bleeding 07/17/2023 Encounters Date Type Department Care Team Description 08/11/2025 Abstract [facility] Siomara BEYER [address] [place] [id number] Buzz Deng, 08/03/2025 [place] [phone] Dorothea Bearden LPN 08/02/2025 [place] [address] Dorina Jones MA 07/25/2025 3:30 PM EDT [place] [address] Buzz Deng DO Well woman exam with routine gynecological exam; Pre-op examination; Request for sterilization 07/25/2025 Clinisync Result Encounter NOMS External Department Unsolicited Buzz Deng, 06/27/2025 3:10 PM EDT Office Visit NOMJayna BEYER [address] [place] [id number] Buzz Deng DO Request for sterilization 06/27/2025 Bamboo flowsheet NOMS Siomara BEYER [address] [place] [address] Buzz Deng, 06/27/2025 Travel from Last 3 Months Family [...] PM EDT Office Visit LELO BEYER [address] [facility] [place] [address] No Mclaughlin, GURPREET [address] [facility] [place] [address] Procedures Procedure Name Priority Date/Time Associated Diagnosis Comments IGP,APTIMA HPV,AGE GDLN Routine 07/25/2025 4:04 PM EDT PAP SMEAR Routine 07/25/2025 12:00 AM EDT from Last 3 Months Results * (ABNORMAL) IGP,APTIMA HPV,AGE GDLN (07/25/2025 4:04 PM EDT) AGE GDLN ACOG TESTING Note . [facility] Comment: TESTS RESULT FLAG UNITS REF RANGE LAB Clinician Provided Cytology Information Source.............Cervix;Endocervix No. of containers..01 ThinPrep Vial Age Annita MCCALLUM Kathy... 29 01 FLAG LEGEND: L-Low Normal,H-High Normal,LL-Alert Low,HH-Alert High <-Panic Low,>-Panic High,A-Abnormal,AA-Critical Abnormal Performed at: 01 =G [facility] [address] [place] [address] Polina Dominguez MD, IGP, APTIMA HPV, RFX 16/18,45 Note . [facility] Comment: TESTS RESULT FLAG UNITS REF RANGE LAB DIAGNOSIS: 02 NEGATIVE FOR INTRAEPITHELIAL LESION OR MALIGNANCY. PREDOMINANCE OF COCCOBACILLI CONSISTENT WITH SHIFT IN VAGINAL TRANG IS PRESENT. Specimen adequacy: 02 Satisfactory for evaluation. No endocervical component is identified. Performed by: Evon Hollis, Fuel Buyer ([facility]) . 02 Note: Note 02 The Pap smear is a screening test designed to aid in the detection of premalignant and malignant conditions of the uterine cervix. It is not a diagnostic procedure and should not be used as the sole means of detecting cervical cancer. Both false-positive and false-negative reports do occur. Test Methodology: Note 02 This liquid based ThinPrep(R) pap test was screened with the use of an image guided system. HPV Genotype Reflex Note 02 Criteria met, see HPV Genotype results. FLAG LEGEND: L-Low Normal,H-High Normal,LL-Alert Low,HH-Alert High <-Panic Low,>-Panic High,A-Abnormal,AA-Critical Abnormal Performed at: [address] [address] Polina Dominguez MD, HPV APTIMA Positive(A) Negative TB Comment: This nucleic acid amplification test detects fourteen high- risk HPV types (16,18,31,33,35,39,45,51,52,56,58,59,66,68) without differentiation. HPV GENOTYPE 16 Negative Negative [facility] HPV GENOTYPE 18,45 Negative Negative [facility] Comment: Performed at: =[address] [id number] Cook Room Supervisor: Polina Dominguez MD, Phone: [phone] Performed at: [address] [id number] Cook Room Supervisor: Polina Dominguez MD, Phone: [phone] 07/25/2025 4:04 PM EDT 07/25/2025 8:56 PM EDT Narrative CLINISY[facility] - 07/29/2025 9:08 PM EDT BRUSH-SPATULA CERVIX ENDOCERVIX AudioCompasso DO LAB BLOOD ORDERABLES Final Resul t Performing Organization Address [facility] Co de Phone Number [facility] * Pap Smear (07/25/2025 12:00 AM EDT) Swab Cervical swab / Unknown Science Behind Sweatzio DO LAB CYTOLOGY ORDERABLES Final Re sult EXTERNAL LAB from Last 3 Months Insurance [place] [employer]
--- OUTSIDE RECORDS SUMMARY | 2025-08-12 11:46 | XMS_ITS | Encounter Summary ---
Author Organization [facility] Address [address] [facility] [place] [address] Care Team Providers Care Roving Hauler Name Role Phone Unavailable Primary Care Provider Unavailabl e Encounter Details Date Type Department Care Team (Late st Contact Info) Description 07/25/2025 Clinisync Result Encounter NOMS External Department Unsolicited Buzz Deng, DO [address] [facility] [place] [address] Social History Tobacco Use Types Packs/Day [...] 3:30 PM EDT Office Visit NOMS Siomara OBGYNayana [address] [facility] [address] No Mclaughlin, GURPREET [address] [facility] [place] [address] documented as of this encounter Procedures Procedure Name Priority Date/Time Associated Diagnosis Comments IGP,APTIMA HPV,AGE GDLN Routine 07/25/2025 4:04 PM EDT documented in this encounter Results * (ABNORMAL) IGP,APTIMA HPV,AGE GDLN (07/25/2025 4:04 PM EDT) AGE GDLN ACOG TESTING Note . [facility] Comment: TESTS RESULT FLAG UNITS REF RANGE LAB Clinician Provided Cytology Information Source.............Cervix;Endocervix No. of containers..01 ThinPrep Vial Age Demetriuso AC Kathy... FLAG LEGEND: L-Low Normal,H-High Normal,LL-Alert Low,HH-Alert High <-Panic Low,>-Panic High,A-Abnormal,AA-Critical Abnormal Performed at: 01 =G [address] [address] Polina Dominguez MD, IGP, APTIMA HPV, RFX 16/18,45 Note . [facility] Comment: TESTS RESULT FLAG UNITS REF RANGE LAB DIAGNOSIS: 02 NEGATIVE FOR INTRAEPITHELIAL LESION OR MALIGNANCY. PREDOMINANCE OF COCCOBACILLI CONSISTENT WITH SHIFT IN VAGINAL TRANG IS PRESENT. Specimen adequacy: 02 Satisfactory for evaluation. No endocervical component is identified. Performed by: 02 Sherice Fredeking, High School Director (ASCP) . 02 Note: Note 02 The Pap [...] High <-Panic Low,>-Panic High,A-Abnormal,AA-Critical Abnormal Performed at: [address] [place] [address], [place] [address] Polina Dominguez MD, HPV APTIMA Positive(A) Negative [facility] Comment: This nucleic acid amplification test detects fourteen high- risk HPV types (16,18,31,33,35,39,45,51,52,56,58,59,66,68) without differentiation. HPV GENOTYPE 16 Negative Negative [facility] HPV GENOTYPE 18,45 Negative Negative [facility] Comment: Performed at: =[address] [id number] Fishing Line Winding Machine Operator: Polina Dominguez MD, Phone: [phone] Performed at: [address] [id number] Fishing Line Winding Machine Operator: Polina Dominguez MD, Phone: [phone] 07/25/2025 4:04 PM EDT 07/25/2025 8:56 PM EDT Narrative CLINISYNC - 07/29/2025 9:08 PM EDT BRUSH-SPATULA CERVIX ENDOCERVIX us Buzz Platao DO LAB BLOOD ORDERABLES Final Resul t [facility] documented in this encounter Visit Diagnoses Not on filedocumented in this encounter
--- OUTSIDE RECORDS SUMMARY | 2025-08-12 11:46 | XMS_ITS | Encounter Summary ---
Author Organization [facility] Address [address] [facility] [place] [address] Care Team Providers Care Salesperson New Cars Name Role Phone Unavailable Primary Care Provider Unavailabl e Encounter Details Date Type Department Care Team (Late st Contact Info) Description 05/13/2024 Abstract LELO BEYER [address] [place] [address] Zaria Lakhani LPN Social History Tobacco [...] Office Visit LELO BEYER [address] [place] [address] No Mclaughlin NP [address] [place] [address] documented as of this encounter Visit Diagnoses Not on filedocumented in this encounter
--- OUTSIDE RECORDS SUMMARY | 2025-08-12 11:46 | XMS_ITS | Encounter Summary ---
Author Organization [facility] Address [address] [facility] [place] [address] Care Team Providers Care Nail Making Machine Tender Name Role Phone Unavailable Primary Care Provider Unavailabl e Encounter Details Date Type Department Care Team (Late st Contact Info) Description 08/02/2025 Telephone NOMS Siomara BEYER [address] [place] [address] [place] [address] Dorina Jones MA Social History Tobacco Use Types Packs/Day Years [...] AM EDT documented as of this encounter Miscellaneous Notes * Telephone Encounter - Dorina Jones MA - 08/02/2025 9:57 AM EDT Discussed results of pap both HPV+ and Infection noted. PVU and med sent to pharmacy documented in this encounter Plan of Treatment Upcoming Encounters Date Type Department Care Team (Late Contact Info) Description 08/25/2025 3:30 PM EDT Office Visit [facility] Siomara BEYER [address] [place] [address] [place] [address] No Mclaughlin, GURPREET [address] [facility] [place] [address] documented as of this encounter Visit Diagnoses Diagnosis BV (bacterial vaginosis) Unspecified vaginitis and vulvovaginitis documented in this encounter
--- OUTSIDE RECORDS SUMMARY | 2025-08-12 11:46 | XMS_ITS | Encounter Summary ---
Author Organization [facility] Address [address] [facility] [place] [address] Care Team Providers Care Mill Worker Name Role Phone Unavailable Primary Care Provider Unavailabl e Encounter Details Date Type Department Care Team (Late Contact Info) Description 08/03/2025 Orders Only NOMS Siomara BEYER [address] [facility] [place] [address] Dorothea Bearden LPN [address] [place] [address] Social History Tobacco Use Types Packs/Day [...] EDT Office Visit [facility] Siomara BEYER [address] [facility] [place] [address] No Mclaughlin NP [address] [facility] [place] [address] documented as of this encounter Procedures Procedure Name Priority Date/Time Associated Diagnosis Comments PAP SMEAR Routine 07/25/2025 12:00 AM EDT documented in this encounter Results * Pap Smear (07/25/2025 12:00 AM EDT) Swab Cervical swab / Unknown us Buzz Deng DO LAB CYTOLOGY ORDERABLES Final Re sult EXTERNAL LAB documented in this encounter Visit Diagnoses Not on filedocumented in this encounter
--- OUTSIDE RECORDS SUMMARY | 2025-08-12 11:46 | XMS_ITS | Encounter Summary ---
Author Organization [facility] Address [address] [facility] [place] [address] Care Team Providers Care Ramp Lead Name Role Phone Unavailable Primary Care Provider Unavailabl e Encounter Details Date Type Department Care Team (Late st Contact Info) Description 08/11/2025 Abstract NOMJayna BEYER [address] [place] [address] Buzz Deng DO [address] [facility] [place] [address] Social History Tobacco Use Types Packs/Day [...] EDT Office Visit NOM[facility] Siomara BEYER [address] [place] [address] No Mclaughlin NP [address] [place] [address] documented as of this encounter Visit Diagnoses Not on filedocumented in this encounter
--- OUTSIDE RECORDS SUMMARY | 2025-08-12 11:47 | XMS_ITS | Encounter Summary ---
Author Organization [facility] Address [address] [facility] [place] [address] Care Team Providers Care Newspaper Inserter Name Role Phone Unavailable Primary Care Provider Unavailabl e Encounter Details Date Type Department Care Team (Late st Contact Info) Description 03/03/2024 Abstract NOMJayna BEYER [address] [place] [address] Parvin Land LPN [address] [facility] [place] [address] Social History Tobacco Use Types Packs/Day [...] EDT Office Visit [facility] Siomara BEYER [address] [place] [place] [address] No Mclaughlin, GURPREET 102 [facility] [place] [address] documented as of this encounter Visit Diagnoses Not on filedocumented in this encounter
--- OUTSIDE RECORDS SUMMARY | 2025-08-12 11:47 | XMS_ITS | Clinical Summary ---
Author Organization [employer] Address [id number] [address] [place] [address] Care Team Providers Care Utility Worker Film Processing Name Role Phone Natividad Kessler LINUX CONSULTANT-SEVERITY OF ILLNESS COORDINATOR Primary Care Pro vider Allergies Active Allergy [...] file Insurance [employer] Care Teams Utility Worker Film Processing Relationship Specialty Start Date End Date Natividad Kessler APRN-HERI PCP - General 09/03/19
== END 2025-08-12 11:43 | disposition home or self-care (01) ==
LOC: PST 11:42
PROVIDERS: Visit Provider Obstetrics & Gynecology
DX: Z01.818 Encounter for other preprocedural examination (principal)

== ENCOUNTER 2025-08-19 07:26 | Day surgery (SDC) | payer OTHER, SELFPAY ==
[2025-08-19] VITALS (11 sets, daily range): BP systolic 102–135; BP diastolic 57–85; PULSE 70–102; TEMP 36.1–36.4; O2SAT 92–97; BMI 30.1
--- OUTSIDE RECORDS SUMMARY | 2025-08-19 07:30 | XMS_ITS | Encounter Summary ---
Author Organization [facility] Address [address] [facility] [place] [address] Care Team Providers Care Educational Coordinator Name Role Phone Unavailable Primary Care Provider Unavailabl e Encounter Details Date Type Department Care Team (Late Contact Info) Description 08/03/2025 Orders Only [facility] Siomara BEYER [address] [facility] [place] [address] Dorothea Bearden LPN [address] [place] [address] Social History Tobacco Use Types [...] [address] [facility] [place] [address] No Mclaughlin NP [address] [facility] [place] [address] documented as of this encounter Procedures [...]
--- OUTSIDE RECORDS SUMMARY | 2025-08-19 07:31 | XMS_ITS | Encounter Summary ---
Author Organization [facility] Address [address] [facility] [place] [address] Care Team Providers Care Lift Truck Operator Name Role Phone Unavailable Primary Care Provider Unavailabl e Encounter Details Date Type Department Care Team (Late st Contact Info) Description 03/03/2024 Abstract NOMJayna BEYER [address] [place] [address] Parvin Land LPN [address] [facility] [place] [address] Social History Tobacco Use Types Packs/Day [...] EDT Office Visit NOMS Siomara BEYER [address] [employer] [place] [address] No Mclaughlin, GURPREET [address] [facility] [place] [address] documented as of this encounter Visit Diagnoses Not on filedocumented in this encounter
--- OUTSIDE RECORDS SUMMARY | 2025-08-19 07:31 | XMS_ITS | CCD ---
Author Organization [facility] Care Team Providers Care Manager Drug Safety Name Role Phone Natividad Kessler Primary Care Provider Ashley Judy Sim Attending Provider Unavailable Chuy Meeks Admit Provider Unavailabl e Chuy Meeks Attending Provider Unavail able Navin Hinson Attending Provider Unavailable PIPPA BE Attending Unavailable ISH, DR MINOR Attending Unavailable MISC, DR PANTOJA Primary Care Unavailable ISH, DR MINOR Admitting Unavailable ISH, DR MINOR Consulting Unavailable MISC, DR PANTOJA Primary Care Unavailable ISH, DR MINOR Admitting Unavailable ISH, DR MINOR Attending Unavailable Paramjit Jaimes Unavailable Vanessa Sinclair Unavailable BRIDGET Kessler Primary Care Provide r BRIDGET Montoya Emergency Provider [phone] TRISHA ABBOTT Attending Unavailable TRISHA ABBOTT Referring [...] Attending Pr ovider Zakiya Gunn Attending U conchita Ortizson, Zakiya Cervantes Primary Care U navailable Gunn, Zakiya Cervantes Admitting U navailable Luis A BENDING SHED WORKER - FINANCIAL ADMINISTRATOR, Zakiya Primary Care Prov ider None, None Primary Care Provider UnavailALYCIA Alejandro L Referring Unavailable GUNN, ZAKIYA Primary Care Unavailable ABBOTTTRISHA Attending Unavailable ABBOTTTRISHA Admitting Unavailable GUNN, ZAKIYA Primary Care Unavailable ABBOTT, TRISHA R Admitting Unavailable ABBOTTTRISHA R Attending Unavailable GUNN, ZAKIYA Primary Care Unavailable ABBOTT, TRISHA R Referring Unavailable GUNN, ZAKIYA Primary Care Unavailable ABBOTT, TRISHA Monson Referring Unavailable GUNN, ZAKIYA Primary Care Unavailable ABBOTT, TRISHA Monson Referring Unavailable GUNN, ZAKIYA Primary Care Unavailable ABBOTTTRISHA R Referring Unavailable GUNN, ZAKIYA Primary Care Unavailable Unavailable Primary Care Provider UnavailBUZZ Alfredo Attending Unavailable BUZZ DENG Attending Unavailable Bel Coelho Attending Bel Zaldivar Admitting Unavai labazalia Provider, None Primary Care Unavailable Gunn, Zakiya Primary Care Unavailable AYLCIA WANG Attending Unavailable ALYCIA WANG Admitting Unavailable GENEVIEVE Medina Attending Unavailable GENEVIEVE Medina Admitting Unavailable Provider, None Primary Care Unavailable Mariella Clinton PA-C Attending Unavailable Mariella Clinton PA-C Admitting Unavailable Gunn, Zakiya Primary Care Unavailable Bel Coelho Attending Bel Zaldivar Admitting Unavai labazalia Provider, None Primary Care Unavailable Unavailable Unavailable Unavailable Allergies Allergy Classification Reported Allergen(s) Allergy Type Date of Onset Reaction(s) Facility (20 sources) Citalopram; Translations: [citalopram] Drug Allergy 9 Other (See Comments), Unknown [facility] (19 sources) lurasidone Drug Allergy 9 Other (See Comments), Unknown [facility] (3 sources) Citalopram; Translations: [CeleXA] Drug Allergy 7 [facility] (2 sources) lurasidone; Translations: [Latuda] Drug Allergy [facility] (7 sources) lurasidone Drug Allergy 2 Unknown [facility] (17 sources) QUEtiapine Drug Allergy 1 Other (See Comments) [facility] (1 source) Citalopram & Diet Manage Prod Allergy to substance 2 suicidal [facility] (5 sources) Other Allergy to substance 0 [facility] (1 source) QUEtiapine; Translations: [SEROquel] Drug Allergy [facility] Repository Medications Current Medications Medication Drug Class(es) Dates [...] 28, 2017 11:27am take 2 tablets by mo [facility] every eight hours busPIRone HCl 10 MG [...] 05/03/2021 Start: 11-25-2019 End: 11-29-2019 Paliperidone Palmitate (Invmoise Masenna) 156 mg/mL syringe Discontinued 156 MG IM [...] 2019 6:17pm escitalopram 10 mg oral tablet (20 sources) Serotonin Reuptake Inhibitor Start: 02-16-2025 take [...] Active 25 MG PO Three times daily 42 August 11, 2021 11:31am Start: 07-15-2021 End: [...] 2018 9:38am take 1 capsule by mo [facility] every eight hours hydrOXYzine Pamoate 25 MG [...] take 600 mg by mouth twice daily [place] Carbonate Discontinued 600 MG PO Twice daily 60 30 May 01, 2021 11:30am May 20, 2021 11:07am Start: 08-07-2018 End: 09-03-2019 take 600 mg by mouth once daily at bedtime [place] Carbonate Discontinued 600 MG PO Daily at bedtime 60 August 07, 2018 12:00am September 03, 2019 6:17pm Start: 08-07-2018 End: 09-03-2019 take 300 mg by mouth twice daily [place] Carbonate Discontinued 300 MG PO Twice Daily [...] oral tablet (1 source) Start: 02-17-2025 End: 03-20-2025 20 mEq, Oral, ONCE, 1 dose, On [...] Start: 04-05-2023 take 1 capsule by mo [facility] twice daily at mealtime ziprasidone (Geodon) 60 [...] gangrene] Onset: 5 02-23-2025 Episodic Anxiety disorders (17 sources) Anxiety; Translations: [Anxiety disorder, unspecified] Onset: [...] 5 02-23-2025 Episodic Contraceptive and procreative management (7 sources) Sterilization requested; Translations: [Encounter for sterilization] [...] syndrome] Onset: 4 Chronic Other endocrine disorders (5 sources) Polycystic ovary; Translations: [Polycystic ovarian syndrome] Onset: 3 07-17-2023 Chronic Other endocrine disorders (4 sources) Endocrine disorder, unspecified; Translations: [ENDOCRINE DISORDER UNSPECIFIED] Onset: 2 Episodic Other female genital disorders (5 sources) Abnormal uterine bleeding; Translations: [Abnormal uterine [...] Chronic Other nutritional; endocrine; and metabolic disorders (17 sources) Obesity; Translations: [Obesity, unspecified] Onset: 3 [...] Date Documented Da te Episodic/Chronic Abdominal pain (5 sources) Pain in pelvis; Translations: [Pelvic and perineal pain] Onset: 07-17-2023 07-17-2023 Episodic Diabetes mellitus without complication (16 sources) Prediabetes; Translations: [Prediabetes] Onset: 06-30-2024 11-26-2024 Episodic Genitourinary symptoms and ill-defined conditions (9 sources) Blood in urine; Translations: [Hematuria, unspecified] Onset: 05-09-2021 Resolved: 05-10-2021 05-10-2021 Episodic Other endocrine disorders (5 sources) Disorder of endocrine system; Translations: [Endocrine [...] Test Name Value Interpretation Reference Range Facility .Auto Diff 08-17-2025 Auto [place] % 6 % Normal 12-12 [facility] Comment on above: Performed By: #### 2 389074, 3702511, 32413776, 5871333, 7959735151, 5025947, 27677783, 2886394496, 9569284699, 7093154, 9286748, 4894403 #### [facility] (DEFAULT) [address] [place] [address] 16137 Baso Abs# 0.0 x10 Normal 0.0-0.2 [facility] Comment on above: Performed By: #### 2 713718, 4473685, 94938159, 8739906, 8395528234, 8994691, 84457461, 3404790023, 2127596242, 9952135, 2544846, 2545825 #### [facility] (DEFAULT) [address] [place] [address] 85663 Basophils/100 WBC (Bld) 0.7 % Normal 0.2-2.0 [facility] Comment on above: Performed By: #### 2 108745, 7501870, 48121310, 5334357, 3788603742, 4835772, 85326944, 2870312393, 1820968594, 3768953, 5542373, 0715980 #### [facility] (DEFAULT) [address] [place] [address] Eos Abs# 0.1 x10 Normal 0.0-0.4 [facility] Comment on above: Performed By: #### 2 600667, 9618470, 88952916, 8458519, 5195680663, 3875678, 68850977, 7820491379, 8589258640, 9487518, 2301766, 8352535 #### [facility] (DEFAULT) [address] [place] [address] 28069 Eosinophils/100 WBC (Bld) 0.9 % Normal 0.9-4.0 [facility] Comment on above: Performed By: #### 2 843851, 7802309, 89119953, 4568499, 2743310715, 8580372, 53005524, 7994723661, 9209955897, 0530674, 8687819, 8595790 #### [facility] (DEFAULT) [address] [place] [address] 42997 Lymph Abs# 1.7 x10 Normal 1.3-2.9 [facility] Comment on above: Performed By: #### 2 377743, 1072968, 67402044, 9895543, 6606148589, 9000880, 72279089, 6539654864, 7437894454, 2279926, 9688377, 1769229 #### [facility] (DEFAULT) [address] [place] [address] 43072 Lymphocytes/100 WBC (Bld) 26 % Normal 14-48 [facility] Comment on above: Performed By: #### 2 665431, 2055545, 86347225, 3113909, 6127524372, 8254541, 58760446, 8840244035, 7638863829, 3473539, 7999658, 4840881 #### [facility] (DEFAULT) [address] [place] [address] 25380 [place] Abs# 0.4 x10 Normal 0.0-0.8 [facility] Comment on above: Performed By: #### 2 283644, 0253851, 05354600, 2083570, 4006971433, 7241256, 77373980, 1446041089, 3336730687, 7548593, 5228845, 3855624 #### [facility] (DEFAULT) [address] [place] [address] 93834 Neut Abs# 4.4 x10 Normal 1.5-9.2 [facility] Comment on above: Performed By: #### 2 238402, 5999913, 01330667, 5806930, 0627355386, 6814974, 64753070, 6968770780, 6978772334, 4741459, 6480172, 7525429 #### [facility] (DEFAULT) [address] [place] [address] 88790 Neutrophils/100 WBC (Bld) 66 % Normal 44-88 [facility] Comment on above: Performed By: #### 2 810694, 9415601, 60477490, 9206184, 2975378182, 4087760, 66167163, 0069621919, 7946664231, 6320396, 5721610, 7424269 #### [facility] (DEFAULT) [address] [place] [address] CBC w/ Auto Diffon 5 Erythrocyte distribution width (RBC) [Ratio] 13.8 % Normal 11.5-15.0 [facility] Comment on above: Performed By: #### 2 931801, 2792231, 04352521, 1193140, 0004691734, 6585184, 09699124, 9189684365, 3478867020, 7569070, 0908489, 3488199 #### [facility] (DEFAULT) [address] [place] [address] Hematocrit (Bld) [Volume fraction] 40.4 % Normal 33.7-40.4 [facility] Comment on above: Performed By: #### 2 356150, 4827507, 93530246, 8379877, 3396695620, 5538497, 82670385, 5170061958, 1671864005, 7696709, 2138036, 7564630 #### [facility] (DEFAULT) [address] [place] [address] 94261 Hemoglobin (Bld) [Mass/Vol] 14.0 g/dL Normal 11.3-15.9 [facility] Comment on above: Performed By: #### 2 283922, 7610020, 76822329, 9551484, 2142548681, 6450855, 09555193, 4756431346, 6386612320, 6545984, 7993072, 2474647 #### [facility] (DEFAULT) [address] [place] [address] Man Diff? Auto Invalid Interpretation Code [facility] Comment on above: Performed By: #### 2 143571, 8412078, 68788742, 3923880, 0940366338, 2904935, 77315967, 2612888272, 0148192254, 9517917, 7243849, 8414690 #### [facility] (DEFAULT) [address] [place] [address] 82603 MCH (RBC) [Entitic mass] 30 pg Normal 24-34 [facility] Comment on above: Performed By: #### 2 779110, 8081865, 05024660, 7299081, 8104535152, 3249509, 20174820, 6500312835, 5202961548, 4094663, 1788937, 0814020 #### [facility] (DEFAULT) [address] [place] [address] 11935 MCHC (RBC) [Mass/Vol] 35 g/dL Normal 26-37 [facility] Comment on above: Performed By: #### 2 407708, 1467272, 84266194, 1180399, 2643564120, 6252115, 74632670, 8003555406, 8138431095, 6653867, 8981478, 0996544 #### [facility] (DEFAULT) [address] [place] [address] 10476 MCV (RBC) [Entitic vol] 87 fL Normal 81-100 [facility] Comment on above: Performed By: #### 2 911475, 9165653, 78030362, 4496634, 6085613107, 8817946, 78549680, 2571528724, 4339557123, 6422234, 8163754, 7495293 #### [facility] (DEFAULT) [address] [place] [address] Platelet 269 x10 Normal 138-427 [facility] Comment on above: Performed By: #### 2 342201, 1979381, 18469984, 4529412, 4466040854, 1434193, 25854053, 1101922104, 4169104475, 8912382, 5750107, 8746955 #### [facility] (DEFAULT) [address] [place] [address] 83460 Platelet mean volume (Bld) [Entitic vol] 7.7 fL Normal 6.3-10.2 [facility] Comment on above: Performed By: #### 2 381681, 8732515, 82756947, 3924507, 4376942222, 9641039, 84334807, 6172636192, 6907388814, 2537717, 9942221, 9821641 #### [facility] (DEFAULT) [address] [place] [address] 40596 RBC 4.67 x10 Normal 3.70-5.30 [facility] Comment on above: Performed By: #### 2 101536, 4066759, 40818010, 1250383, 5536838907, 1671187, 70607429, 5489725155, 3348433804, 6274450, 5953586, 4940905 #### [facility] (DEFAULT) [address] [place] [address] 93751 WBC 6.6 x10 Normal 3.5-10.5 [facility] Comment on above: Performed By: #### 2 006621, 5920145, 48049380, 2011393, 7021170931, 6061522, 10132510, 3293070546, 9820935252, 3482218, 2813071, 8024490 #### [facility] (DEFAULT) [address] [place] [address] Standard 08-17-2025 eGFR Non AA >60 Invalid Interpretation Code [facility] Comment on above: Performed By: #### 2 683671, 1020200, 47748958, 4918314, 4722898159, 1763829, 91382605, 6049101363, 1286312662, 1027992, 4201400, 9006060 ####[facility] (DEFAULT)[address] [place] [address] 88529 eGFR AA >60 Invalid Interpretation Code [facility] Comment on above: Performed By: #### 2 555752, 6553108, 08982930, 6634912, 3809611290, 9728413, 72526544, 7957602832, 8314370172, 9587291, 7249104, 6777870 ####[facility] (DEFAULT)[address] [place] [address] 16716 Albumin [Mass/Vol] 3.7 g/dL Normal 3.5-5.0 [facility] Comment on above: Performed By: #### 2 217409, 5114321, 72495163, 9502817, 3887620509, 9806787, 02125352, 5496647830, 1312372576, 6148876, 1837908, 6366729 ####[facility] (DEFAULT)[address] [place] [address] 65237 Alk Phos 73 IU/L Normal 32-91 [facility] Comment on above: Performed By: #### 2 899987, 3080273, 85891306, 3483856, 0541886408, 0514605, 95525272, 7028618270, 3362456011, 3567129, 8866132, 7853405 ####[facility] (DEFAULT)[address] [place] [address] ALT [Catalytic activity/Vol] 17.0 U/L Normal 14.0-54.0 [facility] Comment on above: Performed By: #### 2 658819, 8221640, 37967246, 6066922, 6270050457, 7690805, 51112227, 9373324885, 2836883169, 9897482, 6534018, 4925773 ####[facility] (DEFAULT)[address] [place] [address] AST [Catalytic activity/Vol] 21 U/L Normal 15-41 [facility] Comment on above: Performed By: #### 2 666969, 2392319, 46664515, 9075315, 4804229759, 5545749, 53711917, 4512211417, 5269374326, 5386537, 4671241, 4471930 ####[facility] (DEFAULT)[address] [place] [address] Bili Total 0.4 mg/dL Normal 0.3-1.2 [facility] Comment on above: Performed By: #### 2 195094, 0163474, 54897132, 2395287, 8948485994, 9106313, 78292730, 2009521382, 3162353237, 3134486, 9550700, 7513548 ####[facility] (DEFAULT)[address] [place] [address] [place] [address] Calcium [Mass/Vol] 8.9 mg/dL Normal 8.9-10.3 [facility] Comment on above: Performed By: #### 2 380300, 4799354, 30204888, 9849213, 0031620144, 0334526, 90088377, 8011441422, 1529921102, 7982832, 1278391, 7475578 ####[facility] (DEFAULT)[address] [place] [address] 29607 Chloride [Moles/Vol] 102 mmol/L Normal 101-111 [facility] Comment on above: Performed By: #### 2 594416, 2091375, 40316008, 9112910, 2803324358, 9072269, 97321831, 0724574106, 4179896574, 5788253, 9196834, 6080103 ####[facility] (DEFAULT)[address] [place] [address] 96369 CO2 [Moles/Vol] 26 mmol/L Normal 21-32 [facility] Comment on above: Performed By: #### 2 379870, 8758623, 13224242, 2543452, 3719011164, 0534192, 98542651, 1993978340, 5069835169, 9124090, 0323281, 9071761 ####[facility] (DEFAULT)[address] [place] [address] 82708 Creatinine [Mass/Vol] 0.82 mg/dL Normal 0.60-1.30 [facility] Comment on above: Performed By: #### 2 649608, 8241626, 47254627, 4135436, 5851594187, 3386000, 29039325, 2606262193, 1268666696, 6414957, 2086012, 0281366 ####[facility] (DEFAULT)[address] [place] [address] 61790 Glucose [Mass/Vol] 101.0 mg/dL Normal 74.0-118.0 [facility] Comment on above: Performed By: #### 2 337335, 5285138, 53402510, 8132707, 4774043252, 6578879, 00861864, 1965302548, 8076017926, 8140218, 2284596, 2319037 ####[facility] (DEFAULT)[address] [place] [address] 33206 Potassium [Moles/Vol] 3.6 mmol/L Normal 3.6-5.1 [facility] Comment on above: Performed By: #### 2 994786, 0989149, 94528828, 6252258, 8553931358, 7338918, 76060115, 1451811491, 2972151354, 6521606, 1500043, 2717582 ####[facility] (DEFAULT)[address] [place] [address] 75410 Protein [Mass/Vol] 6.9 g/dL Normal 6.5-8.1 [facility] Comment on above: Performed By: #### 2 075217, 5713646, 93078552, 9828313, 4761003502, 7153300, 00291081, 9303143143, 0304059984, 8241772, 6085830, 7869281 ####[facility] (DEFAULT)[address] [place] [address] 06844 Sodium [Moles/Vol] 137.0 mmol/L Normal 136.0-144 . 0 [facility] Comment on above: Performed By: #### 2 831724, 8433644, 35808364, 4826948, 7832971906, 3327330, 28986324, 6349245024, 4600787249, 5090817, 1859209, 7881681 ####[facility] (DEFAULT)[address] [place] [address] 30897 Urea nitrogen [Mass/Vol] 22 mg/dL Normal 8-26 [facility] Comment on above: Performed By: #### 2 327363, 0559963, 48540770, 1868242, 5137848226, 9873206, 51785720, 6505317133, 9197307644, 3673634, 7309092, 8600380 ####[facility] (DEFAULT)[address] [place] [address] Albumin/Globulin [Mass ratio] 1.1 {ratio} Low 1.4-2.6 [facility] Comment on above: Performed By: #### 2 572970, 5461317, 37333479, 1193255, 6120416344, 8986048, 84387467, 3396172292, 2966417402, 9844408, 9981857, 1312215 ####[facility] (DEFAULT)[address] [place] [address] Anion gap [Moles/Vol] 12.6 mmol/L Normal 5.0-19.0 [facility] Comment on above: Performed By: #### 2 707706, 6547062, 03620872, 6277235, 9156983479, 5665683, 27262601, 1213332379, 1168330557, 6690858, 5373786, 6410262 ####[facility] (DEFAULT)[address] [place] [address] 18117 Globulin (S) [Mass/Vol] 3.2 g/dL Normal 1.5-4.3 [facility] Comment on above: Performed By: #### 2 479495, 0870890, 07573908, 2209624, 2186987962, 4834546, 10274341, 5071354969, 6218432086, 4861624, 1161094, 8086929 ####[facility] (DEFAULT)[address] [place] [address] Osmolality 277 mOsm/L Invalid Interpretation Code [facility] Comment on above: Performed By: #### 2 873665, 8645770, 37748663, 7113527, 8291040948, 5047390, 94393059, 9422523932, 8443020173, 6192751, 1949261, 5849437 ####[facility] (DEFAULT)[address] [place] [address] Urea nitrogen/Creatinine [Mass ratio] 26.8 mg/mg High 4.6-16.2 [facility] Comment on above: Performed By: #### 2 356028, 1152522, 88544974, 5744430, 3114133403, 8032841, 59325821, 4958061234, 4034955771, 4897468, 7360290, 0353137 ####[facility] (DEFAULT)[address] [place] [address] Ferritinon 08-17-2025 Ferritin [Mass/Vol] 43.7 ng/mL Normal 12.0-150.0 [facility] Comment on above: Performed By: #### 2 852902, 0100951, 51159978, 9746486, 3019182741, 2571034, 66785117, 0639355603, 2335568569, 8968910, 7591269, 0235177 ####[facility] (DEFAULT)[address] [place] [address] Folateon 08-17-2025 Folic Acid Level >24.80 Normal 5.90-24.80 [facility] Comment on above: Performed By: #### 2 166985, 2658823, 58678683, 1097838, 8626854472, 5955822, 02949870, 8561279312, 7566749028, 8047954, 6024542, 9433383 ####[facility] (DEFAULT)[address] [place] [address] Free T4on 08-17-2025 Free T4 [Mass/Vol] 0.84 ng/dL Normal 0.61-1.12 [facility] Comment on above: Result Comment: Spec imens that contain high levels of Biotin may cause false high results Performed By: #### 2 164682, 4733593, 84641194, 9561689, 7862213028, 8294116, 03619418, 6072949703, 9213590159, 4986838, 3295729, 1434290 ####[facility] (DEFAULT)[address] [place] [address] HgbA1c Standardon 08-17-2025 .Hb 15.5 Invalid Interpretation Code [facility] Comment on above: Performed By: #### 2 096637, 3828924, 26718887, 5602592, 3366158551, 1853703, 24413301, 3201796662, 0581852578, 6179524, 5272816, 6397764 ####[facility] (DEFAULT)[address] [place] [address] .Hgb A1c 0.56 g/dL Invalid Interpretation Code [facility] Comment on above: Performed By: #### 2 277690, 8424258, 49244898, 5221885, 4481834746, 4197883, 50902457, 2507514090, 8078344137, 7839167, 6488607, 6906275 ####[facility] (DEFAULT)[address] [place] [address] Glucose [Mass/Vol] 108 mg/dL Invalid Interpretation Code [facility] Comment on above: Performed By: #### 2 669902, 5653884, 97448631, 5704586, 5972535439, 2300215, 61527801, 7205428096, 8427548653, 0390794, 1992443, 2495082 ####[facility] (DEFAULT)[address] [place] [address] HbA1c (Bld) [Mass fraction] 5.4 % Normal 4.6-6.2 [facility] Comment on above: Performed By: #### 2 539227, 7127651, 75855766, 2667856, 9760664360, 8560703, 31341848, 1708677399, 3049153333, 7272237, 4633157, 3041992 ####[facility] (DEFAULT)[address] [place] [address] Iron Profileon 08-17-2025 Iron [Mass/Vol] 74.0 ug/dL Normal 28.0-170.0 [facility] Comment on above: Performed By: #### 2 034434, 4913357, 84725796, 6803910, 4545882568, 1977343, 39799484, 3127348491, 0518638300, 0950462, 6230951, 3092353 ####[facility] (DEFAULT)[address] [place] [address] Transferrin [Mass/Vol] 196.3 mg/dL Normal 192.0 -382. 0 [facility] Comment on above: Performed By: #### 2 227448, 9800949, 64468597, 0222189, 2287809605, 0670391, 13369367, 1779027535, 3577558689, 2528310, 0694135, 5760726 ####[facility] (DEFAULT)[address] [place] [address] Iron Sat 27 % Normal 20-55 [facility] Comment on above: Performed By: #### 2 834916, 9490361, 53207018, 2966145, 5378012510, 2021382, 88065264, 0469113062, 7697098116, 5988410, 6158655, 2446628 ####[facility] (DEFAULT)[address] [place] [address] 02436 TIBC 275 mcg/dL Normal 250-400 [facility] Comment on above: Performed By: #### 2 679505, 2055187, 15292165, 9205209, 7839921972, 4672193, 01474975, 3316476831, 8131971511, 9447238, 3805104, 2611270 ####[facility] (DEFAULT)[address] [place] [address] Lipid Panel Standardon 08-17 Cholesterol [Mass/Vol] 141.0 mg/dL Normal 66.0-200.0 [facility] Comment on above: Performed By: #### 2 724195, 5477916, 19950192, 3230132, 2915601155, 4958619, 58189022, 8083337945, 7459661669, 9192214, 8875487, 3560152 ####[facility] (DEFAULT)[address] [place] [address] Cholesterol in HDL [Mass/Vol] 49 mg/dL Normal 40-71 [facility] Comment on above: Performed By: #### 2 [id number], [id number], [id number], 9582893, [id number], 3274680, 99150101, [id number], [id number], 2889327, 7355591, 3968698 ####[facility] (DEFAULT)[address] [place] [address] Triglyceride [Mass/Vol] 72.0 mg/dL Normal 0.0-150.0 [facility] Comment on above: Performed By: #### 2 [id number], 2744414, [id number], 3276794, [id number], 4522233, 81630441, [id number], [id number], 9526360, 6445926, 5244179 ####[facility] (DEFAULT)[address] [place] [address] Cholesterol in LDL [Mass/Vol] 78 mg/dL Normal 1-100 [facility] Comment on above: Performed By: #### 2 [id number], 3542203, 05824863, 3300116, [id number], 5963754, 34645038, [id number], [id number], 6842277, 3021941, 4736153 ####[facility] (DEFAULT)[address] [place] [address] Cholesterol.total/Mahsa sterol in HDL [Mass ratio] 2.8 {ratio} Normal 0.0-4.5 [facility] Comment on above: Performed By: #### 2 339977, 0327392, 86110034, 6369246, 6282561717, 0744102, 67578506, 7414046514, 7256344979, 0569560, 2783607, 2198966 ####[facility] (DEFAULT)[address] [place] [address] VLDL. 14 mg/dL Normal 5-40 [facility] Comment on above: Performed By: #### 2 259059, 1505477, 44784102, 1520635, 6833474605, 8660389, 82287049, 1309098599, 3224916094, 5822129, 7479753, 8734796 ####[facility] (DEFAULT)[address] [place] [address] Magnesiumon 08-17-2025 Magnesium [Mass/Vol] 1.95 mg/dL Normal 1.80-2.50 [facility] Comment on above: Performed By: #### 2 713714, 7875086, 90569418, 6251095, 9148640931, 9165761, 64686225, 9520352583, 9217120600, 5252818, 7010456, 5281723 ####[facility] (DEFAULT)[address] [place] [address] Miscellaneous Testing LCon 0 08-17-2025 Test Code LC 809778 Invalid Interpretation Code [facility] Comment on above: Performed By: #### 1 [id number] ####[facility] (DEFAULT)[address] [place] [address] Test Name LC VITAMIN D Invalid Interpretation Code [facility] Comment on above: Performed By: #### 1 [id number] ####[facility] (DEFAULT)[address] [place] [address] Provider Orderson 08-17-2025 Provider Orders [id number] TIFF Normal [facility] TSHon 08-17-2025 TSH Qn 2.73 m[IU]/L Normal 0.45-5.33 [facility] Comment on above: Result Comment: Gene ral Population (males and non- females, aged 21-88) 0.45 - 5.33 Females, 1st Trimester 0.05 - 3.70 Females, 2nd Trimester 0.31 - 4.35 Females, 3rd Trimester 0.41 - 5.18 Performed By: #### 2 714890, 5522005, 90485339, 9980575, 3124665132, 4066062, 42896021, 4967464687, 6427009350, 0291486, 4132006, 4719144 ####[facility] (DEFAULT)[address] [place], [place] [address] Vit B12 Lvlon 08-17-2025 Vit B12 556 Normal 180-914 [facility] Comment on above: Performed By: #### 2 188565, 7639534, 73563970, 1377408, 9884527437, 1549374, 70318603, 5725866577, 5638023202, 8296487, 5210421, 9400477 ####[facility] (DEFAULT)[address] [place] [address] IGP,APTIMA HPV,AGE GDLNon AGE GDLN ACOG TESTING Note . [facility] Comment on above: TESTS RESULT FLAG UN ITS REF RANGE LAB Clinician Provided Cytology Information Source.............Cervix;Endocervix No. of containers..01 ThinPrep Vial Age Algo ACOG Kathy... 30-65 01 FLAG LEGEND: L-Low Normal,H-High Normal,LL-Alert Low,HH-Alert High <-Panic Low,>-Panic High,A-Abnormal,AA-Critical Abnormal Performed at: 01 =G [facility] [address] Polina Dominguez MD, HPV APTIMA Positive Abnormal Negative [facility] Comment on above: This nucleic acid am plification test detects fourteen high- risk HPV types (16,18,31,33,35,39,45,51,52,56,58,59,66,68) without differentiation. HPV GENOTYPE 16 Negative Negative [facility] HPV GENOTYPE 18,45 Negative Negative [facility] Comment on above: Performed at: =G - L [facility] [address] [id number] Field Automobile Adjuster: Polina Dominguez MD, Phone: [phone] Performed at: WB - [facility] [id number] Field Automobile Adjuster: Polina Dominguez MD, Phone: [phone] IGP, APTIMA HPV, RFX 16/18,45 Note . [facility] Comment on above: TESTS RESULT FLAG UN ITS REF RANGE LAB DIAGNOSIS: 02 NEGATIVE FOR INTRAEPITHELIAL LESION OR MALIGNANCY. PREDOMINANCE OF COCCOBACILLI CONSISTENT WITH SHIFT IN VAGINAL TRANG IS PRESENT. Specimen adequacy: 02 Satisfactory for evaluation. No endocervical component is identified. Performed by: Evon Hollis, Hearing And Speech Assistant ([facility] . 02 Note: Note 02 The Pap [...] High <-Panic Low,>-Panic High,A-Abnormal,AA-Critical Abnormal Performed at: [address] [place] [id number] Polina Dominguez MD, Interpretation and review of laboratory results Abnormal [facility]IX [facility]ERVIX [facility] Vitamin A, Serum LCon 2024 Vitamin A, Serum LC 44.9 ug/dL Invalid Interpretation Code 18.9-57.3 [facility] Comment on above: Result Comment: Refe rence intervals for vitamin [facility]. Individuals with vitamin A less than 20 ug/dL are considered vitamin A deficient and those with serum concentrations less than 10 ug/dL are considered severely deficient. This test was developed and its performance characteristics determined by [facility]. It has not been cleared or approved by the Food and Drug Administration. Performed At: [address] [id number] Vitor Padilla MD Ph:[phone] Performed By: #### 1 [id number], 6561399, 4294641794, 8469178246, 2262649097, 22511429, 8706813, 6004473, 3367460, 91778681, 72383877, 05052679, 4014708, 71943260, 3033354 ####[facility] (DEFAULT)[address] [place] [address] Coding Summaryon 05-20-2025 Coding Summary HTMLBase 64 YjfsobsuZWl0wUk+PGhlYWQ+ YN1XUAUpC50pnQBrzA4mH9QV TElOSywgQVBQTElOSyIgbmFt EP5edRLxSGYi IC8+MV8pYHNkRtxdxTWcp1C1 lTD6X27fej7fIAryuDV6TZHz JqFubthpc6gneMw6LDgaLuvg OyBt FRLapV11HJB4wQ37Hi03pIJc rRWds6lvuKp9AfFcWAJcOSQ2 mFzyKBeid1CcBZIdZ75voLVq c2U6 JTEgdYdbpBCgFyOdyTT8fA3p GFodmkghl0vekpfoFoq8ua25 dNSaw6B9uPV9T6RvnhG3SAYk bGQg GlebtTVVqJ9koarxe4woajxo WjNzENPtCKq9SAh0ADCzeYlp UtNmBQ09TLF0EVUfuxTtR6Xk LWFs sFexNwV2y4T8Vy5PF6PKGuix Z0GMVSISVHmtmHD+VS95fv25 J7MbVltgRrl5GLHaWVF2aSS4 aD0n POQuJZyud1F7cMA8Y0JqonVq qy2kv1xjFMUpBEjgJ99jsBZg g7W9HLKroRU4TJYmfHkySyPy aG93 Oyc+JOJpuQijy9CzPfvzc0zp i2vyhZc8PqseEIInjbKtsMnr HEJ1a1DrQe1sSRWdmKL1vZM0 aD0i OuZaFrQ3YFjpG820GiTsfINi CnmmW14zG8HsoIQ+PHRyPjx0 QSMqbZzdVE5bU8FsDGFfpezx bGVm yMvoHU2sGBMyvqbyPLWpjP2h ORRaM0b0MzOxYiV3RCauB0Sz LQNollugXu43wJ2wJtYwKpQ2 MGlu U7OqsvJ5LAFogKKlQAdkZTH4 V07cl6T2GKTqGJGzQEK5gSH3 sK9rqYzabseglFEihIwmreYe dGlj VJvcEVxgK892SLFoiMeeElVa ZGluZyBEYXRlOiAgMDYvMjAv MjAyNTwvdGQ+BTUhODJ8bMny PSAn sRUkQYbjOm7jmEnexGygBF3x QMKolnxlYHCnsZ6rOGShsJVc oDokYB9mFOWfduxht108QxEr MHB0 MWRowGXyR5UnzV5vXrZtWXZg YXKzE3PriTHrOWdpK951NEtb LsW1EHClqiSnB6JiCDSewTmu OiB0 n2I4Mj4Pz3QgkjmsR7BbtTOu NlUuMwwrQPp2I1AhYggzzGM+ BV12GCIfXZ76IWc9YJN3bGoo PSdi BSDiR0SvbJ8bNkTpZITfWKFf Oyc+PHRhYmxlIHdpZHRoPScx RGUvPhTjfChiRK3kPh6rQFEh LWNv lSotlFXqJyXxd4ylZMSlGQmk TQ5fnEabF1SkyAZ6ZIYdu3s9 Lm85E43eK8DxnIE+PGNvbCB3 aWR0 dL8tEfZjBqA4DHlqM736ZiQc wSFhKreyn8dec4gkmQi9HxU0 FGNdtaRzvCrbLJU3c6GaEe28 Y29s IHdpZHRoPSIxNSUiIHZhbGln gf5okX6ySr8+VHCqxRB4yOF2 aZ6lVcLlIsW4HPeoV799UmAe cCIv Hunya2xkd4zxfAl2VdMcYIMj ogFheJgvIFK1b7BdXl50M2Kz oUvke3NpEwd5lw03kQLsb7Q4 bGU9 A5LuTFZmciksaRIjzSbhWO5k XBAnklmdLHRkbU1eAKGtB6w9 WjJrOgO8JEpeJ9AlusW9GAVa bGQg ZXSvgRFVyL7bnfyvy9dvlhmt HtUyOMTrWAe4DGo4ZDWtdBrs RhEhBSR5DbZ0BVL0aLAeoP4n bGln nwvqyA2aJti+BJG5lISpkEHF KG2sPndcaBN+ILVuYSB7fOdv FExhLSNxdM8kHMZjP7n3IwEf LjA1 VMexS1IdagC4QNQpjIKxJQRw oUUKsS3cjjwht9xgudiiAwPs CCBrRPh4XRb4EKSeaUqrHnGs ZWZ0 WbI8CFK6cAIhbZ4ghQarceja sF4cIgv+HgyodWnfHWI4TKr7 H6ZgMlv3JAGtsTbkSH6slVPr ZGlu Ag4rwPgezKpyJL4yDELwqerf y342IwGkv5njNDZvyGLhRBij YNS2H36lz9Q5JOMpWKAmLRG6 dGV4 iQ4wwRhnodiwgNKrtMqyczXp fUzhWJyqZZhiP283NKLilKfu TiKeWAq0E8DfGby6UTInmTmf ZT0n lUEwWXauNq7nvQihgCmdAK8a BBOrcthzc721IuYlp5xrNNBs iTVxXAgoSLG9L06bi0R7PUXk MDAw CTQ9sSD5pG4sbLovvmjvrSTq cXgarqBfqYohAXxtOKzlG716 LYViuNepJvRcoPn6Y5ZhIlf6 ZCBz uTauFW6jzMHlJUgaFy4stEfn oPqnJV0sGXZjawgzv914XcRj j3ejJUEwmTNhXBiwLFH1F25r b3I6 WCAnMJHfNTJ2mCU0iZ3hlYma bjogbGVmdDsgdmVydGljYWwt AMezP632BQOpmXvfAuUnbFro bnQg YHdlQTs6E1ZyNxhgiWF+PC90 FMHyGK93jVGsmQWty2mwrKl7 UnDjTMPkGPK9dDmiKOkmx4Ue ZXIt F52cnYOxg1G9ILNhqKqmyKUq MnPaxFW6yF9pGKlxxjkcu6nj nhktFmtuq2ywlu22jM70Y76z IHdp GKDiWQNiHGHbGXJxfBzsrh6z qH9yOd2+IOVwkYW7kJJ9tZ1d TEYiTmM9SDcvP508JvXnfXZi Pjxj a0wbt7rasRe1LwL3BWIrbgWi kYueNMR6z6AqTq59A28iQIie AWZdNFPzWUGwZJOokCakfg3w dG9w Ii8+USWkrVP4oKE8vY5aEhUa XpB7YMecJ788KcFewVJjBqfd P58eR0VoaSR+OFVsPpg9GMIw dHls TS8osHTtODhzGw9lDQI9UyQg IbYsXKgfE5AhPQBiisvyvvfj hYP0RGYeQCUepG95Xu3qcNti MTBw mTYIkY0pcypbu9mjdqhfOeFu XDWfHXd1WBn6VSJvyBmjJlFr ROV2VpS4WQY1aSCryL8hoKhr bjog xC8gY3SvITMyipmhRh41yO0z WbLnHkD5SMcoJlu+JE1LHV3R NetVOIILLAYVAHGMSU1KN70O RTwv dGQ+RMKkRLN1ySvbRQctSRLt dW2tCEAmG3m0UvKjOkI1JTpn M0KyAEQtrlqxQg63vG9dZjCq LjA1 MAhxQ5SjbvT9JPCqfDTqFGec ZQL2H26oj4G1FJXtUIRdOTD5 sCD5qU2diDqztgxooCYigAsp dmVy iAxcBJxwKOwaE251IQNgtBkv NqJ0GjM1TuB3QJM9G4EsXsx9 KWNdvUhvFA1jmGUlNBfbOe5h aWdo eAcpNM6dDSKrvdjdOPHwyE5d RXPojAMqyGzdBA2aPCDoykqu b779QcHqKQO1ERRxdUXnL0Ku bG9y SaCcCEUjSQHjD0AbsHGvVPhp H919IYecZxB9HKXqooVfS5Oo BEUxaHvnJfV2e8U5Qr7wXBZM ZWFy czwvdGQ+HOSgJJN2nHvwUSpi QEXdrK7zYZQvM0s6NfKpQtE5 THrbD8MmCHLdksvtNf68jI9l OiAw VfL2HWbeW0LusxO8GAJynYRz LWjqPXI4A12qd2G6ULYgILDv LVC8cIJ2bZ9auLwedxzshTWk dDsg cwQmpOriGWfhSIzwZ493ZOVy cDsnPkZFTUFMRTwvdGQ+PHRk WXU6nDysUGqeWHErbA5cNOHj Z2h0 SrLbIbP1DRlyX8IaJBOjnfwb Iw66fO1dPgMgJtV0CMriG9Hi nrD2UWRrdZZkKLsmCMF2Y45t b3I6 BDIfCYNlISY6vRF2vP4udTxz bjogbGVmdDsgdmVydGljYWwt AJxcE941LJVvwDpaMl7CRB07 ZD48 R2YfYcuxwEVccBP+PHRhYmxl IHdpZHRoPScxMDAlJyBzdHls BJ1cJk9eSPMuOTTcnNkxmIMs OiBj l6roXFJmJKotZX6vuJslI1Zn bGA7QCWeb6k9St37F79lG2Eh dXA+QWYfnLT0jJV9jM1uVdSy IiB2 SUjtJ087KoKtlABeSwodm4jn a5cwxIv9SxRhFBHcnsMncGge VFM0x3XtRg52X41yDQymFEKy PSIy UTNdGCFglJjvuj5tkP7hBc3+ MUOanKF2dCE5nR6rIiYrOpB9 UFauJ530IpQspPAoFltqR19r Z3Jv dXA+TOXaKta1PARroUdoSF6h uFEkASodXn6tSPN8MqLuTsRl ABklU8TsKVCdojpwdydgcQQ3 IDAu WFUbyB06Yf1lfUylSm2rOLOf LSS8VPZclIOyB6SjeG0dEsHr XHZcSCLaI7KugDIjZEauB295 IGxl TgT4VTQmbgSjM3GpHAIgxCkt RcO1i3Z6Bl0BoVsxuCZsTC4m AmDmAMs8U7KkQxm4AJEqlRig ZT0n qYLtLGspWi2vdFbcuTlcES2q BIUjafgub016MxYrs9ouDNOu qOCxNUgcTVT0S24ks1J3GKOc MDAw DKS9yOE3eB7dqAzwjcpekLKi kLetroRvdFiePTrxIBtiX512 VYDnjZylHtFCFzo2O7ZoHjx6 ZCBz aOhzQS0loKXpBWbyTc9vbWro lNkvFA9iRUFtwuury770KsTp p6diMUCulUNjSMniQLH0W08c b3I6 DIGfRKLaTNT4nSS2oL3niXgw bjogbGVmdDsgdmVydGljYWwt SWjpF162PPXbrUqxBn5QHhe7 L3Rk Hck0VULqkLtiUI7huQXdQRjb Uf6kjCqpjSfzGW1cLJQetguo k632HcRdq8njCJPdnMFiGMmq ZXM7 Q25yk2F0MWNcFPHxRDE3iAB9 uK2noMeindvmyGOpqTpohlCp pYbfZZpdLPbsS230IEKvnUhc PlBh eWVyOjwvdGQ+NO06tn74D6Hl EfolUkv6BVNqEEV7hFN5vP8t QKXmKAbhf0Z3bDQ8K9HrgpBj ci1j b2x (more content not included)... Normal [facility] Zinc, Plasma or Serum LCon 0 05-20-2025 Zinc, Plasma or Serum LC 118 ug/dL High 44-115 [facility] Comment on above: Result Comment: This test was developed and its performance characteristics determined by [employer]. It has not been cleared or approved by the Food and Drug Administration. Detection Limit = 5 Performed At: [address] [id number] Vitor Padilla MD Ph:[phone] Performed By: #### 1 56304503, 7862066, 9950478365, 6409978765, 4992074388, 99347893, 8247698, 3711476, 9513707, 44264863, 18860281, 06643819, 7741524, 30562901, 7413991 ####[facility] (DEFAULT)[address] [place] [address] Vitamin B1 (Thiamine) Whl Bl ood LCon 05-19-2025 Vit B1 Whl Bld LC 146.6 nmol/L Invalid Interpretation Code 66.5-200.0 [facility] Comment on above: Result Comment: This test was developed and its performance characteristics determined by [employer]. It has not been cleared or approved by the Food and Drug Administration. Performed At: [address] [id number] Vitor Padilla MD Ph:[phone] Performed By: #### 1 65018110, 0273158, 9094647921, 1050468146, 3680503945, 30042336, 6341033, 7548210, 1299867, 16463402, 31298064, 44610630, 2779682, 24272614, 0323467 ####[facility] (DEFAULT)[address] [place] [address] PTH, Intact LCon 05-17-2025 PTH, Intact LC 23 pg/mL Invalid Interpretation Code 1565 [facility] Comment on above: Result Comment: Perf ormed At: [facility] [id number] Maxine Smith PhD Ph:[phone] Performed By: #### 1 46790477, 2553177, 4996742743, 0068058213, 1425540411, 78942930, 6594262, 0411178, 3706727, 76658909, 54312579, 00088762, 4515261, 25695267, 5300346 ####[facility] (DEFAULT)[address] [place] [address] .Auto Diff on 05-16-2025 Auto [place] % 5 % Normal -12 [facility] Comment on above: Performed By: #### 1 24793569, 1612634, 9732368786, 5925795639, 6335576126, 90147849, 1527513, 7284478, 9000585, 03302270, 20040993, 78282540, 1063603, 45967610, 7831237 ####[facility] (DEFAULT)[address] [place] [address] Baso Abs# 0.1 x10 Normal 0.0-0.2 [facility] Comment on above: Performed By: #### 1 40808127, 0507192, 4366824550, 0698046387, 4224161352, 08139073, 2113556, 3243265, 3442108, 46865738, 18953394, 16775794, 0223261, 17004822, 6714287 ####[facility] (DEFAULT)[address] [place] [address] Basophils/100 WBC (Bld) 0.8 % Normal 0.2-2.0 [facility] Comment on above: Performed By: #### 1 48484636, 3974055, 7287623803, 1496235393, 2982266644, 68653663, 2492355, 1185529, 3996642, 57412847, 34638323, 05010369, 7059974, 63924976, 2034308 ####[facility] (DEFAULT)[address] [place] [address] Eos Abs# 0.0 x10 Normal 0.0-0.4 [facility] Comment on above: Performed By: #### 1 77062613, 3067615, 9871915282, 5583233307, 7174428672, 40332074, 7660572, 8487765, 9078214, 46791486, 38624256, 47465681, 8855560, 70898887, 0951948 ####[facility] (DEFAULT)[address] [place] [address] Eosinophils/100 WBC (Bld) 0.7 % Low 0.9-4.0 [facility] Comment on above: Performed By: #### 1 31262925, 3759419, 6958533478, 6493185323, 1010840633, 99642675, 1781381, 6423065, 8994697, 98179975, 59991547, 86496201, 7511886, 17991462, 1695966 ####[facility] (DEFAULT)[address] [place] [address] Lymph Abs# 1.6 x10 Normal 1.3-2.9 [facility] Comment on above: Performed By: #### 1 89520604, 4445255, 0808264053, 6711025706, 7925938598, 42813253, 0014147, 9775638, 7062724, 34411770, 42896848, 80638413, 7208139, 42806106, 4854535 ####[facility] (DEFAULT)[address] [place] [address] Lymphocytes/100 WBC (Bld) 26 % Normal 14-48 [facility] Comment on above: Performed By: #### 1 52600483, 4437173, 5628048265, 0167902188, 0256885918, 44925056, 0971064, 0012936, 7534399, 66279550, 52253150, 74080737, 0774614, 08911443, 6991204 ####[facility] (DEFAULT)[address] [place] [address] [place] Abs# 0.3 x10 Normal 0.0-0.8 [facility] Comment on above: Performed By: #### 1 28438230, 2055517, 0086178544, 7043101623, 0472369927, 38897802, 0840729, 9172021, 0863195, 60964849, 00871177, 45482393, 2958312, 11074823, 1873608 ####[facility] (DEFAULT)[address] [place] [address] Neut Abs# 4.3 x10 Normal 1.5-9.2 [facility] Comment on above: Performed By: #### 1 15916574, 3812227, 7537792063, 7937817109, 0927692510, 74563430, 3189984, 9994841, 1264027, 87499441, 39999558, 71735669, 9234101, 73054433, 7149253 ####[facility] (DEFAULT)[address] [place] [address] Neutrophils/100 WBC (Bld) 68 % Normal 44-88 [facility] Comment on above: Performed By: #### 1 67142310, 2412499, 0294068039, 5906254665, 6000997774, 62027200, 0203212, 8577882, 8528466, 18705260, 68822717, 01412420, 8660586, 85936440, 3154202 ####[facility] (DEFAULT)[address] [place] [address] CBC w/ Auto Diffon 5 Erythrocyte distribution width (RBC) [Ratio] 14.5 % Normal 11.5-15.0 [facility] Comment on above: Performed By: #### 1 84890801, 7052563, 1108044569, 9486817498, 8456735163, 16274936, 5013232, 9337747, 7712947, 17678582, 87089611, 24313038, 6866193, 98810492, 8479936 ####[facility] (DEFAULT)[address] [place] [address] Hematocrit (Bld) [Volume fraction] 41.8 % High 33.7-40.4 [facility] Comment on above: Performed By: #### 1 70828903, 7588433, 8612630501, 5903870042, 1052402233, 89154998, 3112578, 2784321, 8777967, 44678882, 28585870, 90894004, 9504719, 87645362, 2566529 ####[facility] (DEFAULT)[address] [place] [address] Hemoglobin (Bld) [Mass/Vol] 14.2 g/dL Normal 11.3-15.9 [facility] Comment on above: Performed By: #### 1 34317581, 2517623, 8007361293, 1756356650, 0556262394, 79830108, 5010834, 2444296, 5562837, 73043237, 83744992, 08311820, 3315788, 34992418, 1254800 ####[facility] (DEFAULT)[address] [place] [address] Man Diff? Auto Invalid Interpretation Code [facility] Comment on above: Performed By: #### 1 26234842, 3698920, 7294693692, 6609670773, 9295943759, 15268581, 4170255, 1404108, 5856025, 79801787, 38563091, 46037633, 0323516, 60849602, 9502139 ####[facility] (DEFAULT)[address] [place] [address] MCH (RBC) [Entitic mass] 29 pg Normal 24-34 [facility] Comment on above: Performed By: #### 1 34825734, 6515893, 2259137351, 8252527141, 2549488216, 79359313, 4721160, 0941650, 6802951, 97738220, 91383782, 66982183, 3059398, 21054916, 1298727 ####[facility] (DEFAULT)[address] [place] [address] MCHC (RBC) [Mass/Vol] 34 g/dL Normal 26-37 [facility] Comment on above: Performed By: #### 1 75138684, 8251772, 0133392433, 9495168411, 0506623288, 93456981, 1411496, 9556716, 5959556, 12736365, 57072928, 53925244, 0062366, 34715276, 2380738 ####[facility] (DEFAULT)[address] [place] [address] MCV (RBC) [Entitic vol] 87 fL Normal 81-100 [facility] Comment on above: Performed By: #### 1 57525369, 2747776, 7397610298, 9812304176, 6598675389, 53811883, 4654086, 9653919, 9874599, 25763996, 79688104, 90962907, 7443601, 33922251, 6537996 ####[facility] (DEFAULT)[address] [place] [address] Platelet 262 x10 Normal 138-427 [facility] Comment on above: Performed By: #### 1 58115908, 7847295, 1133420237, 9159859108, 7083855495, 24082140, 4004670, 6786270, 5046458, 31909363, 58654669, 91396793, 5815208, 72996885, 4561980 ####[facility] (DEFAULT)[address] [place] [address] Platelet mean volume (Bld) [Entitic vol] 8.1 fL Normal 6.3-10.2 [facility] Comment on above: Performed By: #### 1 42691732, 3042590, 3993436722, 4220991421, 5970655565, 59352574, 2562315, 3097756, 6567579, 83133392, 82167643, 15107747, 3227061, 64281575, 5576087 ####[facility] (DEFAULT)[address] [place] [address] 93174 RBC 4.83 x10 Normal 3.70-5.30 [facility] Comment on above: Performed By: #### 1 90222623, 6294115, 5377695068, 2262944440, 5466915559, 51554199, 9190259, 2118958, 7540960, 61956427, 36498950, 81257966, 5017667, 61321032, 5809046 ####[facility] (DEFAULT)[address] [place] [address] WBC 6.2 x10 Normal 3.5-10.5 [facility] Comment on above: Performed By: #### 1 34429006, 1261857, 0971309711, 2862676225, 2908226472, 41756862, 1286748, 3063098, 0416605, 78949614, 57969733, 98292948, 1144048, 53873909, 8843023 ####[facility] (DEFAULT)[address] [place] [address] [facility] Standardon 05-16-2025 eGFR Non AA >60 Invalid Interpretation Code [facility] Comment on above: Performed By: #### 1 41540141, 1507179, 0238299555, 8725710359, 3627338073, 37932498, 7622210, 9421431, 3769161, 68704985, 24257427, 77744942, 5733198, 81055278, 4116767 ####[facility] (DEFAULT)[address] [place] [address] 53290 eGFR AA >60 Invalid Interpretation Code [facility] Comment on above: Performed By: #### 1 43336960, 1100407, 0831195441, 8040412105, 6586410248, 69457119, 2417420, 8309357, 4068682, 77615845, 32731589, 63585264, 0057829, 23586675, 8677264 ####[facility] (DEFAULT)[address] [place] [address] 15074 Albumin [Mass/Vol] 3.7 g/dL Normal 3.5-5.0 [facility] Comment on above: Performed By: #### 1 15531484, 4357248, 2955337550, 8285422235, 7967727861, 57644028, 0441589, 3735402, 9233197, 57818673, 18534479, 81634285, 9742642, 11528255, 9996878 ####[facility] (DEFAULT)[address] [place] [address] 39200 Albumin/Globulin [Mass ratio] 1.1 {ratio} Low 1.4-2.6 [facility] Comment on above: Performed By: #### 1 97514902, 8995172, 6481443525, 8932413521, 1250636007, 56331226, 9441277, 8988929, 7018872, 90738979, 77390315, 33366975, 5264883, 75137574, 3859052 ####[facility] (DEFAULT)[address] [place] [address] Alk Phos 96 IU/L High 32-91 [facility] Comment on above: Performed By: #### 1 86900791, 1937613, 3847880666, 8627034751, 4355698408, 78292063, 0987452, 2175217, 2998271, 42153782, 49823475, 44725523, 4654328, 72810023, 0961843 ####[facility] (DEFAULT)[address] [place] [address] ALT [Catalytic activity/Vol] 21.0 U/L Normal 14.0-54.0 [facility] Comment on above: Performed By: #### 1 55842819, 0449538, 5928425271, 2869842669, 8050757107, 52498686, 6245559, 3740886, 9953192, 80875765, 06345016, 82568191, 7667795, 67786872, 0299421 ####[facility] (DEFAULT)[address] [place] [address] Anion gap [Moles/Vol] 13.8 mmol/L Normal 5.0-19.0 [facility] Comment on above: Performed By: #### 1 40931865, 4721558, 3162531810, 6299636471, 1152237928, 65887881, 4778641, 9940064, 3552190, 74534433, 32702533, 50395163, 5074178, 59682345, 0601568 ####[facility] (DEFAULT)[address] [place] [address] AST [Catalytic activity/Vol] 18 U/L Normal 15-41 [facility] Comment on above: Performed By: #### 1 59209380, 7772923, 8088884426, 5369020432, 5860769504, 06891162, 9805482, 9406310, 3350299, 71533677, 51878191, 06946102, 8272079, 07877014, 6819154 ####[facility] (DEFAULT)[address] [place] [address] Bili Total 0.5 mg/dL Normal 0.3-1.2 [facility] Comment on above: Performed By: #### 1 36907745, 6668927, 3171061258, 4174963773, 3012925664, 75866165, 7135445, 3426814, 9824616, 37185478, 30184738, 23102777, 5662996, 12905893, 8987370 ####[facility] (DEFAULT)[address] [place] [address] Calcium [Mass/Vol] 9.0 mg/dL Normal 8.9-10.3 [facility] Comment on above: Performed By: #### 1 04510086, 5858940, 4131366856, 7245374446, 8217842104, 95585199, 3200778, 3304012, 9333777, 97399762, 77338958, 42049898, 2394892, 54239283, 9139274 ####[facility] (DEFAULT)[address] [place] [address]992 Chloride [Moles/Vol] 104 mmol/L Normal 101-111 [facility] Comment on above: Performed By: #### 1 19029103, 0993606, 1257920141, 9553116758, 6458974283, 49540645, 1714088, 4495399, 5599776, 93058600, 18153456, 58614693, 9691747, 64665056, 3501340 ####[facility] (DEFAULT)[address] [place] [address] 42053 CO2 [Moles/Vol] 22 mmol/L Normal 21-32 [facility] Comment on above: Performed By: #### 1 85633600, 3991011, 5794717749, 9558058215, 7558584125, 90004968, 3329174, 5213583, 8069545, 37671096, 05140229, 37589779, 5607406, 96753297, 8217202 ####[facility] (DEFAULT)[address] [place] [address] Creatinine [Mass/Vol] 0.69 mg/dL Normal 0.60-1.30 [facility] Comment on above: Performed By: #### 1 56080918, 3636837, 4150446978, 2089217342, 6657053273, 74509954, 7492391, 8155042, 6683443, 59415440, 43892237, 13107745, 7778852, 90937670, 7559987 ####[facility] (DEFAULT)[address] [place] [address] Globulin (S) [Mass/Vol] 3.3 g/dL Normal 1.5-4.3 [facility] Comment on above: Performed By: #### 1 43330733, 9540298, 0684303829, 9301697633, 9493690435, 27061223, 4797558, 4280077, 1228091, 31656932, 03279429, 08218188, 5776693, 03262650, 8296208 ####[facility] (DEFAULT)[address] [place] [address] 61385 Glucose [Mass/Vol] 100.0 mg/dL Normal 74.0-118.0 [facility] Comment on above: Performed By: #### 1 25863915, 2451518, 1166481448, 6092548741, 8573407668, 04513005, 2417169, 1172235, 2716784, 59068128, 55109859, 53573278, 7149403, 27848102, 7449029 ####[facility] (DEFAULT)[address] [place] [address]77 Osmolality 276 mOsm/L Invalid Interpretation Code [facility] Comment on above: Performed By: #### 1 [id number], 6094421, 3559799308, 8722121860, 2285208509, 67399140, 1515472, 3916179, 8368328, 46074374, 94861707, 78348804, 2426056, 06082117, 8560172 ####[facility] (DEFAULT)[address] [place] [address] Potassium [Moles/Vol] 3.8 mmol/L Normal 3.6-5.1 [facility] Comment on above: Performed By: #### 1 47024656, 5621307, 2223901296, 5691153043, 2119448353, 14690695, 9600216, 5491793, 8611200, 02274161, 65841556, 49754997, 5854966, 80067421, 2583879 ####[facility] (DEFAULT)[address] [place] [address] 46408 Protein [Mass/Vol] 7.0 g/dL Normal 6.5-8.1 [facility] Comment on above: Performed By: #### 1 [id number], 0668562, 6410279523, 8008862013, 7600900857, 67353217, 7782776, 8198164, 6098218, 66593696, 41630644, 54519569, 0164502, 62728933, 8179058 ####[facility] (DEFAULT)[address] [place] [address] 13085 Sodium [Moles/Vol] 136.0 mmol/L Normal 136.0-144 . 0 [facility] Comment on above: Performed By: #### 1 69232356, 0978152, 6138183874, 2131603391, 8119966060, 62265689, 8748495, 6588046, 9471781, 82331375, 04195654, 13850093, 7607834, 55550869, 8693871 ####[facility] (DEFAULT)[address] [place] [address] 95010 Urea nitrogen [Mass/Vol] 23 mg/dL Normal 8-26 [facility] Comment on above: Performed By: #### 1 [id number], 5245920, 2719890525, 3680160416, 9592598472, 64378956, 9175132, 8959521, 0891315, 16927367, 08541112, 78680525, 7823387, 95466378, 1156864 ####[facility] (DEFAULT)[address] [place] [address] Urea nitrogen/Creatinine [Mass ratio] 33.3 mg/mg High 4.6-16.2 [facility] Comment on above: Performed By: #### 1 76082881, 4698335, 3084005165, 0871176850, 3299324868, 39234518, 5107377, 4043594, 9826393, 65285441, 72714349, 32215457, 6905567, 08568819, 4941547 ####[facility] (DEFAULT)[address] [place] [address] 11269 Ferritinon 05-16-2025 Ferritin [Mass/Vol] 44.2 ng/mL Normal 12.0-150.0 [facility] Comment on above: Performed By: #### 1 [id number], 0243563, 8920334796, 4928069671, 3396509394, 22470976, 6611797, 4827840, 9209104, 74327469, 10371467, 31632128, 1503318, 80167165, 2795169 ####[facility] (DEFAULT)[address] [place] [address] 51801 HgbA1c Standardon 05-16-2025 .Hb 13.7 Invalid Interpretation Code [facility] Comment on above: Performed By: #### 1 05784251, 1976737, 3808532117, 7990844809, 1805179976, 40013297, 7944261, 0834563, 6607779, 12829024, 33778041, 59142951, 1138121, 42592585, 7642933 ####[facility] (DEFAULT)[address] [place] [address] 60994 .Hgb A1c 0.47 g/dL Invalid Interpretation Code [facility] Comment on above: Performed By: #### 1 43488443, 7490819, 2985963910, 0141527791, 9656578152, 78636156, 8442068, 3237694, 2989962, 01880912, 25051520, 09771925, 9730797, 27706797, 5815573 ####[facility] (DEFAULT)[address] [place] [address] Glucose [Mass/Vol] 102 mg/dL Invalid Interpretation Code [facility] Comment on above: Performed By: #### 1 28880866, 1886886, 2489576479, 9672279761, 4524318287, 70590271, 8397588, 3490632, 3972514, 77865004, 30780566, 33487467, 1257127, 02484036, 9057707 ####[facility] (DEFAULT)[address] [place], [place] [address] HbA1c (Bld) [Mass fraction] 5.2 % Normal 4.6-6.2 [facility] Comment on above: Performed By: #### 1 89915835, 4794251, 0030609729, 3033315559, 6564475088, 96918372, 1185075, 6588716, 7264354, 14929962, 51441371, 24207391, 5992989, 63535163, 1181655 ####[facility] (DEFAULT)[address] [place] [address] 79862 Iron Profileon 05-16-2025 Iron [Mass/Vol] 65.0 ug/dL Normal 28.0-170.0 [facility] Comment on above: Performed By: #### 1 18071940, 6447385, 6672774527, 0863138693, 9997983302, 97127819, 2765874, 7144367, 8661409, 76243889, 85133725, 46550183, 3978312, 71394592, 1115677 ####[facility] (DEFAULT)[address] [place] [address] 29247 Iron Sat 22 % Normal 20-55 [facility] Comment on above: Performed By: #### 1 96490902, 5472467, 1219592126, 6960394938, 8914481824, 03546763, 9468855, 4919242, 2400172, 33432983, 99903363, 78258905, 4521942, 61997770, 6506720 ####[facility] (DEFAULT)[address] [place] [address] TIBC 296 mcg/dL Normal 250-400 [facility] Comment on above: Performed By: #### 1 50429214, 6350839, 6620623417, 3493554950, 8129597503, 01339270, 7423327, 8292069, 5390359, 00604818, 03604427, 50548957, 7280725, 76678341, 7696787 ####[facility] (DEFAULT)[address] [place] [address] Transferrin [Mass/Vol] 211.2 mg/dL Normal 192.0 -382. 0 [facility] Comment on above: Performed By: #### 1 42730547, 2335888, 2111820229, 7108854627, 6793234399, 99433500, 8008939, 7423672, 6616838, 73749361, 25389024, 35207850, 0188964, 41548241, 4340419 ####[facility] (DEFAULT)[address] [place] [address] Lipid Panel Standardon 05-16 Cholesterol [Mass/Vol] 137.0 mg/dL Normal 66.0-200.0 [facility] Comment on above: Performed By: #### 1 97511043, 5321948, 1512440898, 6822435102, 6594997200, 27894581, 7227911, 5367100, 6250363, 52747834, 50032063, 04803020, 4267393, 89255164, 0589065 ####[facility] (DEFAULT)[address] [place] [address] Cholesterol in HDL [Mass/Vol] 48 mg/dL Normal 40-71 [facility] Comment on above: Performed By: #### 1 60146437, 8654500, 3512045574, 3338050210, 0503641789, 36036560, 2244841, 4103059, 7188933, 44446259, 37584376, 87753247, 5554438, 28517657, 8922993 ####[facility] (DEFAULT)[address] [place] [address] Cholesterol in LDL [Mass/Vol] 77 mg/dL Normal 1-100 [facility] Comment on above: Performed By: #### 1 98807824, 5488230, 6331018811, 3414525995, 3137270573, 22766563, 9489914, 5702879, 4313500, 67133306, 32733744, 09998298, 3936344, 93510776, 3060257 ####[facility] (DEFAULT)[address] [place] [address] 81239 Cholesterol.total/Mahsa sterol in HDL [Mass ratio] 2.8 {ratio} Normal 0.0-4.5 [facility] Comment on above: Performed By: #### 1 89244367, 6439426, 7208304703, 1772498036, 7525235995, 86885734, 6331950, 3341275, 2379242, 22796700, 98612172, 17589281, 5613683, 86784353, 2756997 ####[facility] (DEFAULT)[address] [place] [address] 42833 Triglyceride [Mass/Vol] 60.0 mg/dL Normal 0.0-150.0 [facility] Comment on above: Performed By: #### 1 30317101, 3524520, 6033831900, 9382193588, 4272086721, 42514903, 3194109, 6340057, 9056114, 27389323, 26305275, 21584545, 8107869, 82856741, 0131239 ####[facility] (DEFAULT)[address] [place] [address] 18436 VLDL. 12 mg/dL Normal 5-40 [facility] Comment on above: Performed By: #### 1 88135776, 2782990, 1084930151, 0267863990, 7571744017, 28173374, 1643432, 8554193, 9772619, 01590685, 28266938, 10273039, 6312208, 09153925, 4496043 ####[facility] (DEFAULT)[address] [place] [address] Magnesiumon 05-16-2025 Magnesium [Mass/Vol] 2.01 mg/dL Normal 1.80-2.50 [facility] Comment on above: Performed By: #### 1 09809040, 1536310, 8460845461, 3676568733, 5425336304, 52431928, 3468513, 9084658, 9186571, 56957974, 96552556, 53356409, 2288759, 38087873, 2601134 ####[facility] (DEFAULT)[address] [place] [address] 77947 Provider Orderson 05-16-2025 Provider Orders [id number] TGTIFF Normal [facility] TSHon 05-16-2025 TSH Qn 1.22 m[IU]/L Normal 0.45-5.33 [facility] Comment on above: Performed By: #### 1 13088864, 5640651, 4719412616, 1676346430, 3222181045, 86245716, 1616113, 2358379, 4203759, 21271827, 77654503, 41024723, 2924473, 76878280, 3761018 ####[facility] (DEFAULT)[address] [place] [address] 68715 Vit B12 Lvlon 05-16-2025 Vit B12 529 Normal 180-914 [facility] Comment on above: Performed By: #### 1 98087559, 6394755, 7965109385, 4002171893, 4148131292, 35059911, 3401185, 2075208, 8787878, 47742421, 99777763, 61946219, 7739607, 05409038, 0037308 ####[facility] (DEFAULT)[address] [place] [address] Vit D25 OHon 05-16-2025 Vitamin D 25 OH 78 ng/mL Normal 30-100 [facility] Comment on above: Performed By: #### 1 24442347, 5343904, 8796092626, 9549211701, 5866133461, 22097810, 3203139, 2026876, 8532127, 74497973, 76959951, 37583285, 5324645, 43767389, 7031538 ####[facility] (DEFAULT)[address] [place] [address] Coding Summaryon 04-12-2025 Coding Summary HTMLBase 64 PoxahfowYGr1eMc+PGhlYWQ+ GC7MBBZbU05lcVYreU8wO6LP TElOSywgQVBQTElOSyIgbmFt YY4rdHPbQAEi IC8+OB5oHEAjTdgubEFaq4I4 fOD5Y71jyn4oDTskdJD1DTZy GlEmypvnq9przXt0MJweIknv OyBt TKWflS90TYA9cJ88Uw72wQRb fESpx2bqqDq3LbUiIKAeSRS0 qKmdBTrkx9AoSQYkT04quURh c2U6 EBNmkUbdwHHnLvPjdFD8sP5r YRenmwgfg8ounpszChh6oi82 qXJva9Z3bUN8E3VplxC9BTJl bGQg HxxhxZJOyH0xnwhmn4pofnhv DaQtQNKuHDp9PWy7LSYjuHmz BlCsNZ01QUS4KZQqueOeH6Kk LWFs lKzaXdA6v7V5Jz5KB4ZTMxhw G4NXNQZRVOumaEH+QG11ez93 Y9RpReewVgk3NXHpMMU3iLX3 aD0n MXXrNOrsd9C1lWS2Z1EbezIm jw1wf9xvHHBvKAitJ91iqUUf r4A7SXPllQP0YLVdyGzlLpLl aG93 Oyc+YCDseMdsw9PjQvrth4wg x6grrNh0IzbmVNGmjrCdqYjm ELJ7f8BoVf0bOPVkrBF2kJF9 aD0i RzVwFqQ8YTrfN309IgUjsWMx EermF76jZ5AdcIV+PHRyPjx0 QZVtzTeqBV0tA2UtJTJlvvxy bGVm bXrvJI1kPWNrhqgkFNUkyT3g YMYiY8t8NbAyKkD0MXmiV6Vh EEKqotgtFj30qB2tNqKaDdT2 MGlu J4OgjzB0MRUztXAfNNywMKE4 C80xr8W5WREwAQKvRTB5cSN3 iW3odVezspplkZBltYjqotEg dGlj YGqcLHgsJ345NIRliSidWaNx ZGluZyBEYXRlOiAgMDUvMTMv MjAyNTwvdGQ+ECYfDWV7jVdv PSAn aIQoFBlxNr3phAhyyPkyVW6v BQYbdocgBUTzcT9lJZNuyAVw hRjjSI4nIZEeypfqo697GyTo MHB0 TGNosOKwK5KppU0uQhSgQVIc CKQhZ4OvvPQcRRtbI426XYcm StK8LDJlkeUnI7QkGRCdnOqr OiB0 a6Y0Ez6Yo2PcmuzyK8YskJNk UkFzZxjlDEd4S9FsJhqnbBT+ NI76HWCpYW85BIt4ZYD4jQut PSdi WHZyD9RorW6kLpEvUGXdYDMq Oyc+PHRhYmxlIHdpZHRoPScx HFOpZuFdmQqbAE8fJf4nVJEr LWNv rWgaoLMfEzAtk0xsJDKaRKgf MB0coAupW8VulST4TMOnm9u5 Hl92E93kQ0ExuQI+PGNvbCB3 aWR0 uQ0dRlHtEwP6SQxjY959DnLn aFXxUveki4cps7feaVr9SsY0 PCWxyfEdvKmrQET6o5ExCi09 Y29s IHdpZHRoPSIxNSUiIHZhbGln ie8mnO0zSi3+RAYgjCW0hAL3 qA9jHbVjIbH2SYjjO637FqPc cCIv Rapob5swr1cehGd1GrDjCFEh okHhfChbJTV2d8YfCf64H5Ih zUhql9VoKex6rf14iYBgw3O0 bGU9 D7PqVKWvndooyEKanJfaFQ7y QHPjyqxxXBIgfR5zMZEeS7d7 FtYfVpV3HFjrA2SvbzA7MFQz bGQg PYJlzGGBhR9rkdbmi8oyifbb QsNaCVYsPSq8KPf2XNAieBnc OyTuPDT8PyQ4DGL0dERpjG5m bGln vjzymY7iEit+EJK9iDOtoVJB RC3uNvtkuJO+DZSdPMN1bKtk KNhuZTIrbS1lOEBbG3b7MqCr LjA1 JFcnA1HkmxV1YMJwfLFeIXIr kRTUoC3hgsoht6zqcbzsLpEp QYXgFOx7EEr8YUFzgNfgMhKm ZWZ0 OuR9LNT1iQLblN9jsNqrmden mN4uJhi+AvupqFawJFD0MMv0 I4XtAxg3FPMbyIamBW1xkRDd ZGlu Gp4abMbprDaqAH2tWZQpypnf b720NyGuw2enEXRsmKUeDHuf DSY6M06gj0R7ASRsAUPkCPP2 dGV4 gU3knPnzijnkpSTewZeceiOr vRruRTmuPNptX615KBQjrYql YfIwBZk6U3EpAxk1YPCawKkr ZT0n xXYaNXzwYo5zpAslkBegPM4f LRGciglsr889WzItw5urWIGm oXYuWQhqQUZ9A80mq7L9VROn MDAw HEV8jBA1uD5pjXuepznkgWJf eLrbhzAweTqkUCrnQWcmE238 EWPjiUtdDhZubXu4Q5AhHgz7 ZCBz gTvkAL8ijNWnLYrxYe6icCcr gEloOC4cVKVfxarer431GkSx e1cdLODxnRAfVDzrRVA8E42d b3I6 SCFbZBYnEBA8oUM6cJ7fsUhp bjogbGVmdDsgdmVydGljYWwt LEeiV249GSQeyLqqDjYbqFyr bnQg MFcpWFu3H0VhXldkzVY+PC90 QELdLG49wEUbyFOvu2fadVz2 GdZnUSGcGWN9jXwzFBokv0Zc ZXIt N65qyVHds0R5EMIqzXmybEEw QoKoeTV9dO7mDVryvfyrn8md uvzbAfpnd4sjqu13mL88B02h IHdp XBIcPSWhCXGxPBPgqFbvqs9v yN0uNd7+ZXOktMW6pZS8uT1h BXSbWlX9HDcyR340InLxaZNe Pjxj t4exz7coyEs0YqP4VXUztlFz bXigBDL6k1PbJq27D37xVJec OSLySGWkWBSuIIGmfXjefo8e dG9w Ii8+GAKgrKC8nAI9aZ7aDtYm IjI5WAlnR355IoBokQTdAsps H04sS8ZyvAV+CLVeUys0TIVz dHls WK2sjJFwYPaaEh8vVWL6NvMx YvAlSDngA4IqJKYhjzzqkugd cRQ2XGVmHFQysX16Qe1juSbo MTBw mCUDuB2mynqmo0sediykWmQt TRZkPNr7KMj8KHDquMhtKoCe WYB3WtE8PWE9pODeqD3vdImf bjog gS3hA4AmMDYdroirRq92yC1r ClZfWuL4AQkzJso+TX5OYI2J KaqSHIXVBMYVVWVTBZ2ET16V RTwv dGQ+NPWuQQY8xTfhKJpbNEOi fA5iPVVvA2y7LsXdJjG9ERud G4RzXNWfcildUg20aH7pQuGm LjA1 RElvP6TigfQ4DYAxmZEhMFkp UWV3V40kb1L0RTBmYKLxUMS8 nDC8mK7krOmebqaazKDetAmw dmVy jTqiZObcIHqnQ043VRGxnPlb BkY6KsV4MkS1RKE0V4EdOju8 YEOcfIyvTL8nqXRqNXhaUa2t aWdo uDlcCX5dTMEogwfkQRFyhT7y EZNkgQKgwMipCT0xAAJzbsis y527WpKgFQV1IHTmcBVqB1Ob bG9y ZkEcNSIpIRFoG5NdfUUmTXkw G002GRzpMfJ2BQPcniPlV2Ax USGdaLyyTiV8i8S7Js5lENMI ZWFy czwvdGQ+CGVmXOS3tYqtQYra FJRuxU7yMWEiW4s3AdWiEeU4 GHwiV1BpIKOxwyvcRb61yS8t OiAw OcF6RWshX0VvjoS2NTLzlQVv WBwbXUZ8V04nu9E5ZCXkLKXq OVO6iYU2tT3znIyhbdufxHCp dDsg lvGpmZjoKEzxXZsmP985DCXo cDsnPkZFTUFMRTwvdGQ+PHRk CXD5yQeuKMcoLUYstS3yGWBq Z2h0 BaKuTcD4IRqhZ0RgHBKdjrcb Re28lB7lAtDmRcG5XKlhP2Vs qxG1MJEnhSYyEHvkWQF6E80t b3I6 SFHbJQRdKPB7kZQ2xL4imDej bjogbGVmdDsgdmVydGljYWwt TTmyF763RCEqjQdxEa8ONT13 ZD48 F7UxSlkaxCSrxKK+PHRhYmxl IHdpZHRoPScxMDAlJyBzdHls AQ8wNf8jSVNyDHObiLcnfKPs OiBj h7zkEGQnBFwpSM5ilIjqE1Pu oUA6DZCde1p6Px42L42fR3Fd dXA+MOKdjFX3qOO4lU6tGvUo IiB2 LGruZ098PfKihFMjPjfot6dh f2xcjDt6CkRfDCDjamHriCgw RYC6j5ShNe78S18sITfkSWGv PSIy YZEwWOSwvEsjzf3tmE5fYv5+ LULafTH6eUU1mD3lPlLwYuB4 QIqpK703FsRhhKSnGcgrT25f Z3Jv dXA+WORvTef2HEPoaOhnOZ2t bIJuFXuxWo7qFNW9AjYtRcMt FEflU5OkMGJutjpiookssEP4 IDAu XEWvyV70Nw9clRkrGd7wNTXq HJE3ADUrgNZlO3XweB4gMzPe KGZfOIGvD8GinHNpGMoxE098 IGxl XmJ0UQZhaxZhN4ZuYASlsWyj RaY5t3T7Pj4SnTqnwIZsTT3u LtFhLZh4K8AyOyv0WSJzxMsf ZT0n mOVfLPfgYq7tyYxdnTfvTA5j LXEsazeyo883YtQxp2ewDEKj cZWkQHkoLDP5L38xv5Z8HULi MDAw DWU0lLH0bF2fdOaeaxjhtXTa cGermqEgyCnwUSjqQByiL471 TKJyeAyvVtEDUpi3Z6WaWuz2 ZCBz zXihOK7asTZtRHfoMx5ccPiz aJhuBV8ePDPdskwml325AoCt s0uzXGStnPJnQCdyCEN2N84v b3I6 SSDtPOPyOMY6jXE7iL1deLen bjogbGVmdDsgdmVydGljYWwt XCpkX334RXYfaDeiVy1KVym9 L3Rk Lsm4HMDkqLtmEC0dlCYhIGbb Et3aeBrouAuvSP2hWCQmhbbw v887TeCoa3ysUBVqmJWtJMpq ZXM7 M15eb2R5OHYqVQArAHS7lCW3 sY4lnZyxclhbuXNwlJsgcaFb nBpeORcoKUuuO962LYRyrGys PlBh eWVyOjwvdGQ+BA25ii93Z0Mt LxyeLsy1MUDiXDW3wXI0cV1w FVDuJHasn9L3sDH8L4AfvuCj ci1j b2x (more content not included)... [facility] Coding Summaryon 03-22-2025 Coding Summary HTMLBase 64 XddsvkfbEFt0bKl+PGhlYWQ+ NA4VFFCvC00kpUOekD5dA6SG TElOSywgQVBQTElOSyIgbmFt GZ8ulSVcINXx IC8+LM7gZBHgNqlsyIJla2T0 oPX1S67prf2vMZzbuAL3ZZZd HxGzacerw9rgoLb3QGdqVwrp OyBt EJXnaB10LMR0vO54Ke02uIIo dPYpw8efdBq6HgOzRNXcKGK4 sKmcCNrtx5RrVEFyL26wtBEx c2U6 WSIfuBewvAJyKfVyrFD5gY0p DBdzvsunm9zhibpkGtk5dk17 dYIhy6C1iUC5Q8RxilC3WXFw bGQg JkkcuZHEqI8mufxgn5urjtaa HhBzESTiSUn1HYd5LKVliInj QtNeBS66TBH8FVAgbfYeC9Zp LWFs fDkhPlF5h6Q6Qr5ZT9BEItnf N6SJPCLODXmerBS+MX91iy49 O4LzSlesKfr4MICsTTI6wOU8 aD0n YIWdEOvnc2P3iKK0W4KygiIz el3hc7ydSXTlAAouD63axCVv c0V0EBBxtTI7EOMzvJtbEmIh aG93 Oyc+JXBscDahg0OmYnnqv0zj r5kycPb5GkeeWWShekGncEua JAD4z4WjOj5zMFYftWL2eYT2 aD0i OdJnNtA5MJsfW995SfQurONk IftcY67wT6AavGW+PHRyPjx0 OLMcjQltWJ2dR4EyAPIczgve bGVm zMpcHE8qATQoixuaBINlmW3b JJMdO9q3BaNiMiB3ENdbZ8Hs VADcvllbXc39rD7qAuJgCvW7 MGlu C2OdppU6JPVpbIBmHEzvITU6 A01ac7A5TVDzMINkSIH6ySP4 qD7qcLzxfejyqPFfvZfzcfRc dGlj UEcaCObzY974IUTvnBwyXgVn ZGluZyBEYXRlOiAgMDQvMjIv MjAyNTwvdGQ+EVDxOQJ3wUxu PSAn kIEmOBzcAg2bgYiuqIshXC8v YSHavylzXDOeqJ7yXKOfjIHi bSrsSF4tHVSzzzykh399XkZr MHB0 FPUlvFLvD1MugE3eKwXyGNDp XUBoT1SuoCOnIQavK933THhl RwK7VISlcnAsK6BkQUTugWpa OiB0 d9A2Ta1Cf6HubldrF1EvxGMt RxAcPvhoEAw0W0CkNiwkoZK+ QU59NKXhDU43QOk3UGE4rFdr PSdi ARYmJ5AtpU2cKaHiNFHrMTXa Oyc+PHRhYmxlIHdpZHRoPScx QMVnKwOfnJqbPH6hJe5kNMOj LWNv wWijfODoDcCej0igVKNaRZep BV7qsWvnA4HnlLT8TJFoc4b6 Tu60T03gK2WniCX+PGNvbCB3 aWR0 tY3zMxUfYmF1IZtsJ608YgVc xVUzGuaik6edq3wqqVo3BjD8 BZSuroXumMtrWUJ9r7CsXd33 Y29s IHdpZHRoPSIxNSUiIHZhbGln xz4ynG5aRb3+BIXksJZ9aEW4 fU9aObLvDgM8KZqrV097WqKm cCIv Ulfkd6exs7chbOi5MyHoBKSg luWuiQzuCUI5f5MaEl85N0Om pKopj0HiWum9zg97uLUao9T4 bGU9 M7WxBWCiwwtrhVKvhLajMH7j SSHqyrhgFTRbuY7yUHAwT8y2 GhRlCkK6MFkeA6QjryW1LYOz bGQg BCRiuXXCqB1satodx6kdcunf NmJkHOLfQIk8NSr9IFZjoPvu OyCnKLJ1BbP9PTC9kBOyvR0z bGln aklkmR6uIwu+DZF3jCOhuGDE BP9aCjpviAR+VAOtETL2nKfd RBcaLSRacY9hPNQbD5g3ZxUf LjA1 SYzfN7KvudF8BBMpkYTsFWPb zZPAkZ1hezseu6ixaxexQgWb FQUwJCc5XMk5LNGhsXhcLtRj ZWZ0 FtP6NCD5uMQnjB6xeGlfcfml uO3qZjy+YubhxWqfVSB8PUq3 B8LjZdz9XTCqsIvwPK8shMLj ZGlu Mx4ctSrbeInnTR1zYVRprefk z767DnKrq0wtCUUluZIhLSem IAT4D45mu5I7TUSxYHXvGSA7 dGV4 hW8buTthwyqmjBZqqRzxlqBm cJqzZOouHMamM259SNOdcNvm GlFcWPn3Z3MtBvx0FCAsqQxl ZT0n jCThYKviIn8pzKcssVlwST6q NCFkiqlal567LqXnz9oeZMFk vDZpZPfbGNM2K35ds6C2VODl MDAw MLC9lYP8qV9cpYevdjtczZOy pVxvorQraRnnUQfmEEdvA567 SDBulYvyDqOsmEp4U8RnYid7 ZCBz eRjxZS5pjXFcWWnoKb4mmLzk tBmjYE7vULZkklrql306WiUj n4oeWBTrjJLdFRhqCQY2W34p b3I6 ISHrUERoNJI0zSQ9nL3rwFkf bjogbGVmdDsgdmVydGljYWwt NRyeO300QQHvvPtzPcDndEpj bnQg FSgiDGc9R6NdAcfdjID+PC90 WJWpTK31oRUcfFAtp9uldWw7 VbZoGJHgIRF9wUiwTRteg1Qc ZXIt E75ieRTog9P2SUCxwYdcgKLx BpKfcEH2nV7gUKasbdkik7yl ijssXulge1cbfq17bJ92O84t IHdp PYEiNBMdSMKuNYEjtYdcog5f nS0jCb0+PIOtdVZ7gQH7nP5a BKNaVkY1PTigY364CqGsxOXy Pjxj s1ykd3vowIx7RdD8BDFrjqSr fCmkUAB2g0OcGl43M90jQYsq XTMaNZEfQOKhHJOvqZbhgw6t dG9w Ii8+AREdxLD2gPF4vP0vNiHh ChA3SBnmH291WpWalFXaXrvv B56cQ8MogNF+DXQaSja8ZTWe dHls FC5faTIcYUwvJs1hBEV8VjTe SaEoGXecK9HsMQCvekhvbwcw sMU2AFNdBZKzpV81Je3phXkt MTBw iPLDvT7voleiz4wwwpnjPbXj LZQqCCt5FOu5KJLuoJuyThRu VOS2CjZ1JNO4jAWbzL3cdIak bjog bT8bB5HsAUPpuiqnJr10kW2n KlKcBdV3EMwyRik+QM8DIF8H HbzVMOTTEWUVGBOVDE2SW00V RTwv dGQ+MXFmGHK2cYkaJWmhTNGy qR6yHKPfO1b6HvGfOlV0AWml P1KuRVSiyqnpTe40lW9pMiDl LjA1 ZWfqE9QsjtX7VRIlvJJmHXcd FRK4F44hz9L4OKTeXDPdWLL8 tFJ2jM6qzBiokjftoPZjgApi dmVy wWewQHfzLXexR530ACRpeNdv MnG7TuH6SqY3ZRS6U7EtKko6 AJZhaPtsVL9omSUfTHvtZy7b aWdo aWvwEO1bUDWzauaiKMLoqB8i EMQpqYPsbSkhNH7zYNIjthnp k830KxJsEAO7ZXYktWCvD9Oh bG9y CrQoIEOqRWGtU3WsvMCzMMam A709JZgoAtI3ZOTxxxJsN5Yx VCNtuXikTqI3h0N2Rw1jIYCM ZWFy czwvdGQ+UUAeBTC6cSzuASsp BZDcaI8cPUVvI9t0CgExHpZ8 RGcqC7ApHOPjkiwvDf65kI8c OiAw MeJ6ZDsjG7UvasK9DYGquJEr JWymKRM9J35du2Z2DJPeIBQo WDQ5bUF4fT0cyPossiuarCEd dDsg fzMaxKroOQfwSQhjQ807SKEk cDsnPkZFTUFMRTwvdGQ+PHRk AZR4uGadOKmaRVHuzD7uMYOt Z2h0 JqMgMhO0YFmnI9QqADChlldv Zv92hU0wVqGcUwQ3DEyqY2Ay mqQ9HYAjdFNzISqzRSO8V70g b3I6 ZPYgWRAzQPO9wNW3yD4joNcq bjogbGVmdDsgdmVydGljYWwt YFusW584KUOvzYijOk1WLG53 ZD48 K6DhFsfwmLYciEH+PHRhYmxl IHdpZHRoPScxMDAlJyBzdHls WO8iLg2gURUhOHCbcRfwfSTj OiBj m0edFESmLDihPJ7waTbuE2Ja qWB8OHVzh3y7Mb48Y92kE5Ve dXA+DLOucVV1rNM1lN8cJkMf IiB2 LImsC801FiAolPFeExsbu7fo g5ernRi2FoAmFAXvomStdPcd IVF3k9GqPl66Q23qPWscBWAw PSIy XBLrTMLawGtgno2mpL9nLw4+ TFYykIP2oVX4cC4aRmZcVsJ4 VOpcA920ZbAgxIEyNbsgM54e Z3Jv dXA+MXTdRay4ARHgoEulUF3g rJWeYYqzLp8jZGO1UzAbGrFz KYtoW5IwMDHdqnzzbkaxoMA8 IDAu QAWhcA98Sh9bfKdtKz3bWJTr NSL8YHCrxTPbI2FdjG7bUfKr MHXwDKMsG0JxbEEgISfxS908 IGxl AjH8YKImydCuI8JwNTIoeAdq QrQ2u6J0Zm0NkOkxdHSkDE8p TaNcILr3C0MmRxz1QUTjoVlp ZT0n sIIwTShzAa0wzPazvHytYG9p HDHbyswow468AhGmj8rlDLOa lDTwLCdpPUH6N50bp3L0HSYy MDAw QUK1uSX6hX0jrIzpzhaujOBa nNlcykXgrNebEJkeWEnrC897 APRomFokErPPEms9S6QnOem8 ZCBz lBjkSE4otFVsOFhkKj8zqLsu vNrzPP0uKBWjhvfxp141UyBb z8wjITNobPUoUChiKOP2P83b b3I6 BXMnCCYhTUY5vWT2vH8aiNxv bjogbGVmdDsgdmVydGljYWwt WArxJ155KTGelGurKo7ZMly2 L3Rk Zvx2OCLwwLptUX8diXKtWEsv Sm7giOnijCyhHN5mKUXqpfcf g395ThSzj9qmUQUaaTLrGJkd ZXM7 Z83ig5W0XLLgJLZkBSW5uNG7 gA9miVkrltfkpOTcvFekazWm oWchIOtlYPicI090VPPwlPqp PlBh eWVyOjwvdGQ+DS25ag60D7Qi SezgPed1XPPdQST9sQV7yC1y NDJgKEjhu2Z5pJE0Z9KabtKj ci1j b2x (more content not included)... Normal [facility] HCG,,Ur(POC)on 01-30 HCG,,Ur(POC) Negative Normal NEG [facility] Comment on above: Result Comment: Spec imens with hCG levels near the threshold of the test (25 mIU/mL) may give a negative or indeterminate result. In such cases, another test should be performed with a new specimen in 48-72 hours. If early is suspected clinically in this setting, correlation with quantitative serum b-hCG level is suggested. Basic Metabolic Panelon 03-2 Anion gap [Moles/Vol] 11 mmol/L 9 - 16 mmol/L [facility] Calcium [Mass/Vol] 8.6 mg/dL 8.6 - 10. 4 mg/dL [facility] Chloride [Moles/Vol] 104 mmol/L 98 - 10 7 mmol/L [facility] CO2 [Moles/Vol] 23 mmol/L 20 - 31 mmol/L [facility] Creatinine [Mass/Vol] 0.9 mg/dL 0.6 - 0.9 mg/dL [facility] Est, Glom Filt Rate 88 - PINF [facility] Comment on above: These results are not [...] [Mass/Vol] 94 mg/dL 74 - 99 mg/dL [facility] Potassium [Moles/Vol] 3.8 mmol/L 3.7 - 5.3 mmol/L [facility] Sodium [Moles/Vol] 138 mmol/L 136 - 145 mmol/L [facility] Urea nitrogen [Mass/Vol] 8 mg/dL 6 - 20 mg/dL [facility] Basic Metabolic Profon 02-17 Anion gap [Moles/Vol] 11 mmol/L Normal 9-16 [facility] Comment on above: Performed By: #### B MP, CBC ####[employer] [address] [place], [place] [id number] lab Director: Monico Guadarrama MD Calcium [Mass/Vol] 8.6 mg/dL Normal 8.6-10.4 [facility] Comment on above: Performed By: #### B MP, CBC ####[employer] [address] [place], [place] [phone] Lab Director: Monico Guadarrama MD Chloride [Moles/Vol] 104 mmol/L Normal 98-107 [facility] Comment on above: Performed By: #### B MP, CBC ####[facility] [address] [place], [place] [phone] Director: Monico Guaadrrama MD CO2 [Moles/Vol] 23 mmol/L Normal 20-31 [facility] Comment on above: Performed By: #### B MP, CBC ####[facility] [address] [place], [place] [phone] Director: Monico Guadarrama MD Creatinine [Mass/Vol] 0.9 mg/dL Normal 0.6-0.9 [facility] Comment on above: Performed By: #### B MP, CBC ####[address] [address])[phone] Director: Monico Guadarrama MD GFR/1.73 sq M.predicted among non-blacks MDRD (S/P/Bld) [Vol rate/Area] 88 mL/min/{1.73_m2} Normal >60 [facility] Comment on above: Result Comment: These [...] secretion. Performed By: #### B MP, CBC ####[facility] [address] [place], [place] [phone] Director: Monico Guadarrama MD Glucose [Mass/Vol] 94 mg/dL Normal 74-99 [facility] Comment on above: Performed By: #### B MP, CBC ####[facility] [address] [place] [address] [phone] Director: Monico Guadarrama MD Potassium [Moles/Vol] 3.8 mmol/L Normal 3.7-5.3 [facility] Comment on above: Performed By: #### B MP, CBC ####[facility] [address] [place] [address] lab Director: Monico Guadarrama MD Sodium [Moles/Vol] 138 mmol/L Normal 136-145 [facility] Comment on above: Performed By: #### B MP, CBC ####[facility] [address] [place] [address] lab Director: Monico Guadarrama MD Urea nitrogen [Mass/Vol] 8 mg/dL Normal 6-20 [facility] Comment on above: Performed By: #### B MP, CBC ####[facility] [address] [place], [place] [phone] Lab Director: Monico Guadarrama MD CBCon 02-17-2025 Erythrocyte distribution width (RBC) [Ratio] 14.5 % High 11.8 - 14.4 % [facility] Hematocrit (Bld) [Volume fraction] 40.3 % 36.3 - 47.1 % [facility] Hemoglobin (Bld) [Mass/Vol] 12.4 g/dL 11.9 - 15.1 g/dL [facility] Interpretation and review of laboratory results Abnormal [facility] MCH (RBC) [Entitic mass] 27.5 pg 25.2 - 33.5 pg [facility] MCHC (RBC) [Mass/Vol] 30.8 g/dL 28.4 - 34.8 g/dL [facility] MCV (RBC) [Entitic vol] 89.4 fL 82.6 - 102.9 fL [facility] Nucleated RBC/100 WBC (Bld) [Ratio] 0 % 0.0 per 100 WBC [facility] Platelet mean volume (Bld) [Entitic vol] 9.5 fL 8.1 - 13.5 fL [facility] Platelets (Bld) [#/Vol] 247 10*3/uL [facility] RBC (Bld) [#/Vol] 4.51 10*6/uL 3.95 - 5.11 m/uL [facility] WBC other (Bld) [#/Vol] 9.4 B [facility] Erythrocyte distribution width (RBC) [Ratio] 14.5 % High 11.8-14.4 [facility] Comment on above: Performed By: #### B MP, CBC ####[facility] [address] [place] [address] Lab Director: Monico Guadarrama MD Hematocrit (Bld) [Volume fraction] 40.3 % Normal 36.3-47.1 [facility] Comment on above: Performed By: #### B MP, CBC ####[address] [address] Lab Director: Monico Guadarrama MD Hemoglobin (Bld) [Mass/Vol] 12.4 g/dL Normal 11.9-15.1 [facility] Comment on above: Performed By: #### B MP, CBC ####[address] [address] Lab Director: Monico Guadarrama MD MCH (RBC) [Entitic mass] 27.5 pg Normal 25.2-33.5 [facility] Comment on above: Performed By: #### B MP, CBC ####[facility] [address] [place] [phone] Lab Director: Monico Guadarrama MD MCHC (RBC) [Mass/Vol] 30.8 g/dL Normal 28.4-34.8 [facility] Comment on above: Performed By: #### B MP, CBC ####[address] [address] Lab Director: Monico Guadarrama MD MCV (RBC) [Entitic vol] 89.4 fL Normal 82.6-102.9 [facility] Comment on above: Performed By: #### B MP, CBC ####[facility] [address] [place], [place] [phone] Director: Monico Guadarrama MD NRBC Automated 0.0 per 100 WBC Normal 0.0 [facility] Comment on above: Performed By: #### B MP, CBC ####[facility] [address] [place], [place] [phone] Director: Monico Guadarrama MD Platelet mean volume (Bld) [Entitic vol] 9.5 fL Normal 8.1-13.5 [facility] Comment on above: Performed By: #### B MP, CBC ####[address] [phone] Director: Monico Guadarrama MD Platelets (Bld) [#/Vol] 247 10*3/uL Normal 138-453 [facility] Comment on above: Performed By: #### B MP, CBC ####[facility] [address] [place] [address] [phone] Director: Monico Guadarrama MD RBC (Bld) [#/Vol] 4.51 10*6/uL Normal 3.95-5.11 [facility] Comment on above: Performed By: #### B MP, CBC ####[facility] [address] [place], [place] [phone] Director: Monico Guadarrama MD WBC (Bld) [#/Vol] 9.4 10*3/uL Normal 3.5-11.3 [facility] Comment on above: Performed By: #### B MP, CBC ####[facility] [address] [place], [place] [phone] Director: Monico Guadarrama MD Basic Metabolic Panelon - Anion gap [Moles/Vol] 10 mmol/L 9 - 16 mmol/L [facility] Calcium [Mass/Vol] 9 mg/dL 8.6 - 10. 4 mg/dL [facility] Chloride [Moles/Vol] 105 mmol/L 98 - 10 7 mmol/L [facility] CO2 [Moles/Vol] 24 mmol/L 20 - 31 mmol/L [facility] Creatinine [Mass/Vol] 0.9 mg/dL 0.6 - 0.9 mg/dL [facility] Est, Glom Filt Rate 88 - PINF [facility] Comment on above: These results are not [...] mg/dL High 74 - 99 mg/dL [facility] Interpretation and review of laboratory results Abnormal [facility] Potassium [Moles/Vol] 4.2 mmol/L 3.7 - 5.3 mmol/L [facility] Sodium [Moles/Vol] 139 mmol/L 136 - 145 mmol/L [facility] Urea nitrogen [Mass/Vol] 11 mg/dL 6 - 20 mg/dL [facility] Basic Metabolic Profon 02-16 Anion gap [Moles/Vol] 10 mmol/L Normal 9-16 [facility] Comment on above: Performed By: #### C BC, BMP #### [facility] [address] [place], [place] [phone] [employer] Adjuster: Monico Guadarrama MD Calcium [Mass/Vol] 9.0 mg/dL Normal 8.6-10.4 [facility] Comment on above: Performed By: #### C BC, BMP #### [facility] [address] [place], [place] [phone] [employer] Adjuster: Monico Guadarrama MD Chloride [Moles/Vol] 105 mmol/L Normal 98-107 [facility] Comment on above: Performed By: #### C BC, BMP #### [address] [address] [employer] Adjuster: Monico Guadarrama MD CO2 [Moles/Vol] 24 mmol/L Normal 20-31 [facility] Comment on above: Performed By: #### C BC, BMP #### [address] [address] [employer] Adjuster: Monico Guadarrama MD Creatinine [Mass/Vol] 0.9 mg/dL Normal 0.6-0.9 [facility] Comment on above: Performed By: #### C BC, BMP #### [address] [address] [employer] Adjuster: Monico Guadarrama MD GFR/1.73 sq M.predicted among non-blacks MDRD (S/P/Bld) [Vol rate/Area] 88 mL/min/{1.73_m2} Normal >60 [facility] Comment on above: Result Comment: These [...] Performed By: #### C BC, BMP #### [address] [address] [employer] Adjuster: Monico Guadarrama MD Glucose [Mass/Vol] 116 mg/dL High 74-99 [facility] Comment on above: Performed By: #### C BC, BMP #### [address] [address] [employer] Adjuster: Monico Guadarrama MD Potassium [Moles/Vol] 4.2 mmol/L Normal 3.7-5.3 [facility] Comment on above: Performed By: #### C BC, BMP #### [facility] [address] [place] [address] [employer] Adjuster: Monico Guadarrama MD Sodium [Moles/Vol] 139 mmol/L Normal 136-145 [facility] Comment on above: Performed By: #### C BC, BMP #### [facility] [address] [place] [phone] [employer] Adjuster: Monico Guadarrama MD Urea nitrogen [Mass/Vol] 11 mg/dL Normal 6-20 [facility] Comment on above: Performed By: #### C BC, BMP #### [facility] [address] [place] [phone] [employer] Adjuster: Monico Guadarrama MD CBCon 02-16-2025 Erythrocyte distribution width (RBC) [Ratio] 14.2 % Normal 11.8-14.4 [facility] Comment on above: Performed By: #### C BC, BMP #### [facility] [employer] [address] [place] [address] [employer] Adjuster: Monico Guadarrama MD Hematocrit (Bld) [Volume fraction] 41.8 % Normal 36.3-47.1 [facility] Comment on above: Performed By: #### C BC, BMP #### [facility] [address] [place] [phone] [employer] Adjuster: Monico Guadarrama MD Hemoglobin (Bld) [Mass/Vol] 13.7 g/dL Normal 11.9-15.1 [facility] Comment on above: Performed By: #### C BC, BMP #### [facility] [address] [place] [phone] [employer] Adjuster: Monico Guadarrama MD MCH (RBC) [Entitic mass] 28.2 pg Normal 25.2-33.5 [facility] Comment on above: Performed By: #### C BC, BMP #### [address] [address] [employer] Adjuster: Monico Guadarrama MD MCHC (RBC) [Mass/Vol] 32.8 g/dL Normal 28.4-34.8 [facility] Comment on above: Performed By: #### C BC, BMP #### [address] [address] [employer] Adjuster: Monico Guadarrama MD MCV (RBC) [Entitic vol] 86.2 fL Normal 82.6-102.9 [facility] Comment on above: Performed By: #### C BC, BMP #### [address] [address] [employer] Adjuster: Monico Guadarrama MD NRBC Automated 0.0 per 100 WBC Normal 0.0 [facility] Comment on above: Performed By: #### C BC, BMP #### [address] [address] [employer] Adjuster: Monico Guadarrama MD Platelet mean volume (Bld) [Entitic vol] 9.0 fL Normal 8.1-13.5 [facility] Comment on above: Performed By: #### C BC, BMP #### [address] [address] [employer] Adjuster: Monico Guadarrama MD Platelets (Bld) [#/Vol] 273 10*3/uL Normal 138-453 [facility] Comment on above: Performed By: #### C BC, BMP #### [address] [address] [employer] Adjuster: Monico Guadarrama MD RBC (Bld) [#/Vol] 4.85 10*6/uL Normal 3.95-5.11 [facility] Comment on above: Performed By: #### C BC, BMP #### [address] [phone] [employer] Adjuster: Monico Guadarrama MD WBC (Bld) [#/Vol] 15.0 10*3/uL High 3.5-11.3 [facility] Comment on above: Performed By: #### C , BMP #### [facility] [address] [place], [place] [phone] [employer] Adjuster: Monico Guadarrama MD CBC without Diffon Erythrocyte distribution width (RBC) [Ratio] 14.2 % 11.8 - 14.4 % [facility] Hematocrit (Bld) [Volume fraction] 41.8 % 36.3 - 47.1 % [facility] Hemoglobin (Bld) [Mass/Vol] 13.7 g/dL 11.9 - 15.1 g/dL [facility] Interpretation and review of laboratory results Abnormal [facility] MCH (RBC) [Entitic mass] 28.2 pg 25.2 - 33.5 pg [facility] MCHC (RBC) [Mass/Vol] 32.8 g/dL 28.4 - 34.8 g/dL [facility] MCV (RBC) [Entitic vol] 86.2 fL 82.6 - 102.9 fL [facility] Nucleated RBC/100 WBC (Bld) [Ratio] 0 % 0.0 per 100 WBC [facility] Platelet mean volume (Bld) [Entitic vol] 9 fL 8.1 - 13.5 fL [facility] Platelets (Bld) [#/Vol] 273 10*3/uL [facility] RBC (Bld) [#/Vol] 4.85 10*6/uL 3.95 - 5.11 m/uL [facility] WBC other (Bld) [#/Vol] [address] [facility] Glucose (POC)on 02-16-2025 Glucose [Mass/Vol] 85 mg/dL Normal 74-100 [facility] No Panel Informationon 02-16 [facility] [employer] POCT Glucoseon 02-16-2025 Glucose [Mass/Vol] 85 mg/dL 74 - 100 mg/dL [facility] POTASSIUM (POC)on 02-16-2025 Potassium [Moles/Vol] 4.2 mmol/L 3.5 - 4.5 mmol/L [facility] Potassium (POC)on 02-16-2025 Potassium [Moles/Vol] 4.2 mmol/L Normal 3.5-4.5 [facility] Surgical Pathology Reporton 02-16-2025 Surgical Pathology Report (NOTE) Path Number: [id number] -- Diagnosis -- STOMACH, PARTIAL GASTRECTOMY: - MILD CHRONIC GASTRITIS. Cy Etienne M.D. Electronically Signed Out sls/02/18/2025 Clinical Information Pre-Op Diagnosis: MORBID OBESITY DUE TO EXCESSIVE CALORIES; OBSTRUCTIVE SLEEP APNEA; BORDERLINE DIABETES Operative Findings: PORTION OF STOMACH Operation Performed: LAPAROSCOPIC ROBOTIC ASSISTED GASTRECTOMY SLEEVE, EGD, HIATAL HERNIA REPAIR, POSSIBLE LIVER BIOPSY se Source of Specimen A: PORTION OF STOMACH Gross Description MELRINE MOHR, PORTION OF STOMACH Received in formalin is a 21.0 x 4.2 x 3.6 cm portion of stomach with a staple line that runs along its length. The serosa is pink-short and the mucosa is pink-red with no areas of granularity or masses. [employer] sections 1cs. amrit Duncan/se:02/17/2025 Microscopic Description Mild chronic gastritis is present. Submucosal adipose tissue appears increased. The muscularis propria and serosa are unremarkable. There is no evidence of Helicobacter pylori infection, intestinal metaplasia, dysplasia, or malignancy. Processing Lab: [address] [phone] Interpretation Performed at [address] [phone] SURGICAL PATHOLOGY CONSULTATION Patient Name: MERLINE MOHR [facility] Rec: [id number] [facility] [employer] [facility] ANATOMIC PATHOLOGY [address] [place] [place], [place] [address] Normal [facility] Nicotineon 02-04-2025 Cotinine <5 Normal [facility] Comment on above: Performed By: #### B MP, PTT, PT, CBC #### [facility] [address] [place] [address] [phone] [employer] Adjuster: Monico Guadarrama MD #### GERSON #### [address] [phone] [employer] Adjuster: Matthieu Rhodes MD Nicotine <5 [facility] Comment on above: Result Comment: (NOT E) [...] developed and its performance characteristics determined by [employer]. It has not been cleared or approved by the [place] Food and Drug Administration. This test was performed in a CLIA certified laboratory and is intended for clinical purposes. Performed By: [facility] [address] [place] [address] Process Safety Manager: Teddy Nuñez MD, PhD CLIA Number: [id number] Performed By: #### B MP, PTT, PT, CBC #### [facility] [address] [place] [address] [phone] [employer] Adjuster: Monico Guadarrama MD #### GERSON #### [address] [address] [employer] Adjuster: Matthieu Rhodes MD Nicotine, Bloodon 02-04-2025 Cotinine <5 ng/mL [facility] Nicotine <5 ng/mL [facility] Comment on above: (NOTE) INTERPRETIVE INFORMATION: Nicotine [...] developed and its performance characteristics determined by [employer]. It has not been cleared or approved by the [place] Food and Drug Administration. This test was performed in a CLIA certified laboratory and is intended for clinical purposes. Performed By: [facility] [address] [place] [address] Process Safety Manager: Teddy Nuñez MD, PhD CLIA Number: [id number] [employer] EKG 12 LeadOrdered By: Morgan Keyes on 02-02-2025 Atrial Rate 93 BPM [employer] Phone: [phone] P [place] 38 degrees [employer] Phone: [phone] P-R Interval 148 ms [employer] Phone: [phone] Q-T Interval 352 ms [employer] Phone: [phone] QRS Duration 76 ms [employer] Phone: [phone] QTc Calculation (Bazett) 437 ms [employer] Phone: [phone] R [place] 63 degrees [employer] Phone: [phone] T [place] 30 degrees [employer] Phone: [phone] Ventricular Rate 93 BPM [employer] Phone: [phone] [employer] Phone: [phone] EKG 12 Leadon 02-02-2025 Normal sinus rhythm Normal ECG No previous ECGs available [facility] Morgan Espinoza, - 02/02/2025 Normal sinus rhythm Normal ECG No previous ECGs available [facility] APTTon 01-31-2025 aPTT Coag (Bld) [Time] 31.4 s [facility] [employer] Comment on above: IV Heparin Therapy Range: 66.0-92.0 sec aPTT Coag (Bld) [Time] 31.4 s Normal 23.0-36.5 [facility] Comment on above: Result Comment: IV Heparin Therapy Range: 66.0-92.0 sec Performed By: #### B MP, PTT, PT, CBC #### [employer] [address] [place] [address] Field Automobile Adjuster: Monico Guadarrama MD #### ANICOT #### [facility] [address] [place] [address] [employer]obile Adjuster: Matthieu Rhodes MD Basic Metabolic Panelon Anion gap [Moles/Vol] 12 mmol/L 9 - 16 mmol/L [facility] [employer] Calcium [Mass/Vol] 10.0 mg/dL 8.6 - 10. 4 mg/dL [facility] [employer] Chloride [Moles/Vol] 101 mmol/L 98 - 10 7 mmol/L [facility] [employer] CO2 [Moles/Vol] 25 mmol/L 20 - 31 mmol/L [facility] [employer] Creatinine [Mass/Vol] 0.8 mg/dL 0.6 - 0.9 mg/dL [facility] Est, Gloparvin Patinot Rate - PINF [facility] Comment on above: These results are not [...] [Mass/Vol] 87 mg/dL 74 - 99 mg/dL [facility] Potassium [Moles/Vol] 4.4 mmol/L 3.7 - 5.3 mmol/L [facility] Sodium [Moles/Vol] 138 mmol/L 136 - 145 mmol/L [facility] Urea nitrogen [Mass/Vol] 19 mg/dL 6 - 20 mg/dL [facility] Basic Metabolic Profon 01-31 Anion gap [Moles/Vol] 12 mmol/L Normal 9-16 [facility] Comment on above: Performed By: #### B MP, PTT, PT, CBC #### [address] [address] [employer]obile Adjuster: Monico Guadarrama MD #### ANICOT #### [address] [address] [employer] Adjuster: Matthieu Rhodes MD Calcium [Mass/Vol] 10.0 mg/dL Normal 8.6-10.4 [facility] Comment on above: Performed By: #### B MP, PTT, PT, CBC #### [address] [address] [employer] Adjuster: Monico Guadarrama MD #### ANICOT #### [address] [address] [employer] Adjuster: Matthieu Rhodes MD Chloride [Moles/Vol] 101 mmol/L Normal 98-107 [facility] Comment on above: Performed By: #### B MP, PTT, PT, CBC #### [address] [address] [employer] Adjuster: Monico Guadarrama MD #### ANICOT #### [facility] [address] [place] [address] [employer] Adjuster: Matthieu Rhodes MD CO2 [Moles/Vol] 25 mmol/L Normal 20-31 [facility] Comment on above: Performed By: #### B MP, PTT, PT, CBC #### [facility] [address] [place] [address] [employer] Adjuster: Monico Guadarrama MD #### ANICOT #### [facility] [address] [place], [place] [id number] Field Automobile Adjuster: Matthieu Rhodes MD Creatinine [Mass/Vol] 0.8 mg/dL Normal 0.6-0.9 [facility] Comment on above: Performed By: #### B MP, PTT, PT, CBC #### [address] [address] Field [employer]obile Adjuster: Monico Guadarrama MD #### ANICOT #### [facility] [address] [place] [address] [employer] Adjuster: Matthieu Rhodes MD GFR/1.73 sq M.predicted among non-blacks MDRD (S/P/Bld) [Vol rate/Area] mL/min/{1.73_m2} Normal >60 [facility] Comment on above: Result Comment: These [...] #### B MP, PTT, PT, CBC #### [facility] [address] [place] [address] [employer] Adjuster: Monico Guadarrama MD #### ANICOT #### [facility] [address] [place] [address] Field [employer]obile Adjuster: Matthieu Rhodes MD Glucose [Mass/Vol] 87 mg/dL Normal 74-99 [facility] Comment on above: Performed By: #### B MP, PTT, PT, CBC #### [facility] [address] [address] Field [employer]obile Adjuster: Monico Guadarrama MD #### ANICOT #### [address] [address] Field [employer] Adjuster: Matthieu Rhodes MD Potassium [Moles/Vol] 4.4 mmol/L Normal 3.7-5.3 [facility] Comment on above: Performed By: #### B MP, PTT, PT, CBC #### [address] [phone] [employer] Adjuster: Monico Guadarrama MD #### ANICOT #### [address] [address] [employer] Adjuster: Matthieu Rhodes MD Sodium [Moles/Vol] 138 mmol/L Normal 136-145 [facility] Comment on above: Performed By: #### B MP, PTT, PT, CBC #### [address] [address] [employer] Adjuster: Monico Guadarrama MD #### ANICOT #### [address] [address] [employer] Adjuster: Matthieu Rhodes MD Urea nitrogen [Mass/Vol] 19 mg/dL Normal 6-20 [facility] Comment on above: Performed By: #### B MP, PTT, PT, CBC #### [address] [address] [employer] Adjuster: Monico Guadarrama MD #### ANICOT #### [address] [address] [employer] Adjuster: Matthieu Rhodes MD [facility] 01-31-2025 Erythrocyte distribution width (RBC) [Ratio] 14.1 % 11.8 - 14.4 % [facility] Hematocrit (Bld) [Volume fraction] 45.1 % 36.3 - 47.1 % [facility] Hemoglobin (Bld) [Mass/Vol] 14.7 g/dL 11.9 - 15.1 g/dL [facility] Interpretation and review of laboratory results Abnormal [facility] MCH (RBC) [Entitic mass] 28.4 pg 25.2 - 33.5 pg [facility] MCHC (RBC) [Mass/Vol] 32.6 g/dL 28.4 - 34.8 g/dL [facility] MCV (RBC) [Entitic vol] 87.2 fL 82.6 - 102.9 fL [facility] Nucleated RBC/100 WBC (Bld) [Ratio] 0.0 % 0.0 per 100 WBC [facility] Platelet mean volume (Bld) [Entitic vol] 8.8 fL 8.1 - 13.5 fL [facility] Platelets (Bld) [#/Vol] 348 10*3/uL [facility] RBC (Bld) [#/Vol] 5.17 10*6/uL High 3.95 - 5.11 m/uL [facility] WBC other (Bld) [#/Vol] 11.5 High B [facility] Erythrocyte distribution width (RBC) [Ratio] 14.1 % Normal 11.8-14.4 [facility] Comment on above: Performed By: #### B MP, PTT, PT, CBC #### [facility] [address] [place] [address] [phone] [employer] Adjuster: Monico Guadarrama MD #### HOMART #### [facility] [address] [place] [address] Field [employer]obile Adjuster: Matthieu Rhodes MD Hematocrit (Bld) [Volume fraction] 45.1 % Normal 36.3-47.1 [facility] Comment on above: Performed By: #### B MP, PTT, PT, CBC #### [facility] [address] [place] [address] [phone] [employer] Adjuster: Monico Guadarrama MD #### HOMART #### [facility] [address] [place], [place] [phone] Field [employer]obile Adjuster: Matthieu Rhodes MD Hemoglobin (Bld) [Mass/Vol] 14.7 g/dL Normal 11.9-15.1 [facility] Comment on above: Performed By: #### B MP, PTT, PT, CBC #### [address] [phone] [employer] Adjuster: Monico Guadarrama MD #### ANICOT #### [address] [phone] [employer] Adjuster: Matthieu Rhodes MD MCH (RBC) [Entitic mass] 28.4 pg Normal 25.2-33.5 [facility] Comment on above: Performed By: #### B MP, PTT, PT, CBC #### [address] [phone] [employer] Adjuster: Monico Guadarrama MD #### ANICOT #### [address] [phone] [employer] Adjuster: Matthieu Rhodes MD MCHC (RBC) [Mass/Vol] 32.6 g/dL Normal 28.4-34.8 [facility] Comment on above: Performed By: #### B MP, PTT, PT, CBC #### [address] [phone] [employer] Adjuster: Monico Guadarrama MD #### ANICOT #### [address] [phone] [employer] Adjuster: Matthieu Rhodes MD MCV (RBC) [Entitic vol] 87.2 fL Normal 82.6-102.9 [facility] Comment on above: Performed By: #### B MP, PTT, PT, CBC #### [address] [phone] [employer] Adjuster: Monico Guadarrama MD #### ANICOT #### [facility] [address] [place] [address] Field [employer]obile Adjuster: Matthieu Rhodes MD NRBC Automated 0.0 per 100 WBC Normal 0.0 [facility] Comment on above: Performed By: #### B MP, PTT, PT, CBC #### [address] [address] [employer] Adjuster: Monico Guadarrama MD #### ANICOT #### [facility] [address] [place] [address] Field [employer]obile Adjuster: Matthieu Rhodes MD Platelet mean volume (Bld) [Entitic vol] 8.8 fL Normal 8.1-13.5 [facility] Comment on above: Performed By: #### B MP, PTT, PT, CBC #### [place] [address] [employer] Adjuster: Monico Guadarrama MD #### ANICOT #### [facility] [address] [place] [address] Field [employer]obile Adjuster: Matthieu Rhodes MD Platelets (Bld) [#/Vol] 348 10*3/uL Normal 138-453 [facility] Comment on above: Performed By: #### B MP, PTT, PT, CBC #### [address] [address] [employer] Adjuster: Monico Guadarrama MD #### ANICOT #### [facility] [address] [place] [address] Field [employer]obile Adjuster: Matthieu Rhodes MD RBC (Bld) [#/Vol] 5.17 10*6/uL High 3.95-5.11 [facility] Comment on above: Performed By: #### B MP, PTT, PT, CBC #### [address] [address] [employer] Adjuster: Monico Guadarrama MD #### ANICOT #### [facility] [address] [place] [address] [employer] Adjuster: Matthieu Rhodes MD WBC (Bld) [#/Vol] 11.5 10*3/uL High 3.5-11.3 [facility] Comment on above: Performed By: #### B MP, PTT, PT, CBC #### [address] [phone] [employer] Adjuster: Monico Guadarrama MD #### ANICOT #### [facility] [address] [place] [address] [employer] Adjuster: Matthieu Rhodes MD No Panel Informationon 01-31 [facility] PTon 01-31-2025 INR Coag (PPP) [Relative time] 1.0 {INR} Normal [facility] Comment on above: Result Comment: Therapeutic Range: Moderate Anticoagulant Intensity: INR = 2.0-3.0 High Anticoagulant Intensity: INR = 2.5-3.5 Performed By: #### B MP, PTT, PT, CBC #### [address] [address] Field [employer] Adjuster: Monico Guadarrama MD #### ANICOT #### [facility] [address] [place] [address] [employer] Adjuster: Matthieu Rhodes MD PT Coag (PPP) [Time] 13.1 s Normal 11.7-14.9 [facility] Comment on above: Performed By: #### B MP, PTT, PT, CBC #### [address] [address] [employer] Adjuster: Monico Guadarrama MD #### ANICOT #### [facility] [address] [place] [address] [employer] Adjuster: Matthieu Rhodes MD [facility] 01-31-2025 INR Coag (PPP) [Relative time] 1.0 {INR} [facility] Comment on above: Therapeutic Range: Moderate Anticoagulant Intensity: INR = 2.0-3.0 High Anticoagulant Intensity: INR = 2.5-3.5 PT Coag (PPP) [Time] 13.1 s [facility] XR CHEST (2 VW)on 01-31-2025 XR CHEST [...] Ninfa Mckeon MD 01/31/25 Final result Normal [facility] XR Chest 2 Viewson No acute cardiopulmo nary abnormality. [facility] RIS CONSOLIDATED EXAMINATION: TWO XRAY VIEWS OF THE CHEST 01/31/2025 10:22 am COMPARISON: None HISTORY: ORDERING SYSTEM PROVIDED HISTORY: preop, morbid obesity, prediabetes, RALPH TECHNOLOGIST PROVIDED HISTORY: preop, morbid obesity, prediabetes, RALPH Reason for Exam: pre op, morbid obesity, prediabetes. FINDINGS: The cardiomediastinal silhouette is within normal limits. No focal airspace consolidation, pneumothorax, or sizeable pleural effusion. [facility] RIS CONSOLIDATED Ninfa Mckeon MD - 01/31/2025 EXAMINATION: TWO XRAY VIEWS OF THE CHEST 01/31/2025 10:22 am COMPARISON: None HISTORY: ORDERING SYSTEM PROVIDED HISTORY: preop, morbid obesity, prediabetes, RALPH TECHNOLOGIST PROVIDED HISTORY: preop, morbid obesity, prediabetes, RALPH Reason for Exam: pre op, morbid obesity, prediabetes. FINDINGS: The cardiomediastinal silhouette is within normal limits. No focal airspace consolidation, pneumothorax, or sizeable pleural effusion. IMPRESSION: No acute cardiopulmonary abnormality. [facility] Radiology Study observation (narrative) [facility] XR Chest 2 ViewsOrdered By: Edmolly Mike on 01-31-2025 [facility] Work Phone: Nicotineon 11-30-2024 Cotinine <5 Normal [facility] Comment on above: Performed By: #### A NICOT ####[facility] [address] [place] [address] Lab Director: Matthieu Rhodes MD Nicotine <5 Normal [facility] Comment on above: Result Comment: (NOT [...] developed and its performance characteristics determined by [facility]. It has not been cleared or approved by the [place] Food and Drug Administration. This test was performed in a CLIA certified laboratory and is intended for clinical purposes. Performed By: [facility] [address] [place] [address] Process Safety Manager: Teddy Nuñez MD, PhD CLIA Number: [id number] Performed By: #### A NICOT ####[facility] [address] [place], [place] [id number] lab Director: Matthieu Rhodes MD Drug Scr, Abuse, Uron 2023 Amphetamine(s),Ur Negative Normal NEG [facility] Comment on above: Result Comment: Cuto ff: 1000 ng/mL Performed By: #### D AU ####[facility] [address] [place], [place] [phone] Director: Monico Guadarrama MD Barbiturate(s),Ur Negative Normal NEG [facility] Comment on above: Result Comment: Cuto ff: 200 ng/ml Performed By: #### D AU ####[facility] [address] [place] [address] [phone] Director: Monico Guadarrama MD Benzodiazepine(s) Negative Normal NEG [facility] Comment on above: Result Comment: Cuto ff: 200 ng/ml Performed By: #### D AU ####[address] [phone] Director: Monico Guadarrama MD Cannabinoid(s),Ur Negative Normal NEG [facility] Comment on above: Result Comment: Cuto ff: 50 ng/ml Performed By: #### D AU ####[address] [phone] Director: Monico Guadarrama MD Cocaine Metabolite Negative Normal NEG [facility] Comment on above: Result Comment: Cuto ff: 300 ng/ml Performed By: #### D AU ####[address] [phone] Director: Monico Guadarrama MD Fentanyl, Urine Negative Normal NEG [facility] Comment on above: Result Comment: Cuto ff: 5 ng/ml Performed By: #### D AU ####[address] [phone] Director: Monico Guadarrama MD Interpretive Info Assay provides rapid clinical screening only. Presumptive positive results for Normal [facility] Comment on above: Result Comment: lega l purposes should be confirmed by another method. To request confirmation, please call the lab within 7 days of sample submission. Performed By: #### D AU ####[address] [address] Lab Director: Monico Guadarrama MD Methadone Ql (U) Negative Normal NEG [facility] Comment on above: Result Comment: Cuto ff: 300 ng/ml Performed By: #### D AU ####[facility] [address] [place] [address] Lab Director: Monico Guadarrama MD Opiate(s), Ur Negative Normal NEG [facility] Comment on above: Result Comment: Cuto ff: 300 ng/ml Performed By: #### D AU ####[facility] [address] [place] [address] Lab Director: Monico Guadarrama MD Oxycodone, Urine Negative Normal NEG [facility] Comment on above: Result Comment: Cuto ff: 100 ng/ml Performed By: #### D AU ####[facility] [address] [place] [address] Lab Director: Monico Guadarrama MD Phencyclidine, Ur Negative Normal NEG [facility] Comment on above: Result Comment: Cuto ff: 25 ng/ml Performed By: #### D AU ####[facility] [address] [place] [phone] Lab Director: Monico Guadarrama MD Urine Drug Screenon [...] 50 ng/ml Cocaine Ql (U) Negative NEGATIVE [place] [facility] Comment on above: Cutoff: 300 ng/ml fentaNYL Ql (U) Negative NEGATIVE [facility] Comment on above: Cutoff: 5 ng/ml Methadone Ql (U) Negative NEGATIVE [facility] Comment on above: Cutoff: 300 ng/ml Opiates Screen Ql (U) Negative NEGATIVE [facility] Comment on above: Cutoff: 300 ng/ml oxyCODONE Ql (U) Negative NEGATIVE [facility] Comment on above: Cutoff: 100 ng/ml Phencyclidine Ql (U) Negative NEGATIVE [facility] Comment on above: Cutoff: 25 ng/ml Test Information Assay provides rapid clinical screening only. Presumptive positive results for legal purposes should be confirmed by another method. To request confirmation, please call the lab within 7 days of sample submission. [facility] Coding Summaryon 11-23-2024 Coding Summary HTMLBase 64 GfmkysitVNi1sVs+PGhlYWQ+ QV3FIPGvE37lrSApwT0lB6QN TElOSywgQVBQTElOSyIgbmFt ZM5mtJIuAUXn IC8+WQ0qDMOpMdbfwCCbm3V6 kDF4U79rmw1pHJluwFV8CKLf MqThviwrb2qmvCw2MGjwWbnv OyBt GCGsaX33AUM6tB24Kg90hFQa qPGbi0ysaAw5XwKrHTSdJJN8 wOebOFntd9SfTSJzR69piRGt c2U6 CINooDyrxLCaBuDvmEF9hH5e YMnqjryji3pdmdnxYnu1vf41 iGNai3F4mSL9U0TwncS9MZWz bGQg GwlftUWSkL8ebntwq8titnmm KbHvXRDcGOu3RGa6ANFldUrh UxPlHA35FPT3CBWgklUzQ8Im LWFs dQisMrN6d2R0Hx8TS1RRBnjm H9HLINJHMAimgZP+ZD40tt81 N1WpVpouSvy2RANoZNJ6fJI7 aD0n SQQtDRgij6H2nBT1F0GikbJp de0nf3bjALKlFHxzE82peWRi y3W6HQTpiAK6WFPsnOybLsGn aG93 Oyc+LWOjaMmwt8UlGynns0gy l1gueUg0GesdSXTuaqRmoNct CRQ7i3DxLq7kRORgwFC9cZL0 aD0i OaWqImC8RWxaI073UeOjlKDf MwmiK17yC5DesKT+PHRyPjx0 HVIccRvmEL6gZ8EeTOAnmbli bGVm kZvpEW4qFKEaxgxzYIXeuL9q BPSbO7p2WgZwEsR3VTprS9Uy SIDhztbcHp21eA0uZeBvPwR0 MGlu L5GilrV2QQVlsDOdENblJKZ6 B92ls7A8KPJpEWIuGUL8lYE4 gM8seOtxogdotAIrdIskzyUf dGlj MRqaVSyyG224HKCewWiiGyHf ZGluZyBEYXRlOiAgMTIvMjQv MjAyNDwvdGQ+ROByLEH2xWwv PSAn tMXgZDvxAl4cvAejjWvkCH3h TDWutoaxONYaxS2gKHHlkRZr gJfwOB1zSTBqcaobz650KpHa MHB0 GMYqlMNxQ7MtjP4wQkVmNTEj TUDhK1RwxLHfWFmuQ544YAea OrI0WVKnwvJgE4FnVGAscQjx OiB0 h7H1Vy5Ss0ZfzepgO6DasOYw XzJqQstdHNn7K7PbNmgjiTP+ YW13BYCbYJ17TSp7NLK9uRrw PSdi OLObH7JkjC7iAxHpUVEqKEQz Oyc+PHRhYmxlIHdpZHRoPScx FIEhQjJwqVctCV1iEb6dJCJb LWNv kCezzLRuZhUao6dhSXDqAYrf GU2fjOriY8XfpSX6XVXse3b6 Il07F93sR8QqpEU+PGNvbCB3 aWR0 oR3fLaDqEpW5IQuiG872MoRm yNXbEfvap8pkc4jkoRz3UdX8 AOTuzdCcgZdcQIX2i3JkRk80 Y29s IHdpZHRoPSIxNSUiIHZhbGln vr5biF6eJt7+WLEwoDC7tKU5 yX8hKpBmFkY3VHalD800FcBp cCIv Cscoj4gbj6gyhCf4JiQpYCIm moHvjHyhFWX1n7PtWa72G4Hr kXxem3CyDnf6iy43aNBta6L1 bGU9 D4BqNCYwqnumjBAznOekJN8o LOEnrahhHZYmaD2jSWYlB1b8 CoGvWoA1KTmhT0IqzuA4BBVd bGQg FZEhyWFVuE9bgydke5sgzhro BbNgKNDiEAw2DPs4XHSitIyn IdTlNKL3FlK5VUQ6eXNaaE4b bGln knuluI1qLiq+KWR9aVBolFUI MX2lAbduzAW+JXLeJVF1rLqq CLjeSPQcqK5uFLAvF0d7IrQs LjA1 QMgbV1OhoyF6NKThzGLzNVOw mUCCyV4fnzsfu0keegthSmGg YACgNDq4AUc5TMVkqPwaHwHw ZWZ0 IgK7QZL1iABlnD5wrTkshnra wU1tNzg+ShpveJtvCQQ6ZUf3 C0RxFba6WSTysEupCX4rnZLq ZGlu Nc2ezUvctZsjFT7fFNXirqpa f112AeCsv8qfWYWsaARrWRca GDA8L46rw0U1XYSjPABfDGO5 dGV4 mT9dkTqdrdahmYQkdDqdnjTq rCvgFMubGPehO030UBSsgDtp XrUaDWi3Q6AaJmq9YGPcfDzn ZT0n eNYpYWujTh1fnZuoaStxAE0v MMHwfzqmz145QmNwd5prKIQy fTFdIWvaUWF1U42ao1A0UTEa MDAw GPL8jCW1yM2wlNarusqphIIf yVqkdwBytOynIRtlZNwjJ687 CAJosMoaIhOujKr9Q3VdEoz6 ZCBz mUcaIF8fbNPpFOjkVy3zqAos zJouWN7pAPBjismuu272VbIr y7kbMDKnkUDmIAysTEL8J77g b3I6 IIYzQTUgKCH9oSY5aL9ttNhz bjogbGVmdDsgdmVydGljYWwt DVvxH749DJXldFfeFyWyyWzq bnQg ETmuMZq7M7RrLsvfoXE+PC90 HCNcGA52eVYmyPOtn7pxdOk4 HmPsKLInCBW0aYgdCUqxy1Zl ZXIt R47ziFSma5T8RPFxuBbjiKFk MyKqkTJ7aZ7uQYkiujfnd1tp syfiXtpxe1cdel15mJ24V72j IHdp BMHbOIRwEJTcQQNqzPqqii6z iO6sPv3+ATDxfGI5lZR6wP1k BTYxXoZ4TVcmU632VlJhvLHk Pjxj f7nqt0lypCj3JmF8PELmbcDo gRppMSR3s3MqDv72I61zFFfe XTHtDBGdMMYdRJPvgTcyrg0b dG9w Ii8+TFDutOH5zZA4vN9nVsBl JdV8AQjfO972OpJacDCpFusi F28tR2TomPP+KTCyEri5BJMg dHls KZ9kcQNuNQctEq2qVTP7UxWf WoHvGImxD2EqFRPjazbyclld fVK4NBRgIQJmtD00Il1tzUnm MTBw rQXJmE7juxojy1gdxaqvUuPi AOAaSYa0DCy9LXPtuRkgWnSc FSG6KyK2ROP3sPJeoA1jdEmi bjog vP2gJ1YtTOIztryeIz76aI2f SbSwEnQ1JVgsXpq+QZ8BBD6C WpbBIYTQKGNXOGTCOZ3XV76W RTwv dGQ+WTPoANR0nXumYWbaEJGg dV9bIUJpY2j4PkNwAuB8JQix C9TkBFFivhvmMp75eJ3zRvJx LjA1 JFsjN4PmchL0EDUkvCZiMIcj UGL6M25ck0V4XCEzRSSuIEF2 uFX1yV9hyFhaeyqsoJKapCku dmVy zArkXGouANnoH975YTJdhYzu JsJ3QpD1AzJ5GJJ5R5SfQnr6 SNIjaRijIJ0auJGxAYjxBb6f aWdo sCkpRX3iFYHjctltGTBqhN6g VWYioBNbmNbiTK6tANThbgxm p858NoVpUJT3ABZksHHgK8Eq bG9y GfOqQRQhISXcM6ZcvFDuJEyj Q008TVrdXrX2IXVldxVbS2Wa COKdiKtpQyX0q3W4Xf3fZCKG ZWFy czwvdGQ+KHVfXMY5mHewCMtn NAMifA9xMTOhF1m9KsDfMcN5 PNfuB4XrMJEbyojvZb31mC3t OiAw SwD7ZFonE3WxidN7AIYuwJUo RJwiVRO5G10om9Y8ZHJcRYFf ESY8fYC4yO7pdZcwxxhnnGCo dDsg agEfaMwzMLsvNDuiN387UNBh cDsnPkZFTUFMRTwvdGQ+PHRk RZB9oIyrKFszNDPnqI8wBREj Z2h0 HbDfLeM2GTswN6JdUSFybgue Nu34pL0aNqHdEoO7XBeuO5Dt zbR9NTRmgTXyMEyqTJX9F74h b3I6 RUZnPHIwJGI1qID2xU2uaImh bjogbGVmdDsgdmVydGljYWwt WEmxU609INSybKftVe8XDW08 ZD48 P3OrAbeknSVgiRC+PHRhYmxl IHdpZHRoPScxMDAlJyBzdHls QY9qWp1dAIEgOJPlhWnszVGf OiBj z2qrTURyALkpGS7xzWdpF2Ug tXL9LZJel9q3Gp20Y68rG4Fq dXA+FOTzqBR3jSJ5nQ4jZiXa IiB2 IVbdP666BnClwPXaYxkua2dc x0cmlEn0DwXfCYQpueVgkWil NPD4a1RnJt08U11jHBopISMq PSIy UNHgNLNbpRcwih5ytP5aXq1+ TMUjrKE3vKV1nR1oInErEeX7 WUwqU826SeCvaVHmMrzmC78n Z3Jv dXA+XALhMjd1OFEuuHdsRF7r wGZzSFsoAm8zDLY3PsCbHpWw ZVfsE8QiOGGvlezlqktqsYF5 IDAu TIVqfL01Kl5fhHasTs4aLCFi FKI7TQLqtZUhN6SuwM3bXpRb HYFjTABuV5LecEDyFTxuX251 IGxl LoW3MZQadmNbB1EyXYVuqUbp NeD8g9S4Bn9KzCslkZYfUT4p IvQhAAr6K8AyWsn0ZHOclVez ZT0n dPGkNFnlIb4bsSbbvDjlFW2m KIDykweja098BoPgt7ctADEz sZMaOWqjWUY4X10hr6R0KYDg MDAw LIT2aDD0tM7pcBugvjhuqRMq eYqeuoGbfMiaPShjGSreX229 LJMobUslDzESJnh9A3ZaQej5 ZCBz cUuaIF2ucQBvYTlbBa2nvWfg hGrnGZ6zPHTjbemnn486GxNk h5awACVbwYSzZZucGOY8G99m b3I6 FEBaWZXaVFB0aVX6rX4plZba bjogbGVmdDsgdmVydGljYWwt PBdwU200FUHoqYzlPa9QVqv8 L3Rk Gug9SYZzjLamSG4foSYzJPku Qz0qjIqhdSkcED6mGKCwbame x194ZlHfx5hgNJYuyBRjVOpi ZXM7 I10hp7A4JAImKZTsWIM4gSQ0 wC5fjTskbzpbwKZanBmklgAj ySlzSNvxOUcmK336TNHndDwq PlBh eWVyOjwvdGQ+BW95wm22Y3Cu FfdlGiz1GBIeETP6nFC3dX0q GNYxMDszm0J9zHW5Q9ZtptRm ci1j b2x (more content not included)... Normal [facility] Zinc, Plasma or Serum LCon 1 01-24-2024 Zinc, Plasma or Serum LC 78 ug/dL Invalid Interpretation Code 44-115 [facility] Comment on above: Result Comment: This test was developed and its performance characteristics determined by [facility]. It has not been cleared or approved by the Food and Drug Administration. Detection Limit = 5 Performed At: [address] [id number] Vitor Padilla MD Ph:[phone] Performed By: #### 1 [id number] ####[facility] (DEFAULT)[address] [place] [address] Provider Orderson 11-20-2024 Provider Orders [id number] GTIFF Normal [facility] Triage Panel 12on 11-20-2024 Triage Internal Control Pass Normal [facility] Comment on above: Performed By: #### 1 [id number] ####[facility] (DEFAULT)[address] [place] [address] U Amph Scr Negative Normal [facility] Comment on above: Performed By: #### 1 [id number] ####[facility] (DEFAULT)[address] [place] [id number] U Sylvia Scr Negative [facility] Comment on above: Performed By: #### 1 [id number] ####[facility] (DEFAULT)[address] [place] [id number] U Benzodia Scr Negative [facility] Comment on above: Performed By: #### 1 [id number] ####[facility] (DEFAULT)[address] [place] [address] U Cannab Scrn Negative [facility] Comment on above: Performed By: #### 1 [id number] ####[facility] (DEFAULT)[address] [place] [address] U Cocaine Scr Negative [facility] Comment on above: Performed By: #### 1 [id number] ####[facility] (DEFAULT)[address] [place] [address] U Methadone Scr Negative [facility] Comment on above: Performed By: #### 1 [id number] ####[facility] (DEFAULT)[address] [place] [address] U Methamp Scrn Negative [facility] Comment on above: Performed By: #### 1 [id number] ####[facility] (DEFAULT)[address] [place] [address] U Opiate Scr Negative [facility] Comment on above: Performed By: #### 1 [id number] ####[facility] (DEFAULT)[address] [place] [address] U Oxycod Scr Negative [facility] Comment on above: Performed By: #### 1 [id number] ####[facility] (DEFAULT)[address] [place] [address] U Phencyclidine Scr Negative [facility] Comment on above: Performed By: #### 1 [id number] ####[facility] (DEFAULT)[address] [place] [address] U Tricyclic Antidepress Scr Negative [facility] Comment on above: Result Comment: Resu [...] PPX Propoxyphene (Norpropoxyphene): 300 ng/mL THC Cannabinoids (37-rmr-5-carboxy- -THC): 50 ng/mL TCA Tricyclic-Antidepressants (Desipramine): 300 ng/mL Performed By: #### 1 [id number] ####[facility] (DEFAULT)[address] [place] [address] Urine Source Voided Normal [facility] Comment on above: Performed By: #### 1 [id number] ####[facility] (DEFAULT)[address] [place] [address] ECG 12 lead ECGon 09-17-2024 ECG 12 lead ECG [facility] [place] [address] Electrocardiograph Report Signed Patient: Merline Mohr MR#: [id number] : 1995 Acct:[id number] Age/Sex: 29 / F ADM Date: 09/17/24 Loc: Room: Type: [facility] Attending Dr: Zakiya Gunn FINANCIAL ADMINISTRATOR-C Ordering Provider: Zakiya Gunn Date of Service: [...] axis shifted left Confirmed by SYLVIA SUE [facility], FERNANDO ([id number]) on 09/17/2024 5:22:13 PM Referred By: Electronically Signed By: FERNANDO WARD MD [facility] Transcribed By: MUS Signed By Fernando Ward MD, [facility] 09/17/24 1722 Normal [facility] HCG,,Ur(POC)on 08-01 HCG,,Ur(POC) Negative Normal NEG [facility] Comment on above: Result Comment: Spec imens with hCG levels near the threshold of the test (25 mIU/mL) may give a negative or indeterminate result. In such cases, another test should be performed with a new specimen in 48-72 hours. If early is suspected clinically in this setting, correlation with quantitative serum b-hCG level is suggested. [place] [address] Surgical Pathology Reporton 08-13-2024 Surgical Pathology Report (NOTE) Path Number: [id number] -- Diagnosis -- STOMACH, BIOPSY:-GASTRIC MUCOSA WITH [...] Specimen A: STOMACH BIOPSY Gross Description MERLINE MOHR, STOMACH BIOPSY Received in formalin is one short-white tissue fragment, 0.5 x 0.3 x 0.1 cm. Entirely 1cs. jj tm Angel Robertson M.D./kb2:08/13/2024 Microscopic Description Microscopic examination performed. Processing Lab: [address] [id number] Interpretation Performed at [address] [id number] SURGICAL PATHOLOGY CONSULTATION Patient Name: MERLINE MOHR [facility] Rec: [id number] [facility] ANATOMIC PATHOLOGY [address] [place], [place] [address] Normal [facility] XR CHEST (2 VW)on 06-04-2024 XR CHEST [...] Roldan Lindsey MD 06/04/24 Final result Normal [facility] XR Chest 2 Viewson No acute cardiopulmo nary process [facility] RIS CONSOLIDATED EXAMINATION: TWO XRAY VIEWS [...] no acute osseous abnormality. [facility] RIS CONSOLIDATED Roldan Lindsey MD - 06/04/2024 EXAMINATION: TWO XRAY VIEWS [...] osseous abnormality. IMPRESSION: No acute cardiopulmonary process [facility] Radiology Study observation (narrative) [facility] Chest 2 ViewsOrdered By: Roldan Lindsey on 06-04-2024 [facility] Work Phone: DHEA SERUMon 03-12-2022 Dehydroepiandrosterone (DHEA) 451 ng/dL Normal 31-701 [facility] Comment on above: Result Comment: Age 1 - 5 years 0 - 67 6 - 7 years 0 - 110 8 - 10 years 0 - 185 11 - 12 years 0 - 201 13 - 14 years 0 - 318 15 - 16 years 39 - 481 17 - 19 years 40 - 491 >19 years 31 - 701 Performed By: #### Adriel BAY. #### [facility] [address] [address] [address] Rosa Cuevas DHEA-SULFATEon 03-08-2022 DHEA-Sulfate 199.0 ug/dL Normal 84.8-378.0 [facility] Comment on above: Performed By: #### Adriel CANTU #### [facility] [address] [address] [address] Rosa Cuevas FSHon 03-08-2022 FSH 5.8 mIU/mL Normal [facility] Comment on above: Result Comment: Adul t Female: Follicular phase 3.5 - 12.5 Ovulation phase 4.7 - 21.5 Luteal phase 1.7 - 7.7 Postmenopausal 25.8 - 134.8 Performed By: #### L BCFS #### [facility] [address] [address] [address] Rosa Cuevas LUTEINIZING HORMONE (LH)on 0 03-08-2022 LH 15.4 mIU/mL Normal [facility] Comment on above: Result Comment: Adul t Female: Follicular phase 2.4 - 12.6 Ovulation phase 14.0 - 95.6 Luteal phase 1.0 - 11.4 Postmenopausal 7.7 - 58.5 Performed By: #### David BCLH #### [facility] [address] [address] [address] Rosa Cuevas PROLACTINon 03-08-2022 Prolactin 7.2 ng/mL Normal 4.8-23.3 [facility] Comment on above: Performed By: #### P ROLAC #### [facility] [address] [place] [address] Dr. Rosa Cuevas CBC AUTO DIFFon 03-07-2022 BASO # 0.1 103/ul Normal 0.0-0.1 [facility] Comment on above: Performed By: #### C BC #### [facility] [address] [place] [address] Dr. Rosa Cuevas Basophils/100 WBC (Bld) 0.6 % Normal 0.2-2.0 [facility] Comment on above: Performed By: #### C BC #### [facility] [address] [place] [address] Dr. Rosa Cuevas EO # 0.0 103/ul Normal 0.0-0.7 [facility] Comment on above: Performed By: #### C BC #### [facility] [address] [place] [address] Dr. Rosa Cuevas Eosinophils/100 WBC (Bld) 0.5 % Critically low 0.9-7.0 [facility] Comment on above: Performed By: #### C BC #### [facility] [address] [place] [address] Dr. Rosa Cuevas Erythrocyte distribution width (RBC) [Ratio] 13.3 % Normal 11.0-15.0 [facility] Comment on above: Performed By: #### C BC #### [facility] [address] [place] [address] Dr. Rosa Cuevas Hematocrit (Bld) [Volume fraction] 43.6 % Normal 36.0-48.0 [facility] Comment on above: Performed By: #### C BC #### [facility] [address] [place] [address] Dr. Rosa Cuevas Hemoglobin (Bld) [Mass/Vol] 14.7 g/dL Normal 12.0-16.0 [facility] Comment on above: Performed By: #### C BC #### [facility] [address] [place] [address] Dr. Rosa Cuevas IG # 0.03 10e3/ul Normal 0.00-0.03 [facility] Comment on above: Performed By: #### C BC #### [facility] [address] [place] [address] Dr. Rosa Cuevas IG % 0.4 % Normal 0.0-0.5 [facility] Comment on above: Performed By: #### C BC #### [facility] [address] [place] [address] Dr. Rosa Cuevas LYMPH # 2.8 103/ul Normal 1.2-3.8 [facility] Comment on above: Performed By: #### C BC #### [facility] [address] [place] [address] Dr. Rosa Cuevas Lymphocytes/100 WBC (Bld) 35.2 % Normal 20.5-60.0 [facility] Comment on above: Performed By: #### C BC #### [facility] [address] [place] [address] Dr. Rosa Cuevas MANUAL DIFF REQ NO Normal [facility] Comment on above: Performed By: #### C BC #### [facility] [address] [place] [address] Dr. Rosa Cuevas MCH (RBC) [Entitic mass] 27.9 pg Normal 26.7-34.0 [facility] Comment on above: Performed By: #### C BC #### [facility] [address] [place] [address] Dr. Rosa Cuevas MCHC (RBC) [Mass/Vol] 33.7 g/dL Normal 29.9-35.2 [facility] Comment on above: Performed By: #### C BC #### [facility] [address] [place] [address] Dr. Rosa Cuevas MCV (RBC) [Entitic vol] 82.9 fL Normal 81.0-99.0 [facility] Comment on above: Performed By: #### C BC #### [facility] [address] [place] [address] Dr. Rosa Cuevas MONO # 0.5 103/ul Normal 0.3-0.8 [facility] Comment on above: Performed By: #### C BC #### [facility] [address] [place] [address] Dr. Rosa Cuevas Monocytes/100 WBC (Bld) 5.6 % Normal 1.7-12.0 [facility] Comment on above: Performed By: #### C BC #### [facility] [address] [place] [address] Dr. Rosa Cuevas NEUT # 4.7 103/ul Normal 1.4-6.5 [facility] Comment on above: Performed By: #### C BC #### [facility] [address] [place] [address] Dr. Rosa Cuevas Neutrophils/100 WBC (Bld) 57.7 % Normal 43.0-75.0 [facility] Comment on above: Performed By: #### C BC #### [facility] [address] [place] [address] Dr. Rosa Cuevas Platelet mean volume (Bld) [Entitic vol] 8.7 fL Critically low 9.5-13.5 [facility] Comment on above: Performed By: #### C BC #### [facility] [address] [place] [address] Dr. Rosa Cuevas PLT 263 103/ul Normal 150-450 [facility] Comment on above: Performed By: #### C BC #### [facility] [address] [place] [address] Dr. Rosa Cuevas RBC 5.26 106/ul Normal 4.20-5.40 [facility] Comment on above: Performed By: #### C BC #### [facility] [address] [place] [address] Dr. Rosa Cuevas WBC 8.1 103/ul Normal 4.0-11.0 [facility] Comment on above: Performed By: #### C BC #### [facility] [address] [place] [address] Dr. Rosa Cuevas PREG QUANT HCGon 03-07-2022 HCG QUANT <1 Normal [facility] Comment on above: Performed By: #### P REGQNT, TSH #### [facility] [address] [place] [address] Dr. Rosa Cuevas HCG RANGE SEE BELOW Normal [facility] Comment on above: Result Comment: 5-50 0-1 WEEK 40-300 1-2 WEEKS 100-1,000 2-3 WEEKS 500-6,000 3-4 WEEKS 5,000-200,000 1-2 MONTHS 10,000-100,000 2-3 MONTHS 3,000-50,000 2ND TRIMESTER 1,000-50,000 3RD TRIMESTER Performed By: #### P REGQNT, TSH #### [facility] [address] [place] [address] Dr. Rosa Cuevas PROTIMEon 03-07-2022 INR Coag (PPP) [Relative time] 0.99 {INR} Normal [facility] Comment on above: Performed By: #### P T, PTT #### [facility] [address] [place] [address] Dr. Rosa Cuevas INR GUIDELINES SEE BELOW Normal [facility] Comment on above: Result Comment: CONCEPCION RED INR: 2.0 - 3.0 CONDITIONS NOT LISTED BELOW 2.5 - 3.5 FOR PROSTHETIC HEART VALVE REPLACEMENT 2.5 - 3.5 RECURRENT THROMBOSIS Performed By: #### P T, PTT #### [facility] [address] [place] [address] Dr. Rosa Cuevas PT Coag (PPP) [Time] 10.7 s Normal 9.0-11.6 [facility] Comment on above: Performed By: #### P T, PTT #### [facility] [address] [place] [address] Dr. Rosa Cuevas PTTon 03-07-2022 aPTT Coag (Bld) [Time] 26.8 s Normal 22.3-36.2 [facility] Comment on above: Performed By: #### P T, PTT #### [facility] [address] [place] [address] Dr. Rosa Cuevas TSHon 03-07-2022 TSH 1.036 uIU/mL Normal 0.470-4.68 0 [facility] Comment on above: Performed By: #### P REGQNT, TSH #### [facility] [address] [address] [address] Rosa Cuevas TSH RANGE SEE BELOW Normal [facility] Comment on above: Result Comment: <0.3 4 UIU/ml HYPERTHYROID 0.34-5.60 UIU/ml EUTHYROID >5.60 UIU/ml HYPOTHYROID Performed By: #### P REGQNT, TSH #### [facility] [address] [address] [address] Rosa Cuevas Acetaminophenon 03-14-2021 Acetaminophen [Mass/Vol] <5 Low 10-30 [facility] Comment on above: Performed By: #### A CET, ALCB #### [facility] [address] [place] [address] [place] [address] [employer] Adjuster: Hectro Fish MD CBC with Diffon 03-14-2021 Abs. Basophil 0.05 k/uL Normal 0.00-0.20 [facility] Comment on above: Performed By: #### H JAMA[place], YOVANI, CDP, SALI #### [address] [place] [address] Field [employer]obile Adjuster: Hector Fish MD Abs.Imm.Granulocyte 0.04 k/uL Normal 0.00-0.30 [facility] Comment on above: Performed By: #### H CG, CP, CDP, SALI #### [facility] [address] [place] [address] [place] [address] [employer] Adjuster: Hector Fish MD Abs.Neutrophil (Seg) 8.07 k/uL Normal 1.50-8.10 [facility] Comment on above: Performed By: #### H CG, CP, CDP, SALI #### [address] [place] [id number] Field [employer] Adjuster: Hector Fish MD Basophils/100 WBC (Bld) 0 % Normal 0-2 M [facility] Comment on above: Performed By: #### H CG, CP, CDP, SALI #### [facility] [address] [place] [address] Dr. [place] [id number] Field [employer] Adjuster: Hector Fish MD Eosinophils (Bld) [#/Vol] 0.03 10*3/uL Normal 0.00-0.44 [facility] Comment on above: Performed By: #### H CG, CP, CDP, SALI #### [address] [place] [id number] Field [employer] Adjuster: Hector Fish MD Eosinophils/100 WBC (Bld) 0 % Low 1-4 [facility] Comment on above: Performed By: #### H CG, CP, CDP, SALI #### [address] [place] 4629083 Field [employer] Adjuster: Hector Fish MD Erythrocyte distribution width (RBC) [Ratio] 13.1 % Normal 11.8-14.4 [facility] Comment on above: Performed By: #### H CG, CP, CDP, SALI #### [address] [place] [id number] Field [employer] Adjuster: Hector Fish MD Hematocrit (Bld) [Volume fraction] 45.4 % Normal 36.3-47.1 [facility] Comment on above: Performed By: #### H CG, CP, CDP, SALI #### [address] [place] [id number] Field [employer] Adjuster: Hector Fish MD Hemoglobin (Bld) [Mass/Vol] 14.9 g/dL Normal 11.9-15.1 [facility] Comment on above: Performed By: #### H CG, CP, CDP, SALI #### [address] [place] [address] Field [employer] Adjuster: Hector Fish MD Immature granulocytes (Bld) [#/Vol] 0 % Normal 0 [facility] Comment on above: Performed By: #### H [place], CP, CDP, SALI #### [facility] [address] [place], [facility] Field [employer] Adjuster: Hector Fish MD Lymphocytes (Bld) [#/Vol] 3.01 10*3/uL Normal 1.10-3.70 [facility] Comment on above: Performed By: #### H [place], CP, CDP, SALI #### [facility] [address] [place], [place] [address] Field [employer] Adjuster: Hector Fish MD Lymphocytes/100 WBC (Bld) 25 % Normal 24-43 [facility] Comment on above: Performed By: #### H YOVANI BERUMEN, CDP, SALI #### [address] [place] [id number] Field [employer] Adjuster: Hector Fish MD MCH (RBC) [Entitic mass] 28.1 pg Normal 25.2-33.5 [facility] Comment on above: Performed By: #### H YOVANI BERUMEN, CDP, SALI #### [address] [place] [address] Field [employer]obile Adjuster: Hector Fish MD MCHC (RBC) [Mass/Vol] 32.8 g/dL Normal 28.4-34.8 [facility] Comment on above: Performed By: #### H YOVANI BERUMEN, CDP, SALI #### [address] [place], [facility] Field [employer] Adjuster: Hector Fish MD MCV (RBC) [Entitic vol] 85.7 fL Normal 82.6-102.9 M [facility] Comment on above: Performed By: #### H YOVANI BERUMEN, CDP, SALI #### [address] [place] [address] Field [employer]obile Adjuster: Hector Fish MD Monocytes (Bld) [#/Vol] 0.81 10*3/uL Normal 0.10-1.20 [facility] Comment on above: Performed By: #### H CG, CP, CDP, SALI #### [facility] [address] [place], [place] 6066083 Field [employer] Adjuster: Hector Fish MD Monocytes/100 WBC (Bld) 7 % Normal 3-12 M [facility] Comment on above: Performed By: #### H CG, CP, CDP, SALI #### [facility] [address] [place], [facility] Field [employer] Adjuster: Hector Fish MD Neutrophil (Seg) 68 % High 36-[address] [facility] Comment on above: Performed By: #### H CG, CP, CDP, SALI #### [address] [place], [facility] Field [employer] Adjuster: Hector Fish MD NRBC Automated 0.0 per 100 WBC Normal 0.0 [facility] Comment on above: Performed By: #### H CG, CP, CDP, SALI #### [address] [place], [place] [id number] [employer] Adjuster: Hector Fish MD Platelet mean volume (Bld) [Entitic vol] 9.1 fL Normal 8.1-13.5 [facility] Comment on above: Performed By: #### H CG, CP, CDP, SALI #### [address] [place], [facility] [employer] Adjuster: Hector Fish MD Platelets (Bld) [#/Vol] 344 10*3/uL Normal 138-453 [facility] Comment on above: Performed By: #### H CG, CP, CDP, SALI #### [address] [place], [place] 1106883 [employer] Adjuster: Hector Fish MD RBC (Bld) [#/Vol] 5.30 10*6/uL High 3.95-5.11 [facility] Comment on above: Performed By: #### H CG, CP, CDP, SALI #### [facility] [address] [place], [place] [id number] [employer] Adjuster: Hector Fish MD WBC (Bld) [#/Vol] 12.0 10*3/uL High 3.5-11.3 [facility] Comment on above: Performed By: #### H CG, CP, CDP, SALI #### [address] [place], [facility] Field [employer] Adjuster: Hector Fish MD Auto Diff Performed NOT REPORTED Normal [facility] Comment on above: Performed By: #### H CG, CP, CDP, SALI #### [address] [place], [facility] Field [employer] Adjuster: Hector Fish MD Platelets (Bld) [#/Vol] NOT REPORTED Normal [facility] Comment on above: Performed By: #### H CG, CP, CDP, SALI #### [address] [place], [facility] Field [employer] Adjuster: Hector Fish MD RBC morphology finding Nom (Bld) NOT REPORTED Normal [facility] Comment on above: Performed By: #### H CG, CP, CDP, SALI #### [address] [place], [facility] Field [employer] Adjuster: Hector Fish MD WBC Morphology NOT REPORTED Normal [facility] Comment on above: Performed By: #### H CG, CP, CDP, SALI #### [address] [place], [facility] Field [employer] Adjuster: Hector Fish MD CT HEAD WO CONTRASTon [...] Shane Higginbotham MD 03/13/21 Final result Normal [facility] Comp Metabolic Profon 2020 (cont.) Normal [facility] Comment on above: Result Comment: Aver age GFR for 20-29 years old: 116 mL/min/1.73sq m Chronic Kidney Disease: <60 mL/min/1.73sq m Kidney failure: <15 mL/min/1.73sq m eGFR calculated using average adult body mass. Additional eGFR calculator available at: http://[email or web address]/multiple_crcl_2011.htm Performed By: #### H YOVANI BERUMEN, TRAY, SALI #### [address] [place] [address] Field [employer] Adjuster: Hector Fish MD Albumin [Mass/Vol] 4.2 g/dL Normal 3.5-5.2 [facility] Comment on above: Performed By: #### H YOVANI BERUMEN, TRAY, SALI #### [facility] [address] [place] [address] Field [employer]obile Adjuster: Hector Fish MD Albumin/Globulin [Mass ratio] 1.4 {ratio} Normal 1.0-2.5 [facility] Comment on above: Performed By: #### H YOVANI BERUMEN, TRAY, SALI #### [address] [place] [id number] Field [employer] Adjuster: Hector Fish MD Alkaline Phos 97 U/L Normal 35-104 [facility] Comment on above: Performed By: #### H CG, CP, CDP, SALI #### [facility] [address] [place] 6141783 Field [employer] Adjuster: Hector Fish MD ALT [Catalytic activity/Vol] 28 U/L Normal 5-33 [facility] Comment on above: Performed By: #### H CG, CP, CDP, SALI #### [facility] [address] [place] [address] Dr. [place] 3638183 [employer] Adjuster: Hector Fish MD Anion gap [Moles/Vol] 13 mmol/L Normal 9-17 [facility] Comment on above: Performed By: #### H CG, CP, CDP, SALI #### [address] [place] [id number] Field [employer] Adjuster: Hector Fish MD AST [Catalytic activity/Vol] 28 U/L Normal <32 [facility] Comment on above: Performed By: #### H [place], CP, CDP, SALI #### [address] [place] 2371583 [employer] Adjuster: Hector Fish MD Bilirubin Ql (U) 0.41 mg/dL Normal 0.3-1.[address] [facility] Comment on above: Performed By: #### H CG, CP, CDP, SALI #### [facility] [address] [place] [address] Dr. [place] [id number] Field [employer] Adjuster: Hector Fish MD BUN/CRE Ratio 28 High 9-20 [facility] Comment on above: Performed By: #### H CG, CP, CDP, SALI #### [address] [place], [place] 1089583 Field [employer] Adjuster: Hector Fish MD Calcium [Mass/Vol] 9.8 mg/dL Normal 8.6-10.4 [facility] Comment on above: Performed By: #### H CG, CP, CDP, SALI #### [facility] [address] [place], [place] 3163583 Field [employer] Adjuster: Hector Fish MD Chloride [Moles/Vol] 102 mmol/L Normal 98-107 [facility] Comment on above: Performed By: #### H CG, CP, CDP, SALI #### [facility] [address] [place], [facility] Field [employer] Adjuster: Hector Fish MD CO2 [Moles/Vol] 23 mmol/L Normal 20-31 [facility] Comment on above: Performed By: #### H CG, CP, CDP, SALI #### [facility] [address] [place], [facility] Field [employer] Adjuster: Hector Fish MD Creatinine [Mass/Vol] 0.74 mg/dL Normal 0.50-0.90 [facility] Comment on above: Performed By: #### H CG, CP, CDP, SALI #### [facility] [address] [place], [place] 2452883 Field [employer] Adjuster: Hector Fish MD GFR, Amer >60 Normal >[address] [facility] Comment on above: Performed By: #### H CG, CP, CDP, SALI #### [facility] [address] [place], [facility] Field [employer] Adjuster: Hector Fish MD GFR,non Amer >60 Normal >60 [facility] Comment on above: Performed By: #### H CG, CP, CDP, SALI #### [facility] [address] [place], [place] 6891883 Field [employer] Adjuster: Hector Fish MD Glucose [Mass/Vol] 110 mg/dL High 70-99 [facility] Comment on above: Performed By: #### H CG, CP, CDP, SALI #### [facility] [address] [place] [address] Field [employer]obile Adjuster: Hector Fish MD Potassium [Moles/Vol] 3.9 mmol/L Normal 3.7-5.3 [facility] Comment on above: Performed By: #### H CG, CP, CDP, SALI #### [address] [place] [address] Field [employer] Adjuster: Hector Fish MD Protein [Mass/Vol] 7.2 g/dL Normal 6.4-8.3 [facility] Comment on above: Performed By: #### H CG, CP, CDP, SALI #### [address] [place] [address] Field [employer] Adjuster: Hector Fish MD Sodium [Moles/Vol] 138 mmol/L Normal 135-144 [facility] Comment on above: Performed By: #### H CG, CP, CDP, SALI #### [address] [place] [address] Field [employer]obile Adjuster: Hector Fish MD Staging: Normal [facility] Comment on above: Result Comment: Stag e 1: Some kidney damage normal GFR Stage 2: Mild kidney damage GFR 60-89 Stage 3: Moderate kidney damage GFR 30-59 Stage 4: Severe kidney damage GFR 15-29 Stage 5: Severe kidney damage GFR <15 ESRD - chronic treatment by dialysis or transplant Performed By: #### H CG, CP, CDP, SALI #### [address] [place] [address] Field [employer] Adjuster: Hector Fish MD Urea nitrogen [Mass/Vol] 21 mg/dL High 6-20 [facility] Comment on above: Performed By: #### H CG, CP, CDP, SALI #### [address] [place] [address] Field [employer]obile Adjuster: Hector Fish MD Drug Scr, Abuse, Uron 2020 Amphetamine(s),Ur Negative Normal NEG [facility] Comment on above: Performed By: #### U AX, CAROLINE, UMICAO #### [facility] [address] [place], [place] [phone] Field [employer] Adjuster: Hector Fish MD Barbiturate(s),Ur Negative Normal NEG [facility] Comment on above: Performed By: #### U AX, CAROLINE, UMICAO #### [facility] [address] [place], [facility] Field [employer] Adjuster: Hector Fish MD Base excess Calc (Bld) [Moles/Vol] Negative Normal [facility] Comment on above: Performed By: #### U AX, CAROLINE, UMICAO #### [address] [place], [facility] Field [employer]obile Adjuster: Hector Fish MD Benzodiazepine(s) Negative Normal NEG [facility] Comment on above: Performed By: #### U AX, CAROLINE, UMICAO #### [address] [place], [place] 2585783 Field [employer] Adjuster: Hector Fish MD Buprenorphrine, Ur Negative Normal [facility] Comment on above: Performed By: #### U AX, CAROLNIE, UMICAO #### [facility] [address] [place] [address] Dr[place], [place] [address] Field [employer]obile Adjuster: Hector Fish MD Cannabinoid(s),Ur Positive Abnormal NEG [facility] Comment on above: Performed By: #### U AX, CAROLINE, UMICAO #### [facility] [address] [place], [place] [address] Field [employer]obile Adjuster: Hector Fish MD Methadone Ql (U) Negative Normal NEG [facility] Comment on above: Performed By: #### U AX, CAROLINE, UMICAO #### [facility] [address] [place] [address] [place] [address] Field Automobile Adjuster: Hector Fish MD Methamphetamine, Ur Negative Normal NEG [facility] Comment on above: Performed By: #### U AX, CAROLINE, UMICAO #### [facility] [address] [place] [address] Dr[place], [place] [phone] Field [employer]obile Adjuster: Hector Fish MD Opiate(s), Ur Negative Normal NEG [facility] Comment on above: Performed By: #### U AX, CAROLINE, UMICAO #### [facility] [address] [place] [address] Dr[place], [place] [phone] Field [employer]obile Adjuster: Hector Fish MD Oxycodone, Urine Negative Normal NEG [facility] Comment on above: Performed By: #### U AX, CAROLINE, UMICAO #### [facility] [address] [place] [address] Dr[place], [place] 0256383 Field [employer] Adjuster: Hector Fish MD Phencyclidine, Ur Negative Normal NEG [facility] Comment on above: Performed By: #### U AX, CAROLINE, UMICAO #### [facility] [address] [place] [address] Dr[place], [place] [phone] Field [employer]obile Adjuster: Hector Fish MD Propoxyphene,Urine Negative Normal [facility] Comment on above: Performed By: #### U AX, CAROLINE, UMICAO #### [facility] [address] [place] [address] Dr[place], [place] 0041283 Field [employer]obile Adjuster: Hector Fish MD Tricyclic antidepressants Screen Ql (U) Negative [facility] Comment on above: Result Comment: Drug screen results are to be used for medical purposes only. All positive results are unconfirmed. Testing for employment or legal uses should be sent to a reference laboratory for confirmation. Performed By: #### U AX, CAROLINE, UMICAO #### [facility] [address] [place] [address] [place], [place] 2354783 Field [employer] Adjuster: Hector Fish MD Interpretive Info NOT REPORTED Normal [facility] Comment on above: Performed By: #### U AX, CAROLINE, UMICAO #### [facility] [address] [place] [address] Field Automobile Adjuster: Hector Fish MD MDMA, Urine NOT REPORTED Normal NEG [facility] Comment on above: Performed By: #### U AX, CAROLINE, UMICAO #### [facility] [address] [place] [address] Field [employer]obile Adjuster: Hector Fish MD Ethanol Alcoholon 03-14-2021 Ethanol [Mass/Vol] mg/dL Normal <10 [facility] Comment on above: Performed By: #### A CET, ALCB #### [facility] [address] [place] [address] Field [employer]obile Adjuster: Hector Fish MD Ethanol percent <0.010 Normal <0.010 [facility] Comment on above: Performed By: #### A CET, ALCB #### [facility] [address] [place], [place] 1726683 Field [employer]obile Adjuster: Hector Fish MD HCG Screen, Bloodon 03-14-20 21 HCG Qn Negative Normal NEG [facility] Comment on above: Result Comment: Spec imens with hCG levels near the threshold of the test (25 mIU/mL) may give a negative or indeterminate result. In such cases, another test should be performed with a new specimen in 48-72 hours. If early is suspected clinically in this setting, correlation with quantitative serum b-hCG level is suggested. [facility] has confirmed the use of plasma for this test. This has not been cleared or approved by the U.S. Food and Drug Administration. The FDA has determined that such clearance is not necessary. Performed By: #### H CG, CP, CDP, SALI #### [facility] [address] [place] [address] Field [employer]obile Adjuster: Hector Fish MD Salicylateon 03-14-2021 Salicylate <1 Low 3-10 [facility] Comment on above: Performed By: #### H CG, CP, CDP, SALI #### [facility] [address] [place], [place] 2175683 Field [employer]obile Adjuster: Hector Fish MD UA w/Reflex Cultureon 2020 Acetoacetic Acid,Ur 1+ Abnormal NEG [facility] Comment on above: Performed By: #### U AX, CAROLINE, UMICAO #### [facility] [address] [place], [facility] Field [employer]obile Adjuster: Hector Fish MD Bilirubin, SemiQt,Ur SMALL Abnormal NEG [facility] Comment on above: Performed By: #### U AX, CAROLINE, UMICAO #### [address] [place] [address] Field [employer] Adjuster: Hector Fish MD Color (U) YELLOW Normal YEL [facility] Comment on above: Performed By: #### U AX, CAROLINE, UMICAO #### [facility] [address] [place] [address] [place] [address] Field [employer]obile Adjuster: Hector Fish MD Glucose Ql (U) Negative Normal NEG [facility] Comment on above: Performed By: #### U AX, CAROLINE, UMICAO #### [address] [place], [place] 4418483 Field [employer]obile Adjuster: Hector Fish MD Hemoglobin, Ur 3+ Abnormal NEG [facility] Comment on above: Performed By: #### U AX, CAROLINE, UMICAO #### [facility] [address] [place], [place] 6866483 Field [employer] Adjuster: Hector Fish MD Leukocyte esterase Test strip Ql (U) Negative Normal [facility] Comment on above: Performed By: #### U AX, CAROLINE, UMICAO #### [facility] [address] [place] [address] Dr[place], [facility] Field Automobile Adjuster: Hector Fish MD Nitrite,Ur Negative Normal NEG [facility] Comment on above: Performed By: #### U AX, CAROLINE, UMICAO #### [facility] [address] [place] [address] [place], [place] 1790383 Field [employer] Adjuster: Hector Fish MD pH (U) 6.0 [pH] Normal 5.0-9.0 [facility] Comment on above: Performed By: #### U AX, CAROLINE, UMICAO #### [facility] [address] [place] [address] Dr[place], [place] 1555383 Field [employer]obile Adjuster: Hector Fish MD Protein Ql (U) 4+ Abnormal NEG [facility] Comment on above: Performed By: #### U AX CAROLINE, UMICAO #### [address] [place], [place] 3120383 Field [employer]obile Adjuster: Hector Fish MD Specific gravity (U) [Rel density] >1.030 High 1.010-1.02 0 [facility] Comment on above: Performed By: #### U AX CAROLINE, UMICAO #### [address] [place], [place] 1235483 Field [employer]obile Adjuster: Hector Fish MD Turbidity CLEAR Normal CLEAR [facility] Comment on above: Performed By: #### U AX CAROLINE, UMICAO #### [facility] [address] [place] [address] Dr[place], [place] 8548483 Field [employer] Adjuster: Hector Fish MD Urobilinogen,Ur Normal Normal NORM [facility] Comment on above: Performed By: #### U AX, CAROLINE, UMICAO #### [address] [place], [place] 2984783 Field [employer] Adjuster: Hector Fish MD Comment NOT REPORTED Normal [facility] Comment on above: Performed By: #### U AX, CAROLINE, UMICAO #### [address] [place] [address]083 Field Automobile Adjuster: Hector Fish MD Urinalysis,Microon 1 ----- Normal [facility] Comment on above: Performed By: #### U AX, CAROLINE, UMICAO #### [address] [place] [address]29083 Field [employer]obile Adjuster: Hector Fish MD Amorphous sediment LM Ql (Urine sed) TRACE Abnormal [facility] Comment on above: Performed By: #### U AX, CAROLINE, UMICAO #### [address] [place] [address] Field Automobile Adjuster: Hector Fish MD Bacteria LM.HPF (Urine sed) [#/Area] TRACE Abnormal [facility] Comment on above: Performed By: #### U AX, CAROLINE, UMICAO #### [address] [place] [address] Field [employer]obile Adjuster: Hector Fish MD Epithelial cells LM.HPF (Urine sed) [#/Area] 0 TO 2 Normal 0-25 [facility] Comment on above: Performed By: #### U AX, CAROLINE, UMICAO #### [address] [place] [address] Field Automobile Adjuster: Hector Fish MD Mucus Strands 3+ Abnormal [facility] Comment on above: Performed By: #### U AX, CAROLINE, UMICAO #### [address] [place] [address]29083 Field [employer]obile Adjuster: Hector Fish MD RBC (U) [#/Vol] 2 TO 5 Normal 0-2 [facility] Comment on above: Performed By: #### U AX, CAROLINE, UMICAO #### [address] [place] [id number] Field [employer] Adjuster: Hector Fish MD WBC (U) [#/Vol] 2 TO 5 Normal 0-5 [facility] Comment on above: Performed By: #### U AX, CAROLINE, UMICAO #### [facility] [address] [place] [address] Dr. [place], [place] [id number] Field [employer] Adjuster: Hector Fish MD Casts LM.LPF (Urine sed) [#/Area] NOT REPORTED Normal [facility] Comment on above: Performed By: #### U AX, CAROLINE, UMICAO #### [facility] [address] [place] [address] Dr. [place] [id number] Field Autom[employer] Adjuster: Hector Fish MD Crystals LM Nom (Urine sed) NOT REPORTED Normal NONE [facility] Comment on above: Performed By: #### U AX, CAROLINE, UMICAO #### [address] Ross, [place] [address] Field [employer]obile Adjuster: Hector Fish MD Epithelial, Renal NOT REPORTED Normal 0 [facility] Comment on above: Performed By: #### U AX, CAROLINE, UMICAO #### [address] Ross, [place] [address] [employer] Adjuster: Hector Fish MD Other Observations NOT REPORTED Normal NREQ [facility] Comment on above: Performed By: #### U AX, CAROLINE, UMICAO #### [address] Ross, [facility] Field Automobile Adjuster: Hector Fish MD Trichomonas NOT REPORTED Normal NONE [facility] Comment on above: Performed By: #### U AX, CAROLINE, UMICAO #### [address] Ross, [facility] Field [employer] Adjuster: Hector Fish MD Yeast LM Ql (Urine sed) NOT REPORTED Normal [facility] Comment on above: Performed By: #### U AX, CAROLINE, UMICAO #### [facility] [address] [place] [address] Dr. Ross, [place] [id number] [employer] Adjuster: Hector Fish MD Albumin [Mass/volume] in Ser um or Plasmaon 11-29-2019 Albumin [Mass/Vol] 3.2 g/dL 3.2-5.5 [facility] Direct bilirubin measurement on 11-29-2019 Bilirubin.direct [Mass/Vol] mg/dL 0.0-0.4 [facility] Protein [Mass/volume] in Ser um or Plasmaon 11-29-2019 Protein [Mass/Vol] 7.0 g/dL 6.1-7.9 [facility] Serum globulin measurement b y calculation (mass/volume)on 11-29-2019 Globulin (S) [Mass/Vol] 3.8 g/dL [facility] Serum or plasma alanine johnson otransferase measurement without P-5'-P (enzymatic activion 11-29-2019 ALT No additional P-5'-P [Catalytic activity/Vol] 50 U/L 1060 [facility] Serum or plasma albumin/glob ulin mass ratioon 11-29-2019 Albumin/Globulin [Mass ratio] 0.8 {ratio} [facility] Serum or plasma alkaline mariel sphatase measurement (enzymatic activity/volume)on 11-29-2019 ALP [Catalytic activity/Vol] 81 U/L 3292 [facility] Serum or plasma aspartate am inotransferase measurement (enzymatic activity/volume)on 11-29-2019 AST [Catalytic activity/Vol] 26 U/L 1042 [facility] Serum or plasma non-glucuron idated bilirubin measurement (mass/volume)on 11-29-2019 Bilirubin.indirect [Mass/Vol] TNP [facility] Comment on above: Test not performed Serum or plasma total biliru bin measurement (mass/volume)on 11-29-2019 Bilirubin [Mass/Vol] 0.3 mg/dL 0.3-1.2 [facility] Cholesterol [Mass/volume] in Serum or Plasmaon 11-26-2019 Cholesterol [Mass/Vol] 194 mg/dL 140-200 Fi [facility] Comment on above: Chol less than 200 m g/dl low riskChol 201-239 mg/dl borderline riskChol 240 mg/dl and greater high risk Cholesterol in LDL [Mass/vol ume] in Serum or Plasma by calculationon 11-26-2019 Cholesterol in LDL [Mass/Vol] 127 mg/dL 0-100 [facility] Comment on above: LDL ATP III CLASSIFI CATIONLDL less than 100 mg/dL OptimalLDL 100-129 mg/dL Near or above optimalLDL 130-159 mg/dL Borderline highLDL 160-189 mg/dL HighLDL greater than 189 mg/dL Very high Cholesterol in VLDL [Mass/vo lume] in Serum or Plasma by calculationon 11-26-2019 Cholesterol in VLDL [Mass/Vol] 19 mg/dL [facility] Otheron 11-26-2019 25-Hydroxy Vitamin D Total 43.5 ng/mL 30-100 [facility] Comment on above: VITAMIN D STATUS 25( [place])VITAMIN D RANGE (ng/mL) Deficient <20 Insufficient 20 to <30Sufficient 30 to 100Reference: Erika MF,Choco NC, Ruperto JACKSON, et al. Evaluation,treatment, and prevention of vitamin D deficiency; an Endocrine Society clinical practice guideline. JCEM. 2010; 96(7):1911-30. Serum or plasma high density lipoprotein (HDL) cholesterol measurementon 11-26-2019 Cholesterol in HDL [Mass/Vol] 47 mg/dL 35-85 [facility] Comment on above: HDL CHOL ATP-III CLA SSIFICATION Cardiovascular RiskHDL > or equal to 60 mg/dL LOWHDL < 40 mg/dL HIGH Serum or plasma thyroid stim ulating hormone (TSH) measurement by high sensitivity meton 11-26-2019 TSH Qn 3.31 u[iU]/mL 0.45-5.33 [facility] Serum or plasma total choles terol/high density lipoprotein (HDL) cholesterol mass shy 11-26-2019 Cholesterol.total/Mahsa sterol in HDL [Mass ratio] 4.1 {ratio} [facility] Triglyceride [Mass/volume] i n Serum or Plasmaon 11-26-2019 Triglyceride [Mass/Vol] 99 mg/dL 35-149 [facility] Comment on above: TRIG ATP III CLASSIF ICATIONTRIG less than 150 mg/dL NormalTRIG 150-199 mg/dL Borderline highTRIG 200-500 mg/dL High TRIG greater than 500 mg/dL Very highStandard traceable to the Center for Disease Conrtrol and Prevention (CDC) test method. Amphetamines screenon 2018 Amphetamines Ql (U) Negative Negative [facility] Automated basophil %on 11-25 Basophils/100 WBC (Bld) 1.1 % F ewings [facility] Automated basophil counton 1 01-26-2019 Basophils (Bld) [#/Vol] 0.1 10*3/uL 0.0-0.2 [facility] Automated blood lymphocyte c ount (number/volume)on 11-25-2019 Lymphocytes (Bld) [#/Vol] 3.3 10*3/uL 1.00-4.8 [facility] Automated blood lymphocyte c ount as percentage of total leukocyteson 11-25-2019 Lymphocytes/100 WBC (Bld) 28.3 % [facility] Automated blood monocyte cou nton 11-25-2019 Monocytes (Bld) [#/Vol] 0.7 10*3/uL 0.0-0.8 [facility] Automated blood platelet cou nt (count/volume)on 11-25-2019 Platelets (Bld) [#/Vol] 265 10*3/uL 150-450 [facility] Automated blood platelet bandar n volume measurementon 11-25-2019 Platelet mean volume (Bld) [Entitic vol] 7.5 fL 6.3-10.7 [facility] Automated eosinophil %on Eosinophils/100 WBC (Bld) 1.6 % [facility] Automated eosinophil counton 11-25-2019 Eosinophils (Bld) [#/Vol] 0.2 10*3/uL 0.0-0.45 [facility] Automated erythrocyte distri bution width ratioon 11-25-2019 Erythrocyte distribution width (RBC) [Ratio] 13.4 % 11.9-15.3 [facility] Automated erythrocyte mean c orpuscular hemoglobin (mass per erythrocyte)on 11-25-2019 MCH (RBC) [Entitic mass] 28.9 pg 24.7-34.3 [facility] Automated erythrocyte mean c orpuscular hemoglobin concentration measurement (mass/volon 11-25-2019 MCHC (RBC) [Mass/Vol] 33.3 g/dL 32.0-35.[address] [facility] Automated erythrocyte mean c orpuscular volumeon 11-25-2019 MCV (RBC) [Entitic vol] 86.7 fL 80-100 [facility] Automated monocyte %on 11-25 Monocytes/100 WBC (Bld) 6.4 % [facility] Automated neutrophil %on Neutrophils/100 WBC (Bld) 62.6 % [facility] Automated urine color determ inationon 11-25-2019 Color (U) Yellow Yellow [facility] Blood erythrocytes automated count (number/volume)on 11-25-2019 RBC (Bld) [#/Vol] 5.05 10*6/uL 3.60-5.00 [facility] Blood hemoglobin measurement (mass/volume)on 11-25-2019 Hemoglobin (Bld) [Mass/Vol] 14.6 g/dL 11.8-15.4 [facility] Blood leukocytes automated c ount (number/volume)on 11-25-2019 WBC (Bld) [#/Vol] 11.7 10*3/uL 4.5-11.0 [facility] Blood neutrophil count by au tomated method (number/volume)on 11-25-2019 Neutrophils (Bld) [#/Vol] 7.4 10*3/uL 1.8-7.7 [facility] Cannabinoids [Presence] in U rine by Screen methodon 11-25-2019 Cannabinoids Screen Ql (U) Positive Negative [facility] Comment on above: These are unconfirme d results and should not be used for legal purposes. Drug Cut-Off Concentration: AMPH 1000 ng/mL SYLVIA 200 ng/mL DANNA 200 ng/mL COCM 300 ng/mL OP 300 ng/mL PCP 25 ng/mL THC 20 ng/mL Estimated glomerular filtrat ion rate (GFR) non- Americanon 11-25-2019 GFR/1.73 sq M predicted among non-blacks MDRD (S/P/Bld) [Vol rate/Area] mL/min/{1.73_m2} [facility] Hematocrit [Volume Fraction] of Blood by Automated counton 11-25-2019 Hematocrit (Bld) [Volume fraction] 43.8 % 34.0-46.4 [facility] Otheron 11-25-2019 GFR/1.73 sq M.predicted MDRD (S/P/Bld) [Vol rate/Area] mL/min/{1.73_m2} [facility] Comment on above: GFR estimated refere nce range: According to KDOQI guidelines, <60 ml/min/1.73m2 is sufficient to diagnose a patient with chronic kidney disease. Nucleated RBC/100 WBC (Bld) [Ratio] 0.0 % 0-0.5 [facility] Creatinine Clearance (Chem [id number] [facility] Serum or plasma calcium elaine urement (mass/volume)on 11-25-2019 Calcium [Mass/Vol] 9.1 mg/dL 8.2-10.2 [facility] Serum or plasma chloride bandar surement (moles/volume)on 11-25-2019 Chloride [Moles/Vol] 98 mmol/L 95-114 [facility] Serum or plasma creatinine m easurement with calculation of estimated glomerular filtron 11-25-2019 Creatinine [Mass/Vol] 0.74 mg/dL 0.44-1.[address] [facility] Serum or plasma ethanol elaine urement (mass/volume)on 11-25-2019 Ethanol [Mass/Vol] 7 mg/dL [facility] Ethanol [Mass/Vol] 0.007 % [facility] Serum or plasma glucose elaine urement (mass/volume)on 11-25-2019 Glucose [Mass/Vol] 122 mg/dL 70-100 [facility] Comment on above: ADA recommended refe rence rangeRandom Glucose Reference Range is dependent on time and content of last meal. Glucose of more than 200 mg/dL in a nonstressed, ambulatory subject supports the diagnosis of Diabetes Mellitus. Serum or plasma potassium me asurement (moles/volume)on 11-25-2019 Potassium [Moles/Vol] 3.9 mmol/L 3.5-5.[address] [facility] Serum or plasma sodium measu rement (moles/volume)on 11-25-2019 Sodium [Moles/Vol] 133 mmol/L 136-146 [facility] Serum or plasma total carbon dioxide measurement (moles/volume)on 11-25-2019 CO2 [Moles/Vol] 21.8 mmol/L 22.0-30.0 [facility] Serum or plasma urea nitroge n measurement (mass/volume)on 11-25-2019 Urea nitrogen [Mass/Vol] 15 mg/dL 08-23 [facility] Specific gravity of Urine by Automated test stripon 11-25-2019 Specific gravity (U) [Rel density] 1.009 1.001-1.03 0 [facility] Urinalysison 11-25-2019 Opiates Ql (U) Negative Negative [facility] Urine barbiturates detection on 11-25-2019 Barbiturates Ql (U) Negative Negative [facility] Urine benzodiazepines detect ionon 11-25-2019 Benzodiazepines Ql (U) Negative Negative [facility] Urine clarity by refractomet ry automatedon 11-25-2019 Clarity Refractometry automated (U) Clear Clear [facility] Urine cocaine detectionon Cocaine Ql (U) Negative Negative [facility] Urine glucose measurement by automated test strip (mass/volume)on 11-25-2019 Glucose Auto test strip (U) [Mass/Vol] Normal mg/dL Normal [facility] Urine hemoglobin detection b y automated test stripon 11-25-2019 Hemoglobin Auto test strip Ql (U) Negative Negative [facility] Urine human chorionic gonado tropin (hCG) detection by immunoassayon 11-25-2019 HCG ( test) Ql (U) Negative [facility] Urine ketones measurement by automated test strip (mass/volume)on 11-25-2019 Ketones (U) [Mass/Vol] Negative Negative [facility] Urine leukocyte esterase det ection by automated test stripon 11-25-2019 Leukocyte esterase Auto test strip Ql (U) Negative Negative [facility] Urine nitrite detection by t est stripon 11-25-2019 Nitrite Ql (U) Negative Negative [facility] Urine pH measurement by auto mated test stripon 11-25-2019 pH (U) 6.0 [pH] 5.0-9.0 [facility] Urine phencyclidine detectio n by screening methodon 11-25-2019 Phencyclidine Ql (U) Negative Negative [facility] Urine protein measurement by automated test strip (mass/volume)on 11-25-2019 Protein (U) [Mass/Vol] Negative Negative [facility] Urine total bilirubin detect ion by test stripon 11-25-2019 Bilirubin Ql (U) Negative Negative [facility] Urine urobilinogen measureme nt by automated test strip (mass/volume)on 11-25-2019 Urobilinogen (U) [Mass/Vol] Normal mg/dL Normal [facility] Albumin [Mass/volume] in Ser um or Plasmaon 09-04-2019 Albumin [Mass/Vol] 2.7 g/dL 3.2-5.5 [facility] Cholesterol [Mass/volume] in Serum or Plasmaon 09-04-2019 Cholesterol [Mass/Vol] 147 mg/dL 140-200 [facility] Comment on above: Chol less than 200 m g/dl low riskChol 201-239 mg/dl borderline riskChol 240 mg/dl and greater high risk Cholesterol in LDL [Mass/vol ume] in Serum or Plasma by calculationon 09-04-2019 Cholesterol in LDL [Mass/Vol] 87 mg/dL 0-100 [facility] Comment on above: LDL ATP III CLASSIFI CATIONLDL less than 100 mg/dL OptimalLDL 100-129 mg/dL Near or above optimalLDL 130-159 mg/dL Borderline highLDL 160-189 mg/dL HighLDL greater than 189 mg/dL Very high Cholesterol in VLDL [Mass/vo lume] in Serum or Plasma by calculationon 09-04-2019 Cholesterol in VLDL [Mass/Vol] 13 mg/dL [facility] Direct bilirubin measurement on 09-04-2019 Bilirubin.direct [Mass/Vol] mg/dL 0.0-0.4 [facility] Otheron 09-04-2019 25-Hydroxy Vitamin D Total 29.0 ng/mL 30-100 [facility] Comment on above: VITAMIN D STATUS 25( [place])VITAMIN D RANGE (ng/mL) Deficient <20 Insufficient 20 to <30Sufficient 30 to 100Reference: Erika MF,Choco NC, Ruperto JACKSON, et al. Evaluation,treatment, and prevention of vitamin D deficiency; an Endocrine Society clinical practice guideline. JCEM. 2010; 96(4):1231-30. Protein [Mass/volume] in Ser um or Plasmaon 09-04-2019 Protein [Mass/Vol] 5.9 g/dL 6.1-7.9 [facility] Serum globulin measurement b y calculation (mass/volume)on 09-04-2019 Globulin (S) [Mass/Vol] 3.2 g/dL [facility] Serum or plasma alanine johnson otransferase measurement without P-5'-P (enzymatic activion 09-04-2019 ALT No additional P-5'-P [Catalytic activity/Vol] 18 U/L 1060 [facility] Serum or plasma albumin/glob ulin mass ratioon 09-04-2019 Albumin/Globulin [Mass ratio] 0.8 {ratio} [facility] Serum or plasma alkaline mariel sphatase measurement (enzymatic activity/volume)on 09-04-2019 ALP [Catalytic activity/Vol] 71 U/L 32-92 [facility] Serum or plasma aspartate am inotransferase measurement (enzymatic activity/volume)on 09-04-2019 AST [Catalytic activity/Vol] 16 U/L 10- [facility] Serum or plasma high density lipoprotein (HDL) cholesterol measurementon 09-04-2019 Cholesterol in HDL [Mass/Vol] 47 mg/dL 35-85 [facility] Comment on above: HDL CHOL ATP-III CLA SSIFICATION Cardiovascular RiskHDL > or equal to 60 mg/dL LOWHDL < 40 mg/dL HIGH Serum or plasma non-glucuron idated bilirubin measurement (mass/volume)on 09-04-2019 Bilirubin.indirect [Mass/Vol] TNP [facility] Comment on above: Test not performed Serum or plasma thyroid stim ulating hormone (TSH) measurement by high sensitivity meton 09-04-2019 TSH Qn 1.97 u[iU]/mL 0.45-5.33 [facility] Serum or plasma total biliru bin measurement (mass/volume)on 09-04-2019 Bilirubin [Mass/Vol] 0.5 mg/dL 0.3-1.2 [facility] Serum or plasma total choles terol/high density lipoprotein (HDL) cholesterol mass shy 09-04-2019 Cholesterol.total/Mahsa sterol in HDL [Mass ratio] 3.1 {ratio} [facility] Triglyceride [Mass/volume] i n Serum or Plasmaon 09-04-2019 Triglyceride [Mass/Vol] 65 mg/dL 35-149 [facility] Comment on above: TRIG ATP III CLASSIF ICATIONTRIG less than 150 mg/dL NormalTRIG 150-199 mg/dL Borderline highTRIG 200-500 mg/dL High TRIG greater than 500 mg/dL Very highStandard traceable to the Center for Disease Conrtrol and Prevention (CDC) test method. Otheron 08-27-2019 Valproic Acid (Depakene) Level 61.7 ug/mL 50.0-100.0 [facility] Comment on above: Last dose: - Serum or plasma beta choriog onadotropin measurement (units/volume)on 08-27-2019 HCG.beta subunit Qn m[IU]/mL [facility] Comment on above: Approximate Approxim ate hCG Gestational Age Range (mIU/ml) (weeks)0.2-1 5-50 1-2 50-500 2-3 100-5,000 3-4 500-10,000 4-5 1,000-50,000 5-6 10,000-100,000 6-8 15,000-200,000 8-12 10,000-100,000 Vital Signs Date Time Vital Sign Value Performing Clinician Facility 07-25-2025 16:11-0400 Body height 162.6 cm momondo Work Phone: [facility] 07-25-2025 16:11-0400 Body mass index (BMI) [Ratio] 29.01 kg/m2 momondo Work Phone: [facility] 07-25-2025 16:11-0400 Body weight 76.66 kg momondo Work Phone: [facility] 07-25-2025 16:11-0400 Diastolic blood pressure 74 mm[Hg] momondo Work Phone: [facility] 07-25-2025 16:11-0400 Systolic blood pressure 122 mm[Hg] [employer] Phone: [facility] 06-27-2025 15:06-0400 Body mass index (BMI) [Ratio] 30.34 kg/m2 Hullabaluo DO Work Phone: [facility] 06-27-2025 15:06-0400 Body weight 80.17 kg Buzz Ish DO Work Phone: [facility] 06-27-2025 15:06-0400 Diastolic blood pressure 64 mm[Hg] [employer] DO Work Phone: [facility] 06-27-2025 15:06-0400 Systolic blood pressure 102 mm[Hg] Hullabaluo DO Work Phone: [facility] 02-26-2025 10:00-0400 Body temperature 98.1 [degF] [facility] [employer] 02-26-2025 10:00-0400 Diastolic blood pressure 69 mm[Hg] [facility] [employer] 02-26-2025 10:00-0400 Heart rate 84 /min [facility] [employer] 02-26-2025 10:00-0400 Respiratory rate 18 /min [facility] 3 [facility] [employer] 02-26-2025 10:00-0400 SaO2% (BldA) [Mass fraction] 97 % [facility] 3 [facility] [employer] 02-26-2025 10:00-0400 Systolic blood pressure 132 mm[Hg] [facility] 3 [facility] [employer] 02-20-2025 13:56-0400 Diastolic blood pressure 78 mm[Hg] [facility] [employer] 02-20-2025 13:56-0400 Heart rate 81 /min Stvz 1 [facility] [employer] 02-20-2025 13:56-0400 Respiratory rate 18 /min [facility] 1 [facility] [employer] 02-20-2025 13:56-0400 SaO2% (BldA) [Mass fraction] 98 % [facility]vz 1 [facility] [employer] 02-20-2025 13:56-0400 Systolic blood pressure 123 mm[Hg] [facility] 1 [facility] [employer] 02-17-2025 14:38-0400 Respiratory rate 15 /min Trisha Abbott DO [facility] [employer] 02-17-2025 13:27-0400 Heart rate 81 /min Trisha Abbott DO [facility] [employer] 02-17-2025 13:27-0400 SaO2% (BldA) [Mass fraction] 96 % Trisha Abbott DO [facility] [employer] 02-17-2025 11:16-0400 Body temperature 98.01 [degF] Trisha Abbott DO [facility] [employer] 02-17-2025 11:16-0400 Diastolic blood pressure 72 mm[Hg] Trisha Abbott DO [facility] [employer] 02-17-2025 11:16-0400 Systolic blood pressure 133 mm[Hg] Trisha Abbott DO [facility] [employer] 02-16-2025 18:30-0400 Body height 160 cm Trisha Abbott DO [facility] [employer] 02-16-2025 18:30-0400 Body mass index (BMI) [Ratio] 39.15 kg/m2 Trisha Abbott DO Work Phone[facility] [employer] 02-16-2025 18:30-0400 Body weight 100.25 kg Trisha Abbott DO Work Phone: [facility] [employer] 01-31-2025 10:52-0500 Body height 160 cm [facility]vz 1 [facility] [employer] 01-31-2025 10:52-0500 Body mass index (BMI) [Ratio] 40.74 kg/m2 Stvz 1 [facility] [employer] 01-31-2025 10:52-0500 Body temperature 99.1 [degF] Stvz 1 [facility] [employer] 01-31-2025 10:52-0500 Body weight 104.33 kg Stvz 1 [facility] [employer] 01-31-2025 10:52-0500 Diastolic blood pressure 82 mm[Hg] [facility]vz 1 [facility] [employer] 01-31-2025 10:52-0500 Heart rate 94 /min Stvz 1 [facility] [employer] 01-31-2025 10:52-0500 Respiratory rate 18 /min Stvz 1 [facility] [employer] 01-31-2025 10:52-0500 SaO2% (BldA) [Mass fraction] 96 % Stvz 1 [facility] [employer] 01-31-2025 10:52-0500 Systolic blood pressure 114 mm[Hg] Stvz 1 [facility] [employer] 07-30-2024 22:27-0400 Body height 160 cm Stcz 1 [facility] [employer] [facility] [employer] 07-30-2024 22:27-0400 Body mass index (BMI) [Ratio] 41.63 kg/m2 Stcz 1 [facility] [employer] [facility] [employer] 07-30-2024 22:27-0400 Body weight 106.59 kg Stcz 1 [facility] [employer] [facility] [employer] 07-30-2024 22:27-0400 Heart rate 73 /min [facility] [employer] 07-30-2024 22:27-0400 Respiratory rate 12 /min Stcz 1 [facility] [employer] 07-30-2024 22:27-0400 SaO2% (BldA) [Mass fraction] 98 % Stcz 1 [facility] [employer] [facility] [employer] 07-28-2023 18:06-0400 Body height 162.56 cm [employer]END[employer] SH[employer] WORKERNayana Kessler Work Phone: [facility] 07-28-2023 18:06-0400 Body temperature 97.7 [degF] [employer] Nativiadd Kessler Work Phone: [facility] 07-28-2023 18:06-0400 Body weight 104.9 kg [employer] Natividad Kessler Work Phone: [facility] 07-28-2023 18:06-0400 Diastolic blood pressure 94 mm[Hg] [employer] WORKERNayana Kessler Work Phone: [facility] 07-28-2023 18:06-0400 Heart rate 81 /min BRIDGET Kessler Work Phone: [facility] 07-28-2023 18:06-0400 Respiratory rate 16 /min BRIDGET Kessler Work Phone: [facility] 07-28-2023 18:06-0400 SaO2% (BldA) [Mass fraction] 98 % BRIDGET Kessler Work Phone: [facility] 07-28-2023 18:06-0400 Systolic blood pressure 150 mm[Hg] BRIDGET Kessler Work Phone: [facility] 03-05-2022 16:45-0400 Body height 160.02 cm Vanessa Fitt Other [employer] Other 03-05-2022 16:45-0400 Body mass index (BMI) [Ratio] 37.76 kg/m2 Vanessa Fitt Other [employer] Other 03-05-2022 16:45-0400 Body weight 96.71 kg Vanessa Fitt Other [employer] Other 12-12-2021 12:15-0500 Body height 160.02 cm Paramjit Theodore Other [employer] Other 12-12-2021 12:15-0500 Body mass index (BMI) [Ratio] 36.49 kg/m2 Paramjit Theodore Other [employer] Other 12-12-2021 12:15-0500 Body weight 93.44 kg Paramjit Jaimes Other [employer] Other 12-12-2021 12:15-0500 Diastolic blood pressure 74 mm[Hg] Paramjit Jaimes Other [employer] Other 12-12-2021 12:15-0500 Respiratory rate 18 /min Paramjit Jaimes Other [employer] Other 12-12-2021 12:15-0500 SaO2% (BldA) [Mass fraction] 98 % Paramjit Jaimes Other [employer] Other 12-12-2021 12:15-0500 Systolic blood pressure 109 mm[Hg] Paramjit Jaimes Other [employer] Other 11-29-2019 09:00-0500 Body weight 97.[address] [facility] 11-29-2019 07:30-0500 BP Diastolic 80 mm[Hg] Natividad Kessler [facility] 11-29-2019 07:30-0500 BP Systolic 119 mm[Hg] Natividad Kessler [facility] 11-29-2019 07:30-0500 Pulse (Heart Rate) 78 /min Natividad Kessler [facility] 11-29-2019 07:30-0500 Pulse Oximetry 95 % Natividad Kessler [facility] 11-29-2019 07:30-0500 Respiratory Rate 16 /min Natividad Kessler [facility] 11-28-2019 22:04-0500 Body Temperature 98 [degF] Natividad Kessler [facility] 11-26-2019 13:57-0500 Height 162.[address] [facility] 11-25-2019 22:40-0500 BMI (Body Mass Index) 36.8 kg/m2 Natividad Kessler [facility] 09-07-2019 07:30-0400 Body Temperature 97.9 [degF] Natividad Kessler [facility] 09-07-2019 07:30-0400 BP Diastolic 71 mm[Hg] Natividad Kessler [facility] 09-07-2019 07:30-0400 BP Systolic 107 mm[Hg] Natividad Kessler [facility] 09-07-2019 07:30-0400 Pulse (Heart Rate) 81 /min [facility] 09-07-2019 07:30-0400 Pulse Oximetry 97 % Natividad Kessler [facility] 09-07-2019 07:30-0400 Respiratory Rate 14 /min Natividad Kessler [facility] 09-06-2019 12:54-0400 Height 162.[address] [facility] 09-06-2019 09:00-0400 Body weight 86.[address] [facility] 09-03-2019 15:21-0400 BMI (Body Mass Index) 32.2 kg/m2 [facility] Encounters Encounter Date Encounter Type Care Provider Facility Start: 08-17-2025 End: 08-17-2025 ambulatory Bel Coelho Facility:[facility] Start: 07-25-2025 End: 07-25-2025 Patient encounter procedure Buzz Ish DO Work Phone: [facility] Healthcare Start: 07-25-2025 End: 07-25-2025 Periodic preventive med est patient 18-39 yrs Buzz Ish DO Work Phone: [facility] Siomara BEYER Comment on above: Well woman exam with routine gynecological exam; Pre-op examination; Request for sterilization Start: 07-25-2025 End: 07-25-2025 Preprocedural examination done Buzz Ish DO Work Phone: [facility] Healthcare Start: 07-25-2025 End: 07-25-2025 ambulatory BUZZ ISH Not Available Start: 07-25-2025 End: 07-29-2025 Clinisync Result Encounter Buzz Ish DO Work Phone: [facility] External Department Unsolicited Start: 07-25-2025 End: 07-29-2025 Clinisync Result Encounter Buzz Ish DO Work Phone: [facility] External Department Unsolicited Start: 06-27-2025 End: 06-27-2025 Office outpatient visit 15 minutes Buzz Ish DO Work Phone: [facility] Siomara BEYER Comment on above: Request for steriliz ation Start: 06-27-2025 End: 06-27-2025 ambulatory BUZZ ISH Not Available Start: 06-27-2025 End: 06-27-2025 Bamboo flowsheet Buzz Ish DO Work Phone: [facility] Start: 06-27-2025 End: 06-27-2025 Bamboo flowsheet Buzz Ish DO Work Phone: [facility] Siomara BEYER Start: 05-16-2025 End: 05-16-2025 ambulatory Bel Coelho Facility:[facility] Start: 04-09-2025 ambulatory GURPREET-Tami Medina Fac ility:[facility] Start: 03-17-2025 ambulatory Mariella Dowlingi lity:[facility] Start: 02-26-2025 End: 02-26-2025 ambulatory TRISHA Ermias [facility] Start: 02-26-2025 End: 02-26-2025 Subsequent hospital visit by physician Karrie Obs Infusion Bed 3 [facility] Observation Unit Start: 02-20-2025 End: 02-20-2025 ambulatory TRISHA Monson [facility] Start: 02-20-2025 End: 02-20-2025 Subsequent hospital visit by physician Karrie Obs Infusion Bed 1 [facility] Observation Unit Start: 02-16-2025 End: 02-17-2025 ambulatory TRISHA Monson [facility] Start: 02-16-2025 End: 02-17-2025 Subsequent hospital visit by physician Trisha Abbott DO Work Phone: [address] Ortho/Med Surg Comment on above: S/P laparoscopic sle ivory gastrectomy (Primary Dx); Morbid (severe) obesity due to excess calories; Obstructive sleep apnea (adult) (pediatric); Borderline diabetes; Post-op pain Start: 01-31-2025 End: 02-04-2025 ambulatory TRISHA Monson [facility] Start: 01-31-2025 End: 02-04-2025 Encounter for other preprocedural examination TRISHA Monson [facility] Start: 01-31-2025 End: 02-04-2025 Subsequent hospital visit by physician Agnes X-Ray Add Rm [facility] Radiology Comment on above: Arrived Start: 11-26-2024 End: 11-26-2024 ambulatory ALYCIA WANG [facility] Start: 11-26-2024 End: 11-26-2024 Subsequent hospital visit by physician Zakiya Johnson NP Work Phone: [facility] Comment on above: RALPH (obstructive sle ep apnea); PCOS (polycystic ovarian syndrome); Anxiety and depression; Obesity, Class III, BMI 40-49.9 (morbid obesity); History of DVT (deep vein thrombosis); History of nicotine use; Prediabetes; Factor V Leiden mutation (HCC) Start: 11-20-2024 End: 11-20-2024 ambulatory Zakiya Gunn Facility:[facility] Start: 09-17-2024 End: 09-17-2024 Patient encounter procedure BRIDGET Kessler Work Phone: [facility] Work Phone: Start: 09-17-2024 End: 09-17-2024 ambulatory BRIDGET Kessler Work Phone: [facility] Work Phone: Start: 09-17-2024 Encounter for other preprocedural examination Zakiya Gunn [facility] Start: 09-17-2024 Registered Recurring BRIDGET Kessler Work Phone: [facility] Start: 08-13-2024 End: 08-13-2024 ambulatory TRISHA Ermias [facility] Start: 07-30-2024 End: 08-01-2024 ambulatory [facility] Start: 07-30-2024 End: 08-01-2024 Subsequent hospital visit by physician Lamont Sleep Rm 1 [facility] Sleep Center Comment on above: Snoring Start: 07-02-2024 End: 07-04-2024 ambulatory [facility] Start: 06-04-2024 End: 06-06-2024 Subsequent hospital visit by physician Trisha Abbott DO Work Phone: [facility] Comment on above: Dyspnea on exertion Start: 06-04-2024 End: 06-06-2024 ambulatory [facility] Start: 07-28-2023 End: 07-28-2023 Emergency department patient visit [facility] WORKERNayana Kessler Work Phone: [facility] Work Phone: Start: 03-14-[address] DOCTOR JUNIOR Facility :[facility]1 Start: 03-07-2022 End: 03-08-[address] BUZZ DENG Facility:[facility] Start: [facility]-05-[facility] Init ial Provider Vanessa Sinclair [facility] Start: 03-05-2022 End: 03-05-2022 ambulatory Vanessa Sinclair Other [employer] Other Start: 03-04-2022 End: 03-04-2022 ambulatory Paramjit Jaimes Other [employer] Other Start: 03-04-2022 Telephone encounter Paramjit [facility] Start: 03-01-2022 End: 03-01-2022 ambulatory Vanessa Sinclair Other [employer] Other Start: 03-01-2022 Telephone encounter Vanessa decker [facility] Start: 12-13-2021 End: 12-13-2021 ambulatory Paramjit Jaimes Other [employer] Other Start: 12-13-2021 Telephone encounter Paramjit Beyer [facility] Start: 12-12-2021 End: 12-12-2021 ambulatory Vanessa Sinclair Other [employer] Other Start: 12-12-2021 Follow-up encounter Paramjit Beyer [facility] Start: 12-12-2021 Telephone encounter Vanessa Boothe [facility] Start: 03-14-2021 End: 03-14-2021 Emergency department patient visit [facility] Start: 08-27-2019 End: 08-27-2019 Patient encounter procedure Natividad [facility]ess[facility] Procedures Date Procedure Procedure Detail Performing Clinician Start: 07-25-2025 IGP,APTIMA HPV,AGE GDLN Buzz Ish DO Work Phone: Start: 02-17-2025 Basic metabolic panel calcium total [...] tst prsmv instrmnt chem analyzers pr date Alycia David Wang [employer] Work Phone: Start: 06-04-2024 Radiologic exam chest 2 views Trisha Abbott DO Work Phone: Plan of Treatment Date Care Activity Detail Author Start: 07-28-2033 DTaP/Tdap/Td vaccine (2 - Td or Tdap) DTaP/Tdap/Td vaccine (2 - Td or Tdap) [facility] Start: 08-25-2025 End: 08-25-2025 Patient encounter procedure 08/25/2025 3:30 PM EDT Off ice Visit NOM[facility] BEYER [address] [place] [address] No Mclaughlin, GURPREET [address] [place] [address] LELO BEYER Start: 07-25-2025 End: 07-25-2025 Patient encounter procedure 07/25/2025 3:30 PM EDT Procedure Visit NOM[facility]na BEYER [address] [place] [address] Buzz Deng DO [address] [place] [address] LELO BEYER Start: 07-16-2025 Depression Monitoring Depression Monitoring [facility] Start: 07-01-2025 End: 07-01-2025 Patient encounter procedure [facility] Comment on above: MD VISIT 1 YEAR F/U Start: 06-27-2025 End: 06-27-2025 Patient encounter procedure 06/27/2025 3:10 PM EDT Off ice Visit LELO BEYER [address] [place] [address] Buzz Deng DO [address] [place] [address] Arrived LELO BEYER Comment on above: Arrived Start: 06-26-2025 Hemoglobin A1c measurement A1C test (Diabetic or Prediabetic) [facility] Start: 03-24-2025 End: 03-24-2025 Patient encounter procedure 03/24/2025 2:15 PM EDT [facility] Visit [facility] [address] [facility] [address] [place], [place] [id number] Bel Cedillo APRN - HERI [address] [facility], [facility] [address] [place] [address] 1 month post op - sleeve [facility] Comment on above: 1 month post op - sleeve Start: 02-24-2025 End: 02-24-2025 Patient encounter procedure 02/24/2025 11:00 AM EDT Of fice Visit [facility] [address] [address] Trisha Abbott DO [address] [facility] [address] [place], [place] [id number] 1 week post op sleeve [facility] Comment on above: 1 week post op sleeve Start: 02-16-2025 End: 02-16-2025 Admission to same day surgery center 02/16/2025 12:20 PM EDT - 02/16/2025 2:50 PM EDT Surgery [facility] [place] [address] Trisha Abbott DO [facility] [address] [address] ROBOTIC LAPAROSCOPIC ASSISTED GASTECTOMY SLEEVE, EGD, POSSIBLE LIVER BIOPSY - GI SCHEDULED [facility] OR Comment on above: ROBOTIC LAPAROSCOPIC ASSISTED GASTECTOMY SLEEVE, EGD, POSSIBLE LIVER BIOPSY - GI SCHEDULED Start: 02-16-2025 End: 02-16-2025 Laps gstrc rstrictiv px longitudinal gastrectomy GASTRECTOMY SLEEVE LAPAROSCOPIC ROBOTIC Morbid (severe) obesity due to excess calories Obstructive sleep apnea (adult) (pediatric) Borderline diabetes 02/16/2025 12:20 PM EDT [facility] Start: 02-16-2025 Subsequent hospital visit by physician 02/16/2025 12:20 PM EDT Hospital Encounter [facility] OR [facility] [place] [address] Trisha Abbott DO [facility] [address] [address] [facility] OR Start: 02-09-2025 End: 02-09-2025 Patient encounter procedure 02/09/2025 4:00 PM EDT Off ice Visit [facility] [address] [place] [address] Trisha Abbott DO [address] [place] [address] sign consents - sleeve use .erasconsentsigning in pt wrap up [facility] Comment on above: sign consents - sleeve use .erasconsents igning in pt wrap up Start: 12-28-2024 End: 12-28-2024 Patient encounter procedure 12/28/2024 8:15 AM EST Off ice Visit [facility] [address] [facility] [address] [place] [address] Alycia Wang, [employer] [address] [address] PIF 7 of 6 [facility] 6 mo con visits. [facility] Comment on above: PIF 7 of 6 [facility] 6 mo con visits. Start: 12-24-2024 End: 12-24-2024 Patient encounter procedure 12/24/2024 4:15 PM EST Off ice Visit [facility] [address] [address] Alycia Wang, [employer] [address] [address] PIF 7 of 6 [facility] 6 mo con visits. [facility] Comment on above: PIF 7 of 6 [facility] 6 mo con visits. Start: 09-24-2024 End: 09-24-2024 Patient encounter procedure 09/24/2024 12:00 PM EDT Of fice Visit [facility] Cardiology [address] [place] [address] [place] [address] [facility] [address] [place] [address] New patient, referred by Dr. Abbott, for ICD-10-CM Dyspnea on exertion psc/sc [facility] Comment on above: New patient, referred by Dr. Abbott, f or ICD-10-CM Dyspnea on exertion psc/sc Start: 09-03-2024 End: 09-03-2024 Patient encounter procedure 09/03/2024 11:30 AM EDT Of fice Visit [facility] Cardiology [address] [place] [address] [place] [address] [facility] [address] [place] [address] New patient, referred by Dr. Abbott, for ICD-10-CM Dyspnea on exertion psc/sc [facility] Comment on above: New patient, referred by Dr. Abbott, f or ICD-10-CM Dyspnea on exertion psc/sc Start: 08-20-2024 End: 08-20-2024 Patient encounter procedure 08/20/2024 3:00 PM EDT Off ice Visit [facility] [address] [address] Alycia Wang, [employer] [address] [address] PIF 3of6 [facility] 6 mo con visits [facility] Comment on above: PIF 3of6 [facility] 6 mo con visits Start: 08-18-2024 End: 08-18-2024 Nursing evaluation of patient and report 08/18/2024 5:30 PM EDT Nurse Only [facility] [address] [address] intro [facility] Comment on above: intro Start: 08-13-2024 End: 08-13-2024 Admission to same day surgery center 08/13/2024 7:50 AM EDT - 08/13/2024 8:10 AM EDT [place] [facility] [address] [place] [address] Trisha Abbott DO [address] [address] ESOPHAGOGASTRODUODENOSCOPY BIOPSY [facility] OR Comment on above: ESOPHAGOGASTRODUODENOSCOPY BIOPSY Start: 08-13-2024 End: 08-13-2024 Egd transoral biopsy single/multiple ESOPHAGOGASTRODUODENOSCOPY BIOPSY Gastroesophageal reflux disease, unspecified whether esophagitis present Obesity, unspecified classification, unspecified obesity type, unspecified whether serious comorbidity present 08/13/2024 7:50 AM EDT [facility] Start: 08-13-2024 Subsequent hospital visit by physician 08/13/2024 7:50 AM EDT Hospital Encounter [facility] [address] [place] [address] Trisha Abbott DO 110[address] [facility] 200 [place] [address] [facility] OR Start: 08-05-2024 End: 08-05-2024 Nursing evaluation of patient and report 08/05/2024 12:00 PM EDT Nurse Only [facility] Surg 110[address] [facility] [address] [place] [address] [email or web address] [facility] Invasive [facility]ariat[facility]urg Comment on above: ottoniel Start: 08-01-2024 COVID-19 Vaccine ( season) COVID-19 Vaccine ( season) [facility] Start: 08-01-2024 COVID-19 Vaccine ( season) COVID-19 Vaccine () [facility] Start: 2024 Screening for malignant neoplasm of cervix [facility] Start: 07-02-2024 End: 07-02-2024 Patient encounter procedure 07/02/2024 7:30 PM EDT Appointment [facility] Sleep Center [address] [place] [address] Trisha Abbott DO [address] [facility] [address] [place] [address] PSG [facility] Sleep Center Comment on above: [id number] PSG Start: 07-02-2024 End: 07-02-2024 Patient encounter procedure 07/02/2024 12:15 PM EDT Initial consult [facility] [[email or web address]] [address] [place] [id number] Danette Ngo MD [address] [place] [address] CONSULT - History of DVT in adulthood [facility] [[email or web address] Comment on above: CONSULT - History of DVT in adulthood Start: 07-01-2024 Influenza vaccination Flu vaccine (#1) [facility] Start: 06-25-2024 End: 06-25-2024 Patient encounter procedure 06/25/2024 3:45 PM EDT Off ice Visit [facility] [address] [facility] [address] [place] [address] Alycia Wang, [employer] [address] [facility] [address] [place] [address] $50.00( 100.00 is due) 1of6 [facility] 6 mo con visits [facility] Invasive Bariat[facility] Surg Comment on above: $50.00( 100.00 is due) 1of6 [facility] 6 mo con visits Start: 08-01-2023 COVID-19 Vaccine ( season) COVID-19 Vaccine ( season) [facility] Start: 2015 Screening for malignant neoplasm of cervix Pap smear [facility] Start: 2013 Hepatitis B vaccine (1 of 3 - 19+ 3-dose series) Hepatitis B vaccine (1 of 3 - 19+ 3-dose series) [facility] Start: 2012 Hepatitis C screening Hepatitis C screen [facility] Start: 2009 HIV screening HIV screen [facility] Start: 2007 Varicella vaccine (1 of 2 - 13+ 2-dose series) Varicella vaccine (1 of 2 - 13+ 2-dose series) [facility] Start: 2006 Depression Monitoring Depression Monitoring [facility] Start: 1995 Varicella vaccine (1 of 2 - 2-dose childhood series) Varicella vaccine (1 of 2 - 2-dose childhood series) [facility] Start: 01-27-1995 COVID-19 Vaccine (#1) COVID-19 Vaccine (#1) [facility] Start: 1994 Hepatitis B vaccine (1 of 3 - 3-dose series) Hepatitis B vaccine (1 of 3 - 3-dose series) [facility] Continuous pulse oximetry Pulse oximetry, continuous Respiratory Care Routine Every 4hr until discontinued starting 02/16/2025 [facility] Comment on above: Every 4hr until discontinued starting Cytology Cervical or vaginal smear or scraping study Pap Smear Pathology and Cytology Routine Well woman exam with routine gynecological exam Ordered: 07/25/2025 [facility] Work Phone: Comment on above: Ordered: 07/25/2025 Home BIPAP or CPAP Home BIPAP or CPAP Respiratory Care Routine QHS until discontinued starting 02/16/2025 [facility] Comment on above: QHS until discontinued starting 02/17/20 Human papilloma viru s DNA [Presence] in Unspecified specimen by Probe with amplification HPV DNA probe, amplified Microbiology Routine Well woman exam with routine gynecological exam Ordered: 07/25/2025 [facility] Comment on above: Ordered: 07/25/2025 End: 11-26-2024 Nicotine, Blood [facility] Comment on above: 1 Occurrences starting 11/26/2024 until 11/26/2024 Oxygen therapy [[facility] [place] [facility]] Initiate Oxygen Therapy Protocol Respiratory Care Routine As Needed until discontinued starting 02/16/2025 [facility] Comment on above: As Needed until discontinued starting Pathology study Surgical Patholo gy Lab Routine Morbid (severe) obesity due to excess calories Obstructive sleep apnea (adult) (pediatric) Borderline diabetes Release Upon Ordering for 1 Occurrences starting 02/16/2025 [facility] Comment on above: Release Upon Ordering for 1 Occurrences starting 02/16/2025 Patient Education [facility] Patient referral [facility] End: 07-30-2024 Sleep Study with PAP Titration Sleep Study with PAP [facility] Routine Snoring 1 Occurrences starting 07/30/2024 until 07/30/2024 [facility] Work Phone: Comment on above: 1 Occurrences starting 07/30/2024 until 07/30/2024 Spirometry panel Incentive ashley metry Respiratory Care Routine Every 2hr while awake until discontinued starting 02/16/2025 [facility] Comment on above: Every 2hr while awake until discontinued starting 02/16/2025 End: 02-16-2025 SURGICAL PATHOLOGY REPORT SURGICAL PATHOLOGY REPORT La b Routine Once for 1 Occurrences starting 02/16/2025 until 02/16/2025 [facility] Comment on above: Once for 1 Occurrences starting 02/17/20 until 02/16/2025 Immunizations Immunization Date Immunization Notes Care Provider Fa pablo 07-28-2023 tetanus toxoid, reduced diphtheria toxoid, and acellular pertussis vaccine, adsorbed [employer] Natividadlaly Kessler Work Phone: [facility] NEGATED: Highlighted row has not occurred!01-09-2018 influenza, injectable, quadrivalent, preservative free [facility] Payers Date Payer Category Payer Medicaid (Managed Care) SHAI SERNA [id number] 1994 Unknown [id number] 2.840.1.259122.3.579.2. 593 1994 Unknown [id number] 2.840.1.432893.3.579.2. 593 1994 Unknown [id number] 2.16.840.1.296513.3.579.2. 176 1994 Unknown [id number] 2.16840.1.023644.3.579.2. 176 1994 Unknown [id number] 2.16840.1.575298.3.579.2. 176 1994 Unknown [id number] 2.16.840.1.348765.3.579.2. 176 1994 Unknown [id number] 2.16.840.1.808556.3.579.2. 176 1994 Unknown [id number] 2.16.840.1.428156.3.579.2. 175 1994 Unknown [id number] 2.16.840.1.936793.3.579.2. 175 1994 Unknown [id number] 2.16.840.1.162254.3.579.2. 175 1994 Unknown [id number] 2.16.840.1.614610.3.579.2. 175 1994 Unknown [id number] 2.16.840.1.523253.3.579.2. 175 1994 Unknown [id number] 2.16.840.1.351307.3.579.2. 175 1994 Unknown [id number] 2.16.840.1.476362.3.579.2. 175 1994 Unknown [id number] 2.16.840.1.652928.3.579.2. 1259 1994 Unknown [id number] 2.16.840.1.823112.3.579.2. 1259 1994 Unknown [id number] 2.16.840.1.659983.3.579.2. 718 1994 Unknown [id number] 2.16.840.1.079217.3.579.2. 718 1994 Unknown [id number] 2.16.840.1.423252.3.579.2. 718 1994 Unknown [id number] 2.16.840.1.582752.3.579.2. 718 1994 Unknown [id number] 2.16.840.1.567040.3.579.2. 718 1959 Medicaid [id number] Private Health Insurance [id number] Self-pay Self Pay [id number] Unknown [id number] Unknown [id number] Social History Date Type Detail Facility Start: 09-04-2019 End: 11-26-2019 Tobacco smoking status MTIS Smoker (finding) [facility] Start: 1995 Sex Assigned At Female [facility] Start: 11-26-2024 End: 06-27-2025 Sex Assigned At [facility] Work Phone: Start: 04-23-2023 End: 07-28-2023 Tobacco smoking status [facility] Never smoked tobacco (finding) [facility] Start: 05-28-2024 End: 07-02-2024 Tobacco smoking status [facility] Ex-smoker [facility] History of tobacco use Cigarette Smoker B ON [employer] History of tobacco use Passive smoker [facility] Start: 04-23-2023 End: 07-02-2024 Tobacco use and exposure Smokeless tobacco non-user [facility] Start: 07-23-2024 End: 11-26-2024 Alcoholic beverage intake Current drinker of alcohol (finding) [facility] Start: 11-26-2024 End: 06-27-2025 Alcoholic beverage intake Bon [facility] Work Phone: Patient Health Questionnaire 9 item (PHQ-9) total score [Reported] 3 [facility] Work Phone: Start: 05-28-2024 Tobacco Comment Quit 2019 [facility] Start: 05-28-2024 Alcohol Comment occasionally [facility] Start: 1994 Sex assigned at Not on file CABRERA WATKINS [facility] Start: 01-31-2025 End: 02-17-2025 Alcoholic beverage intake Ex-drinker (finding) [employer] Nancy Inside adrianna [employer] Start: 04-23-2023 Gender identity Identifies as female gender (finding) [employer] Has the electric, ga s, oil, or water company threatened to shut off services in your home in past 12Mo No Cabrera Watkins [employer] (I/We) worried wheth er (my/our) food would run out before (I/we) got money to buy more. Never true Cabrera Watkins [employer] Start: 03-13-2021 Sex Female (finding) Cabrera Watkins [employer] Start: 05-05-2024 End: 07-25-2025 Alcoholic beverage intake Lifetime non-drinker (finding) [facility] Start: 04-23-2023 Sexual orientation Heterosexual (finding) [facility] Goals Date Patient Goal Desired Activity /State Functional Status Date Assessment Result Facility 11-29-2019 Functional status Patient at Baseline [facility] 09-07-2019 Functional status Patient at Baseline [facility] Mental Status Date Assessment Result Facility 11-29-2019 Cognitive function Cognitive Sta tus Patient at Baseline [facility] 09-07-2019 Cognitive function Cognitive Sta tus Patient at Baseline [facility] Clinical Notes 03-04-2022 to 07-25-2025 Yohana Xiao - 07/25/2025 3:30 PM Renato Lakhani LPN - 06/27/2025 3:10 PM Mirian Lamas RN - 02/17/2025 5:57 PM Haylee Garcia RN - 02/16/2025 6:17 PM EDTDischarnaila Instructions Note Date & Type Note Facility 07-25-2025 History of Presen t illness Narrative Reason for Appointment: Patient ID: eMrline Mohr is a 29 y.o. female who presents for Gynecologic Exam and Pre-op Visit Patient presents today for Pre Op/Annual appointment. Patient is scheduled to undergo Da Valerie assisted Bilateral Laparoscopic Salpingectomy on 08-19-[address] Deng at [facility]. MEDICATIONS Current Outpatient Medications Medication Instructions benztropine [...] Grandmother Heart disease Maternal Grandfather SURGICAL HISTORY Past Surgical History: Procedure Laterality Date BARIATRIC SURGERY 02/16/2025 REVIEW OF SYSTEMS Review of Systems: Review of Systems Constitutional: Negative. HENT: Negative. Eyes: Negative. Respiratory: Negative. Cardiovascular: Negative. Gastrointestinal: Negative. Genitourinary: Negative. Musculoskeletal: Negative. Skin: Negative. Neurological: Negative. All other systems reviewed and are negative. Hematological: Negative. Endocrine: Negative. Allergic/Immunologic: Negative. OBJECTIVE Objective: OBGyn Exam Vitals: Estimated body mass index is 30.34 kg/m as calculated from the following: Height as of 07/17/23: 5' 4 . Weight as of 06/27/25: 176 lb 12 oz. BP: No LMP recorded. ASSESSMENT & PLAN ICD-10-CM 1. Pre-op examination Z01.818 2. Request for sterilization Z30.2 Annual: Patient presents today for an annual exam. Patient states she is doing well and has no complaints. Pap was obtained without difficulty. Pre Op: Patient is doing well but has complaints of requesting sterilization. I have discussed conservative management vs. surgical management with the patient in detail and patient desires surgical management at this time. Patient will undergo Da Valerie assisted Bilateral Laparoscopic Salpingectomy on 08-19-25. Surgical consents were signed, mmc was reviewed, and patient is to proceed to [facility] OR. Follow Up: Patient is to follow up between 1-2 weeks post operative to assess proper healing and recovery from procedure. Documented by Zaria Lakhani LPN on behalf of: Buzz Deng DO documented in this encounter [facility] 06-27-2025 History of Presen t illness Narrative [...] nursing note reviewed. Exam conducted with a screw machine tool setter present. Vitals: Estimated body mass index is [...] surgery in January. Patient will setup with Machine Tracer prior to leaving office. Patient to return to clinic for Pre-Op. Documented by Zaria Lakhani LPN on behalf of: Buzz Deng DO documented in this encounter [facility] 04-09-2025 Note Patient Education Ma terials Follows: [...] Follow these instructions at home: ? Take eomm-ngd-pdihckc and prescription medicines only as told by [...] provider. Document Revised: 02/25/2022 Document Reviewed: 02/25/2022 [employer] [facility] Note Patient Education Ma terials [...] Follow these instructions at home: ? Take qhzd-bbs-fxaymhq and prescription medicines only as told by [...] provider. Document Revised: 02/25/2022 Document Reviewed: 02/25/2022 [employer] Patient Education ? 2023 [employer] [facility] 02-17-2025 History of Presen t illness Narrative Pt given discharge instructions, all questions answered. Pt discharged with all personal belongings to home. Patient transported to 2C on monitor with Haylee PADRON PACU report called to Mirian PADRON on 2C. All questions answered at this time. Data Review Specialist called and left message to Dr. Abbott about admit orders Teagan @ 's office has been informed of post op recommendations per hematology note from on 07/02/2024. Obtained medical clearance for OR on 02/16/2025. documented in this encounter [facility] 02-17-2025 Hospital Discharg e instructions Trisha Abbott, - 02/17/2025 2:20 PM EDT Discharge Instructions for Bariatric Surgery You had a Laparoscopic Sleeve Gastrectomy (81902) surgery to treat obesity. Recovery from this [...] scheduled appointment, please call the office at [phone]. Call Your Doctor If Any of the [...] call 911 immediately. documented in this encounter [facility] 01-31-2025 History of Presen t illness Narrative Obtained cardiac and pulmonary clearance for OR on 02/16/2025. documented in this encounter [facility] 01-25-2025 Hospital Discharg e instructions Lidia Blanchard, BENDING SHED WORKER - BATON TWIRLER - 01/25/2025 1:28 PM EST Pre-operative Instructions [...] Day of Surgery/Procedure As a patient at [facility] you can expect quality medical and nursing care that is centered on your individual needs. Our goal is to make your surgical experience as comfortable as possible Directions to the Surgery Center The surgery Center at [facility] is located in the Emergency Room parking lot on [address] or there is additional parking across the street. The address is [address] [place] [address]. Please check in at the Surgery Center [...] on the day of surgery please contact [phone] or [phone] If you have any other questions regarding your procedure/surgery please call your surgeon's office. documented in this encounter [facility] 03-05-2022 Evaluation note Encounter Date Diagnosis Assessment Notes Mar, Obesity (ICD-10 - E66.9) Mar, BMI 37.0-37.9, adult (ICD-10 - Z68.37) Mar, Other Summary of Visit: (A) plate method of meal planning (B) discussed wasy to gradually incorporate more fruits and veggies into diet (C) briefly reviewed community resources Patient set the following goals: - NEW: try new fruits and veggies [employer] Other 04-04-2022 Evaluation note* Encounter Date Diagnosis Assessment Notes Treatment Notes Treatment Clinical Notes Mar, Obesity (BMI 35.0-39.9 without comorbidity) (ICD-10 - E66.9) [employer] 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 noteNo Information[employer] 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 [employer]Sales[employer] 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 noteNo assessment information available [facility] Work Phone: evaluation note* Diagnosis RALPH (obstructive [...] Primary hypercoagulable state documented in this encounter [facility] [employer] note* Diagnosis Dyspnea on exertion Other dyspnea and respiratory abnormality [facility]* Diagnosis Snoring Other dyspnea and respiratory abnormality Gastroesophageal reflux disease, unspecified whether esophagitis present Obesity, unspecified classification, unspecified obesity type, unspecified whether serious comorbidity present documented in this encounter [facility] [employer] note* Diagnosis S/P laparoscopic sleeve gastrectomy- Primary Morbid (severe) obesity due to excess calories Obstructive sleep apnea (adult) (pediatric) Borderline diabetes Other abnormal glucose S/P laparoscopic sleeve gastrectomy Post-op pain Other acute postoperative pain Morbid (severe) obesity due to excess calories Obstructive sleep apnea (adult) (pediatric) Borderline diabetes Other abnormal glucose Post-op pain Other acute postoperative pain documented in this encounter [facility] [employer] note* Diagnosis Request for sterilization [facility] Well woman exam with routine gynecological exam Routine gynecological examination Pre-op examination Request for sterilization documented [facility] this [facility] N[facility]ative - Reported* Type Description Date Medical History bipolar Medical History Anxiety disorder Medical History factor V [facility] [employer] Other History [facility] - [facility] Other Hospital Discharge instructions Additional Instructions Neosporin area affected daily Clean with soap and water Your tetanus was updated in emergency department Is important you take your antibiotic as instructed until gone Please have reeval with your doctor in 3 days Please return here if you have any increased redness, swelling, purulent drainage or any other [facility] Work Phone: Reason for visit Narrative* Auth/Cert Specialty Diagnoses / Procedures Referred By Suman t Referred To Contact Diagnoses Morbid (severe) obesity due to excess calories Obstructive sleep apnea (adult) (pediatric) Borderline diabetes Morbid (severe) obesity due to excess calories [E66.01] Obstructive sleep apnea (adult) (pediatric) [G47.33] Borderline diabetes [R73.03] Procedures MT LAPS GSTRC RSTRICTIV PX LONGITUDINAL GASTRECTOMY MT ESOPHAGOGASTRODUODENOSCOPY TRANSORAL DIAGNOSTIC MT BIOPSY LIVER WEDGE ROBOTIC LAPAROSCOPIC ASSISTED GASTECTOMY SLEEVE, EGD, POSSIBLE LIVER BIOPSY - GI SCHEDULED ROBOTIC LAPAROSCOPIC ASSISTED GASTECTOMY SLEEVE, EGD, POSSIBLE LIVER BIOPSY - GI SCHEDULED ROBOTIC LAPAROSCOPIC ASSISTED GASTECTOMY SLEEVE, EGD, POSSIBLE LIVER BIOPSY - GI SCHEDULED Trisha Abbott DO [address] [facility] [address] [place] [address] Phone: tel: fax: [facility] [employer] [facility] [address] [place] [address] Referral ID Status Reason Start Date Expiration Date Visits Re quested Visits Authorized [id number] 1 1 [employer] Advance Directives No Advanced Directives Records Found [...] Date Resolution Status Bipolar affect, depressed ac creek Rhinorrhea acute Suicidal ideations acute Transaminitis acute [...] Sleep Study with PAP Titration Trisha Abbott, [address] [place] [address] Referral ID Status Reason Start Date Expiration Date Visits Re quested Visits Authorized [id number] Closed 05/28/2024 05/28/2025 1 1 Additional Source Comments INFORMATION SOURCE (unrecogn ized section and content) DATE CREATED AUTHOR 03/14/2021 [facility] DATE CREATED AUTHOR AUTHOR'S ORGANIZ ATION 03/12/2022 [facility] DATE CREATED AUTHOR AUTHOR'S ORGANIZ ATION 08/02/2024 [facility] DATE CREATED AUTHOR AUTHOR'S ORGANIZ ATION 09/20/2024 [facility] DATE CREATED AUTHOR AUTHOR'S ORGANIZ ATION 05/24/2025 [facility] DATE CREATED AUTHOR AUTHOR'S ORGANIZ ATION 07/26/2025 [facility] EPIC DATE CREATED AUTHOR AUTHOR'S ORGANIZ ATION 08/18/2025 [facility] l REASON FOR VISIT (unrecogniz ed section and content) Reason Comments Sleep Apnea Specialty Diagnoses / Procedures Referred By Suman gonsales Referred To Contact Sleep Center Diagnoses Snoring Procedures Sleep Study with PAP Titration Trisha Abbott DO [address] [facility] [address] [place] [address] Referral ID Status Reason Start Date Expiration Date Visits Re quested Visits Authorized [id number] Closed 05/28/2024 05/28/2025 1 1 Reason Comments Discuss Sterilization Reason Comments Gynecologic Exam Pre-op Visit Goals (unrecognized section and content) Goals may be documented in a n alternate section Care Teams (unrecognized sec tion and content) Team Status: Active Member Role Status Dates Natividad Kessler APRN FINANCIAL ADMINISTRATOR-C Primary Care Provide r Active Team Status: Inactive Member Role Status Dates Natividad Kessler APRN FINANCIAL ADMINISTRATOR-C Primary Care Provide r Active Yessenia Montoya APRN Emergency Provider Active Team Status: Active Member Role Status Dates Zakiya Gunn FINANCIAL ADMINISTRATOR-C Primary Care Prov ider Active Team Status: Active Member Role Status Dates Natividad Kessler APRN FINANCIAL ADMINISTRATOR-C Primary Care Provider Active Start: August John Meeks MD Attending Provider Active Start: September 17, 2024 Team Status: Inactive Member Role Status Dates Zakiya Gunn FINANCIAL ADMINISTRATOR-C Primary Care Provider, Attending Provider Active Start: September 17, 2024 End: September 17, 2024 Manager Drug Safety Relationship Specialty Start Date End Date Zakiya Gunn APRN - FINANCIAL ADMINISTRATOR [address] [place] [address] PCP - General 08/10/24 Manager Drug Safety Relationship Specialty Start Date End Date None, None PCP - General 06/04/24 Manager Drug Safety Relationship Specialty Start Date End Date None, None PCP - General 06/04/24 Manager Drug Safety Relationship Specialty Start Date End Date None, None PCP - General 06/04/24 Manager Drug Safety Relationship Specialty Start Date End Date Luis A ZakiyaBRIDGET - FINANCIAL ADMINISTRATOR [address] [place] [address] PCP General 08/10/24 Manager Drug Safety Relationship Specialty Start Date End Date Leigha GunnniferBRIDGET - FINANCIAL ADMINISTRATOR [address] [place] [address] PCP General 08/10/24 Manager Drug Safety Relationship Specialty Start Date End Date Leigha GunnniferBIRDGET - FINANCIAL ADMINISTRATOR [address] [place] [address] PCP [facility] 08/10/24 Manager Drug Safety Relationship Specialty Start Date End Date Luis A ZakiyaBRIDGET - FINANCIAL ADMINISTRATOR [address] [place] [address] PCP [facility] 08/10/24 Manager Drug Safety Relationship Specialty Start Date End Date Zakiya GunnBRIDGET - FINANCIAL ADMINISTRATOR [address] [place] [address] [facility] 08/10/24 Ordered Prescriptions (unrec ognized section and [...] needed for Muscle spasms 21 tablet 02/17/2025 Scheduled Active and Recently Administ ered Medications (unrecognized section and content) Medication Order 02/15/2025 02/16/2025 02/17/2025 ceFAZolin (ANCEF) 2000 mg in sterile water 20 mL IV syringe (COMPLETED) 2,000 mg, IntraVENous, ONCE, On Fri02/16/25 at 1100, For 1 dose, Administer over 5 mins., Pre-op (day of surgery) 1337 (Given - Provider: Sharan Bedoya APRN - DATABASE REPORT WRITER) ceFAZolin (ANCEF) 3000 mg in sterile water [...] modification) on Fri02/16/25 at 2300, Until Discontinued 230 (Given - Provider: Tejal Tierney RN) 0848 [...] Watkins RCP)1327 (Given - Provider: Jessica Watkins RCP)1999 (Due) pantoprazole (PROTONIX) tablet 40 mg 40 mg, Oral, DAILY, First dose on Fri02/16/25 at 1715, Until Discontinued, Do not crush or break., Post-op 183 (Not Given - Provider: Mirian Trinidad RN [...] occur. 1035 (Given - Provid er: Mirian Trinidad RN) scopolamine (TRANSDERM-SCOP) transdermal patch 1 patch 1 patch, TransDERmal, Administer over 72 Hours, EVERY 72 HOURS, First dose on Fri02/16/25 at 1745, delivers 1 mg over 3 days. Apply patch to hairless area behind the ear., Multiphase Phase of Care 1839 (Patch Applied - Provider: Mirian Trinidad RN [...] or Central Line = 20 mL/lumen, Post-op 2043 (Given - Provider: Tejal Tierney RN) 0746 (Not Given - Provider: Mirian Trinidad RN - Reason: IV Fluid Infusing)2100 (Due) ziprasidone (GEODON) capsule 20 mg 20 mg, Oral, 2 TIMES DAILY WITH MEALS, First dose on Fri02/16/25 at 2300, Until Discontinued, May cause prolongation of QT interval. Take with food. 2328 (Given - Provider: Tejal Tierney RN) 0848 (Given - Provider: Mirian Trinidad, VITO)1700 (Due) Continuous Medication Order 02/15/2025 02/16/2025 02/17/2025 lactated ringers infusion (CANCELED) IntraVENous, at 50 mL/hr, CONTINUOUS, Starting on Fri02/16/25 at 1100, Pre-op (day of surgery) 1313 (New Bag - Provider: Sharan Bedoya APRN - DATABASE REPORT WRITER)1352 (Anesthesia Volume Adjustment - Provider: Trudy Harris APRN - DATABASE REPORT WRITER)1411 (New Bag - Provider: Andrés Muñoz RN)1444 (Anesthesia Volume Adjustment - Provider: Andrés Muñoz, RN)1541 (Stopped - Provider: Andrés Muñoz RN) [...] Anderson RN) 0137 (Given - Provider: Tejal Tierney RN)1211 (Given - Provider: Mirian Trinidad, VITO) HYDROmorphone [...] Haylee Anderson RN)1559 (Given - Provider: Haylee nAderson RN)1608 (Given - Provider: Haylee Anderson RN)1703 [...] of each other unless specifically ordered., Post-op 2241 (Given - Provider: Tejal Tierney RN) 0504 [...] Abbott, DO - Comment: HANGING FOR SUCTION MANAGER OF REVENUE)1354 (New Bag - Provider: Trisha Abbott, DO [...] BE BASED ON THE PRIMARY CLINICAL RECORDS. [facility]. provides no warranty or guarantee of the accuracy or completeness of information in this document.
--- OUTSIDE RECORDS SUMMARY | 2025-08-19 07:31 | XMS_ITS | Encounter Summary ---
Author Organization [facility] Address [address] [facility] [place] [address] Care Team Providers Care Piano Assembler Name Role Phone Unavailable Primary Care Provider Unavailabl e Encounter Details Date Type Department Care Team (Late st Contact Info) Description 05/13/2024 Abstract [facility] [address] [address] [place] [address] Zaria Lakhani LPN Social History Tobacco [...] Office Visit [facility] [address] [address] [place] [address] No Mclaughlin NP [address] [place] [address] documented as of this encounter Visit Diagnoses Not on filedocumented in this encounter
--- OUTSIDE RECORDS SUMMARY | 2025-08-19 07:31 | XMS_ITS | Clinical Summary ---
Author Organization [facility] Address [address] [place] [address] Care Team Providers Care Fruit Sprayer Name Role Phone Unavailable Primary Care Provider [...] Abstract [facility] [address] [place] [address] Buzz Deng, 08/03/2025 [place] [id number] Dorothea Bearden LPN 08/02/2025 [place] [address] Dorina Jones MA 07/25/2025 3:30 PM EDT [place] [address] Buzz Deng DO Well woman exam with routine gynecological exam; Pre-op examination; Request for sterilization 07/25/2025 Clinisync Result Encounter [facility] External Department Unsolicited Buzz Deng, 06/27/2025 3:10 PM EDT Office Visit [facility] [address] [place] [id number] Buzz Deng DO Request for sterilization 06/27/2025 Bamboo flowsheet [facility] [address] [address] [place] [address] Buzz Deng, 06/27/2025 Travel from Last 3 [...] PM EDT Office Visit [facility] [address] [address] No Mclaughlin, GURPREET [address] [place] [address] Procedures Procedure Name Priority Date/Time Associated Diagnosis Comments IGP,APTIMA HPV,AGE GDLN Routine 07/25/2025 4:04 PM EDT PAP SMEAR Routine 07/25/2025 12:00 AM EDT from Last 3 Months Results * (ABNORMAL) IGP,APTIMA HPV,AGE GDLN (07/25/2025 4:04 PM EDT) AGE GDLN ACOG TESTING Note . [facility] Comment: TESTS RESULT FLAG UNITS REF RANGE LAB Clinician Provided Cytology Information Source.............Cervix;Endocervix No. of containers..01 ThinPrep Vial Age Annita MCCALLUM Kathy... 29 01 FLAG LEGEND: L-Low Normal,H-High Normal,LL-Alert Low,HH-Alert High <-Panic Low,>-Panic High,A-Abnormal,AA-Critical Abnormal Performed at: 01 =G [facility] [address] [place] [address] Polina Dominguez MD, IGP, APTIMA HPV, RFX 16/18,45 Note . [facility] Comment: TESTS RESULT FLAG UNITS REF RANGE LAB DIAGNOSIS: 02 NEGATIVE FOR INTRAEPITHELIAL LESION OR MALIGNANCY. PREDOMINANCE OF COCCOBACILLI CONSISTENT WITH SHIFT IN VAGINAL TRANG IS PRESENT. Specimen adequacy: 02 Satisfactory for evaluation. No endocervical component is identified. Performed by: Evon Hollis, Landscape Horticulture Instructor ([facility]) . 02 Note: Note 02 The Pap [...] <-Panic Low,>-Panic High,A-Abnormal,AA-Critical Abnormal Performed at: [address] [address] Polina Dominguez MD, HPV APTIMA Positive(A) Negative TB Comment: This nucleic acid amplification test detects fourteen high- risk HPV types (16,18,31,33,35,39,45,51,52,56,58,59,66,68) without differentiation. HPV GENOTYPE 16 Negative Negative [facility] HPV GENOTYPE 18,45 Negative Negative [facility] Comment: Performed at: =[address] [id number] Fence Repairman: Polina Dominguez MD, Phone: [phone] Performed at: [address] [id number] Fence Repairman: Polina Dominguez MD, Phone: [phone] 07/25/2025 4:04 PM EDT 07/25/2025 8:56 PM EDT Narrative [facility] - 07/29/2025 9:08 PM EDT BRUSH-SPATULA CERVIX ENDOCERVIX [employer] DO LAB BLOOD ORDERABLES Final Resul t Performing Organization Address [facility] Co de Phone Number [facility] * Pap Smear (07/25/2025 12:00 AM EDT) Swab Cervical swab / Unknown [employer] DO LAB CYTOLOGY ORDERABLES Final Re sult EXTERNAL LAB from Last 3 Months Insurance [employer]
--- OUTSIDE RECORDS SUMMARY | 2025-08-19 07:31 | XMS_ITS | Encounter Summary ---
Author Organization [facility] Address [address] [facility] [place] [address] Care Team Providers Care Customs Port Director Name Role Phone Unavailable Primary Care Provider Unavailabl e Encounter Details Date Type Department Care Team (Late Contact Info) Description 04/23/2023 Abstract [facility] [address] [place] [address] Raquel Narvaez PA [address] [place] [address] Social History Tobacco Use Types Packs/Day [...] EDT Office Visit [facility] [address] [facility] [facility] [place] [address] No Mclaughlin, GURPREET [address] [facility] [place] [address] documented as of this encounter Visit Diagnoses Not on filedocumented in this encounter
[2025-08-19 07:40] LABS: Hematocrit 41.8 % (36.0-48.0); Hemoglobin 14.2 g/dL (12.0-16.0); Immature Granulocytes Abs Auto 0.01 10^3/uL (0.00-0.03); Immature Granulocytes Pct Auto 0.1 % (0.0-0.5); Lymphocytes Absolute Auto 1.9 10^3/uL (1.2-3.8); Mean Corpuscular HGB Conc 34.0 g/dL (29.9-35.2); Mean Corpuscular Hemoglobin 30.0 pg (26.7-34.0); Mean Corpuscular Volume 88.4 fL (81.0-99.0); Platelet Count 276 10^3/uL (150-450); Red Blood Count 4.73 10^6/uL (4.20-5.40); White Blood Count 7.3 10^3/uL (4.0-11.0)
--- NOTE | 2025-08-19 10:30 | PM.ONB ---
Brief Operative Note Date of procedure: 08/19/25 Pre-op diagnosis general: desires sterilization Post-op diagnosis: same as pre-op Procedure: NAME OF PROCEDURE: robotic assisted bilateral laparoscopic salpingectomy PROCEDURE: The patient was taken back to the Operating Room where she was given general anesthesia without difficulty. She was then prepped and draped in the normal sterile fashion after being placed in a dorsal lithotomy position. A wet sponge stick was placed into the patient's vagina. Attention was then turned to the patient's abdomen, where a scalpel was used to make a small infraumbilical incision. The S retractors were then used to dissect the underlying layers until the fascia could be seen. The fascia was then grasped with Rosa clamps and tented up. A knife was then used to make a small incision to the fascia. The muscle was identified, at that time two sutures of #0 Vicryl on a GI needle was then used and placed through the fascia. the peritoneum was then identified and entered bluntly. The 10-4 Cari was then placed into the patient's abdomen. This was confirmed with direct visualization of the bowel, using the laparoscope. The patient's abdomen was then insufflated using approximately 4 liters of CO2 gas. Survey of the patient's abdomen demonstrated ovaries were normal in appearance as well as both tubes and uterus. A second and third rt and lt lateral robotic ports which were 8 mm in size, was then placed after the skin incision was made under direct visualization . the robotic arms were engaged. The patient's tube on the patient's right side was identified and tented up using a grasper, the ligasure apparatus was then used to come across the mesosalpingx from the fimbriated end to the insertion site at the uterus, the tube was then amputated and removed in its entirety. This was done on the contralateral side. The tubes were the removed from the patients abdomen. Excellent hemostasis was noted. The lateral ports were then moved under direct visualization with excellent hemostasis. All instruments were removed from the patient's abdomen. The fascia was closed using the #0 Vicryl on GI needle. The skin was closed using 4-0 Vicryl subcuticularly. All instruments were removed from the patient's vagina as well. The patient was taken out of the dorsal lithotomy position and placed in the supine position and taken to recovery in stable condition. Sponge, lap and needle counts were correct x2. Anesthesia: JT Surgeon: Buzz Deng Electrogalvanizing Machine Operator: Meliza Masterson Estimated blood loss (mL): 5 Pathology: other (tubes) Condition: stable Disposition: PACU Urinary Catheter Management Urinary Catheter Management Urethral: Cath placed during this visit: no
[2025-08-19] MEDS: HYDROCODONE/ACET 5-325 MG TABLET 1 TAB PO (11:29)
== END 2025-08-19 12:36 | disposition home or self-care (01) ==
LOC: SURGOUT 07:28
PROVIDERS: Visit Provider Obstetrics & Gynecology
PROC: (CPT 840; principal; 2025-08-19 08:45)
DX: Z30.2 Encounter for sterilization (principal); Z98.84 Bariatric surgery status; Z87.891 Personal history of nicotine dependence; K21.9 Gastro-esophageal reflux disease without esophagitis; D68.51 Activated protein C resistance; F41.9 Anxiety disorder, unspecified; F31.9 Bipolar disorder, unspecified; F43.10 Post-traumatic stress disorder, unspecified
CPT/HCPCS: 58661; 36415; 84702; 85025; J1100; J1885; J2250; J2405; J2704; J3010